=== PATIENT | female | born 1985 | race Caucasian/White ===

== ENCOUNTER 2024-01-26 06:54 | Observation (INO) | payer OTHER, SELFPAY ==
[2024-01-26] VITALS (70 sets, daily range): BP systolic 85–120; BP diastolic 50–69; PULSE 68–96; TEMP 36.2–36.9; O2SAT 84–100; BMI 38.3
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
[2024-01-26 07:26] LABS: Bilirubin Urine NEGATIVE (NEGATIVE); Blood Urine NEGATIVE (NEGATIVE); Clarity Urine CLEAR (CLEAR); Color Urine LT. YELLOW (YELLOW); Glucose Urine UA NEGATIVE (NEGATIVE); Ketones Urine NEGATIVE (NEGATIVE); Leukocyte Esterase Urine MODERATE (NEGATIVE); Nitrite Urine NEGATIVE (NEGATIVE); Protein Urine NEGATIVE (NEG/TRACE); Specific Gravity Urine 1.025 (1.005-1.025); Urobilinogen Urine 0.2 EU/dL (0.2-1.0); pH Urine 6.5 (5.0-9.0)
[2024-01-26 07:30] LABS: Urine Microscopic Indicated YES
[2024-01-26 07:37] LABS: Cast Seen? NONE SEEN #/LPF (NONE SEEN); Crystals Seen? None Seen #/HPF (None Seen); Mucus Urine MODERATE (NONE SEEN); RBC Urine 0-2 #/HPF (0-2); Squamous Epithelial Cell Urine MODERATE #/LPF (NONE/RARE)
[2024-01-26 07:38] LABS: Bacteria Urine SMALL #/HPF (NONE SEEN); Urine Culture Indicated YES
[2024-01-26] MEDS: ACETAMINOPHEN 500 MG TABLET 1000 MG PO ×3 (08:16→23:48)
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
[2024-01-26] MEDS: NALBUPHINE HCL 10 MG/ML AMPULE IM (10:32)
[2024-01-26] MEDS: ONDANSETRON 4 MG RAPDIS TABLET 8 MG SL (10:32)
--- NOTE | 2024-01-26 11:10 | US_ITS ---
[address] [address] Patient Name: VENANCIO MOON MRN: [id number] date: 1985 Sex: F Assigned Patient Location: [facility] Current Patient Location: [facility] Accession/Order Number: [id number] Exam Date: 01/26/2024 18:55 Report Date: 01/26/2024 21:35 At the request of: KATARZYNA BORREGO Procedure: US OB cervical length Limited TRANSVAGINAL PELVIC SONOGRAPHY FOR CERVICAL LENGTH, 01/26/2024 6:55 PM EST. CLINICAL HISTORY: check previa COMPARISON: None FINDINGS: Visualized head is in a cephalic presentation with longitudinal lie. Normal active movement during imaging. The cervix is closed with a length of 4 cm. There is a low lying placenta approximately 1.6 cm from the internal cervical os. US/US OB cervical length IMPRESSION: 1. Low-lying placenta 1.6 cm from the internal cervical os. 2. The cervix is closed with a length of 4 cm. 3. Live intrauterine in a cephalic presentation with longitudinal lie. Electronically authenticated by: Meng CAMPA Date: 01/26/2024 21:35
[2024-01-26] MEDS: 0.9 % SODIUM CHLORIDE 1,000 ML 75 ML IV ×2 (11:42→18:51)
--- NOTE | 2024-01-26 11:47 | ECG_ITS ---
[facility] Test Date: 2024-01-26 Pat Name: VENANCIO MOON Department: Room: [facility] Gender: Female Production Internship: : 1985 Requested By: KATARZYNA BORREGO Order Number: [id number] Reading MD: JULIOCESAR ORTIZ Measurements Intervals [place] Rate: 80 P: 67 LA: 113 QRS: 52 QRSD: 84 T: 44 QT: 414 QTc: 479 Interpretive Statements SINUS RHYTHM WITH SHORT LA INTERVAL No previous ECG available for comparison Electronically Signed On 01-26-2024 16:45:49 EST by JULIOCESAR ORTIZ
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
[2024-01-26] MEDS: LORAZEPAM 2 MG/ML VIAL 1 MG IV (12:31)
[2024-01-26] MEDS: MAGNESIUM-BOLUS FROM THE BAG- 40 GM/1,000 ML IV.SOLN IV (12:38)
[2024-01-26 12:45] LABS: Basophils Percent Auto 0.2 % (0.2-2.0); Eosinophils Percent Auto 0.4 % (0.9-7.0); Hematocrit 34.3 % (36.0-48.0); Hemoglobin 11.9 g/dL (12.0-16.0); Immature Granulocytes Abs Auto 0.02 10^3/uL (0.00-0.03); Immature Granulocytes Pct Auto 0.2 % (0.0-0.5); Lymphocytes Absolute Auto 1.6 10^3/uL (1.2-3.8); Lymphocytes Percent Auto 18.6 % (20.5-60.0); Mean Corpuscular HGB Conc 34.7 g/dL (29.9-35.2); Mean Corpuscular Hemoglobin 30.1 pg (26.7-34.0); Mean Corpuscular Volume 86.8 fL (81.0-99.0); Mean Platelet Volume 10.3 fL (9.5-13.5); Monocytes Absolute Auto 0.5 10^3/uL (0.3-0.8); Monocytes Percent Auto 6.4 % (1.7-12.0); Neutrophils Absolute Auto 6.2 10^3/uL (1.4-6.5); Neutrophils Percent Auto 74.2 % (43.0-75.0); Platelet Count 156 10^3/uL (150-450); Red Blood Count 3.95 10^6/uL (4.20-5.40); Red Cell Distribution Width 12.2 % (11.0-15.0); White Blood Count 8.3 10^3/uL (4.0-11.0)
[2024-01-26] MEDS: MAGNESIUM SULFATE IN WATER 40 GM/1,000 ML IV.SOLN IV (12:59)
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
[2024-01-26 13:03] LABS: Alanine Aminotransferase 16 U/L (14-59); Albumin Globulin Ratio 0.6; Albumin Level 2.4 g/dL (3.4-5.0); Alkaline Phosphatase 66 U/L (46-116); Anion Gap 15.9; Aspartate Amino Transferase 13 U/L (15-37); BUN Creatinine Ratio 9.5; Bilirubin Total 0.3 mg/dL (0.2-1.0); Calcium 8.3 mg/dL (8.5-10.1); Carbon Dioxide 22.8 mmol/L (21.0-32.0); Chloride 105 mmol/L (98-107); Estimated GFR (African America >60 (>=60 mL/min/1.73m^2); Estimated GFR (Non-African Ame >60 (>=60 mL/min/1.73m^2); Globulin 3.7 g/dL; Glucose 94 mg/dL (74-106); Potassium 3.7 mmol/L (3.5-5.1); Sodium 140 mmol/L (136-145); Total Protein 6.1 g/dL (6.4-8.2)
[2024-01-26] MEDS: ONDANSETRON PF 4 MG/2 ML VIAL IV (14:00)
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
[2024-01-26 15:39] LABS: Amphetamine Screen Urine NEGATIVE (NEGATIVE); Barbiturates Screen Urine NEGATIVE (NEGATIVE); Benzodiazepines Screen Urine NEGATIVE (NEGATIVE); Buprenorphine Screen Urine NEGATIVE (NEGATIVE); Cannabinoid Screen Urine NEGATIVE (NEGATIVE); Cocaine Screen Urine NEGATIVE (NEGATIVE); Methadone Screen Urine NEGATIVE (NEGATIVE); Methamphetamines Screen Urine NEGATIVE (NEGATIVE); Opiate Screen Urine NEGATIVE (NEGATIVE); Oxycodone Screen Urine NEGATIVE (NEGATIVE); Phencyclidine Screen Urine NEGATIVE (NEGATIVE); Tricyclic Antidepressant Urine NEGATIVE (NEGATIVE)
--- NOTE | 2024-01-26 15:41 | PC.NURSE ---
1121- RN at bedside and adjusts US transducer. Patient continues to c/o headache, nausea, and dizziness. Patient pale and diaphoretic. Cool wash rag provided, RN providing reassurance, and emesis bag provided. 1127- Dr. Vazquez called and notified of persistent headache, nausea and dizziness. Orders received to obtain IV access, start NS 0.9% bolus, and if patient willing Phenergan 12.5mg IV x1 dose. Dr. Vazquez arrives to unit from surgery. 1130- RN to bedside. Upon entering room patient actively convulsing and unresponsive. Assistance requested. Dr. Vazquez and RN x3 to bedside. Patient already on right side, RN supporting patient airway and protecting patient from injury. 1131-Dr. Vazquez orders to administer Ativan 1mg IV now, obtain 12 lead EKG, continuous vital signs with [place] and ECHO. Order read back and verified. 1132- 20g IV RAC access obtained and NS 0.9% initiated at 999mL/hr. 1133- Seizure activity resolved at this time. Oriented x3 but drowsy. Dr. Vazquez and RN x3 remain at bedside. Orders given to hold Ativan administration. Order read back and verified. 1145- EKG patches, BP cuff, and continuous SpO2 applied to monitor patient vital signs continuously per physician order. Seizure pads applied to bed and lights dimmed. 1150- Cardiopulmonary services at bedside to obtain 12 lead EKG. RN remains at bedside. 1203- 2L O2 initiated via non-rebreather mask for Spo2 of 92% on RA. 1230- Seizure activity noted. RN at bedside and assistance requested. RN x3 arrive to bedside. RN supporting airway and protecting patient from injury. 1231- Dr. Vazquez in surgery and called back over to bedside. Ativan 1mg administered per Dr. Vazquez?s orders. Dr. Vazquez orders to initiate Mag sulfate 2gm bolus followed by 2gm/hr dose via IV, place champagne catheter, Valium 5mg IV prn, and CT scan of head/brain. 1233- Seizure activity resolved at this time. Patient slow to respond. Oriented x3 but drowsy. 1238- Magnesium Sulfate 2gm bolus initiated per MAY. 1239- 20g IV L hand initiated. Labs drawn with IV start. 1300- Family of patient updated with patient consent. 1328- Patient downstairs for CT scan. 1345- Patient back to room from CT scan. [id number]: This RN remains at bedside throughout this time. Continuous monitoring continued.
[2024-01-26] MEDS: PROMETHAZINE HCL 12.5 MG in 0.9 % SODIUM CHLORIDE 50 ML 202 MG IV (17:13)
[2024-01-26] MEDS: CYCLOBENZAPRINE HCL 10 MG TABLET 5 MG PO (23:49)
[2024-01-27 05:12] VITALS: BP 70/47
[2024-01-27 05:14] VITALS: BP 75/37
--- NOTE | 2024-01-27 05:23 | PC.NURSE ---
Pt denies need for pain medication at this time.
--- NOTE | 2024-01-27 07:10 | W.PC.ACHO ---
Registration Status: ADM MALICK Primary Language: Preferred Language: Report given to Mónica MERCADO at 1907. Active Medications Generic Name Dose Route Start Last Admin Trade Name Freq PRN Reason Stop Dose Admin Acetaminophen 1,000 mg 01/26/24 08:01 01/26/24 23:48 Acetaminophen 500 Mg Tablet PO 1,000 mg Q6H PRN Administration Pain Calcium Gluconate 1,000 mg 01/26/24 12:41 Calcium Gluconate 1,000 Mg/10 Ml Vial IVP ONCE PRN MAGNESIUM TOXICITY Cyclobenzaprine HCl 5 mg 01/26/24 20:44 01/26/24 23:49 Cyclobenzaprine Hcl 10 Mg Tablet PO 5 mg TID PRN Administration Pain Diazepam 5 mg 01/26/24 12:20 Diazepam 10 Mg/2 Ml Syringe IV Q4H PRN Seizure Activity Sodium Chloride 1,000 mls @ 75 mls/hr 01/26/24 13:00 01/26/24 19:45 Sodium Chloride 0.9% 1,000 Ml IV 0 mls/hr .[id number] [facility] Infusion Magnesium Sulfate 40 gm in 1,000 mls @ 50 mls/hr 01/26/24 13:00 01/26/24 19:00 Magnesium Sulf 40 G/1,000 Ml IV 0 mls/hr Q20H [facility] Infusion Lorazepam 1 mg 01/26/24 12:09 01/26/24 12:31 Lorazepam 2 Mg/Ml Vial IV 1 mg Q10M PRN Administration Anxiety Ondansetron HCl 4 mg 01/26/24 12:20 01/26/24 14:00 Ondansetron Pf 4 Mg/2 Ml Vial IV 4 mg Q4H PRN Administration Nausea IV Insertion/Site Date of IV Line Insertion [ 01/26/24 Short PIV (<1.75 in) 20g left Hand] Date of IV Line Insertion [ 01/26/24 Short PIV (<1.75 in) 20g right Antecubital] IV Insertion Time [Short PIV ( 12:39 <1.75 in) 20g left Hand] IV Insertion Time [Short PIV ( 11:32 <1.75 in) 20g right Antecubital] Neurology Madi coma scale total score 15 Respiratory Pulse Oximetry 96 Pulse Oximetry 96 Pulse Oximetry 96 Pulse Oximetry 100 Pulse Oximetry 100 Pulse Oximetry 100 Pulse Oximetry 100 Pulse Oximetry 100 Pulse Oximetry 99 Pulse Oximetry 100 Pulse Oximetry 94 Pulse Oximetry 92 Pulse Oximetry 84 Pulse Oximetry 99 Pulse Oximetry 99 Pulse Oximetry 100 Pulse Oximetry 99 Pulse Oximetry 99 Pulse Oximetry 98 Pulse Oximetry 100 Pulse Oximetry 100 Pulse Oximetry 100 Pulse Oximetry 99 Pulse Oximetry 100 Pulse Oximetry 99 Pulse Oximetry 99 Pulse Oximetry 97 Pulse Oximetry 100 Pulse Oximetry 100 Pulse Oximetry 100 Pulse Oximetry 100 Pulse Oximetry 100 Pulse Oximetry 99 Pulse Oximetry 100 Pulse Oximetry 99 Pulse Oximetry 100 Pulse Oximetry 99 Pulse Oximetry 99 Pulse Oximetry 97 Pulse Oximetry 98 Pulse Oximetry 99 Pulse Oximetry 97 Pulse Oximetry 93 Pulse Oximetry 97 Pulse Oximetry 97 Pulse Oximetry 98 Pulse Oximetry 97 Pulse Oximetry 96 Pulse Oximetry 97 Pulse Oximetry 99 Pulse Oximetry 98 Pulse Oximetry 97 Pulse Oximetry 98 Pulse Oximetry 98 Pulse Oximetry 96 Pulse Oximetry 97 Pulse Oximetry 96 Pulse Oximetry 97 Pulse Oximetry 97 Pulse Oximetry 98 Pulse Oximetry 98 Pulse Oximetry 95 Pulse Oximetry 96 Pulse Oximetry 96 Oxygen Delivery Method Room Air Oxygen Delivery Method Room Air Oxygen Delivery Method Room Air Oxygen Delivery Method Room Air Cardiology Heart Sounds Strong,Regular Heart Sounds Strong,Regular Heart Sounds Strong,Regular Bowels Bowel Pattern No Bowel Movement
--- NOTE | 2024-01-27 08:13 | PM.OBPN ---
OB - PN: Subj Subjective Patient comments: no complaints and pain well controlled [place] status: doing well Exam Constitutional Vital Signs, click to edit/add: Last Vital Signs Temp 97.1 F L 01/26/24 23:45 Pulse 75 01/26/24 23:47 Resp 14 01/27/24 05:00 BP 75/37 L 01/27/24 05:14 Pulse Ox 96 01/26/24 23:47 O2 Del Method Room Air 01/27/24 05:00 Documenting provider has reviewed patient's vital signs: yes Respiratory Common normals: normal respiratory effort and clear to auscultation bilaterally Cardio Common normals: regular rate and regular rhythm GI Common normals: Normal to inspection, nondistended, normoactive bowel sounds present Extremity Common normals: no clubbing, cyanosis or edema Results Labs Labs: Short CBC 01/26/24 Range/Units 12:40 WBC 8.3 (4.0-11.0) 10^3/uL Hgb 11.9 L (12.0-16.0) g/dL Hct 34.3 L (36.0-48.0) % Plt Count 156 (150-450) 10^3/uL BMP 01/26/24 12:40 Sodium 140 Potassium 3.7 Chloride 105 Carbon Dioxide 22.8 BUN 8.0 Creatinine 0.84 Glucose 94 Calcium 8.3 L Liver Function 01/26/24 Range/Units 12:40 Total Bilirubin 0.3 (0.2-1.0) mg/dL AST 13 L (15-37) U/L ALT 16 (14-59) U/L Alkaline Phosphatase 66 (46-116) U/L Albumin 2.4 L (3.4-5.0) g/dL OB - PN: A/P Assessment and Plan (1) New onset seizure without head trauma: Assessment and Plan: pt doing well, will dc home, pt will follow up with primary ob, will obtain neurology referral, labs and ultrasound and ct scan reviewed (2) POTS (postural orthostatic tachycardia syndrome): (3) Vasovagal syncope: (4) Intrauterine : Time Spent with Patient Time: Total time spent is greater than 50% in coordination of care (as documented) at patient's floor/unit and/or counseling patient: Total time spent with greater than 50% in coordination of care (as documented) at patient's floor/unit and/or counseling patient: less than 15 minutes
[2024-01-27 08:25] VITALS: BP 104/58; PULSE 71; TEMP 36.4; O2SAT 97
[2024-01-27] MEDS: ACETAMINOPHEN 500 MG TABLET 1000 MG PO (08:29)
== END 2024-01-27 10:45 | disposition home or self-care (01) ==
LOC: ER 07:30 → FBC 07:32
PROVIDERS: Family Medicine; Midwife; Admitting Provider Obstetrics & Gynecology; Emergency Provider Emergency Medicine; Visit Provider Obstetrics & Gynecology
DX: O26.892 Other specified pregnancy related conditions, second trimester (principal); R55 Syncope and collapse; O99.352 Diseases of the nervous system complicating pregnancy, second trimester; G90.A Postural orthostatic tachycardia syndrome [POTS]; Z3A.26 26 weeks gestation of pregnancy
CPT/HCPCS: 36415; 51702; 59025; 70450; 76815; 76817; 76818; 80053; 80307; 81001; 85025; 85460; 87086; 93005; 93308; 96365; 96366; 96368; 96372; 96375; 96376; 99283; G0378; J2060; J2250; J2300; J2405; J3475; Q0162

== ENCOUNTER 2024-03-28 20:36 | Inpatient (IN) | payer OTHER, SELFPAY ==
--- OUTSIDE RECORDS SUMMARY | 2024-03-28 20:42 | XMS_ITS | CCD ---
Author Organization [facility] Inform ion Partnership [facility] Care Team Providers Care Patient Scheduler Name Role Phone STEPHAN YORK Unavailable Unavailable STEPHAN YORK Unavailable Unavailable SAV BUCHANAN Unavailable Unavailable INDURTI, GLORIA V Admitting Unavailable KENURTI, GLORIA V Attending Unavailable ALLEN GARY Referring Unavailable SAV BUCHANAN Primary Care Unavailable Unavailable Unavailable Unavailable Sav Buchanan Primary Care Provider AUSTIN PINEDA Attending Unavailable HARDY ROLLE Admitting Unavailable SELF, REFERRED Referring Unavailable SELF, REFERRED Primary Care Unavailable Malu Gomes Primary Care Provider Pcp, No Primary Care Provider Unavailford e Sav Buchanan MD Primary Care Provider Dennis ZARCO Stephanie PUGH Primary Care Provide r MD JOSEPH RIOJAS Consulting Unav ailable JANICE MARIE Attending Unavailable SAV BUCHANAN Primary Care Unavailable SAV BUCHANAN Consulting Unavailable Unknown, Pcp Unavailable Unavailable Michael Spencer Unavailable Unavailable Sav Buchanan MD Primary Care Provider Stephanie Olguin APRN, CNP Primary Care Provide r Sav Buchanan MD Primary Care Provider [phone] LENA JO Attending Unavailable BRENDA YORK Referring Unavailable SAV BUCHANAN Primary Care Unavailable LAMONT SMITH Attending Unavailable BRENDA YORK Referring Unavailable SAV BUCHANAN Primary Care Unavailable BRENDA YORK Attending Unavailable BRENDA YORK Referring Unavailable SAV BUCHANAN Primary Care Unavailable BRENDA YORK Attending Unavailable SELF, SELF Referring Unavailable SAV BUCHANAN Primary Care Unavailable LAMONT SMITH Attending Unavailable BRENDA YORK Referring Unavailable GASE, SAV Primary Care Unavailable LAMONT SMITH Attending Unavailable BRENDA YORK Referring Unavailable SAV BUCHANAN Primary Care Unavailable MD Sav Buchanan Primary Care Provider ISABEL Tsang Emergency Provider [phone] Sav Buchanan MD Primary Care Provider Sav Buchanan MD Primary Care Provider Sav Buchanan MD Primary Care Provider MD Sav Buchanan Primary Care Provider [phone] DO Ignacio Nielsen Jr Attending Provider [phone] Jah Rene Unavailable MD Sav Buchanan Primary Care Provider DO Nader Arroyo Attending Provider Sav Buchanan Primary Care Unavailable Arie Tsang Admitting Unavailable Arie Tsang Attending Unavailable Ignacio Nielsen Jr Admitting Unavailable Ignacio Nielsen Jr Attending Unavailable Sav Buchanan Primary Care Unavailable Nader Arroyo Admitting Unavailable Nader Arroyo Attending Unavailable Sav Buchanan Primary Care Unavailable MD Sav Buchanan [facility] Grace Thornton Emergency Provider MD Sav Buchanan Primary Care Provider MD Nga Garcia Emergency Provider MD Ranulfo Ghotra Admit Provider [phone] MD Ranulfo Ghotra Attending Provider [phone] Parrish Flores MD Primary Care Provider [phone] Sav Buchanan MD Primary Care Provider Nga Garcia MD Emergency Provider Ranulfo Ghotra MD Attending Provider ZaidPsychiatric Nader KAMARA Attending Provider Unavailable Primary Care Provider UnavailSav Atkins MD Primary Care Provider Sonia Padilla APRN Attending Provider [phone] NO FAMILY, PHYSICIAN Primary Care Provider Unava ilAgatha Sol DO Attending Provider Sav Buchanan Primary Care Unavailable [facility], Nader P Attending Unavailable [facility], Nader P Admitting Unavailable Sav Buchanan Primary Care Unavailable Ranulfo Ghotra Attending Unavailable Ranulfo Ghotra Admitting Unavailable Agatha Bowling Admitting Unavailable Agatha Bowling Attending Unavailable NO FAMILY, PHYSICIAN Primary Care Unavailable Sav Buchanan Primary Care Unavailable Bullimore, Mary Grace E Attending Unavailable Bullimore, Mary Grace E Admitting Unavailable Sonia Padilla Admitting Unavailable Sonia Padilla Attending Unavailable ANTONIO GE Attending Unavailable SECOR, PARRISH W Primary Care Unavailable STEPHAN YORK Admitting Unavailabl e MP, STEPHAN MICHAEL Attending Unavailabl e SECOR, PARRISH W Primary Care Unavailable STEPHAN YORK Admitting Unavailabl STEPHAN Major Attending Unavailabl e SECOR, PARRISH W Primary Care Unavailable MENDOZA, GERARDO E Admitting Unavailable MENDOZA GERARDO E Attending Unavailable SECOR, PARRISH W Primary Care Unavailable MARIANA GARZA Referring Unavail able SECOR, PARRISH W Primary Care Unavailable FIFI, JUSTEEN Referring Unavailable SECOR, PARRISH W Primary Care Unavailable MARIANA GARZA Referring Unavail able SECOR, PARRISH W Primary Care Unavailable MARIANA GARZA Referring Unavail able SECOR, PARRISH W Primary Care Unavailable MARIANA GARZA Referring Unavail able SECOR, PARRISH W Primary Care Unavailable POOL, AGATHA E Admitting Unavailable MARIANA GARZA Attending Unavail able SECOR, PARRISH W Primary Care Unavailable FIFI, JUSTEEN Admitting Unavailable FIFI, JUSTEEN Attending Unavailable SECOR, PARRISH W Primary Care Unavailable D'ABREAU ARTEM Admitting Unavailable D'ABREAU ARTEM Attending Unavailable SECOR, PARRISH W Primary Care Unavailable POOL, AGATHA E Admitting Unavailable POOL, AGATHA E Attending Unavailable SECOR, PARRISH W Primary Care Unavailable D'ABREAU, ARTEM Admitting Unavailable D'ABREAUARTEM Attending Unavailable SECOR, PARRISH W Primary Care Unavailable ANTONIO GE Attending Unavailable PARRISH FLORES Primary Care Unavailable Allergies Allergy Classification Reported Allergen(s) Allergy Type Date of Onset Reaction(s) Facility Acetaminophen / HYDROcodone (3 sources) Acetaminophen / HYDROcodone Drug Allergy 3 Nausea And Vomiting [facility] (20 sources) Acetaminophen / HYDROcodone Drug Allergy 3 Nausea And Vomiting [facility] Work Phone: (1 source) Acetaminophen / HYDROcodone; Translations: [Vicodin] Drug Allergy [facility] [place] Repository Medications Current Medications Medication Drug Class(es) Dates Sig (Normalized) Sig (Original) albuterol sulfate HFA 108 (90 Base) MCG/ACT inhaler 6 puff (1 source) Start: 12-13-2019 albuterol sulfate HFA 108 (90 Base) MCG/ACT inhaler 6 puff ALPRAZolam 0.25 mg oral tablet (20 sources) Benzodiazepine Start: 08-05-2021 End: 02-06-2024 take 1 tablet by mouth once daily as needed for anxiety ALPRAZolam (XANAX) 0.25 MG tablet TAKE 1 TABLET BY ORAL ROUTE UP TO ONCE DAILY NEEDED FOR ACUTE ANXIETY 08/05/2021 02/06/2024 Discontinued (Stop Taking at Discharge) Start: 01-28-2021 ALPRAZolam (XA NAX) 0.25 MG tablet as needed. 0 01/28/2021 Active Start: 03-13-2019 End: 03-13-2019 ALPRAZolam (XANAX) tablet 0. 5 mg Start: 06-13-2018 ALPRAZolam (XA NAX) 0.25 MG tablet Xanax Active amoxicillin 875 mg oral tablet (1 source) Penicillin-class Antibacterial Start: 01-06-2023 take 1 tablet by mouth every twelve hours Amoxicillin 875 MG 1 tablet Orally Twice a day for 10 day(s) Jan, Active benzonatate 200 mg oral capsule (1 source) Non-narcotic Antitussive Start: 01-06-2023 take 1 capsule by mouth every eight hours Benzonatate 200 MG 1 capsule Orally Three times a day for 10 Jan, Active 12 hr buPROPion hydrochloride 150 mg extended release oral tablet (1 source) Aminoketone take 1 tablet by mouth twice daily buPROPion (WELLBUTRIN SR) 150 MG extended release tablet Take 150 mg by mouth 2 times daily 0 Active busPIRone hydrochloride 30 mg oral tablet (15 sources) Start: 09-02-2021 busPIRone (BUSPAR) 30 MG tablet Start: 09-29-2020 take 1 tablet by courtney once daily busPIRone (BUSPAR) 30 MG tablet Take 30 mg by mouth daily 0 09/29/2020 Active Start: 03-15-2019 take 3 tablets by mo [facility] twice daily busPIRone (BUSPAR) 10 MG tablet Take 3 tablets by mouth 2 times daily 60 tablet 0 03/15/2019 Active take 1 tablet by courtney twice daily busPIRone (BUSPAR) 10 MG tablet Take 10 mg by mouth 2 times daily 0 Active cefdinir 300 mg oral capsule (2 sources) Cephalosporin Antibacterial Start: 12-22-2023 End: 12-29-2023 take 1 capsule by mouth twice daily cefdinir (OMNICEF) 300 MG capsule Take 1 capsule by mouth 2 times daily for 7 days 14 capsule 12/22/2023 12/29/2023 Active Start: 12-22-2023 End: 12-22-2023 take 1 dose by mouth once 300 mg, Oral, ONCE, 1 dose, On Yana 12/22/23 at 1100, Antimicrobial Indications: Urinary Tract Infection cloNIDine hydrochloride 0.2 mg oral tablet (14 sources) Central alpha-2 Adrenergic Agonist Start: 08-04-2021 cloNIDine (CATAPRES) 0.2 MG tablet 0.2 mg as needed 0 09/02/2021 Active take 1 tablet by mouth twice greg ly cloNIDine (CATAPRES) 0.2 MG tablet Take 0.2 mg by mouth 2 times daily 0 Active codeine phosphate 2 mg/ml / guaiFENesin 20 mg/ml oral solution (1 source) Opioid Agonist Start: 12-13-2019 End: 12-16-2019 take 5 mL by mouth three times daily as needed for cough guaiFENesin-codeine (GUAIFENESIN AC) 100-10 MG/5ML liquid Indications: Acute viral bronchitis Take 5 mLs by mouth 3 times daily as needed for Cough for up to 3 days. 45 mL 0 12/13/2019 12/16/2019 Active 24 hr dilTIAZem hydrochloride 120 mg extended release oral capsule (1 source) Calcium Channel Maia Start: 09-02-2021 dilTIAZem (CARDIZEM CD) 120 MG extended release capsule doxepin hydrochloride 10 mg oral capsule (3 sources) Tricyclic Antidepressant Start: 03-15-2019 take 1 capsule by mouth once daily doxepin (SINEQUAN) 10 MG capsule Take 1 capsule by mouth nightly 30 capsule 0 03/15/2019 Active doxycycline hyclate 100 mg oral tablet (2 sources) Tetracycline-class Drug Start: 10-09-2020 End: 10-16-2020 take 1 tablet by mouth twice daily at mealtime doxycycline hyclate (VIBRA-TABS) 100 MG tablet Indications: Cellulitis of face Take 1 tablet by mouth 2 times daily for 7 days . Take with food and full glass of water. 14 tablet 0 10/09/2020 10/16/2020 Active escitalopram 20 mg oral tablet (15 sources) Serotonin Reuptake Inhibitor Start: 03-20-2022 escitalopram (LEXAPRO) 20 MG tablet Start: 03-16-2019 take 1 tablet by courtney th once daily escitalopram (LEXAPRO) 10 MG tablet Take 1 tablet by mouth daily 30 tablet 0 03/16/2019 Active Start: 02-07-2018 take 1 tablet by courtney th once daily escitalopram (LEXAPRO) 5 MG tablet 1 tabs, Oral, Daily, 0 Refill(s) 0 02/07/2018 Active 120 actuat fluticasone propionate 0.044 mg/actuat metered dose inhaler (2 sources) Corticosteroid Start: 01-19-2021 take 2 puff(s) by inhalation twice daily fluticasone (FLOVENT HFA) 44 MCG/ACT inhaler Inhale 2 puffs into the lungs 2 times daily 1 each 3 01/19/2021 Active gabapentin 300 mg oral capsule (18 sources) Anti-epileptic Agent Start: 08-04-2021 gabapentin (NEURONTIN) 300 MG capsule 300 mg 3 times daily. Pt. Takes PRN 0 09/01/2021 Active take 1 capsule by mo uth three times daily as needed gabapentin (NEURONTIN) 300 MG capsule Ta ke 300 mg by mouth 3 times daily. prn 0 Active ibuprofen 600 mg oral tablet (11 sources) Nonsteroidal Anti-inflammatory Drug Start: 02-09-2023 End: 02-06-2024 take 1 tablet by mouth three times daily as needed for pain ibuprofen (ADVIL;MOTRIN) 600 MG tablet Take 1 tablet by mouth 3 times daily as needed for Pain 30 tablet 02/09/2023 02/06/2024 Discontinued (Stop Taking at Discharge) Start: 09-30-2021 ibuprofen (ADV IL;MOTRIN) 800 MG tablet take 4 tablets by mo uth every six hours as needed for pain ibuprofen (ADVIL;MOTRIN) 200 MG tablet Take 800 mg by mouth every 6 hours as needed for Pain 0 Active metFORMIN hydrochloride 500 mg oral tablet (6 sources) Biguanide Start: 03-03-2023 take 1 tablet by mouth twice daily at mealtime metFORMIN (GLUCOPHAGE) 500 MG tablet Indications: PCOS (polycystic ovarian syndrome) Take 1 tablet by mouth 2 times daily (with meals) 60 tablet 12 03/03/2023 Active Start: 07-01-2022 take 1 tablet by courtney th twice daily at mealtime metFORMIN (GLUCOPHAGE) 500 MG tablet Indications: PCOS (polycystic ovarian syndrome) Take 1 tablet by mouth 2 times daily (with meals) 60 tablet 12 07/01/2022 Active midodrine hydrochloride 10 mg oral tablet (2 sources) alpha-Adrenergic Agonist Start: 02-12-2021 take 1 tablet by mouth twice daily midodrine (PROAMATINE) 10 MG tablet Indications: Syncope and collapse , POTS (postural orthostatic tachycardia syndrome) , Abnormal tilt table test , Neurocardiogenic syncope Take 1 tablet by mouth 2 times daily 180 tablet 3 02/12/2021 Active mupirocin 0.02 mg/mg topical ointment (2 sources) RNA Synthetase Inhibitor Antibacterial Start: 10-09-2020 End: 10-16-2020 mupirocin (BACTROBAN) 2 % ointment Apply topically 3 times daily. 1 Tube 1 10/09/2020 10/16/2020 Active nitrofurantoin, macrocrystals 25 mg / nitrofurantoin, monohydrate 75 mg oral capsule (5 sources) Nitrofuran Antibacterial Start: 02-06-2024 End: 02-11-2024 take 1 capsule by mouth twice daily nitrofurantoin, macrocrystal-monohyd rate, (MACROBID) 100 MG capsule Take 1 capsule by mouth 2 times daily for 5 days 10 capsule 02/06/2024 02/11/2024 Active Start: 02-06-2024 End: 02-06-2024 100 mg, Oral, ONCE, 1 dose, On 02/06/24 at 0845, Antimicrobial Indications: Urinary Tract Infection, UTI duration of therapy: 7 days Start: 01-17-2024 End: 01-22-2024 take 1 capsule by mouth twice daily nitrofurantoin, macrocrystal-monohydrate, (MACROBID) 100 MG capsule Take 1 capsule by mouth 2 times daily for 5 days 10 capsule 01/17/2024 01/22/2024 Active Start: 12-29-2023 End: 01-05-2024 take 1 capsule by mouth twice daily nitrofurantoin, macrocrystal-monohydrate, (MACROBID) 100 MG capsule Indications: Cloudy urine Take 1 capsule by mouth 2 times daily for 7 days 14 capsule 12/29/2023 01/05/2024 Active nitroglycerin 0.3 mg sublingual tablet (1 source) Nitrate Vasodilator Start: 01-08-2021 nitroGLYCE RIN (NITROSTAT) SL tablet 0.3 mg nystatin 100 unt/mg topical ointment (8 sources) Polyene Antifungal Start: 02-19-2024 KLAYESTA 10 0000 UNIT/GM powder 02/19/2024 Active Start: 02-19-2024 nystatin (MYCO STATIN) [id number] UNIT/GM ointment 02/19/2024 Active Start: 02-19-2024 Nystatin 100,0 00 unit/gram powder Active 1 APPLIC TOPICAL Twice daily as needed for rash February 19, 2024 9:12am Start: 02-19-2024 Nystatin 100,0 00 unit/gram ointment Active 1 APPLIC TOPICAL Twice daily as needed for rash February 19, 2024 9:12am omeprazole 20 mg delayed release oral capsule (3 sources) Proton Pump Inhibitor Start: 10-19-2021 take 1 capsule by mouth once daily omeprazole [address] capsule Take 1 capsule by mouth daily. 30 capsule 2 10/19/2021 Active 24 hr oxybutynin chloride 10 mg extended release oral tablet (2 sources) Cholinergic Muscarinic Antagonist Start: 08-26-2021 take 1 tablet by mouth once daily oxybutynin (DITROPAN-XL) 10 MG extended release tablet Indications: Urinary frequency TAKE 1 TABLET BY MOUTH EVERY DAY 30 tablet 5 08/26/2021 Active Start: 08-04-2021 take 1 tablet by courtney th once daily oxybutynin (DITROPAN XL) 10 mg extended release tablet Indications: Urinary frequency Take 1 tablet by mouth daily 30 tablet 5 08/04/2021 Active phentermine hydrochloride 37.5 mg oral tablet (3 sources) Sympathomimetic Amine Anorectic Start: 07-01-2022 End: 08-21-2022 take 1 tablet by mouth once daily before breakfast phentermine (ADIPEX-P) 37.5 MG tablet Indications: Obesity (BMI 35.0-39.9 without comorbidity) Take 1 tablet by mouth every morning (before breakfast) for 30 days. Max Daily Amount: 37.5 mg 30 tablet 0 07/22/2022 08/21/2022 Active Start: 08-04-2021 End: 09-03-2021 take 1 tablet by mouth once daily before breakfast phentermine (ADIPEX-P) 37.5 MG tablet Indications: Obesity, Class III, BMI 40-49.9 (morbid obesity) ([facility]) Take 1 tablet by mouth every morning (before breakfast) for 30 days. 30 tablet 0 08/04/2021 09/03/2021 Active Pnv No.[id number] sh ( Gummies) 400 mcg-35 mg- 25 mg-5 mg tablet,chewable (7 sources) Start: 11-05-2023 take 1 tablet by mouth once daily Pnv No.[id number]-Mca-Tcix ( Gummies) 400 mcg-35 mg- 25 mg-5 mg tablet,chewable Active 1 TAB PO Daily November 04, 2023 11:00pm Start: 11-05-2023 take 1 tablet by courtney th once daily Pnv No.[id number]-Ccok ( Gummies) 400 mcg-35 mg- 25 mg-5 mg tablet,chewable Active 1 TAB PO Daily November 05, 2023 12:00am prazosin 1 mg oral capsule (1 source) alpha-Adrenergic Maia Start: 02-07-2018 take 1 capsule by mouth at bedtime prazosin (MINIPRESS) 1 MG capsule 1 caps, Oral, HS (at bedtime), 0 Refill(s) 0 02/07/2018 Active Vit-Fe Fumarate-FA ( 19 PO) (10 sources) Vit-Fe Fumarate-FA ( 19 PO) Take by mouth Active propranolol hydrochloride 20 mg oral tablet (2 sources) beta-Adrenergic Maia Start: 02-09-2021 take 1 tablet by mouth once daily propranolol (INDERAL) 20 MG tablet TAKE 1 TABLET BY MOUTH EVERY DAY 30 tablet 3 02/09/2021 Active sertraline 50 mg oral tablet (4 sources) Serotonin Reuptake Inhibitor Start: 03-06-2024 take 1 tablet by mouth once daily sertraline (ZOLOFT) 50 MG tablet Take 1 tablet by mouth daily 90 tablet 1 03/06/2024 Active Start: 02-09-2024 take 1 tablet by courtney th once daily sertraline (ZOLOFT) 25 MG tablet Take 1 tablet by mouth daily 30 tablet 02/09/2024 Active 1000 ml sodium chloride 9 mg/ml injection (6 sources) Start: 01-21-2024 IntraVENous, a t 150 mL/hr, CONTINUOUS, Starting on 01/21/24 at 2215, After completion of bolus Start: 04-23-2022 End: 04-23-2022 0.9 % sodium chloride bolus Start: 12-21-2020 End: 12-21-2020 0.9 % sodium chloride bolus Start: 10-26-2020 0.9 % sodium c hloride infusion Start: 06-24-2020 End: 06-24-2020 0.9 % NaCl bolus terconazole 8 mg/ml vaginal cream (1 source) Azole Antifungal Start: 08-04-2021 End: 08-11-2021 terconazole (TERAZOL 3) 0.8 % vaginal cream Indications: Vaginal yeast infection Place vaginally nightly for 3 nights. Refill as needed for recurrent infection 1 each 3 08/04/2021 08/11/2021 Active traZODone hydrochloride 50 mg oral tablet (17 sources) Serotonin Reuptake Inhibitor Start: 08-04-2021 traZODone (DESYREL) 50 MG tablet Start: 03-15-2019 take 1 tablet by courtney th once daily as needed for sleep traZODone (DESYREL) 50 MG tablet Take 1 tablet by mouth nightly as needed for Sleep 30 tablet 0 03/15/2019 Active Completed/Discontinued Medications Medication Drug Class(es) Dates Sig (Normalized) Sig (Original) acetaminophen 500 mg oral tablet (20 sources) Start: 03-08-2024 End: 03-08-2024 take 4000 mg by mouth every twenty-four hours 1,000 mg, Oral, ONCE, 1 dose, On Yana 03/08/24 at 1315, Maximum dose of acetaminophen is 4000 mg from all sources in 24 hours. Start: 02-10-2024 1,000 mg, Oral , EVERY 8 HOURS PRN, Starting on 02/10/24 at 0918, Until Discontinued, Pain Mild (1-3), Maximum dose of acetaminophen is 4000 mg from all sources in 24 hours. Start: 02-05-2024 650 mg, Oral, EVERY 4 HOURS PRN, Starting on 02/05/24 at 2130, Until Discontinued, headache, Maximum dose of acetaminophen is 4000 mg from all sources in 24 hours. Start: 02-05-2024 End: 02-05-2024 take 4000 mg by mouth every twenty-four hours 650 mg, Oral, ONCE, 1 dose, On 02/05/24 at 1645, Maximum dose of acetaminophen is 4000 mg from all sources in 24 hours. Start: 01-14-2024 End: 01-14-2024 take 4000 mg by mouth every twenty-four hours 1,000 mg, Oral, ONCE, 1 dose, On 01/14/24 at 1745, Maximum dose of acetaminophen is 4000 mg from all sources in 24 hours. Start: 12-22-2023 End: 12-22-2023 take 4000 mg by mouth every twenty-four hours 650 mg, Oral, ONCE, 1 dose, On Yana 12/22/23 at 1000, Maximum dose of acetaminophen is 4000 mg from all sources in 24 hours. Start: 12-13-2019 End: 12-13-2019 acetaminophen (TYLENOL) tabl et 650 mg Start: 12-13-2019 End: 12-13-2019 acetaminophen (TYLENOL) tabl et 650 mg Start: 03-13-2019 End: 03-13-2019 acetaminophen (TYLENOL) tabl et 650 mg take 1 tablet by courtney every six hours as needed for pain acetaminophen (TYLENOL) 500 MG tablet Take 1 tablet by mouth every 6 hours as needed for Pain Active End: 02-10-2024 take 2 tablets by mouth every six hours as needed for pain acetaminophen (TYLENOL) 325 MG tablet Take 2 tablets by mouth every 6 hours as needed for Pain 02/10/2024 Discontinued (Stop Taking at Discharge) acetaminophen 325 mg / butalbital 50 mg / caffeine 40 mg oral tablet (1 source) Barbiturate, Central Nervous System Stimulant, Methylxanthine Start: 12-21-2020 End: 12-21-2020 fjyqtghvsf-qopgkyscvbqtx-nec feine (FIORICET, ESGIC) per tablet 1 tablet 200 actuat albuterol 0.09 mg/actuat dry powder inhaler (20 sources) beta2-Adrenergic Agonist Start: 05-09-2023 End: 11-05-2023 Albuterol Sulfate 90 mcg/act uation aerosol powdr breath activated Discontinued 2 INH INHALATION EVERY 4-6 HOURS as needed for shortness of breath or wheezing May 09, 2023 12:00am November 05, 2023 5:52pm Start: 01-06-2023 take 2 puff(s) by in halation every four hours as needed Albuterol Sulfate HFA 108 (90 Base) MCG/ACT 2 puffs as needed Inhalation every 4 hrs Jan, Active Start: 03-21-2022 End: 02-06-2024 albuterol sulfate HFA (PROVENTIL;VENTOLIN;PROAIR) 108 (90 Base) MCG/ACT inhaler 03/21/2022 02/06/2024 Discontinued (Stop Taking at Discharge) Start: 01-16-2021 take 2 puff(s) by in halation every six hours as needed for wheezing albuterol sulfate HFA (VENTOLIN HFA) 108 (90 Base) MCG/ACT inhaler Inhale 2 puffs into the lungs every 6 hours as needed for Wheezing or Shortness of Breath 1 each 3 01/16/2021 Active Start: 12-09-2020 take 2 puff(s) by in halation every six hours as needed for wheezing albuterol sulfate HFA (VENTOLIN HFA) 108 (90 Base) MCG/ACT inhaler Inhale 2 puffs into the lungs every 6 hours as needed for Wheezing or Shortness of Breath 1 each 1 12/09/2020 Active Start: 12-13-2019 take 2 puff(s) by in halation four times daily as needed for wheezing albuterol sulfate HFA (VENTOLIN HFA) 108 (90 Base) MCG/ACT inhaler Inhale 2 puffs into the lungs 4 times daily as needed for Wheezing 1 Inhaler 0 12/13/2019 Active Start: 12-13-2019 take 2 puff(s) by in halation four times daily as needed for wheezing albuterol sulfate HFA (VENTOLIN HFA) 108 (90 Base) MCG/ACT inhaler Inhale 2 puffs into the lungs 4 times daily as needed for Wheezing 1 Inhaler 0 12/13/2019 Active Albuterol Sulfat e HFA 108 (90 Base) MCG/ACT 2 puffs as needed Inhalation every 4 -6 hrs prn chest tightness for 10 days Not-Taking butenafine hydrochloride 10 mg/ml topical cream (10 sources) Benzylamine Antifungal Start: 02-01-2022 End: 11-05-2023 Butenafine (Lotrimin Ultra) 1 % cream Discontinued 1 APPLIC TOPICAL Twice daily February 01, 2022 12:00am November 05, 2023 5:52pm calcium chloride 0.0014 meq/ml / potassium chloride 0.004 meq/ml / sodium chloride 0.103 meq/ml / sodium lactate 0.028 meq/ml injectable solution (6 sources) Start: 03-26-2024 End: 03-27-2024 1,000 mL, IntraVENous, at 495.9 mL/hr, Administer over 121 Minutes, ONCE, On Tue03/27/24 at 0015, For 1 dose Start: 03-08-2024 End: 03-08-2024 1,000 mL, IntraVENous, at 98 3.6 mL/hr, Administer over 61 Minutes, ONCE, On Tue03/08/24 at 1315, For 1 dose Start: 02-09-2024 End: 02-10-2024 500 mL, IntraVENous, at 247. 9 mL/hr, Administer over 121 Minutes, ONCE, On Tue02/09/24 at 2330, For 1 dose Start: 02-09-2024 IntraVENous, a t 20 mL/hr, CONTINUOUS, Starting on Tue02/09/24 at 2330 Start: 02-05-2024 IntraVENous, a t 125 mL/hr, CONTINUOUS, Starting on 12/1/24 at 1530 cefTRIAXone (ROCEPHIN) 2,000 mg in sterile water 20 mL IV syringe (1 source) Start: 02-05-2024 End: 02-05-2024 take 100 mg intravenously once 2,000 mg, IntraVENous, ONCE, On 02/05/24 at 1730, For 1 dose, Administer as slow IV Push over 5 mins Reconstitute 2 g vials with 19.2 mL of designated diluent to produce a 100mg/mL solution codeine phosphate 2 mg/ml / promethazine hydrochloride 1.25 mg/ml oral solution (7 sources) Opioid Agonist, Phenothiazine Start: 05-09-2023 End: 11-05-2023 take 1 mL by mouth every four to six hours as needed for cough Promethazine-Cod eine 6.25-10 mg/5 mL syrup Discontinued 5 ML PO EVERY 4-6 HOURS as needed for cough 118 May 09, 2023 12:00am November 05, 2023 5:52pm cyclobenzaprine hydrochloride 10 mg oral tablet (15 sources) Muscle Relaxant Start: 02-05-2024 take 10 mg by mouth three times daily as needed 10 mg, Oral, 3 TIMES DAILY PRN, Starting on 02/05/24 at 1925, Until Discontinued, Muscle spasms Start: 11-06-2023 take 1 tablet by courtney th every eight hours as needed for muscle spasms Cyclobenzaprine 10 mg tablet Active 10 MG PO Q8H as needed for muscle spasm 15 November 05, 2023 11:00pm Start: 02-15-2023 End: 11-05-2023 take 1 tablet by mouth three times daily as needed for muscle spasms Cyclobenzaprine 10 mg tablet Discontinued 10 MG PO Three times daily as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 [facility] Comment on above: Order Comment: Name Collection Type:: Clean-Voided Midstream Performed By: #### U A #### [place] [id number] [place] Occult Blood,Urine Negative Normal Negative [facility] Comment on above: Order Comment: Name Collection Type:: Clean-Voided Midstream Result Comment: PERF ORMED BY: [place] [address] PATHOLOGIST [employer] ELIDA BANDA M.D. Performed By: #### U A #### [place] [address] [place] Othe Crystals,Urine Rare Normal [facility] Comment on above: Order Comment: Name Collection Type:: Clean-Voided Midstream Performed By: #### U A #### [address] pH (U) 6.0 [pH] Normal 5.0-9.0 [facility] Comment on above: Order Comment: Name Collection Type:: Clean-Voided Midstream Performed By: #### U A #### [address] Protein (U) [Mass/Vol] 30 mg/dL High Negative Th e [facility] Comment on above: Order Comment: Name Collection Type:: Clean-Voided Midstream Performed By: #### U A #### [address] RBC,Urine 5 [HPF] High 0-4 [facility] Comment on above: Order Comment: Name Collection Type:: Clean-Voided Midstream Performed By: #### U A #### [address] Specificy [place],Urine 1.034 High 1.001-1.030 [facility] Comment on above: Order Comment: Name Collection Type:: Clean-Voided Midstream Performed By: #### U A #### [address] Squamous Epithelial Cell,Urine 3 [HPF] High 0-2 [facility] Comment on above: Order Comment: Name Collection Type:: Clean-Voided Midstream Performed By: #### U A #### [address] Urobilinogen,Urine Normal Normal Normal [facility] Comment on above: Order Comment: Name Collection Type:: Clean-Voided Midstream Performed By: #### U A #### [address] WBC,Urine 3 [HPF] Normal 0-4 [facility] Comment on above: Order Comment: Name Collection Type:: Clean-Voided Midstream Performed By: #### U A #### [facility] [address] Epithelial cells.squamous [# /area] in Urine sediment by Automated countOrdered By: Agatha Bowling on 03-12-2024 Epithelial cells.squamous Auto (Urine sed) [#/Area] Epithelial cells.squamous [#/area] in Urine sediment by Automated count High 0-2 [facility] Erythrocytes [#/area] in Uri ne sediment by Automated countOrdered By: Agatha Bowling on 03-12-2024 RBC Auto (Urine sed) [#/Area] Erythrocytes [#/area] in Urine sediment by Automated count High 0-4 [facility] Glucose [Mass/volume] in Uri ne by Test stripOrdered By: Agtaha Bowling on 03-12-2024 Glucose Test strip (U) [Mass/Vol] Glucose [Mass/volume] in Urine by Test strip Normal [facility] Hemoglobin Test strip Ql (U) Ordered By: Agatha Bowling on 03-12-2024 Hemoglobin Ql (U) Hemoglobin [Presence] in Urine by Test strip Negative [facility] Hyaline casts [#/area] in Ur ine sediment by Automated countOrdered By: Agatha Bowling on 03-12-2024 Hyaline casts Auto (Urine sed) [#/Area] Hyaline casts [#/area] in Urine sediment by Automated count 0-8 [facility] Ketones Test strip Ql (U)Ord ered By: Agatha Bowling on 03-12-2024 Ketones Ql (U) Ketones [Presence] in Urine by Test strip Negative [facility] Leukocyte esterase [Presence ] in Urine by Test stripOrdered By: Agatha Bowling on 03-12-2024 Leukocyte esterase Test strip Ql (U) Leukocyte esterase [Presence] in Urine by Test strip High Negative [facility] Leukocytes [#/area] in Urine sediment by Automated countOrdered By: Agatha Bowling on 03-12-2024 WBC Auto (Urine sed) [#/Area] Leukocytes [#/area] in Urine sediment by Automated count 0-4 [facility] Mucus [Presence] in Urine by AutomatedOrdered By: Agatha Bowling on 03-12-2024 Mucus Auto Ql (U) Mucus [Presence] in Urine by Automated Abnormal [facility] Nitrite Test strip Ql (U)Ord ered By: Agatha Bowling on 03-12-2024 Nitrite Ql (U) Nitrite [Presence] in Urine by Test strip Negative [facility] Protein Test strip (U) [Mass /Vol]Ordered By: Agatha Bowling on 03-12-2024 Protein (U) [Mass/Vol] Protein [Mass/volume] in Urine by Test strip High Negative [facility] Specific gravity Test strip (U) [Rel density]Ordered By: Agatha Bowling on 03-12-2024 Specific gravity (U) [Rel density] Specific gravity of Urine by Test strip High 1.001-1.030 [facility] Urinalysis complete panel (U )on 03-12-2024 Appearance (U) Clear Clear [facility] BILIRUBIN,URINE Negative Negative [facility] Color (U) Yellow Yellow [facility] Glucose Ql (U) Normal Normal [facility] Interpretation and review of laboratory results Abnormal [facility] Ketones Ql (U) Negative Negative [facility] Leukocyte esterase Test strip Ql (U) 4+ High Negative [facility] NITRITE,URINE Negative Negative [facility] OCCULT BLOOD,URINE Negative Negative [facility] pH (U) 6 [pH] 5.0 - 9.0 [facility] Protein (U) [Mass/Vol] 30 mg/dL High Negative [facility] SPECIFICY GRAVITY,URINE 1.034 High 1.00 1 - 1.030 [facility] UROBILINOGEN,URINE Normal Normal [facility] Comment c/o urinary symptoms or increased blood pressure Name Collection Type:: Clean-Voided Midstream [facility] Urobilinogen Test strip (U) [Mass/Vol]Ordered By: Agatha Bowling on 03-12-2024 Urobilinogen (U) [Mass/Vol] Urobilinogen [Mass/volume] in Urine by Test strip Normal [facility] pH Test strip (U)Ordered By: Agatha Bowling on 03-12-2024 pH (U) pH of Urine by Test strip 5.0-9.0 [facility] Cult,Urineon 03-10-2024 Cult,Urine Specimen Description .CLEAN CATCH URINE Special Requests Site: Urine Culture NO SIGNIFICANT GROWTH Report Status FINAL 03/10/2024 Normal [facility] Comment on above: Performed By: #### U PRAKASH ELISE #### [facility] [address] [place] [address] Spice Blender: Ivan Lindquist MD CBC with Auto Differentialon 03-08-2024 Basophils (Bld) [#/Vol] B on [facility] Basophils/100 WBC (Bld) 0 % 0 - 2 % B on [facility] Eosinophils (Bld) [#/Vol] Bon [facility] Eosinophils/100 WBC (Bld) 0 % Low 1 - 4 % [facility] Erythrocyte distribution width (RBC) [Ratio] 12.1 % 11.8 - 14.4 % [facility] Hematocrit (Bld) [Volume fraction] 35.1 % Low 36.3 - 47.1 % [facility] Hemoglobin (Bld) [Mass/Vol] 12.2 g/dL 11.9 - 15.1 g/dL [facility] Immature granulocytes (Bld) [#/Vol] [facility] Immature granulocytes/100 WBC (Bld) 0 % 0 [facility] Interpretation and review of laboratory results Abnormal Bon [facility] Lymphocytes/100 WBC (Bld) 17 % Low 24 - 43 % [facility] Lymphocytes/100 WBC (Bld) 1.25 % [facility] MCH (RBC) [Entitic mass] 30.2 pg 25. 2 - 33.5 pg [facility] MCHC (RBC) [Mass/Vol] 34.8 g/dL 28.4 - 34.8 g/dL [facility] MCV (RBC) [Entitic vol] 86.9 fL 82.6 - 102.9 fL [facility] Monocytes/100 WBC (Bld) 5 % 3 - 12 % [facility] Mon[facility]/100 WBC (Bld) 0.39 % B on [facility] Neutrophils/100 WBC (Bld) 78 % High 36 - 65 % [facility] Nucleated RBC/100 WBC (Bld) [Ratio] 0.0 % 0.0 per 100 WBC [facility] Platelet mean volume (Bld) [Entitic vol] 11.1 fL 8.1 - 13.5 fL [facility] Platelets (Bld) [#/Vol] 185 10*3/uL [facility] RBC (Bld) [#/Vol] 4.04 10*6/uL 3.95 - 5.1 1 m/uL [facility] Segmented neutrophils/100 WBC (Bld) 5.48 % [facility] WBC other (Bld) [#/Vol] 7.2 B on [facility] CBC with Diffon 03-08-2024 Abs. Basophil <0.03 Normal 0.00-0.20 [facility] Comment on above: Performed By: #### B HCG #### [facility] [address] [place] [address] [place] [address] Spice Blender: Ivan Lindquist MD Abs. Eosinophil <0.03 Normal 0.00-0.44 [facility] Comment on above: Performed By: #### B HCG #### [address] [place] [address] Spice Blender: Ivan Lindquist MD Abs.Imm.Granulocyte <0.03 Normal 0.00-0.30 [facility] Comment on above: Performed By: #### B HCG #### [facility] [address] [place] [address] [place] [address] Spice Blender: Ivan Lindquist MD Abs.Neutrophil (Seg) 5.48 k/uL Normal 1.50-8.10 [facility] Comment on above: Performed By: #### B HCG #### [facility] [address] [place] [address] [place] [address] Spice Blender: Ivan Lindquist MD Basophils/100 WBC (Bld) 0 % Normal 0-2 [facility] Comment on above: Performed By: #### B HCG #### [facility] [address] [place] [address] [place], [place] [id number] Spice Blender: Ivan Lindquist MD Eosinophils/100 WBC (Bld) 0 % Low 1-4 [facility] Comment on above: Performed By: #### B HCG #### [facility] [address] [place], [place] [id number] Spice Blender: Ivan Lindquist MD Erythrocyte distribution width (RBC) [Ratio] 12.1 % Normal 11.8-14.4 [facility] Comment on above: Performed By: #### B HCG #### [facility] [address] [place], [place] [id number] Spice Blender: Ivan Lindquist MD Hematocrit (Bld) [Volume fraction] 35.1 % Low 36.3-47.1 [facility] Comment on above: Performed By: #### B HCG #### [facility] [address] [place], [place] [id number] Spice Blender: Ivan Lindquist MD Hemoglobin (Bld) [Mass/Vol] 12.2 g/dL Normal 11.9-15.1 [facility] Comment on above: Performed By: #### B HCG #### [address] [place], [place] [id number] Spice Blender: Ivan Lindquist MD Immature granulocytes/100 WBC (Bld) 0 % Normal 0 [facility] Comment on above: Performed By: #### B HCG #### [facility] [address] [place], [place] [id number] Spice Blender: Ivan Lindquist MD Lymphocytes (Bld) [#/Vol] 1.25 10*3/uL Normal 1.10-3.70 [facility] Comment on above: Performed By: #### B HCG #### [facility] [address] [place], [place] [id number] Spice Blender: Ivan Lindquist MD Lymphocytes/100 WBC (Bld) 17 % Low 24-43 [facility] Comment on above: Performed By: #### B HCG #### [facility] [address] [place], [place] [id number] Spice Blender: Ivan Lindquist MD MCH (RBC) [Entitic mass] 30.2 pg Normal 25.2-33.5 [facility] Comment on above: Performed By: #### B HCG #### [facility] [address] [place], [place] [id number] Spice Blender: Ivan Lindquist MD MCHC (RBC) [Mass/Vol] 34.8 g/dL Normal 28.4-34.8 [facility] Comment on above: Performed By: #### B HCG #### [facility] [address] [place], [place] [id number] Spice Blender: Ivan Lindquist MD MCV (RBC) [Entitic vol] 86.9 fL Normal 82.6-102.9 [facility] Comment on above: Performed By: #### B HCG #### [facility] [address] [place], [place] [id number] Spice Blender: Ivan Lindquist MD Monocytes (Bld) [#/Vol] 0.39 10*3/uL Normal 0.10-1.20 [facility] Comment on above: Performed By: #### B HCG #### [facility] [address] [place], [place] [phone] Spice Blender: Ivan Lindquist MD Monocytes/100 WBC (Bld) 5 % Normal 3-12 [facility] Comment on above: Performed By: #### B HCG #### [facility] [address] [place], [place] [id number] Spice Blender: Ivan Lindquist MD Neutrophil (Seg) 78 % High 36-65 [facility] Comment on above: Performed By: #### B HCG #### [facility] [address] [place] [address] Spice Blender: Ivan Lindquist MD NRBC Automated 0.0 per 100 WBC Normal 0.0 [facility] Comment on above: Performed By: #### B HCG #### [facility] [address] [place] [address] Spice Blender: Ivan Lindquist MD Platelet mean volume (Bld) [Entitic vol] 11.1 fL Normal 8.1-13.5 [facility] Comment on above: Performed By: #### B HCG #### [facility] [address] [place] [address] Spice Blender: Ivan Lindquist MD Platelets (Bld) [#/Vol] 185 10*3/uL Normal 138-453 [facility] Comment on above: Performed By: #### B HCG #### [facility] [address] [place] [address] [place] [address] Spice Blender: Ivan Lindquist MD RBC (Bld) [#/Vol] 4.04 10*6/uL Normal 3.95-5.11 [facility] Comment on above: Performed By: #### B HCG #### [address] [place] [address] Spice Blender: Ivan Lindquist MD WBC (Bld) [#/Vol] 7.2 10*3/uL Normal 3.5-11.3 [facility] Comment on above: Performed By: #### B HCG #### [facility] [address] [place] [address] [place] [address] Spice Blender: Ivan Lindquist MD COVID-19, Rapidon 03-08-2024 SARS-CoV-2 (COVID-19) RdRp gene JUAN JOSE+probe Ql (Resp) Not detected Not Detected [facility] Comment on above: Rapid NAAT: The specimen is NEGATIVE for SARS-CoV-2, the novel coronavirus associated with COVID-19. The ID NOW COVID-19 assay is designed to detect the virus that causes COVID-19 in patients with signs and symptoms of infection who are suspected of COVID-19. An individual without symptoms of COVID-19 and who is not shedding SARS-CoV-2 virus would expect to have a negative (not detected) result in this assay. Negative results should be treated as presumptive and, if inconsistent with clinical signs and symptoms or necessary for patient management, should be tested with an alternative molecular assay. Negative results do not preclude SARS-CoV-2 infection and should not be used as the sole basis for patient management decisions. Methodology: Isothermal Nucleic Acid Amplification Specimen Description .NASOPHARYNGEAL SWAB [facility] Comp Metabolic Profon 2024 Albumin [Mass/Vol] 3.3 g/dL Low 3.5-5.2 [facility] Comment on above: Performed By: #### B HCG #### [facility] [address] [place], [place] [id number] Spice Blender: Ivan Lindquist MD Albumin/Glob Ratio 1.2 Normal 1.0-2.5 [facility] Comment on above: Performed By: #### B HCG #### [facility] [address] [place] [address] Spice Blender: Ivan Lindquist MD Alkaline Phos 95 U/L Normal 35-104 [facility] Comment on above: Performed By: #### B HCG #### [facility] [address] [place] [address] Spice Blender: Ivan Lindquist MD ALT [Catalytic activity/Vol] 11 U/L Normal 10-35 [facility] Comment on above: Performed By: #### B HCG #### [facility] [address] [place] [address] Spice Blender: Ivan Lindquist MD Anion gap [Moles/Vol] 11 mmol/L Normal 9-16 [facility] Comment on above: Performed By: #### B HCG #### [facility] [address] [place] [address] Spice Blender: Ivan Lindquist MD AST [Catalytic activity/Vol] 15 U/L Normal 10-35 [facility] Comment on above: Performed By: #### B HCG #### [facility] [address] [place], [place] [id number] Spice Blender: Ivan Lindquist MD Bilirubin [Mass/Vol] mg/dL Normal 0.00-1.20 [facility] Comment on above: Performed By: #### B HCG #### [facility] [address] [place], [place] [id number] Spice Blender: Ivan Lindquist MD BUN/CRE Ratio 15 Normal 9-20 [facility] Comment on above: Performed By: #### B HCG #### [facility] [address] [place], [place] [phone] Spice Blender: Ivan Lindquist MD Calcium [Mass/Vol] 8.4 mg/dL Low 8.6-10.4 [facility] Comment on above: Performed By: #### B HCG #### [facility] [address] [place], [place] [phone] Spice Blender: Ivan Lindquist MD Chloride [Moles/Vol] 102 mmol/L Normal 98-107 [facility] Comment on above: Performed By: #### B HCG #### [facility] [address] [place] [address] Spice Blender: Ivan Lindquist MD CO2 [Moles/Vol] 22 mmol/L Normal 20-31 [facility] Comment on above: Performed By: #### B HCG #### [facility] [address] [place], [place] [phone] Spice Blender: Ivan Lindquist MD Creatinine [Mass/Vol] 0.6 mg/dL Normal 0.50-0.90 [facility] Comment on above: Performed By: #### B HCG #### [facility] [address] [place] [address] Spice Blender: Ivan Lindquist MD GFR/1.73 sq M.predicted among non-blacks MDRD (S/P/Bld) [Vol rate/Area] mL/min/{1.73_m2} Normal >60 [facility] Comment on above: Result Comment: These results are not intended for use in patients <18 years of age. eGFR results are calculated without a race factor using the 2020 CKD-EPI equation. Careful clinical correlation is recommended, particularly when comparing to results calculated using previous equations. The CKD-EPI equation is less accurate in patients with extremes of muscle mass, extra-renal metabolism of creatine, excessive creatine ingestion, or following therapy that affects renal tubular secretion. Performed By: #### B HCG #### [facility] [address] [place] [address] [place] [address] Spice Blender: Ivan Lindquist MD Glucose [Mass/Vol] 84 mg/dL Normal 74-99 [facility] Comment on above: Performed By: #### B HCG #### [address] [place] [address] Spice Blender: Ivan Lindquist MD Potassium [Moles/Vol] 3.9 mmol/L Normal 3.7-5.3 [facility] Comment on above: Performed By: #### B HCG #### [address] [place] [address] Spice Blender: Ivan Lindquist MD Protein [Mass/Vol] 6.1 g/dL Low 6.6-8.7 [facility] Comment on above: Performed By: #### B HCG #### [facility] [address] [place] [address] [place] [address] Spice Blender: Ivan Lindquist MD Sodium [Moles/Vol] 135 mmol/L Low 136-145 [facility] Comment on above: Performed By: #### B HCG #### [facility] [address] [place] [address] [place] [address] Spice Blender: Ivan Lindquist MD Urea nitrogen [Mass/Vol] 9 mg/dL Normal 6-20 [facility] Comment on above: Performed By: #### B HCG #### [facility] [address] [place] [address] Spice Blender: Ivan Lindquist MD Comprehensive Metabolic Pane henrik 03-08-2024 Albumin [Mass/Vol] 3.3 g/dL Low 3.5 - 5.2 g/dL [facility] Albumin/Globulin [Mass ratio] 1.2 {ratio} 1.0 - 2.5 [facility] ALP [Catalytic activity/Vol] 95 U/L 35 - 104 U/L [facility] ALT [Catalytic activity/Vol] 11 U/L 10 - 35 U/L [facility] Anion gap [Moles/Vol] 11 mmol/L 9 - 16 mmol/L [facility] AST [Catalytic activity/Vol] 15 U/L 10 - 35 U/L [facility] Bilirubin [Mass/Vol] mg/dL 0.00 - 1.20 mg/dL [facility] Calcium [Mass/Vol] 8.4 mg/dL Low 8.6 - 10. 4 mg/dL [facility] Chloride [Moles/Vol] 102 mmol/L 98 - 10 7 mmol/L [facility] CO2 [Moles/Vol] 22 mmol/L 20 - 31 mmol/L [facility] Creatinine [Mass/Vol] 0.6 mg/dL 0.50 - 0.90 mg/dL [facility] Est, Glom Filt Rate - PINF [facility] Comment on above: These results are not intended for use in patients <18 years of age. eGFR results are calculated without a race factor using the 2020 CKD-EPI equation. Careful clinical correlation is recommended, particularly when comparing to results calculated using previous equations. The CKD-EPI equation is less accurate in patients with extremes of muscle mass, extra-renal metabolism of creatine, excessive creatine ingestion, or following therapy that affects renal tubular secretion. Glucose [Mass/Vol] 84 mg/dL 74 - 99 mg/dL [facility] Interpretation and review of laboratory results Abnormal [facility] Potassium [Moles/Vol] 3.9 mmol/L 3.7 - 5.3 mmol/L [facility] Protein [Mass/Vol] 6.1 g/dL Low 6.6 - 8.7 g/dL [facility] Sodium [Moles/Vol] 135 mmol/L Low 136 - 145 mmol/L [facility] Urea nitrogen [Mass/Vol] 9 mg/dL 6 - 20 mg/dL [facility] Urea nitrogen/Creatinine [Mass ratio] 15 mg/mg 9 - 20 [facility] Flu A/B Ag Detectionon 03-08 Flu A Ag Detection Negative Normal NEG [facility] Comment on above: Result Comment: for Influenza A Antigen Performed By: #### F SANTO #### [facility] [address] [place] [address] [place] [address] Spice Blender: Ivan Lindquist MD Flu B Ag Detection Negative Normal NEG [facility] Comment on above: Result Comment: for Influenza B Antigen. Performed By: #### F BRYABA #### [facility] [address] [place] [address] Spice Blender: Ivan Lindquist MD Microscopic Urinalysison Bacteria LM Ql (Urine sed) 3+ Abnormal None [facility] Character (U) Few epithelials coated with bacteria resembling clue cells. Abnormal NOT REQ. [facility] Epithelial cells LM.HPF (Urine sed) [#/Area] 50 TO 100 [facility] Interpretation and review of laboratory results Abnormal [facility] Mucus Ql (Urine sed) 2+ Abnormal None [facility] RBC LM.HPF (Urine sed) [#/Area] 0 TO 2 [facility] WBC LM.HPF (Urine sed) [#/Area] 50 TO 100 [facility] No Panel Informationon 03-08 [facility] Protein / Creatinine Ratio, Urineon 03-08-2024 Creatinine (U) [Mass/Vol] 150.0 mg/dL 28.0 - 217.0 mg/dL [facility] Protein (U) [Mass/Vol] 21 mg/dL [facility] Comment on above: No normal range esta blished. Urine Total Protein Creatinine Ratio 0.14 0.00 - 0.20 [facility] Protein,Tot,Avery Uron 2024 Creatinine [Mass/Vol] 150.0 mg/dL Normal 28.0-217.0 [facility] Comment on above: Performed By: #### U MICAO, UAX #### [facility] [address] [place] [address] Spice Blender: Ivan Lindquist MD Tot Prot. Conc. 21 mg/dL Normal [facility] Comment on above: Result Comment: No n ormal range established. Performed By: #### U MICAO, UAX #### [facility] [address] [place] [address] Spice Blender: Ivan Lindquist MD TP/Cre Ratio 0.14 Normal 0.00-0.20 [facility] Comment on above: Performed By: #### U MICAO, UAX #### [facility] [address] [place] [address] Spice Blender: Ivan Lindquist MD Rapid influenza A/B antigens on 03-08-2024 FLUAV Ag Ql (Unsp spec) Negative NEGATIVE B on [facility] Comment on above: for Influenza A Anti gen FLUBV Ag Ql (Unsp spec) Negative NEGATIVE B on [facility] Comment on above: for Influenza B Anti gen. [facility] [id number] 03-08-2024 SARS-CoV-2 (COVID-19) RNA JUAN JOSE+probe Ql (Unsp spec) Not detected Normal [facility] Comment on above: Result Comment: Rapid NAAT: The specimen is NEGATIVE for SARS-CoV-2, the novel coronavirus associated with COVID-19. The ID NOW COVID-19 assay is designed to detect the virus that causes COVID-19 in patients with signs and symptoms of infection who are suspected of COVID-19. An individual without symptoms of COVID-19 and who is not shedding SARS-CoV-2 virus would expect to have a negative (not detected) result in this assay. Negative results should be treated as presumptive and, if inconsistent with clinical signs and symptoms or necessary for patient management, should be tested with an alternative molecular assay. Negative results do not preclude SARS-CoV-2 infection and should not be used as the sole basis for patient management decisions. Methodology: Isothermal Nucleic Acid Amplification Performed By: #### U RTPRT #### [facility] [address] [place] [address] Spice Blender: Ivan Lindquist MD Uric Acidon 03-08-2024 Urate [Mass/Vol] 4.1 mg/dL 2.4 - 5.7 mg/dL [facility] Urate [Mass/Vol] 4.1 mg/dL Normal 2.4-5.7 [facility] Comment on above: Performed By: #### B HCG #### [facility] [address] [place] [address] Spice Blender: Ivan Lindquist MD Urinalysison 03-08-2024 Bilirubin Ql (U) Negative NEGATIVE [facility] Clarity (U) Clear Clear [facility] Color (U) Yellow Yellow [facility] Glucose Test strip (U) [Mass/Vol] Negative NEGATIVE mg/dL [facility] Hemoglobin Auto test strip Ql (U) Negative NEGATIVE [facility] Interpretation and review of laboratory results Abnormal [facility] Ketones (U) [Mass/Vol] 1+ Abnormal NEGAT CHAD mg/dL [facility] Leukocyte esterase Test strip Ql (U) LARGE Abnormal NEGATIVE [facility] Nitrite Ql (U) Negative NEGATIVE [facility] pH (U) 6.5 [pH] 5.0 - 9.0 [facility] Protein (U) [Mass/Vol] TRACE Abnormal NEGAT CHAD mg/dL [facility] Specific gravity (U) [Rel density] 1.020 1.010 - 1.020 [facility] Urobilinogen Qn (U) Normal 0.0 - 1. 0 EU/dL [facility] Bon [facility] Urinalysis, Routineon 2024 Bilirubin, SemiQt,Ur Negative Normal NEG [facility] Comment on above: Performed By: #### U MICAO, UAX #### [facility] [address] [place] [address] Spice Blender: Ivan Lindquist MD Blood, Urine Negative Normal NEG [facility] Comment on above: Performed By: #### U MICAO, UAX #### [facility] [address] [place] [address] Spice Blender: Ivan Lindquist MD Clarity (U) Clear Normal CLEAR [facility] Comment on above: Performed By: #### U MICAO, UAX #### [facility] [address] [place] [address] Dr. [place], [facility] Spice Blender: Ivan Lindquist MD Color (U) Yellow Normal YEL [facility] Comment on above: Performed By: #### U MICAO, UAX #### [facility] [address] [place] [address] [place] [address] Spice Blender: Ivan Lindquist MD Glucose Ql (U) Negative Normal NEG [facility] in [facility] Comment on above: Performed By: #### U MICAO, UAX #### [facility] [address] [place] [address] [place] [address] Spice Blender: Ivan Lindquist MD Ketones Ql (U) 1+ mg/dL Abnormal NEG [facility] Comment on above: Performed By: #### U MICAO, UAX #### [facility] [address] [place] [address] Spice Blender: Ivan Lindquist MD Leukocyte esterase Test strip Ql (U) LARGE Abnormal NEG [facility] Comment on above: Performed By: #### U MICAO, UAX #### [facility] [address] [place], [place] [id number] Spice Blender: Ivan Lindquist MD Nitrite,Ur Negative Normal NEG [facility] Comment on above: Performed By: #### U MICAO, UAX #### [facility] [address] [place], [place] [id number] Spice Blender: Ivan Lindquist MD PH,Ur 6.5 Normal 5.0-9.0 [facility] Comment on above: Performed By: #### U MICAO, UAX #### [facility] [address] [place], [place] [id number] Spice Blender: Ivan Lindquist MD Protein Ql (U) TRACE Abnormal NEG [facility] Comment on above: Performed By: #### U MICAO, UAX #### [facility] [address] [place] [address] Dr. [place], [facility] Spice Blender: Ivan Lindquist MD Spec. [place],Ur 1.020 Normal 1.010-1.020 [facility] Comment on above: Performed By: #### U MICAO, UAX #### [facility] [address] [place] [address] Dr. [place], [place] [id number] Spice Blender: Ivan Lindquist MD Urobilinogen,Ur Normal Normal 0.0-1.0 [facility] Comment on above: Performed By: #### U MICAO, UAX #### [facility] [address] [place], [facility] Spice Blender: Ivan Lindquist MD Urinalysis,Microon 5 Bacteria 3+ Abnormal NONE [facility] Comment on above: Performed By: #### U MICAO, UAX #### [facility] [address] [place] [address] Spice Blender: Ivan Lindquist MD Epithelial cells LM Ql (Urine sed) 50 TO 100 Normal 0-25 [facility] Comment on above: Performed By: #### U MICAO, UAX #### [facility] [address] [place], [place] [id number] Spice Blender: Ivan Lindquist MD Mucus Strands 2+ Abnormal NONE [facility] Comment on above: Performed By: #### U MICAO, UAX #### [facility] [address] [place], [place] [id number] Spice Blender: Ivan Lindquist MD Other Observations Few epithelials coated with bacteria resembling clue cells. Abnormal NREQ [facility] Comment on above: Performed By: #### U MICAO, UAX #### [facility] [address] [place], [place] [id number] Spice Blender: Ivan Lindquist MD Urine RBC's 0 TO 2 Normal 0-2 [facility] Comment on above: Performed By: #### U MICAO, UAX #### [facility] [address] [place], [place] [id number] Spice Blender: Ivan Lindquist MD Urine WBC's 50 TO 100 Normal 0-5 [facility] Comment on above: Performed By: #### U MICAO, UAX #### [facility] [address] [place], [place] [id number] Spice Blender: Ivan Lindquist MD Comp Metabolic Profon 2023 Albumin [Mass/Vol] 3.3 g/dL Low 3.5-5.2 [facility] Comment on above: Performed By: #### B HCG #### [facility] [address] [place], [place] [id number] Spice Blender: Ivan Lindquist MD Albumin/Glob Ratio 1.3 Normal 1.0-2.5 [facility] Comment on above: Performed By: #### B HCG #### [facility] [address] [place], [place] [id number] Spice Blender: Ivan Lindquist MD Alkaline Phos 70 U/L Normal 35-104 [facility] Comment on above: Performed By: #### B HCG #### [facility] [address] [place], [place] 3089583 Spice Blender: Ivan Lindquist MD ALT [Catalytic activity/Vol] 12 U/L Normal 10-35 [facility] Comment on above: Performed By: #### B HCG #### [facility] [address] [place], [place] [address]57[address]83 Spice Blender: Ivan Lindquist MD Anion gap [Moles/Vol] 10 mmol/L Normal 9-16 [facility] Comment on above: Performed By: #### B HCG #### [facility] [address] [place], [place] [address]64[address]83 Spice Blender: Ivan Lindquist MD AST [Catalytic activity/Vol] 17 U/L Normal 10-35 [facility] Comment on above: Performed By: #### B HCG #### [facility] [address] [place], [place] [address]83 Spice Blender: Ivan Lindquist MD Bilirubin [Mass/Vol] 0.3 mg/dL Normal 0.00-1.20 [facility] Comment on above: Performed By: #### B HCG #### [facility] [address] [place], [place] 2467183 Spice Blender: Ivan Lindquist MD BUN/CRE Ratio 13 Normal 9-20 [facility] Comment on above: Performed By: #### B HCG #### [facility] [address] [place], [place] [id number] Spice Blender: Ivan Lindquist MD Calcium [Mass/Vol] 8.5 mg/dL Low 8.6-10.4 [facility] Comment on above: Performed By: #### B HCG #### [facility] [address] [place], [place] [id number] Spice Blender: Ivan Lindquist MD Chloride [Moles/Vol] 104 mmol/L Normal 98-107 [facility] Comment on above: Performed By: #### B HCG #### [facility] [address] [place] [address] Spice Blender: Ivan Lindquist MD CO2 [Moles/Vol] 23 mmol/L Normal 20-31 [facility] Comment on above: Performed By: #### B HCG #### [facility] [address] [place] [address] Spice Blender: Ivan Lindquist MD Creatinine [Mass/Vol] 0.6 mg/dL Normal 0.50-0.90 [facility] Comment on above: Performed By: #### B HCG #### [facility] [address] [place] [address] Spice Blender: Ivan Lindquist MD GFR/1.73 sq M.predicted among non-blacks MDRD (S/P/Bld) [Vol rate/Area] mL/min/{1.73_m2} Normal >60 [facility] Comment on above: Result Comment: These results are not intended for use in patients <18 years of age. eGFR results are calculated without a race factor using the 2020 CKD-EPI equation. Careful clinical correlation is recommended, particularly when comparing to results calculated using previous equations. The CKD-EPI equation is less accurate in patients with extremes of muscle mass, extra-renal metabolism of creatine, excessive creatine ingestion, or following therapy that affects renal tubular secretion. Performed By: #### B HCG #### [facility] [address] [place] [address] Spice Blender: Ivan Lindquist MD Glucose [Mass/Vol] 82 mg/dL Normal 74-99 [facility] Comment on above: Performed By: #### B HCG #### [facility] [address] [place] [address] Spice Blender: Ivan Lindquist MD Potassium [Moles/Vol] 3.6 mmol/L Low 3.7-5.3 [facility] Comment on above: Performed By: #### B HCG #### [facility] [address] [place] [address] Spice Blender: Ivan Lindquist MD Protein [Mass/Vol] 5.8 g/dL Low 6.6-8.7 [facility] Comment on above: Performed By: #### B HCG #### [facility] [address] [place], [place] [id number] Spice Blender: Ivan Lindquist MD Sodium [Moles/Vol] 137 mmol/L Normal 136-145 [facility] Comment on above: Performed By: #### B HCG #### [facility] [address] [place] [address] Spice Blender: Ivan Lindquist MD Urea nitrogen [Mass/Vol] 8 mg/dL Normal 6-20 [facility] Comment on above: Performed By: #### B HCG #### [facility] [address] [place] [address] Spice Blender: Ivan Lindquist MD Comprehensive metabolic pane [facility] 02-10-2024 Albumin [Mass/Vol] 3.3 g/dL Low 3.5 - 5.2 g/dL [facility] Albumin/Globulin [Mass ratio] 1.3 {ratio} 1.0 - 2.5 [facility] ALP [Catalytic activity/Vol] 70 U/L 35 - 104 U/L [facility] ALT [Catalytic activity/Vol] 12 U/L 10 - 35 U/L [facility] Anion gap [Moles/Vol] 10 mmol/L 9 - 16 mmol/L [facility] AST [Catalytic activity/Vol] 17 U/L 10 - 35 U/L [facility] Bilirubin [Mass/Vol] 0.3 mg/dL 0.00 - 1.20 mg/dL [facility] Calcium [Mass/Vol] 8.5 mg/dL Low 8.6 - 10. 4 mg/dL [facility] Chloride [Moles/Vol] 104 mmol/L 98 - 10 7 mmol/L [facility] CO2 [Moles/Vol] 23 mmol/L 20 - 31 mmol/L [facility] Creatinine [Mass/Vol] 0.6 mg/dL 0.50 - 0.90 mg/dL [facility] Bhakti Arrieta Rate - PINF [facility] Comment on above: These results are not intended for use in patients <18 years of age. eGFR results are calculated without a race factor using the 2020 CKD-EPI equation. Careful clinical correlation is recommended, particularly when comparing to results calculated using previous equations. The CKD-EPI equation is less accurate in patients with extremes of muscle mass, extra-renal metabolism of creatine, excessive creatine ingestion, or following therapy that affects renal tubular secretion. Glucose [Mass/Vol] 82 mg/dL 74 - 99 mg/dL [facility] Interpretation and review of laboratory results Abnormal [facility] Potassium [Moles/Vol] 3.6 mmol/L Low 3.7 - 5.3 mmol/L [facility] Protein [Mass/Vol] 5.8 g/dL Low 6.6 - 8.7 g/dL [facility] Sodium [Moles/Vol] 137 mmol/L 136 - 145 mmol/L [facility] Urea nitrogen [Mass/Vol] 8 mg/dL 6 - 20 mg/dL [facility] Urea nitrogen/Creatinine [Mass ratio] 13 mg/mg 9 - 20 [facility] Microscopic Urinalysison Bacteria LM Ql (Urine sed) 3+ Abnormal None [facility] Epithelial cells LM.HPF (Urine sed) [#/Area] 10 TO 20 [facility] Interpretation and review of laboratory results Abnormal [facility] Mucus Ql (Urine sed) 3+ Abnormal None [facility] RBC LM.HPF (Urine sed) [#/Area] 0 TO 2 [facility] WBC LM.HPF (Urine sed) [#/Area] 20 TO 50 [facility] Urinalysison 02-10-2024 Bilirubin Ql (U) Negative NEGATIVE [facility] Glucose Test strip (U) [Mass/Vol] Negative NEGATIVE mg/dL [facility] Hemoglobin Auto test strip Ql (U) Negative NEGATIVE [facility] Interpretation and review of laboratory results Abnormal [facility] Ketones (U) [Mass/Vol] TRACE Abnormal NEGAT CHAD mg/dL [facility] Nitrite Ql (U) Negative NEGATIVE [facility] pH (U) 6.0 [pH] 5.0 - 9.0 [facility] Protein (U) [Mass/Vol] Negative NEGAT CHAD mg/dL [facility] Specific gravity (U) [Rel density] High 1.010 - 1.020 [facility] Urobilinogen Qn (U) Normal 0.0 - 1. 0 EU/dL [facility] Urinalysis, Routineon 2023 Bilirubin, SemiQt,Ur Negative Normal [facility] Comment on above: Performed By: #### U MICAO, UAX #### [facility] [address] [place] [address] Spice Blender: Ivan Lindquist MD Blood, Urine Negative Normal [facility] Comment on above: Performed By: #### U MICAO, UAX #### [facility] [address] [place], [facility] Spice Blender: Ivan Lindquist MD Glucose Ql (U) Negative Normal NEG [facility] Comment on above: Performed By: #### U MICAO, UAX #### [facility] [address] [place] [address] Spice Blender: Ivan Lindquist MD Ketones Ql (U) TRACE Abnormal NEG [facility] Comment on above: Performed By: #### U MICAO, UAX #### [facility] [address] [place] [address] Spice Blender: Ivan Lindquist MD Nitrite,Ur Negative Normal [facility] Comment on above: Performed By: #### U MICAO, UAX #### [facility] [address] [place] [address] [place], [place] [id number] Spice Blender: Ivan Lindquist MD PH,Ur 6.0 Normal 5.0-9.0 [facility] Comment on above: Performed By: #### U MICAO, UAX #### [facility] [address] [place] [address] [place], [place] [id number] Spice Blender: Ivan Lindquist MD Protein Ql (U) Negative Normal NEG [facility] Comment on above: Performed By: #### U MICAO, UAX #### [address] [place] [address] Spice Blender: Ivan Lindquist MD Spec. [place],Ur >1.030 High 1.010-1.020 [facility] Comment on above: Performed By: #### U MICAO, UAX #### [facility] [address] [place] [address] [place], [place] [id number] Spice Blender: Ivan Lindquist MD Urobilinogen,Ur Normal Normal 0.0-1.0 [facility] Comment on above: Performed By: #### U MICAO, UAX #### [facility] [address] [place] [address] [place], [place] [id number] Spice Blender: Ivan Lindquist MD Clarity (U) Clear Normal CLEAR [facility]ours [facility] Comment on above: Performed By: #### U MICAO, UAX #### [facility] [address] [place] [address] [place], [place] [id number] Spice Blender: Ivan Lindquist MD Color (U) Yellow Normal YEL [facility] Comment on above: Performed By: #### U MICAO, UAX #### [facility] [address] [place] [address] [place] [address] Spice Blender: Ivan Lindquist MD Leukocyte esterase Test strip Ql (U) MODERATE Abnormal NEG [facility] Comment on above: Performed By: #### U MICAO, UAX #### [facility] [address] [place] [address] Spice Blender: Ivan Lindquist MD Urinalysis,Microon 4 Bacteria 3+ Abnormal NONE [facility] Comment on above: Performed By: #### U MICAO, UAX #### [facility] [address] [place], [facility] Spice Blender: Ivan Lindquist MD Epithelial cells LM Ql (Urine sed) 10 TO 20 Normal 0-25 [facility] Comment on above: Performed By: #### U MICAO, UAX #### [facility] [address] [place], [place] [id number] Spice Blender: Ivan Lindquist MD Mucus Strands 3+ Abnormal NONE [facility] Comment on above: Performed By: #### U MICAO, UAX #### [facility] [address] [place], [place] [address]70983 Spice Blender: Ivan Lindquist MD Urine RBC's 0 TO 2 Normal 0-2 [facility] Comment on above: Performed By: #### U MICAO, UAX #### [facility] [address] [place] [address] Spice Blender: Ivan Lindquist MD Urine WBC's 20 TO 50 Normal 0-5 [facility] Comment on above: Performed By: #### U MICAO, UAX #### [facility] [address] [place] [address] Spice Blender: Ivan Lindquist MD CBC with Auto Differentialon 02-09-2024 Basophils (Bld) [#/Vol] B on [facility] Basophils/100 WBC (Bld) 0 % 0 - 2 % B on [facility] Eosinophils (Bld) [#/Vol] 0.04 10*3/uL Bon [facility] Eosinophils/100 WBC (Bld) 1 % 1 - 4 % [facility] Erythrocyte distribution width (RBC) [Ratio] 12.4 % 11.8 - 14.4 % [facility] Hematocrit (Bld) [Volume fraction] 34.0 % Low 36.3 - 47.1 % [facility] Hemoglobin (Bld) [Mass/Vol] 11.8 g/dL Low 11.9 - 15.1 g/dL [facility] Immature granulocytes (Bld) [#/Vol] 0.03 10*3/uL [facility] Immature granulocytes/100 WBC (Bld) 0 % 0 [facility] Interpretation and review of laboratory results Abnormal [facility] Lymphocytes/100 WBC (Bld) 24 % 24 - 43 % [facility] Lymphocytes/100 WBC (Bld) 1.88 % [facility] MCH (RBC) [Entitic mass] 30.4 pg 25. 2 - 33.5 pg [facility] MCHC (RBC) [Mass/Vol] 34.7 g/dL 28.4 - 34.8 g/dL [facility] MCV (RBC) [Entitic vol] 87.6 fL 82.6 - 102.9 fL [facility] Monocytes/100 WBC (Bld) 7 % 3 - 12 % [facility] Mon[facility]/100 WBC (Bld) 0.51 % [facility] Neutrophils/100 WBC (Bld) 68 % High 36 - 65 % [facility] Nucleated RBC/100 WBC (Bld) [Ratio] 0.0 % 0.0 per 100 WBC [facility] Platelet mean volume (Bld) [Entitic vol] 10.6 fL 8.1 - 13.5 fL [facility] Platelets (Bld) [#/Vol] 165 10*3/uL [facility] RBC (Bld) [#/Vol] 3.88 10*6/uL Low 3.95 - 5.1 1 m/uL [facility] Segmented neutrophils/100 WBC (Bld) 5.26 % [facility] WBC other (Bld) [#/Vol] 7.7 B on [facility] CBC with Diffon 02-09-2024 Abs. Basophil <0.03 Normal 0.00-0.20 [facility] Comment on above: Performed By: #### B HCG #### [facility] [address] [place], [place] 1929083 Spice Blender: Ivan Lindquist MD Abs.Imm.Granulocyte 0.03 k/uL Normal 0.00-0.30 [facility] Comment on above: Performed By: #### B HCG #### [facility] [address] [place] [address] Spice Blender: Ivan Lindquist MD Abs.Neutrophil (Seg) 5.26 k/uL Normal 1.50-8.10 [facility] Comment on above: Performed By: #### B HCG #### [facility] [address] [place], [place] [id number] Spice Blender: Ivan Lindquist MD Basophils/100 WBC (Bld) 0 % Normal 0-2 [facility] Comment on above: Performed By: #### B HCG #### [facility] [address] [place] [address] Spice Blender: Ivan Lindquist MD Eosinophils (Bld) [#/Vol] 0.04 10*3/uL Normal 0.00-0.44 [facility] Comment on above: Performed By: #### B HCG #### [facility] [address] [place] [address] Spice Blender: Ivan Lindquist MD Eosinophils/100 WBC (Bld) 1 % Normal 1-4 [facility] Comment on above: Performed By: #### B HCG #### [facility] [address] [place], [place] [address]83 Spice Blender: Ivan Lindquist MD Erythrocyte distribution width (RBC) [Ratio] 12.4 % Normal 11.8-14.4 [facility] Comment on above: Performed By: #### B HCG #### [facility] [address] [place], [place] [id number] Spice Blender: Ivan Lindquist MD Hematocrit (Bld) [Volume fraction] 34.0 % Low 36.3-47.1 [facility] Comment on above: Performed By: #### B HCG #### [facility] [address] [place], [facility] Spice Blender: Ivan Lindquist MD Hemoglobin (Bld) [Mass/Vol] 11.8 g/dL Low 11.9-15.1 [facility] Comment on above: Performed By: #### B HCG #### [facility] [address] [place], [facility] Spice Blender: Ivan Lindquist MD Immature granulocytes/100 WBC (Bld) 0 % Normal 0 [facility] Comment on above: Performed By: #### B HCG #### [facility] [address] [place], [facility] Spice Blender: Ivan Lindquist MD Lymphocytes (Bld) [#/Vol] 1.88 10*3/uL Normal 1.10-3.70 [facility] Comment on above: Performed By: #### B HCG #### [facility] [address] [place], [facility] Spice Blender: Ivan Lindquist MD Lymphocytes/100 WBC (Bld) 24 % Normal 24-43 [facility] Comment on above: Performed By: #### B HCG #### [facility] [address] [place] [id number] Spice Blender: Ivan Lindquist MD MCH (RBC) [Entitic mass] 30.4 pg Normal 25.2-33.5 [facility] Comment on above: Performed By: #### B HCG #### [facility] [address] [place] [facility] Spice Blender: Ivan Lindquist MD MCHC (RBC) [Mass/Vol] 34.7 g/dL Normal 28.4-34.8 [facility] Comment on above: Performed By: #### B HCG #### [facility] [address] [place], [place] [id number] Spice Blender: Ivan Lindquist MD MCV (RBC) [Entitic vol] 87.6 fL Normal 82.6-102.9 [facility] Comment on above: Performed By: #### B HCG #### [address] [place] [id number] Spice Blender: Ivan Lindquist MD Monocytes (Bld) [#/Vol] 0.51 10*3/uL Normal 0.10-1.20 [facility] Comment on above: Performed By: #### B HCG #### [address] [place], [place] [id number] Spice Blender: Ivan Lindquist MD Monocytes/100 WBC (Bld) 7 % Normal 3-12 [facility] Comment on above: Performed By: #### B HCG #### [address] [place] [address] Spice Blender: Ivan Lindquist MD Neutrophil (Seg) 68 % High 36-65 [facility] Comment on above: Performed By: #### B HCG #### [facility] [address] [place] [address] [place] [place], [place] [id number] Spice Blender: Ivan Lindquist MD NRBC Automated 0.0 per 100 WBC Normal 0.0 [facility] Comment on above: Performed By: #### B HCG #### [address] [place], [place] [id number] Spice Blender: Ivan Lindquist MD Platelet mean volume (Bld) [Entitic vol] 10.6 fL Normal 8.1-13.5 [facility] Comment on above: Performed By: #### B HCG #### [facility] [address] [place], [place] [id number] Spice Blender: Ivan Lindquist MD Platelets (Bld) [#/Vol] 165 10*3/uL Normal 138-453 [facility] Comment on above: Performed By: #### B HCG #### [facility] [address] [place], [place] [id number] Spice Blender: Ivan Lindquist MD RBC (Bld) [#/Vol] 3.88 10*6/uL Low 3.95-5.11 [facility] Comment on above: Performed By: #### B HCG #### [facility] [address] [place], [place] [id number] Spice Blender: Ivan Lindquist MD WBC (Bld) [#/Vol] 7.7 10*3/uL Normal 3.5-11.3 [facility] Comment on above: Performed By: #### B HCG #### [facility] [address] [place], [place] [id number] Spice Blender: Ivan Lindquist MD Cult,Urineon 02-06-2024 Cult,Urine Specimen Description .CLEAN CATCH URINE Special Requests Site: Urine Culture NO SIGNIFICANT GROWTH Report Status FINAL 02/06/2024 Normal [facility] Comment on above: Performed By: #### U RTPRT #### [facility] [address] [place], [place] [id number] Spice Blender: Ivan Lindquist MD CBC with Auto Differentialon 02-05-2024 Basophils (Bld) [#/Vol] B on [facility] Basophils/100 WBC (Bld) 0 % 0 - 2 % B on [facility] Eosinophils (Bld) [#/Vol] Bon [facility] Eosinophils/100 WBC (Bld) 0 % Low 1 - 4 % Bon [facility] Erythrocyte distribution width (RBC) [Ratio] 12.4 % 11.8 - 14.4 % Bon [facility] Hematocrit (Bld) [Volume fraction] 36.3 % 36.3 - 47.1 % [facility] Hemoglobin (Bld) [Mass/Vol] 12.5 g/dL 11.9 - 15.1 g/dL [facility] Immature granulocytes (Bld) [#/Vol] 0.03 10*3/uL [facility] Immature granulocytes/100 WBC (Bld) 0 % 0 [facility] Interpretation and review of laboratory results Abnormal [facility] Lymphocytes/100 WBC (Bld) 19 % Low 24 - 43 % [facility] Lymphocytes/100 WBC (Bld) 1.56 % [facility] MCH (RBC) [Entitic mass] 29.8 pg 25. 2 - 33.5 pg [facility] MCHC (RBC) [Mass/Vol] 34.4 g/dL 28.4 - 34.8 g/dL [facility] MCV (RBC) [Entitic vol] 86.4 fL 82.6 - 102.9 fL [facility] Monocytes/100 WBC (Bld) 6 % 3 - 12 % B on [facility] Monocytes/100 WBC (Bld) 0.46 % B on [facility] Neutrophils/100 WBC (Bld) 75 % High 36 - 65 % [facility] Nucleated RBC/100 WBC (Bld) [Ratio] 0.0 % 0.0 per 100 WBC [facility] Platelet mean volume (Bld) [Entitic vol] 10.5 fL 8.1 - 13.5 fL [facility] Platelets (Bld) [#/Vol] 179 10*3/uL [facility] RBC (Bld) [#/Vol] 4.20 10*6/uL 3.95 - 5.1 1 m/uL [facility] Segmented neutrophils/100 WBC (Bld) 5.94 % [facility] WBC other (Bld) [#/Vol] 8.0 B on [facility] CBC with Diffon 02-05-2024 Abs. Basophil <0.03 Normal 0.00-0.20 [facility] Comment on above: Performed By: #### U MICAO, UAX #### [facility] [address] [place], [place] [phone] Spice Blender: Ivan Lindquist MD Abs. Eosinophil <0.03 Normal 0.00-0.44 [facility] Comment on above: Performed By: #### U MICAO, UAX #### [facility] [address] [place], [place] 2423783 Spice Blender: Ivan Lindquist MD Abs.Imm.Granulocyte 0.03 k/uL Normal 0.00-0.30 [facility] Comment on above: Performed By: #### U MICAO, UAX #### [address] [place], [place] 8208083 Spice Blender: Ivan Lindquist MD Abs.Neutrophil (Seg) 5.94 k/uL Normal 1.50-8.10 [facility] Comment on above: Performed By: #### U MICAO, UAX #### [address] [place], [place] [phone] Spice Blender: Ivan Lindquist MD Basophils/100 WBC (Bld) 0 % Normal 0-2 [facility] Comment on above: Performed By: #### U MICAO, UAX #### [address] [place] [address] Spice Blender: Ivan Lindquist MD Eosinophils/100 WBC (Bld) 0 % Low 1-4 [facility] Comment on above: Performed By: #### U MICAO, UAX #### [address] [place] [address] Spice Blender: Ivan Lindquist MD Erythrocyte distribution width (RBC) [Ratio] 12.4 % Normal 11.8-14.4 [facility] Comment on above: Performed By: #### U MICAO, UAX #### [address] [place], [facility]83 Spice Blender: Ivan Lindquist MD Hematocrit (Bld) [Volume fraction] 36.3 % Normal 36.3-47.1 [facility] Comment on above: Performed By: #### U MICAO, UAX #### [facility] [address] [place] [facility]83 Spice Blender: Ivan Lindquist MD Hemoglobin (Bld) [Mass/Vol] 12.5 g/dL Normal 11.9-15.1 [facility] Comment on above: Performed By: #### U MICAO, UAX #### [address] [place], [facility]83 Spice Blender: Ivan Lindquist MD Immature granulocytes/100 WBC (Bld) 0 % Normal 0 [facility] Comment on above: Performed By: #### U YONIO, UAX #### [address] [place], [facility]83 Spice Blender: Ivan Lindquist MD Lymphocytes (Bld) [#/Vol] 1.56 10*3/uL Normal 1.10-3.70 [facility] Comment on above: Performed By: #### U MICAO, UAX #### [address] [place], [facility]83 Spice Blender: Ivan Lindquist MD Lymphocytes/100 WBC (Bld) 19 % Low 24-43 [facility] Comment on above: Performed By: #### U MICAO, UAX #### [facility] [address] [place], [facility]83 Spice Blender: Ivan Lindquist MD MCH (RBC) [Entitic mass] 29.8 pg Normal 25.2-33.5 [facility] Comment on above: Performed By: #### U MICAO, UAX #### [facility] [address] [place] [address] [place] [facility]83 Spice Blender: Ivan Lindquist MD MCHC (RBC) [Mass/Vol] 34.4 g/dL Normal 28.4-34.8 [facility] Comment on above: Performed By: #### U ARIK, UAX #### [facility] [address] [place], [place] [phone] Spice Blender: Ivan Lindquist MD MCV (RBC) [Entitic vol] 86.4 fL Normal 82.6-102.9 [facility] Comment on above: Performed By: #### U ARIK, UAX #### [address] [place], [place] 8073983 Spice Blender: Ivan Lindquist MD Monocytes (Bld) [#/Vol] 0.46 10*3/uL Normal 0.10-1.20 [facility] Comment on above: Performed By: #### Dru ELISE UAX #### [address] [place] [address] Spice Blender: Ivan Lindquist MD Monocytes/100 WBC (Bld) 6 % Normal 3-12 [facility] Comment on above: Performed By: #### U ARIK UAX #### [address] [place], [place] 7956283 Spice Blender: Ivan Lindquist MD Neutrophil (Seg) 75 % High 36-65 [facility] Comment on above: Performed By: #### U ARIK UAX #### [facility] [address] [place], [place] 0359483 Spice Blender: Ivan Lindquist MD NRBC Automated 0.0 per 100 WBC Normal 0.0 [facility] Comment on above: Performed By: #### U ARIK, UAX #### [facility] [address] [place], [place] 0703883 Spice Blender: Iavn Lindquist MD Platelet mean volume (Bld) [Entitic vol] 10.5 fL Normal 8.1-13.5 [facility] Comment on above: Performed By: #### U MICAO, UAX #### [facility] [address] [place], [place] 7956583 Spice Blender: Ivan Lindquist MD Platelets (Bld) [#/Vol] 179 10*3/uL Normal 138-453 [facility] Comment on above: Performed By: #### U MICAO, UAX #### [facility] [address] [place], [place] [phone] Spice Blender: Ivan Lindquist MD RBC (Bld) [#/Vol] 4.20 10*6/uL Normal 3.95-5.11 [facility] Comment on above: Performed By: #### U MICAO, UAX #### [facility] [address] [place], [place] [id number] Spice Blender: Ivan Lindquist MD WBC (Bld) [#/Vol] 8.0 10*3/uL Normal 3.5-11.3 [facility] Comment on above: Performed By: #### U YONIO, UAX #### [facility] [address] [place] [address] Spice Blender: Ivan Lindquist MD Comp Metabolic Pr/rfx MGon 1 04-07-2023 Albumin [Mass/Vol] 3.3 g/dL Low 3.5-5.2 [facility] Comment on above: Performed By: #### U MICAO, UAX #### [facility] [address] [place], [place] 1230483 Spice Blender: Ivan Lindquist MD Albumin/Glob Ratio 1.3 Normal 1.0-2.5 [facility] Comment on above: Performed By: #### U MICAO, UAX #### [facility] [address] [place] [address] Spice Blender: Ivan Lindquist MD Alkaline Phos 73 U/L Normal 35-104 [facility] Comment on above: Performed By: #### U MICAO, UAX #### [facility] [address] [place] [address] Spice Blender: Ivan Lindquist MD ALT [Catalytic activity/Vol] 17 U/L Normal 10-35 [facility] Comment on above: Performed By: #### U MICAO, UAX #### [facility] [address] [place], [place] 5459083 Spice Blender: Ivan Lindquist MD Anion gap [Moles/Vol] 9 mmol/L Normal 9-16 [facility] Comment on above: Performed By: #### U MICAO, UAX #### [facility] [address] [place], [place] 4012583 Spice Blender: Ivan Lindquist MD AST [Catalytic activity/Vol] 17 U/L Normal 10-35 [facility] Comment on above: Performed By: #### U MICAO, UAX #### [address] [place] [address] Spice Blender: Ivan Lindquist MD Bilirubin [Mass/Vol] mg/dL Normal 0.00-1.20 [facility] Comment on above: Performed By: #### U MICAO, UAX #### [facility] [address] [place] [address] [place], [place] [phone] Spice Blender: Ivan Lindquist MD BUN/CRE Ratio 8 Low 9-20 [facility] Comment on above: Performed By: #### U MICAO, UAX #### [facility] [address] [place] [address] Spice Blender: Ivan Lindquist MD Calcium [Mass/Vol] 8.3 mg/dL Low 8.6-10.4 [facility] Comment on above: Performed By: #### U MICAO, UAX #### [facility] [address] [place], [place] 1969383 Spice Blender: Ivan Lindquist MD Chloride [Moles/Vol] 106 mmol/L Normal 98-107 [facility] Comment on above: Performed By: #### U MICAO, UAX #### [facility] [address] [place] 0553783 Spice Blender: Ivan Lindquist MD CO2 [Moles/Vol] 22 mmol/L Normal 20-31 [facility] Comment on above: Performed By: #### U MICAO, UAX #### [facility] [address] [place] [address] Spice Blender: Ivan Lindquist MD Creatinine [Mass/Vol] 0.5 mg/dL Normal 0.50-0.90 [facility] Comment on above: Performed By: #### U ARIK, UAX #### [facility] [address] [place], [place] 0179783 Spice Blender: Ivan Lindquist MD GFR/1.73 sq M.predicted among non-blacks MDRD (S/P/Bld) [Vol rate/Area] mL/min/{1.73_m2} Normal >60 [facility] Comment on above: Result Comment: These results are not intended for use in patients <18 years of age. eGFR results are calculated without a race factor using the 2020 CKD-EPI equation. Careful clinical correlation is recommended, particularly when comparing to results calculated using previous equations. The CKD-EPI equation is less accurate in patients with extremes of muscle mass, extra-renal metabolism of creatine, excessive creatine ingestion, or following therapy that affects renal tubular secretion. Performed By: #### U YONIO, UAX #### [facility] [address] [place] [address] Spice Blender: Ivan Lindquist MD Glucose [Mass/Vol] 74 mg/dL Normal 74-99 [facility] Comment on above: Performed By: #### U YONIO, UAX #### [facility] [address] [place] [address] Spice Blender: Ivan Lindquist MD Potassium [Moles/Vol] 3.9 mmol/L Normal 3.7-5.3 [facility] Comment on above: Performed By: #### U YONIO, UAX #### [facility] [address] [place], [place] 2888783 Spice Blender: Ivan Lindquist MD Protein [Mass/Vol] 6.0 g/dL Low 6.6-8.7 [facility] Comment on above: Performed By: #### U YONIO, UAX #### [facility] [address] [place] [address] Spice Blender: Ivan Lindquist MD Sodium [Moles/Vol] 137 mmol/L Normal 136-145 [facility] Comment on above: Performed By: #### U ARIK, UAX #### [facility] [address] [place], [place] 3050183 Spice Blender: Ivan Lindquist MD Urea nitrogen [Mass/Vol] 4 mg/dL Low 6-20 [facility] Comment on above: Performed By: #### U YONIO, UAX #### [facility] [address] [place] [address] Spice Blender: Ivan Lindquist MD Comprehensive Metabolic Pane l w/ Reflex to MGon 02-05-2024 Albumin [Mass/Vol] 3.3 g/dL Low 3.5 - 5.2 g/dL [facility] Albumin/Globulin [Mass ratio] 1.3 {ratio} 1.0 - 2.5 [facility] ALP [Catalytic activity/Vol] 73 U/L 35 - 104 U/L [facility] ALT [Catalytic activity/Vol] 17 U/L 10 - 35 U/L [facility] Anion gap [Moles/Vol] 9 mmol/L 9 - 16 mmol/L [facility] AST [Catalytic activity/Vol] 17 U/L 10 - 35 U/L [facility] Bilirubin [Mass/Vol] mg/dL 0.00 - 1.20 mg/dL [facility] Calcium [Mass/Vol] 8.3 mg/dL Low 8.6 - 10. 4 mg/dL [facility] Chloride [Moles/Vol] 106 mmol/L 98 - 10 7 mmol/L [facility] CO2 [Moles/Vol] 22 mmol/L 20 - 31 mmol/L [facility] Creatinine [Mass/Vol] 0.5 mg/dL 0.50 - 0.90 mg/dL [facility] Est, Glodinora [place] Rate - PINF [facility] Comment on above: These results are not intended for use in patients <18 years of age. eGFR results are calculated without a race factor using the 2020 CKD-EPI equation. Careful clinical correlation is recommended, particularly when comparing to results calculated using previous equations. The CKD-EPI equation is less accurate in patients with extremes of muscle mass, extra-renal metabolism of creatine, excessive creatine ingestion, or following therapy that affects renal tubular secretion. Glucose [Mass/Vol] 74 mg/dL 74 - 99 mg/dL [facility] Potassium [Moles/Vol] 3.9 mmol/L 3.7 - 5.3 mmol/L [facility] Protein [Mass/Vol] 6.0 g/dL Low 6.6 - 8.7 g/dL [facility] Sodium [Moles/Vol] 137 mmol/L 136 - 145 mmol/L [facility] Urea nitrogen [Mass/Vol] 4 mg/dL Low 6 - 20 mg/dL [facility] Urea nitrogen/Creatinine [Mass ratio] 8 mg/mg Low 9 - 20 [facility] Drug Scr, Abuse, Uron 2023 Amphetamine(s),Ur Negative Normal NEG [facility] Comment on above: Result Comment: Cuto ff: 1000 ng/mL Performed By: #### U MICAO, UAX #### [facility] [address] [place] [address] Spice Blender: Ivan Lindquist MD Barbiturate(s),Ur Negative Normal NEG [facility] Comment on above: Result Comment: Cuto ff: 200 ng/ml Performed By: #### U MICAO, UAX #### [facility] [address] [place], [place] [phone] Spice Blender: Ivan Lindquist MD Benzodiazepine(s) Negative Normal [facility] Comment on above: Result Comment: Cuto ff: 200 ng/ml Performed By: #### U MICAO, UAX #### [facility] [address] [place], [place] 0295183 Spice Blender: Ivan Lindquist MD Buprenorphrine, Ur Negative Normal NEG [facility] Comment on above: Result Comment: Cuto ff: 5 ng/ml Performed By: #### U MICAO, UAX #### [facility] [address] [place] [address] [place], [place] [id number] Spice Blender: Ivan Lindquist MD Cannabinoid(s),Ur Negative Normal [facility] Comment on above: Result Comment: Cuto ff: 50 ng/ml Performed By: #### U MICAO, UAX #### [facility] [address] [place] [address] [place], [place] 8874483 Spice Blender: Ivan Lindquist MD Cocaine Metabolite Negative [facility] Comment on above: Result Comment: Cuto ff: 300 ng/ml Performed By: #### U MICAO, UAX #### [facility] [address] [place], [place] [phone] Spice Blender: Ivan Lindquist MD Fentanyl, Urine Negative Normal [facility] Comment on above: Result Comment: Cuto ff: 5 ng/ml Performed By: #### U MICAO, UAX #### [facility] [address] [place], [place] 1337683 Spice Blender: Ivan Lindquist MD Interpretive Info This method is a screening test to detect only these drug classes as part of a Normal [facility] Comment on above: Result Comment: medi edgar workup. Confirmatory testing by another method should be ordered if clinically indicated. Performed By: #### U YONIO, UAX #### [facility] [address] [place] [address] [place], [place] 1133683 Spice Blender: Ivan Lindquist MD Methadone Ql (U) Negative Normal NEG [facility] Comment on above: Result Comment: Cuto ff: 300 ng/ml Performed By: #### U YONIO, UAX #### [facility] [address] [place] [address] [place] [address] Spice Blender: Ivan Lindquist MD Opiate(s), Ur Negative Normal NEG [facility] Comment on above: Result Comment: Cuto ff: 300 ng/ml Note: The Opiate screen is not intended to detect Oxycodone. Performed By: #### U YONIO, UAX #### [address] [place], [place] 5778583 Spice Blender: Ivan Lindquist MD Oxycodone, Urine Negative Normal NEG [facility] Comment on above: Result Comment: Cuto ff: 100 ng/ml Performed By: #### U YONIO, UAX #### [address] [place], [place] 2612083 Spice Blender: Ivan Lindquist MD Phencyclidine, Ur Negative Normal NEG [facility] Comment on above: Result Comment: Cuto ff: 25 ng/ml Performed By: #### U MICAO, UAX #### [address] [place], [place] [id number] Spice Blender: Ivan Lindquist MD Lactate Dehydrogenase LDH [Catalytic activity/Vol] 113 U/L Low 135 - 214 U/L [facility] L[facility] [Catalytic activity/Vol] 113 U/L Low 135-214 [facility] Comment on above: Performed By: #### U YONIO, UAX #### [address] [place] [address] Spice Blender: Ivan Lindquist MD Lactic Acidon 02-05-2024 Lactate (BldV) [Moles/Vol] 0.9 mmol/L 0.5 - 2.2 mmol/L [facility] Lactate [Moles/Vol] 0.9 mmol/L Normal 0.5-2.2 [facility] Comment on above: Performed By: #### B HCG #### [facility] [address] [place] [address] Spice Blender: Ivan Lindquist MD Microscopic Urinalysison Bacteria LM Ql (Urine sed) 3+ Abnormal None [facility] Character (U) Few epithelials coated with bacteria resembling clue cells. Abnormal NOT REQ. [facility] Epithelial cells LM.HPF (Urine sed) [#/Area] 10 TO 20 [facility] Interpretation and review of laboratory results Abnormal [facility] Mucus Ql (Urine sed) 2+ Abnormal None [facility] RBC LM.HPF (Urine sed) [#/Area] 0 TO 2 [facility] WBC LM.HPF (Urine sed) [#/Area] 2 TO 5 [facility] No Panel Informationon 02-04 Interpretation and review of laboratory results Abnormal [facility] Protein / creatinine ratio, urineon 02-05-2024 Creatinine (U) [Mass/Vol] 115.0 mg/dL 28.0 - 217.0 mg/dL [facility] Protein (U) [Mass/Vol] 14 mg/dL [facility] Comment on above: No normal range esta blished. Urine Total Protein Creatinine Ratio 0.12 0.00 - 0.20 [facility] Protein,Tot,Avery Uron 2023 Creatinine [Mass/Vol] 115.0 mg/dL Normal 28.0-217.0 [facility] Comment on above: Performed By: #### U RTPRT #### [facility] [address] [place] [address] Spice Blender: Ivan Lindquist MD Tot Prot. Conc. 14 mg/dL Normal [facility] Comment on above: Result Comment: No n ormal range established. Performed By: #### U RTPRT #### [facility] [address] [place], [place] 5602083 Spice Blender: Ivan Lindquist MD TP/Cre Ratio 0.12 Normal 0.00-0.20 [facility] Comment on above: Performed By: #### U RTPRT #### [facility] [address] [place], [place] 2016183 Spice Blender: Ivan Lindquist MD Troponinon 4336 Troponin I.cardiac High sensitivity method [Mass/Vol] ng/L 0 - 14 ng/L [facility] Comment on above: High Sensitivity Tro ponin values cannot be compared with other Troponin methodologies. Troponin, High Sens <6 Normal 0-14 [facility] Comment on above: Result Comment: High Sensitivity Troponin values cannot be compared with other Troponin methodologies. Performed By: #### U MICAO, UAX #### [facility] [address] [place] [address] [place], [place] 6234083 Spice Blender: Ivan Lindquist MD UA w/Reflex Cultureon 9525 Bilirubin, SemiQt,Ur Negative Normal NEG [facility] Comment on above: Performed By: #### U MICAO, UAX #### [facility] [address] [place], [place] 9481083 Spice Blender: Ivan Lindquist MD Blood, Urine Negative Normal NEG [facility] Comment on above: Performed By: #### U MICAO, UAX #### [facility] [address] [place], [place] 0385683 Spice Blender: Ivan Lindquist MD Clarity (U) Clear Normal CLEAR [facility] Comment on above: Performed By: #### U MICAO, UAX #### [facility] [address] [place], [place] 6204383 Spice Blender: Ivan Lindquist MD Color (U) Yellow Normal YEL [facility] Comment on above: Performed By: #### U MICAO, UAX #### [facility] [address] [place], [place] 8936083 Spice Blender: Ivan Lindquist MD Glucose Ql (U) Negative Normal NEG [facility] Comment on above: Performed By: #### U MICAO, UAX #### [facility] [address] [place] [address] [place], [place] 7525583 Spice Blender: Ivan Lindquist MD Ketones Ql (U) Negative Normal NEG [facility] Comment on above: Performed By: #### U MICAO, UAX #### [facility] [address] [place] [address] [place], [place] [id number] Spice Blender: Ivan Lindquist MD Leukocyte esterase Test strip Ql (U) MODERATE Abnormal NEG [facility] Comment on above: Performed By: #### U MICAO, UAX #### [address] [place], [place] 3764483 Spice Blender: Ivan Lindquist MD Nitrite,Ur Negative Normal NEG [facility] Comment on above: Performed By: #### U MICAO, UAX #### [facility] [address] [place] [address] [place], [place] 5373683 Spice Blender: Ivan Lindquist MD PH,Ur 7.0 Normal 5.0-9.0 [facility] Comment on above: Performed By: #### U MICAO, UAX #### [address] [place], [place] 7814483 Spice Blender: Ivan Lindquist MD Protein Ql (U) Negative Normal NEG [facility] Comment on above: Performed By: #### U MICAO, UAX #### [facility] [address] [place] [address] [place] [address] Spice Blender: Ivan Lindquist MD Spec. [place],Ur 1.020 Normal 1.010-1.020 [facility] Comment on above: Performed By: #### U YONIO, UAX #### [facility] [address] [place] [address] Spice Blender: Ivan Lindquist MD Urobilinogen,Ur Normal Normal 0.0-1.0 [facility] Comment on above: Performed By: #### U MICAO, UAX #### [facility] [address] [place] [address] Spice Blender: Ivan Lindquist MD Urinalysis with Reflex to Cu ltureon 02-05-2024 Bilirubin Ql (U) Negative NEGATIVE [facility] Clarity (U) Clear Clear [facility] Color (U) Yellow Yellow [facility] Glucose Test strip (U) [Mass/Vol] Negative NEGATIVE mg/dL [facility] Hemoglobin Auto test strip Ql (U) Negative NEGATIVE [facility] Interpretation and review of laboratory results Abnormal [facility] Ketones (U) [Mass/Vol] Negative NEGAT CHAD mg/dL [facility] Leukocyte esterase Test strip Ql (U) MODERATE Abnormal NEGATIVE [facility] Nitrite Ql (U) Negative NEGATIVE [facility] pH (U) 7.0 [pH] 5.0 - 9.0 [facility] Protein (U) [Mass/Vol] Negative NEGAT CHAD mg/dL [facility] Specific gravity (U) [Rel density] 1.020 1.010 - 1.020 [facility] Urobilinogen Qn (U) Normal 0.0 - 1. 0 EU/dL [facility] Urinalysis,Microon 4 Bacteria 3+ Abnormal NONE [facility] Comment on above: Performed By: #### U YONIO, UAX #### [facility] [address] [place] [id number] Spice Blender: Ivan Lindquist MD Epithelial cells LM Ql (Urine sed) 10 TO 20 Normal 0-25 [facility] Comment on above: Performed By: #### U MICAO, UAX #### [facility] [address] [place], [place] [id number] Spice Blender: Ivan Lindquist MD Mucus Strands 2+ Abnormal NONE [facility] Comment on above: Performed By: #### U MICAO, UAX #### [facility] [address] [place], [place] [id number] Spice Blender: Ivan Lindquist MD Other Observations Few epithelials coated with bacteria resembling clue cells. Abnormal NREQ [facility] Comment on above: Performed By: #### U MICAO, UAX #### [facility] [address] [place], [place] [id number] Spice Blender: Ivan Lindquist MD Urine RBC's 0 TO 2 Normal 0-2 [facility] Comment on above: Performed By: #### U MICAO, UAX #### [facility] [address] [place] [address] Spice Blender: Ivan Lindquist MD Urine WBC's 2 TO 5 Normal 0-5 [facility] Comment on above: Performed By: #### U MICAO, UAX #### [facility] [address] [place] [address] Spice Blender: Ivan Lindquist MD Fetaldex / Kleihauer Betkeon 01-26-2024 Kleihauer Betke Ratio 0.0010 Ratio Normal T he [facility] Comment on above: Result Comment: PERF ORMED BY: [facility] [address] [place] [address] PATHOLOGIST [employer] ELIDA BANDA M.D. Cult,Urineon 01-23-2024 Cult,Urine Specimen Description .VOIDED URINE Special Requests Site: Urine Culture NO SIGNIFICANT GROWTH Report Status FINAL 01/23/2024 Normal [facility] Comment on above: Performed By: #### MICHELLE CURIELX #### [facility] [address] [place] [address] Spice Blender: Ivan Lindquist MD CBCon 01-21-2024 Erythrocyte distribution width (RBC) [Ratio] 12.3 % 11.8 - 14.4 % [facility] Hematocrit (Bld) [Volume fraction] 34.2 % Low 36.3 - 47.1 % [facility] Hemoglobin (Bld) [Mass/Vol] 12.0 g/dL 11.9 - 15.1 g/dL [facility] Interpretation and review of laboratory results Abnormal [facility] MCH (RBC) [Entitic mass] 30.6 pg 25. 2 - 33.5 pg [facility] MCHC (RBC) [Mass/Vol] 35.1 g/dL High 28.4 - 34.8 g/dL [facility] MCV (RBC) [Entitic vol] 87.2 fL 82.6 - 102.9 fL [facility] Nucleated RBC/100 WBC (Bld) [Ratio] 0.0 % 0.0 per 100 WBC [facility] Platelet mean volume (Bld) [Entitic vol] 10.8 fL 8.1 - 13.5 fL [facility] Platelets (Bld) [#/Vol] 160 10*3/uL [facility] RBC (Bld) [#/Vol] 3.92 10*6/uL Low 3.95 - 5.1 1 m/uL [facility] WBC other (Bld) [#/Vol] 8.8 B on [facility] Erythrocyte distribution width (RBC) [Ratio] 12.3 % Normal 11.8-14.4 [facility] Comment on above: Performed By: #### PRAKASH CURIEL #### [facility] [address] [place] [address] Spice Blender: Ivan Lindquist MD Hematocrit (Bld) [Volume fraction] 34.2 % Low 36.3-47.1 [facility] Comment on above: Performed By: #### U ARIK UAX #### [address] [place] [address] Spice Blender: Ivan Lindquist MD Hemoglobin (Bld) [Mass/Vol] 12.0 g/dL Normal 11.9-15.1 [facility] Comment on above: Performed By: #### U ARIK, UAX #### [address] [place], [place] [id number] Spice Blender: Ivan Lindquist MD MCH (RBC) [Entitic mass] 30.6 pg Normal 25.2-33.5 [facility] Comment on above: Performed By: #### Dru ELISE UAX #### [address] [place], [facility] Spice Blender: Ivan Lindquist MD MCHC (RBC) [Mass/Vol] 35.1 g/dL High 28.4-34.8 [facility] Comment on above: Performed By: #### Dru ELISE UAX #### [address] [place], [facility] Spice Blender: Ivan Lindquist MD MCV (RBC) [Entitic vol] 87.2 fL Normal 82.6-102.9 [facility] Comment on above: Performed By: #### U ARIK UAX #### [address] [place], [place] [id number] Spice Blender: Ivan Lindquist MD NRBC Automated 0.0 per 100 WBC Normal 0.0 [facility] Comment on above: Performed By: #### U ARIK, UAX #### [address] [place] [address] Spice Blender: Ivan Lindquist MD Platelet mean volume (Bld) [Entitic vol] 10.8 fL Normal 8.1-13.5 [facility] Comment on above: Performed By: #### U MICAO, UAX #### [facility] [address] [place], [place] [id number] Spice Blender: Ivan Lindquist MD Platelets (Bld) [#/Vol] 160 10*3/uL Normal 138-453 [facility] Comment on above: Performed By: #### U MICAO, UAX #### [facility] [address] [place], [place] [phone] Spice Blender: Ivan Lindquist MD RBC (Bld) [#/Vol] 3.92 10*6/uL Low 3.95-5.11 [facility] Comment on above: Performed By: #### U MICAO, UAX #### [facility] [address] [place], [place] [id number] Spice Blender: Ivan Lindquist MD WBC (Bld) [#/Vol] 8.8 10*3/uL Normal 3.5-11.3 [facility] Comment on above: Performed By: #### U ARIK, UAX #### [facility] [address] [place], [place] [id number] Spice Blender: Ivan Lindquist MD Comp Metabolic Profon 2023 Albumin [Mass/Vol] 3.5 g/dL Normal 3.5-5.2 [facility] Comment on above: Performed By: #### U RTPRT #### [facility] [address] [place], [place] [id number] Spice Blender: Ivan Lindquist MD Albumin/Glob Ratio 1.4 Normal 1.0-2.5 [facility] Comment on above: Performed By: #### U RTPRT #### [facility] [address] [place] [address] Spice Blender: Ivan Lindquist MD Alkaline Phos 67 U/L Normal 35-104 [facility] Comment on above: Performed By: #### U RTPRT #### [facility] [address] [place], [place] [phone] Spice Blender: Ivan Lindquist MD ALT [Catalytic activity/Vol] 11 U/L Normal 10-35 [facility] Comment on above: Performed By: #### U RTPRT #### [facility] [address] [place], [place] [address]283 Spice Blender: Ivan Lindquist MD Anion gap [Moles/Vol] 11 mmol/L Normal 9-16 [facility] Comment on above: Performed By: #### U RTPRT #### [facility] [address] [place], [place] [address]64[address]83 Spice Blender: Ivan Lindquist MD AST [Catalytic activity/Vol] 14 U/L Normal -35 [facility] Comment on above: Performed By: #### U RTPRT #### [facility] [address] [place], [place] [phone] Spice Blender: Ivan Lindquist MD Bilirubin [Mass/Vol] 0.2 mg/dL Normal 0.00-1.20 [facility] Comment on above: Performed By: #### U RTPRT #### [facility] [address] [place], [place] [phone] Spice Blender: Ivan Lindquist MD BUN/CRE Ratio 15 Normal 9-20 [facility] Comment on above: Performed By: #### U RTPRT #### [facility] [address] [place], [place] [phone] Spice Blender: Ivan Lindquist MD Calcium [Mass/Vol] 8.5 mg/dL Low 8.6-10.4 [facility] Comment on above: Performed By: #### U RTPRT #### [facility] [address] [place], [place] [address]885483 Spice Blender: Ivan Lindquist MD Chloride [Moles/Vol] 105 mmol/L Normal 98-107 [facility] Comment on above: Performed By: #### U RTPRT #### [facility] [address] [place] [address] Spice Blender: Ivan Lindquist MD CO2 [Moles/Vol] 21 mmol/L Normal 20-31 [facility] Comment on above: Performed By: #### U RTPRT #### [facility] [address] [place] [address] Spice Blender: Ivan Lindquist MD Creatinine [Mass/Vol] 0.6 mg/dL Normal 0.50-0.90 [facility] Comment on above: Performed By: #### U RTPRT #### [facility] [address] [place] [address] Spice Blender: Ivan Lindquist MD GFR/1.73 sq M.predicted among non-blacks MDRD (S/P/Bld) [Vol rate/Area] mL/min/{1.73_m2} Normal >60 [facility] Comment on above: Result Comment: These results are not intended for use in patients <18 years of age. eGFR results are calculated without a race factor using the 2020 CKD-EPI equation. Careful clinical correlation is recommended, particularly when comparing to results calculated using previous equations. The CKD-EPI equation is less accurate in patients with extremes of muscle mass, extra-renal metabolism of creatine, excessive creatine ingestion, or following therapy that affects renal tubular secretion. Performed By: #### U RTPRT #### [facility] [address] [place] [address] Spice Blender: Ivan Lindquist MD Glucose [Mass/Vol] 107 mg/dL High 74-99 [facility] Comment on above: Performed By: #### U RTPRT #### [facility] [address] [place] [address] Spice Blender: Ivan Lindquist MD Potassium [Moles/Vol] 3.6 mmol/L Low 3.7-5.3 [facility] Comment on above: Performed By: #### U RTPRT #### [facility] [address] [place] [address] Spice Blender: Ivan Lindquist MD Protein [Mass/Vol] 6.0 g/dL Low 6.6-8.7 [facility] Comment on above: Performed By: #### U RTPRT #### [facility] [address] [place] [address] Spice Blender: Ivan Lindquist MD Sodium [Moles/Vol] 137 mmol/L Normal 136-145 [facility] Comment on above: Performed By: #### U RTPRT #### [facility] [address] [place], [place] [id number] Spice Blender: Ivan Lindquist MD Urea nitrogen [Mass/Vol] 9 mg/dL Normal 6-20 [facility] Comment on above: Performed By: #### U RTPRT #### [facility] [address] [place] [address] Spice Blender: Ivan Lindquist MD [facility] metabolic formerly [facility] 01-21-2024 Albumin [Mass/Vol] 3.5 g/dL 3.5 - 5.2 g/dL [facility] Albumin/Globulin [Mass ratio] 1.4 {ratio} 1.0 - 2.5 [facility] ALP [Catalytic activity/Vol] 67 U/L 35 - 104 U/L [facility] ALT [Catalytic activity/Vol] 11 U/L 10 - 35 U/L [facility] Anion gap [Moles/Vol] 11 mmol/L 9 - 16 mmol/L [facility] AST [Catalytic activity/Vol] 14 U/L 10 - 35 U/L [facility] Bilirubin [Mass/Vol] 0.2 mg/dL 0.00 - 1.20 mg/dL [facility] Calcium [Mass/Vol] 8.5 mg/dL Low 8.6 - 10. 4 mg/dL [facility] Chloride [Moles/Vol] 105 mmol/L 98 - 10 7 mmol/L [facility] CO2 [Moles/Vol] 21 mmol/L 20 - 31 mmol/L [facility] Creatinine [Mass/Vol] 0.6 mg/dL 0.50 - 0.90 mg/dL [facility] EstBhakti Rate - PINF [facility] Comment on above: These results are not intended for use in patients <18 years of age. eGFR results are calculated without a race factor using the 2020 CKD-EPI equation. Careful clinical correlation is recommended, particularly when comparing to results calculated using previous equations. The CKD-EPI equation is less accurate in patients with extremes of muscle mass, extra-renal metabolism of creatine, excessive creatine ingestion, or following therapy that affects renal tubular secretion. Glucose [Mass/Vol] 107 mg/dL High 74 - 99 mg/dL [facility] Interpretation and review of laboratory results Abnormal [facility] Potassium [Moles/Vol] 3.6 mmol/L Low 3.7 - 5.3 mmol/L [facility] Protein [Mass/Vol] 6.0 g/dL Low 6.6 - 8.7 g/dL [facility] Sodium [Moles/Vol] 137 mmol/L 136 - 145 mmol/L [facility] Urea nitrogen [Mass/Vol] 9 mg/dL 6 - 20 mg/dL [facility] Urea nitrogen/Creatinine [Mass ratio] 15 mg/mg 9 - 20 [facility] Microscopic Urinalysison Bacteria LM Ql (Urine sed) 1+ Abnormal None [facility] Epithelial cells LM.HPF (Urine sed) [#/Area] 2 TO 5 [facility] Interpretation and review of laboratory results Abnormal [facility] Mucus Ql (Urine sed) 2+ Abnormal None [facility] RBC LM.HPF (Urine sed) [#/Area] None [facility] WBC LM.HPF (Urine sed) [#/Area] 2 TO 5 [facility] Urinalysison 01-21-2024 Bilirubin Ql (U) Negative NEGATIVE [facility] Clarity (U) Clear Clear [facility] Color (U) Yellow Yellow [facility] Glucose Test strip (U) [Mass/Vol] Negative NEGATIVE mg/dL [facility] Hemoglobin Auto test strip Ql (U) Negative NEGATIVE [facility] Interpretation and review of laboratory results Abnormal [facility] Ketones (U) [Mass/Vol] Negative NEGAT CHAD mg/dL [facility] Leukocyte esterase Test strip Ql (U) TRACE Abnormal NEGATIVE [facility] Nitrite Ql (U) Negative NEGATIVE [facility] pH (U) 6.5 [pH] 5.0 - 9.0 [facility] Protein (U) [Mass/Vol] Negative NEGAT CHAD mg/dL [facility] Specific gravity (U) [Rel density] 1.025 High 1.010 - 1.020 [facility] Urobilinogen Qn (U) Normal 0.0 - 1. 0 EU/dL [facility] Urinalysis, Routineon 2023 Bilirubin, SemiQt,Ur Negative Normal NEG [facility] Comment on above: Performed By: #### U MICHELLE ELISEX #### [facility] [address] [place] [address] Spice Blender: Ivan Lindquist MD Blood, Urine Negative Normal NEG [facility] Comment on above: Performed By: #### U ARIK UAX #### [facility] [address] [place] [address] Spice Blender: Ivan Lindquist MD Clarity (U) Clear Normal CLEAR [facility] Comment on above: Performed By: #### U ARIK UAX #### [facility] [address] [place] [address] Spice Blender: Ivan Lindquist MD Color (U) Yellow Normal YEL [facility] Comment on above: Performed By: #### U ARIK UAX #### [facility] [address] [place], [place] [address] Spice Blender: Ivan Lindquist MD Glucose Ql (U) Negative Normal NEG [facility] Comment on above: Performed By: #### U MICAO, UAX #### [facility] [address] [place], [place] [address] Spice Blender: Ivan Lindquist MD Ketones Ql (U) Negative Normal NEG [facility] Comment on above: Performed By: #### U MICAO, UAX #### [facility] [address] [place] [address] [place], [place] [phone] Spice Blender: Ivan Lindquist MD Leukocyte esterase Test strip Ql (U) TRACE Abnormal NEG [facility] Comment on above: Performed By: #### U MICAO, UAX #### [address] [place] [address] Spice Blender: Ivan Lindquist MD Nitrite,Ur Negative Normal NEG [facility] Comment on above: Performed By: #### U MICAO, UAX #### [address] [place], [place] [address]83 Spice Blender: Ivna Lindquist MD PH,Ur 6.5 Normal 5.0-9.0 [facility] Comment on above: Performed By: #### U MICAO, UAX #### [facility] [address] [place] [address] [place] [address] Spice Blender: Ivan Lindquist MD Protein Ql (U) Negative Normal NEG [facility] Comment on above: Performed By: #### U MICAO, UAX #### [facility] [address] [place] [address] Dr[place], [place] [address]83 Spice Blender: Ivan Lindquist MD Spec. [place],Ur 1.025 High 1.010-1.020 [facility] Comment on above: Performed By: #### U MICAO, UAX #### [facility] [address] [place], [place] 359[address]83 Spice Blender: Ivan Lindquist MD Urobilinogen,Ur Normal Normal 0.0-1.0 [facility] Comment on above: Performed By: #### U MICAO, UAX #### [facility] [address] [place], [place] [address]383 Spice Blender: Ivan Lindquist MD Urinalysis,Microon 4 Bacteria 1+ Abnormal NONE [facility] Comment on above: Performed By: #### U MICAO, UAX #### [facility] [address] [place], [place] 1558483 Spice Blender: Ivan Lindquist MD Epithelial cells LM Ql (Urine sed) 2 TO 5 Normal 0-25 [facility] Comment on above: Performed By: #### U MICAO, UAX #### [facility] [address] [place], [place] [phone] Spice Blender: Ivan Lindqiust MD Mucus Strands 2+ Abnormal NONE [facility] Comment on above: Performed By: #### U MICAO, UAX #### [facility] [address] [place], [place] [phone] Spice Blender: Ivan Lindquist MD Urine RBC's None Normal 0-2 [facility] Comment on above: Performed By: #### U MICAO, UAX #### [facility] [address] [place], [place] [address]83 Spice Blender: Ivan Lindquist MD Urine WBC's 2 TO 5 Normal 0-5 [facility] Comment on above: Performed By: #### U MICAO, UAX #### [facility] [address] [place], [place] [phone] Spice Blender: Ivan Lindquist MD Cult,Urineon 01-16-2024 Cult,Urine Specimen Description .CLEAN CATCH URINE Special Requests Site: Urine Culture NO SIGNIFICANT GROWTH Report Status FINAL 01/16/2024 Normal [facility] Comment on above: Performed By: #### U ARIK UAMary #### [facility] [address] [place] [address] Spice Blender: Ivan Lindquist MD Microscopic Urinalysison Bacteria LM Ql (Urine sed) 2+ Abnormal None [facility] Character (U) Quantity not sufficient. Abnormal NOT REQ. [facility] Character (U) MICROSCOPIC PERFORMED ON UNSPUN URINE Abnormal NOT REQ. [facility] Epithelial cells LM.HPF (Urine sed) [#/Area] 2 TO 5 [facility] Interpretation and review of laboratory results Abnormal [facility] Mucus Ql (Urine sed) 1+ Abnormal None [facility] RBC LM.HPF (Urine sed) [#/Area] 2 TO 5 [facility] WBC LM.HPF (Urine sed) [#/Area] 0 TO 2 [facility] US OB 14 PLUS WEEKS SINGLE O R FIRST GESTATIONon 01-14-2024 US OB 14 PLUS WEEKS SINGLE OR FIRST GESTATION EXAMINATION: TRANSABDOMINAL SECOND/THIRD TRIMESTER OBSTETRIC PELVIC ULTRASOUND WITH COLOR DOPPLER FLOW 01/14/2024 6:13 pm TECHNIQUE: TRANSABDOMINAL PELVIC ULTRASOUND WITH COLOR DOPPLER FLOW COMPARISON: 12/29/2023 HISTORY: ORDERING SYSTEM PROVIDED HISTORY: vaginal bleeding, known placenta previa TECHNOLOGIST PROVIDED HISTORY: vaginal bleeding, known placenta previa FINDINGS: GENERAL OBSERVATIONS: : Single CARDIAC ACTIVITY: Yes HEART RATE: 148 BODY AND LIMB MOVEMENTS: Yes POSITION: Cephalic PLACENTA LOCATION: Posterior, previa TAHIRA: Qualitatively normal limited anatomical imaging is unremarkable ANATOMY: Limited anatomical imaging is unremarkable. ESTIMATED AGE: BY LMP: 24 weeks 2 days CURRENT US: 24 weeks 2 days ESTIMATED WEIGHT: 680 grams MEASUREMENTS: BPD: 5.9 cm HEAD CIRCUMFERENCE: 22.9 cm ABD. CIRCUMFERENCE: 20.2 cm FEMUR LENGTH: 4.2 cm CERVICAL LENGTH: Not measured. IMPRESSION: A single live intrauterine with estimated gestational age of 24 weeks 2 days by ultrasound. The estimated weight is 680 g. Placenta previa. Interpreted by: Tang Paredes MD Signed by: Tang Paredes MD 01/14/24 Final result Normal [facility] Urinalysison 01-14-2024 Bilirubin Ql (U) Negative NEGATIVE [facility] Clarity (U) SLIGHTLY CLOUDY Abnormal Clear [facility] Color (U) Yellow Yellow [facility] Glucose Test strip (U) [Mass/Vol] Negative NEGATIVE mg/dL [facility] Hemoglobin Auto test strip Ql (U) 3+ Abnormal NEGATIVE [facility] Interpretation and review of laboratory results Abnormal [facility] Ketones (U) [Mass/Vol] Negative NEGAT CHAD mg/dL [facility] Leukocyte esterase Test strip Ql (U) MODERATE Abnormal NEGATIVE [facility] Nitrite Ql (U) Negative NEGATIVE [facility] pH (U) 6.0 [pH] 5.0 - 9.0 [facility] Protein (U) [Mass/Vol] Negative NEGAT CHAD mg/dL [facility] Specific gravity (U) [Rel density] High 1.010 - 1.020 [facility] Urobilinogen Qn (U) Normal 0.0 - 1. 0 EU/dL [facility] Urinalysis, Routineon 2023 Bilirubin, SemiQt,Ur Negative Normal NEG [facility] Comment on above: Performed By: #### U RTPRT #### [facility] [address] [place] [address] Spice Blender: Ivan Lindquist MD Blood, Urine 3+ Abnormal NEG [facility] Comment on above: Performed By: #### U RTPRT #### [facility] [address] [place] [address] Spice Blender: Ivan Lindquist MD Clarity (U) SLIGHTLY CLOUDY Abnormal CLEAR [facility] Comment on above: Performed By: #### U RTPRT #### [facility] [address] [place] [address] Spice Blender: Ivan Lindquist MD Color (U) Yellow Normal YEL [facility] Comment on above: Performed By: #### U RTPRT #### [facility] [address] [place] [address] [place], [place] [phone] Spice Blender: Ivan Lindquist MD Glucose Ql (U) Negative Normal NEG [facility] Comment on above: Performed By: #### U RTPRT #### [facility] [address] [place] [address] [place], [place] [phone] Spice Blender: Ivan Lindquist MD Ketones Ql (U) Negative Normal NEG [facility] Comment on above: Performed By: #### U RTPRT #### [facility] [address] [place] [address] [place] [address] Spice Blender: Ivan Lindquist MD Leukocyte esterase Test strip Ql (U) MODERATE Abnormal NEG [facility] Comment on above: Performed By: #### U RTPRT #### [facility] [address] [place] [address] [place] [address] Spice Blender: Ivan Lindquist MD Nitrite,Ur Negative Normal [facility] Comment on above: Performed By: #### U RTPRT #### [facility] [address] [place] [address] [place] [address] Spice Blender: Ivan Lindquist MD PH,Ur 6.0 Normal 5.0-9.0 [facility] Comment on above: Performed By: #### U RTPRT #### [facility] [address] [place] [address] [place] [address] Spice Blender: Ivan Lindquist MD Protein Ql (U) Negative Normal NEG [facility] Comment on above: Performed By: #### U RTPRT #### [facility] [address] [place] [address] [place], [place] [phone] Spice Blender: Ivan Lindquist MD Spec. [place],Ur >1.030 High 1.010-1.020 [facility] Comment on above: Performed By: #### U RTPRT #### [facility] [address] [place], [place] [id number] Spice Blender: Ivan Lindquist MD Urobilinogen,Ur Normal Normal 0.0-1.0 [facility] Comment on above: Performed By: #### U RTPRT #### [facility] [address] [place], [place] 209[address]83 Spice Blender: Ivan Lindquist MD Urinalysis,Microon 4 Bacteria 2+ Abnormal NONE [facility] [facility] Comment on above: Performed By: #### U RTPRT #### [facility] [address] [place] [address] Spice Blender: Ivan Lindquist MD Epithelial cells LM Ql (Urine sed) 2 TO 5 Normal 0-25 [facility] Comment on above: Performed By: #### U RTPRT #### [facility] [address] [place] [address] Spice Blender: Ivan Lindquist MD Mucus Strands 1+ Abnormal NONE [facility] Comment on above: Performed By: #### U RTPRT #### [facility] [address] [place], [place] [id number] Spice Blender: Ivan Lindquist MD Other Observations Quantity not sufficient. Abnormal NREQ [facility] Comment on above: Result Comment: MICR OSCOPIC PERFORMED ON UNSPUN URINE Performed By: #### U RTPRT #### [facility] [address] [place], [place] [id number] Spice Blender: Ivan Lindquist MD Urine RBC's 2 TO 5 Normal 0-2 [facility] Comment on above: Performed By: #### U RTPRT #### [facility] [address] [place], [place] [address]83 Spice Blender: Ivan Lindquist MD Urine WBC's 0 TO 2 Normal 0-5 [facility] Comment on above: Performed By: #### U RTPRT #### [facility] [address] [place] [address] Spice Blender: Ivan Lindquist MD Cult,Urineon 12-31-2023 Cult,Urine Specimen Description .CLEAN CATCH URINE Special Requests Site: Urine Culture Maddi albicans/dubliniensi s 10 to 50,000 CFU/ML Report Status FINAL 12/31/2023 Normal [facility] Comment on above: Performed By: #### U RTPRT #### [facility] [address] [place], [facility] Spice Blender: Ivan Lindquist MD APTTon 12-23-2023 aPTT Coag (Bld) [Time] 29.7 s Normal 26.8-34.8 [facility] Comment on above: Result Comment: IV Heparin Therapy Range: 62.0-94.0 Performed By: #### B HCG #### [facility] [address] [place], [facility] Spice Blender: Ivan Lindquist MD CBC with Diffon 12-23-2023 Abs. Basophil 0.03 k/uL Normal 0.00-0.20 [facility] Comment on above: Performed By: #### B HCG #### [facility] [address] [place], [place] [address] Spice Blender: Ivan Lindquist MD Abs.Imm.Granulocyte <0.03 Normal 0.00-0.30 [facility] Comment on above: Performed By: #### B HCG #### [facility] [address] [place], [place] [id number] Spice Blender: Ivan Lindquist MD Abs.Neutrophil (Seg) 4.87 k/uL Normal 1.50-8.10 [facility] Comment on above: Performed By: #### B HCG #### [facility] [address] [place], [place] [address]83 Spice Blender: Ivan Lindquist MD Basophils/100 WBC (Bld) 0 % Normal 0-2 [facility] Comment on above: Performed By: #### B HCG #### [facility] [address] [place], [place] [address]83 Spice Blender: Ivan Lindquist MD Eosinophils (Bld) [#/Vol] 0.07 10*3/uL Normal 0.00-0.44 [facility] Comment on above: Performed By: #### B HCG #### [facility] [address] [place], [place] 417[address]83 Spice Blender: Ivan Lindquist MD Eosinophils/100 WBC (Bld) 1 % Normal 1-4 [facility] Comment on above: Performed By: #### B HCG #### [address] [place], [place] [id number] Spice Blender: Ivan Lindquist MD Erythrocyte distribution width (RBC) [Ratio] 12.4 % Normal 11.8-14.4 [facility] Comment on above: Performed By: #### B HCG #### [address] [place], [place] 7433483 Spice Blender: Ivan Lindquist MD Hematocrit (Bld) [Volume fraction] 35.3 % Low 36.3-47.1 [facility] Comment on above: Performed By: #### B HCG #### [facility] [address] [place] [address] [address], [place] 3999383 Spice Blender: Ivan Lindquist MD Hemoglobin (Bld) [Mass/Vol] 12.0 g/dL Normal 11.9-15.1 [facility] Comment on above: Performed By: #### B HCG #### [address] [place], [place] 9628183 Spice Blender: Ivan Lindquist MD Immature granulocytes/100 WBC (Bld) 0 % Normal 0 [facility] Comment on above: Performed By: #### B HCG #### [facility] [address] [place], [place] 3680683 Spice Blender: Ivan Lindquist MD Lymphocytes (Bld) [#/Vol] 2.19 10*3/uL Normal 1.10-3.70 [facility] Comment on above: Performed By: #### B HCG #### [facility] [address] [place], [facility] Spice Blender: Ivan Lindquist MD Lymphocytes/100 WBC (Bld) 29 % Normal 24-43 [facility] Comment on above: Performed By: #### B HCG #### [address] [place], [facility] Spice Blender: Ivan Lindquist MD MCH (RBC) [Entitic mass] 30.2 pg Normal 25.2-33.5 [facility] Comment on above: Performed By: #### B HCG #### [address] [place], [facility] Spice Blender: Ivan Lindquist MD MCHC (RBC) [Mass/Vol] 34.0 g/dL Normal 28.4-34.8 [facility] Comment on above: Performed By: #### B HCG #### [address] [place], [facility] Spice Blender: Ivan Lindquist MD MCV (RBC) [Entitic vol] 88.9 fL Normal 82.6-102.9 M [facility] Comment on above: Performed By: #### B HCG #### [address] [place], [facility] Spice Blender: Ivan Lindquist MD Monocytes (Bld) [#/Vol] 0.40 10*3/uL Normal 0.10-1.20 [facility] Comment on above: Performed By: #### B HCG #### [facility] [address] [place] [address] [place] [place], [place] 8317983 Spice Blender: Ivan Lindquist MD Monocytes/100 WBC (Bld) 5 % Normal 3-12 M [facility] Comment on above: Performed By: #### B HCG #### [facility] [address] [place], [place] [address]83 Spice Blender: Ivan Lindquist MD Neutrophil (Seg) 65 % Normal 36-65 [facility] Comment on above: Performed By: #### B HCG #### [facility] [address] [place], [place] [address]83 Spice Blender: Ivan Lindquist MD NRBC Automated 0.0 per 100 WBC Normal 0.0 [facility] Comment on above: Performed By: #### B HCG #### [address] [place], [place] [address]83 Spice Blender: Ivan Lindquist MD Platelet mean volume (Bld) [Entitic vol] 10.8 fL Normal 8.1-13.5 [facility] Comment on above: Performed By: #### B HCG #### [address] [place], [place] 0589283 Spice Blender: Ivan Lindquist MD Platelets (Bld) [#/Vol] 147 10*3/uL Normal 138-453 [facility] Comment on above: Performed By: #### B HCG #### [facility] [address] [place] [address] [place] [place], [place] 2989683 Spice Blender: Ivan Lindquist MD RBC (Bld) [#/Vol] 3.97 10*6/uL Normal 3.95-5.11 [facility] Comment on above: Performed By: #### B HCG #### [address] [place], [place] 5330483 Spice Blender: Ivan Lindquist MD WBC (Bld) [#/Vol] 7.6 10*3/uL Normal 3.5-11.3 [facility] Comment on above: Performed By: #### B HCG #### [facility] [address] [place] [address] Spice Blender: Ivan Lindquist MD Cult,Urineon 12-23-2023 Cult,Urine Specimen Description .Random Urine Culture NO SIGNIFICANT GROWTH Report Status FINAL 12/23/2023 Normal [facility] Comment on above: Performed By: #### U MICAO, UAX #### [facility] [address] [place] [address] Spice Blender: Ivan Lindquist MD Fibrinogenon 12-23-2023 Fibrinogen 327 mg/dL Normal 179-518 [facility] Comment on above: Performed By: #### B HCG #### [facility] [address] [place], [place] [address]83 Spice Blender: Ivan Lindquist MD PTon 12-23-2023 INR Coag (PPP) [Relative time] 1.0 {INR} Normal [facility] Comment on above: Result Comment: Therapeutic Range: Moderate Anticoagulant Intensity: INR = 2.0-3.0 High Anticoagulant Intensity: INR = 2.5-3.5 Performed By: #### B HCG #### [facility] [address] [place], [place] [phone] Spice Blender: Ivan Lindquist MD PT Coag (PPP) [Time] 12.7 s Normal 11.7-14.1 [facility] Comment on above: Performed By: #### B HCG #### [facility] [address] [place] [address] Spice Blender: Ivan Lindquist MD CBC with Diffon 12-22-2023 Basophils (Bld) [#/Vol] B on [facility] Basophils/100 WBC (Bld) 0 % 0 - 2 % B on [facility] Eosinophils (Bld) [#/Vol] 0.04 10*3/uL Bon [facility] Eosinophils/100 WBC (Bld) 1 % 1 - 4 % [facility] Erythrocyte distribution width (RBC) [Ratio] 12.5 % 11.8 - 14.4 % [facility] Hematocrit (Bld) [Volume fraction] 36.3 % 36.3 - 47.1 % [facility] Hemoglobin (Bld) [Mass/Vol] 12.5 g/dL 11.9 - 15.1 g/dL [facility] Immature granulocytes (Bld) [#/Vol] 0.03 10*3/uL [facility] Immature granulocytes/100 WBC (Bld) 0 % 0 [facility] Interpretation and review of laboratory results Abnormal [facility] Lymphocytes/100 WBC (Bld) 18 % Low 24 - 43 % [facility] Lymphocytes/100 WBC (Bld) 1.49 % [facility] MCH (RBC) [Entitic mass] 30.3 pg 25. 2 - 33.5 pg [facility] MCHC (RBC) [Mass/Vol] 34.4 g/dL 28.4 - 34.8 g/dL [facility] MCV (RBC) [Entitic vol] 88.1 fL 82.6 - 102.9 fL [facility] Monocytes/100 WBC (Bld) 5 % 3 - 12 % B on [facility] Monocytes/100 WBC (Bld) 0.43 % B on [facility] Neutrophils/100 WBC (Bld) 76 % High 36 - 65 % [facility] Nucleated RBC/100 WBC (Bld) [Ratio] 0.0 % 0.0 per 100 WBC [facility] Platelet mean volume (Bld) [Entitic vol] 10.7 fL 8.1 - 13.5 fL [facility] Platelets (Bld) [#/Vol] 148 10*3/uL [facility] RBC (Bld) [#/Vol] 4.12 10*6/uL 3.95 - 5.1 1 m/uL [facility] Segmented neutrophils/100 WBC (Bld) 6.13 % [facility] WBC other (Bld) [#/Vol] 8.1 B on [facility] Abs. Basophil <0.03 Normal 0.00-0.20 [facility] Comment on above: Performed By: #### Dru ELISE UA #### [facility] [address] [place], [place] [address]12[address]83 Spice Blender: Ivan Lindquist MD Abs.Imm.Granulocyte 0.03 k/uL Normal 0.00-0.30 [facility] Comment on above: Performed By: #### Dru ELISE UA #### [facility] [address] [place], [place] [address]83 Spice Blender: Ivan Lindquist MD Abs.Neutrophil (Seg) 6.13 k/uL Normal 1.50-8.10 [facility] Comment on above: Performed By: #### Dru ELISE UA #### [address] [place], [place] [address]83 Spice Blender: Ivan Lindquist MD Basophils/100 WBC (Bld) 0 % Normal 0-2 [facility] Comment on above: Performed By: #### MICHELLE CURIEL #### [address] [place], [place] 3435783 Spice Blender: Ivan Lindquist MD Eosinophils (Bld) [#/Vol] 0.04 10*3/uL Normal 0.00-0.44 [facility] Comment on above: Performed By: #### Dru ELISE UA #### [facility] [address] [place], [place] 5338383 Spice Blender: Ivan Lindquist MD Eosinophils/100 WBC (Bld) 1 % Normal 1-4 [facility] Comment on above: Performed By: #### Dru ELSIE UA #### [facility] [address] [place], [place] 6902583 Spice Blender: Ivan Lindquist MD Erythrocyte distribution width (RBC) [Ratio] 12.5 % Normal 11.8-14.4 [facility] Comment on above: Performed By: #### U ARIK UA #### [facility] [address] [place], [facility] Spice Blender: Ivan Lindquist MD Hematocrit (Bld) [Volume fraction] 36.3 % Normal 36.3-47.1 [facility] Comment on above: Performed By: #### U ARIK UA #### [facility] [address] [place], [place] [address] Spice Blender: Ivan Lindquist MD Hemoglobin (Bld) [Mass/Vol] 12.5 g/dL Normal 11.9-15.1 [facility] Comment on above: Performed By: #### U ARIK UA #### [facility] [address] [place], [facility] Spice Blender: Ivan Lindquist MD Immature granulocytes/100 WBC (Bld) 0 % Normal 0 [facility] Comment on above: Performed By: #### U ARIK UA #### [facility] [address] [place], [facility] Spice Blender: Ivan Lindquist MD Lymphocytes (Bld) [#/Vol] 1.49 10*3/uL Normal 1.10-3.70 [facility] Comment on above: Performed By: #### Dru ELISE UA #### [facility] [address] [place], [place] [address] Spice Blender: Ivan Lindquist MD Lymphocytes/100 WBC (Bld) 18 % Low 24-43 [facility] Comment on above: Performed By: #### U ARIK UA #### [facility] [address] [place], [facility] Spice Blender: Ivan Lindquist MD MCH (RBC) [Entitic mass] 30.3 pg Normal 25.2-33.5 [facility] Comment on above: Performed By: #### U ARIK UA #### [facility] [address] [place], [place] [address]70783 Spice Blender: Ivan Lindquist MD MCHC (RBC) [Mass/Vol] 34.4 g/dL Normal 28.4-34.8 [facility] Comment on above: Performed By: #### U MICAO, UA #### [facility] [address] [place], [place] [id number] Spice Blender: Ivan Lindquist MD MCV (RBC) [Entitic vol] 88.1 fL Normal 82.6-102.9 [facility] Comment on above: Performed By: #### U YONIO, UA #### [address] [place], [place] [address]1683 Spice Blender: Ivan Lindquist MD Monocytes (Bld) [#/Vol] 0.43 10*3/uL Normal 0.10-1.20 [facility] Comment on above: Performed By: #### U MICAO, UA #### [address] [place], [place] 9354283 Spice Blender: Ivan Lindquist MD Monocytes/100 WBC (Bld) 5 % Normal 3-12 [facility] Comment on above: Performed By: #### U MICAO, UA #### [address] [place], [place] 1154683 Spice Blender: Ivan Lindquist MD Neutrophil (Seg) 76 % High 36-65 [facility] Comment on above: Performed By: #### U MICAO, UA #### [facility] [address] [place], [place] 179[address]83 Spice Blender: Ivan Lindquist MD NRBC Automated 0.0 per 100 WBC Normal 0.0 [facility] Comment on above: Performed By: #### U MICAO, UA #### [facility] [address] [place], [place] [address]46[address]83 Spice Blender: Ivan Lindquist MD Platelet mean volume (Bld) [Entitic vol] 10.7 fL Normal 8.1-13.5 [facility] Comment on above: Performed By: #### U ARIK UA #### [facility] [address] [place], [place] [address]56[address]83 Spice Blender: Ivan Lindquist MD Platelets (Bld) [#/Vol] 148 10*3/uL Normal 138-453 [facility] Comment on above: Performed By: #### U ARIK, UA #### [facility] [address] [place], [place] [address]83 Spice Blender: Ivan Lindquist MD RBC (Bld) [#/Vol] 4.12 10*6/uL Normal 3.95-5.11 [facility] Comment on above: Performed By: #### Dru ELISE UA #### [facility] [address] [place], [place] 8021183 Spice Blender: Ivan Lindquist MD WBC (Bld) [#/Vol] 8.1 10*3/uL Normal 3.5-11.3 [facility] Comment on above: Performed By: #### U ARIK, UA #### [facility] [address] [place] [address] Spice Blender: Ivan Lindquist MD [facility] 12-22-2023 Albumin [Mass/Vol] 3.1 g/dL Low 3.5 - 5.2 g/dL [facility] Albumin/Globulin [Mass ratio] 1.1 {ratio} 1.0 - 2.5 [facility] ALP [Catalytic activity/Vol] 53 U/L 35 - 104 U/L [facility] ALT [Catalytic activity/Vol] 15 U/L 10 - 35 U/L [facility] Anion gap [Moles/Vol] 7 mmol/L Low 9 - 16 mmol/L [facility] AST [Catalytic activity/Vol] 13 U/L 10 - 35 U/L [facility] Bilirubin [Mass/Vol] mg/dL 0.00 - 1.20 mg/dL [facility] Calcium [Mass/Vol] 8.7 mg/dL 8.6 - 10. 4 mg/dL [facility] Chloride [Moles/Vol] 107 mmol/L 98 - 10 7 mmol/L [facility] CO2 [Moles/Vol] 22 mmol/L 20 - 31 mmol/L [facility] Creatinine [Mass/Vol] 0.6 mg/dL 0.50 - 0.90 mg/dL [facility] Est, Bhakti Garzon Rate - PINF [facility] Comment on above: These results are not intended for use in patients <18 years of age. eGFR results are calculated without a race factor using the 2020 CKD-EPI equation. Careful clinical correlation is recommended, particularly when comparing to results calculated using previous equations. The CKD-EPI equation is less accurate in patients with extremes of muscle mass, extra-renal metabolism of creatine, excessive creatine ingestion, or following therapy that affects renal tubular secretion. Glucose [Mass/Vol] 77 mg/dL 74 - 99 mg/dL [facility] Interpretation and review of laboratory results Abnormal [facility] Potassium [Moles/Vol] 3.9 mmol/L 3.7 - 5.3 mmol/L [facility] Protein [Mass/Vol] 5.9 g/dL Low 6.6 - 8.7 g/dL [facility] Sodium [Moles/Vol] 136 mmol/L 136 - 145 mmol/L [facility] Urea nitrogen [Mass/Vol] 10 mg/dL 6 - 20 mg/dL [facility] Urea nitrogen/Creatinine [Mass ratio] 17 mg/mg 9 - 20 [facility] Comp Metabolic Profon 2023 Albumin [Mass/Vol] 3.1 g/dL Low 3.5-5.2 [facility] Comment on above: Performed By: #### U ARIK UA #### [facility] [address] [place] [address] Spice Blender: Ivan Lindquist MD Albumin/Glob Ratio 1.1 Normal 1.0-2.5 [facility] Comment on above: Performed By: #### U MICAO, UA #### [facility] [address] [place], [place] 84[address]83 Spice Blender: Ivan Lindquist MD Alkaline Phos 53 U/L Normal 35-104 [facility] Comment on above: Performed By: #### U MICAO, UA #### [facility] [address] [place], [place] [address]22[address] Spice Blender: Ivan Lindquist MD ALT [Catalytic activity/Vol] 15 U/L Normal 10-35 [facility] Comment on above: Performed By: #### U MICAO, UA #### [facility] [address] [place], [place] 280[address]83 Spice Blender: Ivan Lindquist MD Anion gap [Moles/Vol] 7 mmol/L Low 9-16 [facility] Comment on above: Performed By: #### U MICAO, UA #### [facility] [address] [place], [place] [address]12783 Spice Blender: Ivan Lindquist MD AST [Catalytic activity/Vol] 13 U/L Normal 10-35 [facility] Comment on above: Performed By: #### U MICAO, UA #### [facility] [address] [place], [place] 2392283 Spice Blender: Ivan Lindquist MD Bilirubin [Mass/Vol] mg/dL Normal 0.00-1.20 [facility] Comment on above: Performed By: #### U MICAO, UA #### [facility] [address] [place], [place] 180[address]83 Spice Blender: Ivan Lindquist MD BUN/CRE Ratio 17 Normal 9-20 [facility] Comment on above: Performed By: #### U MICAO, UA #### [facility] [address] [place], [place] [address]609783 Spice Blender: Ivan Lindquist MD Calcium [Mass/Vol] 8.7 mg/dL Normal 8.6-10.4 [facility] Comment on above: Performed By: #### U ARIK, UA #### [facility] [address] [place], [place] 430[address]83 Spice Blender: Ivan Lindquist MD Chloride [Moles/Vol] 107 mmol/L Normal 98-107 [facility] Comment on above: Performed By: #### U YONIO, UA #### [facility] [address] [place] [address] Spice Blender: Ivan Lindquist MD CO2 [Moles/Vol] 22 mmol/L Normal 20-31 [facility] Comment on above: Performed By: #### U ARIK, UA #### [facility] [address] [place], [place] [address]183183 Spice Blender: Ivan Lindquist MD Creatinine [Mass/Vol] 0.6 mg/dL Normal 0.50-0.90 [facility] Comment on above: Performed By: #### U ARIK, UA #### [facility] [address] [place] [address] Spice Blender: Ivan Lindquist MD GFR/1.73 sq M.predicted among non-blacks MDRD (S/P/Bld) [Vol rate/Area] mL/min/{1.73_m2} Normal >60 [facility] Comment on above: Result Comment: These results are not intended for use in patients <18 years of age. eGFR results are calculated without a race factor using the 2020 CKD-EPI equation. Careful clinical correlation is recommended, particularly when comparing to results calculated using previous equations. The CKD-EPI equation is less accurate in patients with extremes of muscle mass, extra-renal metabolism of creatine, excessive creatine ingestion, or following therapy that affects renal tubular secretion. Performed By: #### U YONIO, UA #### [facility] [address] [place] [address] Spice Blender: vIan Lindquist MD Glucose [Mass/Vol] 77 mg/dL Normal 74-99 [facility] Comment on above: Performed By: #### U ARIK, UA #### [facility] [address] [place] [address] Spice Blender: Ivan Lindquist MD Potassium [Moles/Vol] 3.9 mmol/L Normal 3.7-5.3 [facility] Comment on above: Performed By: #### U YONIO, UA #### [facility] [address] [place] [address] Spice Blender: Ivan Lindquist MD Protein [Mass/Vol] 5.9 g/dL Low 6.6-8.7 [facility] Comment on above: Performed By: #### U ARIK, UA #### [address] [place] [address] Spice Blender: Ivan Lindquist MD Sodium [Moles/Vol] 136 mmol/L Normal 136-145 [facility] Comment on above: Performed By: #### U ARIK, UA #### [address] [place], [place] 9964983 Spice Blender: Ivan Lindquist MD Urea nitrogen [Mass/Vol] 10 mg/dL Normal 6-20 [facility] Comment on above: Performed By: #### U YONIO, UA #### [facility] [address] [place], [place] [address]83 Spice Blender: Ivan Lindquist MD Lactic Acidon 12-22-2023 Lactate (BldV) [Moles/Vol] 0.6 mmol/L 0.5 - 2.2 mmol/L [facility] Lactate [Moles/Vol] 0.6 mmol/L Normal 0.5-2.2 [facility] Comment on above: Performed By: #### U YONIO, UA #### [facility] [address] [place] [address] Spice Blender: Ivan Lindquist MD Lipaseon 12-22-2023 Lipase [Catalytic activity/Vol] 30 U/L 13 - 60 U/L [facility] Lipase [Catalytic activity/Vol] 30 U/L Normal 13-60 [facility] Comment on above: Performed By: #### U ARIK, UA #### [facility] [address] [place] [address] Spice Blender: Ivan Lindquist MD Microscopic Urinalysison Amorphous sediment LM Ql (Urine sed) 2+ Abnormal None [facility] Bacteria LM Ql (Urine sed) 1+ Abnormal None [facility] Epithelial cells LM.HPF (Urine sed) [#/Area] 50 TO 100 [facility] Mucus Ql (Urine sed) 2+ Abnormal None [facility] RBC LM.HPF (Urine sed) [#/Area] 2 TO 5 [facility] WBC LM.HPF (Urine sed) [#/Area] 10 TO 20 [facility] Yeast LM Ql (Urine sed) PRESENCE NOTED Abnormal None [facility] No Panel Informationon 12-21 Interpretation and review of laboratory results Abnormal [facility] UA w/Reflex Cultureon 2023 Bilirubin, SemiQt,Ur Negative Normal NEG [facility] Comment on above: Performed By: #### U ARIK UAX #### [facility] [address] [place] [address] Spice Blender: Ivan Lindquist MD Blood, Urine 1+ Abnormal NEG [facility] Comment on above: Performed By: #### U ARIK UAX #### [facility] [address] [place] [address] Spice Blender: Ivan Lindquist MD Clarity (U) Cloudy Abnormal CLEAR [facility] Comment on above: Performed By: #### U ARIK UAX #### [facility] [address] [place] [address] Spice Blender: Ivan Lindquist MD Color (U) Yellow Normal YEL [facility] Comment on above: Performed By: #### U MICAO, UAX #### [facility] [address] [place] [address] Spice Blender: Ivan Lindquist MD Glucose Ql (U) Negative Normal NEG [facility] Comment on above: Performed By: #### U MICAO, UAX #### [facility] [address] [place] [address] Spice Blender: Ivan Lindquist MD Ketones Ql (U) Negative Normal NEG [facility] Comment on above: Performed By: #### U MICAO, UAX #### [facility] [address] [address] [place], [place] [id number] Spice Blender: Ivan Lindquist MD Leukocyte esterase Test strip Ql (U) MODERATE Abnormal NEG [facility] Comment on above: Performed By: #### U MICAO, UAX #### [facility] [address] [place] [address] [place] [address] Spice Blender: Ivan Lindquist MD Nitrite,Ur Negative Normal [facility] Comment on above: Performed By: #### U MICAO, UAX #### [facility] [address] [place] [address] [place] [address] Spice Blender: Ivan Lindquist MD PH,Ur 7.5 Normal 5.0-9.0 [facility] Comment on above: Performed By: #### U MICAO, UAX #### [facility] [address] [place], [place] [id number] Spice Blender: Ivan Lindquist MD Protein Ql (U) Negative Normal NEG [facility] Comment on above: Performed By: #### U MICAO, UAX #### [facility] [address] [place], [place] [id number] Spice Blender: Ivan Lindquist MD Spec. [place],Ur 1.020 Normal 1.010-1.020 [facility] Comment on above: Performed By: #### U YONIO, UAX #### [facility] [address] [place] [id number] Spice Blender: Ivan Lindquist MD Urobilinogen,Ur Normal Normal 0.0-1.0 [facility] Comment on above: Performed By: #### U MICAO, UAX #### [facility] [address] [place] [address] Spice Blender: Ivan Lindquist MD US OB 1 OR MORE FETUS LIMITE Don 12-22-2023 US OB 1 OR MORE FETUS LIMITED EXAMINATION: 2ND TRIMESTER OBSTETRIC ULTRASOUND 12/22/2023 TECHNIQUE: Transabdominal obstetric pelvic ultrasound was performed. COMPARISON: 09/06/2023 HISTORY: Evaluate growth, placenta, cervical length. FINDINGS: Intrauterine visualized with fetus in cephalic position. Heart rate is 143. Normal movement detected. The cervix is closed and measures up to 4.7 cm. The placenta is located posteriorly and the tip is 2.1 cm from the internal cervical os. Visually normal amniotic fluid. BPD = 4.7 cm (25%ile) HC = 18.5 cm (45%ile) AC = 15.1 (30%ile) FL = 3.5 cm (48%ile) Estimated weight = 363 mg (37%ile). Gestational age by current ultrasound is 20 weeks 4 days with estimated due date of 05/07/2023. IMPRESSION: 2nd trimester live intrauterine as detailed above. Interpreted by: Augustina Artis MD Signed by: Augustina Artis MD 12/22/23 Final result Normal [facility] Urinalysis with Reflex to Cu ltureon 12-22-2023 Bilirubin Ql (U) Negative NEGATIVE [facility] Clarity (U) Cloudy Abnormal Clear [employer] [facility] Color (U) Yellow Yellow [facility] [facility] Glucose Test strip (U) [Mass/Vol] Negative NEGATIVE mg/dL [facility] Hemoglobin Auto test strip Ql (U) 1+ Abnormal NEGATIVE [facility] Ketones (U) [Mass/Vol] Negative NEGAT CHAD mg/dL [facility] Leukocyte esterase Test strip Ql (U) MODERATE Abnormal NEGATIVE [facility] Nitrite Ql (U) Negative NEGATIVE [facility] pH (U) 7.5 [pH] 5.0 - 9.0 [facility] Protein (U) [Mass/Vol] Negative NEGAT CHAD mg/dL [facility] Specific gravity (U) [Rel density] 1.020 1.010 - 1.020 [facility] Urobilinogen Qn (U) Normal 0.0 - 1. 0 EU/dL [facility] Urinalysis,Microon 4 Amorphous sediment LM Ql (Urine sed) 2+ Abnormal [facility] Comment on above: Performed By: #### U YONIO, UAX #### [facility] [address] [place] [address] Spice Blender: Ivan Lindquist MD Bacteria 1+ Abnormal [facility] Comment on above: Performed By: #### U YONIO, UAX #### [facility] [address] [place] [id number] Spice Blender: Ivan Lindquist MD Epithelial cells LM Ql (Urine sed) 50 TO 100 Normal 0-25 [facility] Comment on above: Performed By: #### U MICAO, UAX #### [facility] [address] [place] [id number] Spice Blender: Ivan Lindquist MD Mucus Strands 2+ Abnormal [facility] Comment on above: Performed By: #### U MICAO, UAX #### [facility] [address] [place] [address] Spice Blender: Ivan Lindquist MD Urine RBC's 2 TO 5 Normal 0-2 [facility] Comment on above: Performed By: #### U MICAO, UAX #### [facility] [address] [place], [place] [id number] Spice Blender: Ivan Lindquist MD Urine WBC's 10 TO 20 Normal 0-5 [facility] Comment on above: Performed By: #### U MICAO, UAX #### [facility] [address] [place], [place] [phone] Spice Blender: Ivan Lindquist MD Yeast PRESENCE NOTED Abnormal NONE [facility] Comment on above: Performed By: #### U MICAO, UAX #### [facility] [address] [place] [address] Spice Blender: Ivan Lindquist MD Appearance of UrineOrdered B y: Brijesh Milton on 11-06-2023 Appearance (U) Urine appearance Clear [facility] Automated basophil %Ordered By: MARY Ghotra on 11-06-2023 Basophils/100 WBC (Bld) 0.6 % Normal . [facility] Comment on above: Performed By: #### U A #### [address] Automated basophil countOrde red By: MARY Ghotra on 11-06-2023 Basophils (Bld) [#/Vol] 0.0 10*3/uL Normal 0.0-0.2 [facility] Comment on above: Result Comment: PERF ORMED BY: [place] [address] PATHOLOGIST [employer] ANTHONY DUVAL M.D. Performed By: #### U A #### [facility] [address] Automated blood monocyte cou ntOrdered By: MARY Ghotra on 11-06-2023 Monocytes (Bld) [#/Vol] 0.4 10*3/uL Normal 0.0-0.8 [facility] Comment on above: Performed By: #### U A #### [facility] [address] Automated eosinophil %Ordere d By: MARY Ghotra on 11-06-2023 Eosinophils/100 WBC (Bld) 0.8 % Normal . [facility] Comment on above: Performed By: #### U A #### [facility] [address] [place] [address] Automated eosinophil countOr dered By: MARY Ghotra on 11-06-2023 Eosinophils (Bld) [#/Vol] 0.1 10*3/uL Normal 0.0-0.45 [facility] Comment on above: Performed By: #### U A #### [facility] [address] [place] [address] Automated monocyte %Ordered By: MARY Ghotra on 11-06-2023 Monocytes/100 WBC (Bld) 5.8 % Normal . [facility] Comment on above: Performed By: #### U A #### [facility] [address] [place] [address] Automated neutrophil %Ordere d By: MARY Ghotra on 11-06-2023 Neutrophils/100 WBC (Bld) 61.3 % Normal . [facility] Comment on above: Performed By: #### U A #### [facility] [address] [place] [address] Bacteria [Presence] in Urine by AutomatedOrdered By: MARY Ghotra on 11-06-2023 Bacteria Auto Ql (U) 1+ [HPF] High None Seen [facility] Bacteria Auto Ql (U) Bacteria [Presence] in Urine by Automated High None Seen [facility] Basophils Auto (Bld) [#/Vol] Ordered By: MARY Ghotra on 11-06-2023 Basophils (Bld) [#/Vol] Automated basoph il count 0.0-0.2 [facility] Basophils/100 WBC Auto (Bld) Ordered By: MARY Ghotra on 11-06-2023 Basophils/100 WBC (Bld) Automated basophil % . [facility] Bilirubin Test strip Ql (U)O rdered By: Brijesh Milton on 11-06-2023 Bilirubin Ql (U) Negative Negative [facility] Bilirubin Ql (U) Bilirubin.total [Presence] in Urine by Test strip Negative [facility] CBC W Auto Differential pane l (Bld)on 11-06-2023 Basophils (Bld) [#/Vol] 0.0 10*3/uL 0.0 - 0.2 10*3/uL [facility] Basophils/100 WBC Manual cnt (Syn fld) 0.6 % . [facility] Eosinophils (Bld) [#/Vol] 0.1 10*3/uL 0.0 - 0.45 10*3/uL [facility] Eosinophils/100 WBC Manual cnt (Syn fld) 0.8 % . [facility] Erythrocyte distribution width (RBC) [Ratio] 12.6 % 11.9 - 15.3 % [facility] Hematocrit (Bld) [Volume fraction] 35.4 % 34.0 - 46.4 % [facility] Hemoglobin (Bld) [Mass/Vol] 12.3 g/dL 11.8 - 15.4 g/dL [facility] Lymphocytes (Bld) [#/Vol] 2.3 10*3/uL 1.00 - 4.8 10*3/uL [facility] Lymphocytes/100 WBC Manual cnt (Syn fld) 31.5 % . [facility] MCH (RBC) [Entitic mass] 30.6 pg 24. 7 - 34.3 pg [facility] MCHC (RBC) [Mass/Vol] 34.6 g/dL 32.0 - 35.0 g/dL [facility] MCV (RBC) [Entitic vol] 88.6 fL 80 - 100 fL [facility] Monocytes (Bld) [#/Vol] 0.4 10*3/uL 0.0 - 0.8 10*3/uL [facility] Monocytes+Macrophages/10 0 WBC Manual cnt (Syn fld) 5.8 % . [facility] Neutrophils (Bld) [#/Vol] 4.4 10*3/uL 1.8 - 7.7 10*3/uL [facility] Neutrophils/100 WBC Manual cnt (Syn fld) 61.3 % . [facility] NRBC 0.1 /100{WBC} 0 - 0.5 /100{WBC} [facility] Platelet mean volume (Bld) [Entitic vol] 8.8 fL 6.3 - 10.7 fL [facility] Platelets (Bld) [#/Vol] 150 10*3/uL 150 - 450 10*3/uL [facility] RBC LM.HPF (Urine sed) [#/Area] 4.00 /[HPF] 3.60 - 5.00 [facility] WBC (Bld) [#/Vol] 7.2 10*3/uL 3.8 - 11.6 10*3/uL [facility] WBC LM.HPF (Urine sed) [#/Area] 7.2 10*3/uL 3.8 - 11.6 10*3/uL [facility] Basophils (Bld) [#/Vol] 0.1 10*3/uL 0.0 - 0.2 10*3/uL [facility] Basophils/100 WBC Manual cnt (Syn fld) 0.7 % . [facility] Eosinophils (Bld) [#/Vol] 0.1 10*3/uL 0.0 - 0.45 10*3/uL [facility] Eosinophils/100 WBC Manual cnt (Syn fld) 0.8 % . [facility] Erythrocyte distribution width (RBC) [Ratio] 12.9 % 11.9 - 15.3 % [facility] Hematocrit (Bld) [Volume fraction] 34.2 % 34.0 - 46.4 % [facility] Hemoglobin (Bld) [Mass/Vol] 11.8 g/dL 11.8 - 15.4 g/dL [facility] Interpretation and review of laboratory results Abnormal [facility] Lymphocytes (Bld) [#/Vol] 2.4 10*3/uL 1.00 - 4.8 10*3/uL [facility] Lymphocytes/100 WBC Manual cnt (Syn fld) 31.8 % . [facility] MCH (RBC) [Entitic mass] 30.5 pg 24. 7 - 34.3 pg [facility] MCHC (RBC) [Mass/Vol] 34.5 g/dL 32.0 - 35.0 g/dL [facility] MCV (RBC) [Entitic vol] 88.5 fL 80 - 100 fL [facility] Monocytes (Bld) [#/Vol] 0.4 10*3/uL 0.0 - 0.8 10*3/uL [facility] Monocytes+Macrophages/10 0 WBC Manual cnt (Syn fld) 5.9 % . [facility] Neutrophils (Bld) [#/Vol] 4.6 10*3/uL 1.8 - 7.7 10*3/uL [facility] Neutrophils/100 WBC Manual cnt (Syn fld) 60.8 % . [facility] NRBC 0.0 /100{WBC} 0 - 0.5 /100{WBC} [facility] Platelet mean volume (Bld) [Entitic vol] 8.4 fL 6.3 - 10.7 fL [facility] Platelets (Bld) [#/Vol] 140 10*3/uL Low 150 - 450 10*3/uL [facility] RBC LM.HPF (Urine sed) [#/Area] 3.86 /[HPF] 3.60 - 5.00 [facility] WBC (Bld) [#/Vol] 7.6 10*3/uL 3.8 - 11.6 10*3/uL [facility] WBC LM.HPF (Urine sed) [#/Area] 7.6 10*3/uL 3.8 - 11.6 10*3/uL [facility] Color Auto (U)Ordered By: Derek Milton on 11-06-2023 Color (U) Color of Urine by Auto Yellow [facility] Color of Urine by AutoOrdere d By: Brijesh Milton on 11-06-2023 Color (U) Light-yellow Normal [facility] Comment on above: Order Comment: Name Collection Type:: Clean-Voided Midstream Performed By: #### U A #### [address] Complete Blood Count Auto Di ffon 11-06-2023 Mean Corpuscular HGB Conc 34.6 g/dL Normal 32.0-35.0 [facility] Comment on above: Performed By: #### U A #### [facility] [address] NRBC% 0.1 /100{WBC} Normal 0-0.5 [facility] Comment on above: Performed By: #### U A #### [address] Basophils (Bld) [#/Vol] 0.1 10*3/uL Normal 0.0-0.2 [facility] Comment on above: Result Comment: PERF ORMED BY: [place] [address] PATHOLOGIST [employer] ANTHONY DUVAL M.D. Performed By: #### U A #### [address] Basophils/100 WBC (Bld) 0.7 % Normal . T [facility] Comment on above: Performed By: #### U A #### [address] Eosinophils (Bld) [#/Vol] 0.1 10*3/uL Normal 0.0-0.45 [facility] Comment on above: Performed By: #### U A #### [address] Eosinophils/100 WBC (Bld) 0.8 % Normal . [facility] Comment on above: Performed By: #### U A #### [address] Erythrocyte distribution width (RBC) [Ratio] 12.9 % Normal 11.9-15.3 [facility] Comment on above: Performed By: #### U A #### [address] Hematocrit (Bld) [Volume fraction] 34.2 % Normal 34.0-46.4 [facility] Comment on above: Performed By: #### U A #### [address] Hemoglobin (Bld) [Mass/Vol] 11.8 g/dL Normal 11.8-15.4 [facility] Comment on above: Performed By: #### U A #### [address] Lymphocytes (Bld) [#/Vol] 2.4 10*3/uL Normal 1.00-4.8 [facility] Comment on above: Performed By: #### U A #### [address] Lymphocytes/100 WBC (Bld) 31.8 % Normal . [facility] Comment on above: Performed By: #### U A #### [address] MCH (RBC) [Entitic mass] 30.5 pg Normal 24.7-34.3 [facility] Comment on above: Performed By: #### U A #### [address] MCV (RBC) [Entitic vol] 88.5 fL Normal 80-100 [facility] Comment on above: Performed By: #### U A #### [address] Mean Corpuscular HGB Conc 34.5 g/dL Normal 32.0-35.0 [facility] Comment on above: Performed By: #### U A #### [address] Monocytes (Bld) [#/Vol] 0.4 10*3/uL Normal 0.0-0.8 [facility] Comment on above: Performed By: #### U A #### [address] Monocytes/100 WBC (Bld) 5.9 % Normal . [facility] Comment on above: Performed By: #### U A #### [address] Neutrophils (Bld) [#/Vol] 4.6 10*3/uL Normal 1.8-7.7 [facility] Comment on above: Performed By: #### U A #### [address] Neutrophils/100 WBC (Bld) 60.8 % Normal . [facility] Comment on above: Performed By: #### U A #### [address] NRBC% 0.0 /100{WBC} Normal 0-0.5 [facility] Comment on above: Performed By: #### U A #### [address] Platelet mean volume (Bld) [Entitic vol] 8.4 fL Normal 6.3-10.7 [facility] Comment on above: Performed By: #### U A #### [place] [address] [place] Platelets (Bld) [#/Vol] 140 10*3/uL Low 150-450 [facility] Comment on above: Performed By: #### U A #### [address] RBC (Bld) [#/Vol] 3.86 10*6/uL Normal 3.60-5.00 [facility] Comment on above: Performed By: #### U A #### [address] WBC (Bld) [#/Vol] 7.6 10*3/uL Normal 3.8-11.6 [facility] Comment on above: Performed By: #### U A #### [address] Dipstick and Microscopicon 0 11-06-2023 Appearance (U) Cloudy Critically abnormal Clear [facility] Comment on above: Order Comment: Name Collection Type:: Clean-Voided Midstream Performed By: #### C UU, ADDONUAPLUS #### [place] [address] [place] Bacteria,Urine 1+ High None Seen The Counts include 234 beds at the [facility] Comment on above: Order Comment: Name Collection Type:: Clean-Voided Midstream Performed By: #### C UU, ADDONUAPLUS #### [address] Bilirubin,Urine Negative Normal Negative [facility] Comment on above: Order Comment: Name Collection Type:: Clean-Voided Midstream Performed By: #### C UU, ADDONUAPLUS #### [address] Color (U) Light-Yellow Normal Yellow [facility] Comment on above: Order Comment: Name Collection Type:: Clean-Voided Midstream Performed By: #### C UU, ADDONUAPLUS #### [address] Glucose Ql (U) Normal Normal Normal [facility] Comment on above: Order Comment: Name Collection Type:: Clean-Voided Midstream Performed By: #### C UU, ADDONUAPLUS #### [place] [address] [place] Hyaline Casts,Urine None Normal 0-8 [facility] Comment on above: Order Comment: Name Collection Type:: Clean-Voided Midstream Performed By: #### C UU, ADDONUAPLUS #### [address] Ketones Ql (U) Negative Normal Negative [facility] Comment on above: Order Comment: Name Collection Type:: Clean-Voided Midstream Performed By: #### C UU, ADDONUAPLUS #### [address] Leukocyte esterase Test strip Ql (U) 4+ High Negative [facility] Comment on above: Order Comment: Name Collection Type:: Clean-Voided Midstream Performed By: #### C UU, ADDONUAPLUS #### [place] [address] [place] Mucus,Urine Rare Normal [facility] Comment on above: Order Comment: Name Collection Type:: Clean-Voided Midstream Result Comment: PERF ORMED BY: [place] [address] PATHOLOGIST [employer] ANTHONY DUVAL M.D. Performed By: #### C UU, ADDONUAPLUS #### [place] [address] [place] Nitrite,Urine Negative Normal Negative [facility] Comment on above: Order Comment: Name Collection Type:: Clean-Voided Midstream Performed By: #### C UU, ADDONUAPLUS #### [address] Occult Blood,Urine Negative Normal Negative [facility] Comment on above: Order Comment: Name Collection Type:: Clean-Voided Midstream Result Comment: PERF ORMED BY: [place] [address] PATHOLOGIST [employer] ANTHONY DUVAL M.D. Performed By: #### C UU, ADDONUAPLUS #### [address] pH (U) 6.0 [pH] Normal 5.0-9.0 [facility] Comment on above: Order Comment: Name Collection Type:: Clean-Voided Midstream Performed By: #### C UU, ADDONUAPLUS #### [address] Protein,Urine Negative Normal Negative [facility] Comment on above: Order Comment: Name Collection Type:: Clean-Voided Midstream Performed By: #### C UU, ADDONUAPLUS #### [address] RBC,Urine 5-9 High 0-4 [facility] Comment on above: Order Comment: Name Collection Type:: Clean-Voided Midstream Performed By: #### C UU, ADDONUAPLUS #### [address] Specificy [place],Urine 1.015 Normal 1.001-1.030 [facility] Comment on above: Order Comment: Name Collection Type:: Clean-Voided Midstream Performed By: #### C UU, ADDONUAPLUS #### [address] Squamous Epithelial Cell,Urine 10-19 High 0-2 [facility] Comment on above: Order Comment: Name Collection Type:: Clean-Voided Midstream Performed By: #### C UU, ADDONUAPLUS #### [address] [place] [address] [place] Urobilinogen,Urine Normal Normal Normal [facility] Comment on above: Order Comment: Name Collection Type:: Clean-Voided Midstream Performed By: #### C UU, ADDONUAPLUS #### [facility] [address] WBC,Urine 5-9 High 0-4 [facility] Comment on above: Order Comment: Name Collection Type:: Clean-Voided Midstream Performed By: #### C UU, ADDONUAPLUS #### [facility] [address] Eosinophils Auto (Bld) [#/Vo l]Ordered By: MARY Ghotra on 11-06-2023 Eosinophils (Bld) [#/Vol] Automated eosinophil count 0.0-0.45 [facility] Eosinophils/100 WBC Auto (Bl d)Ordered By: MARY Ghotra on 11-06-2023 Eosinophils/100 WBC (Bld) Automated eosinophil % . [facility] Epithelial cells.squamous [# /area] in Urine sediment by Automated countOrdered By: MARY Ghotra on 11-06-2023 Epithelial cells.squamous Auto (Urine sed) [#/Area] 10-19 [HPF] High 0-2 [facility] Epithelial cells.squamous Auto (Urine sed) [#/Area] Epithelial cells.squamous [#/area] in Urine sediment by Automated count High 0-2 [facility] Erythrocyte distribution wid th Auto (RBC) [Ratio]Ordered By: MARY Ghotra on 11-06-2023 Erythrocyte distribution width (RBC) [Ratio] Erythrocyte distribution width [Ratio] by Automated count 11.9-15.3 [facility] Erythrocyte distribution wid th [Ratio] by Automated countOrdered By: MARY Ghotra on 11-06-2023 Erythrocyte distribution width (RBC) [Ratio] 12.6 % Normal 11.9-15.3 [facility] Comment on above: Performed By: #### U A #### [facility] [address] [place] [address] [place] Erythrocytes [#/area] in Uri ne sediment by Automated countOrdered By: MARY Ghotra on 11-06-2023 RBC Auto (Urine sed) [#/Area] 5-9 [HPF] High 0-4 [facility] RBC Auto (Urine sed) [#/Area] Erythrocytes [#/area] in Urine sediment by Automated count High 0-4 [facility] Erythrocytes [#/volume] in B lood by Automated countOrdered By: MARY Ghotra on 11-06-2023 RBC (Bld) [#/Vol] 4.00 10*6/uL Normal 3.60-5.00 [facility] Comment on above: Performed By: #### U A #### [facility] [address] Glucose [Mass/volume] in Uri ne by Test stripOrdered By: Brijesh Milton on 11-06-2023 Glucose Test strip (U) [Mass/Vol] Normal mg/dL Normal [facility] Glucose Test strip (U) [Mass/Vol] Glucose [Mass/volume] in Urine by Test strip Normal [facility] Hematocrit Auto (Bld) [Volum e fraction]Ordered By: MARY Ghotra on 11-06-2023 Hematocrit (Bld) [Volume fraction] Hematocrit [Volume Fraction] of Blood by Automated count 34.0-46.4 [facility] Hematocrit [Volume Fraction] of Blood by Automated countOrdered By: MARY Ghotra on 11-06-2023 Hematocrit (Bld) [Volume fraction] 35.4 % Normal 34.0-46.4 [facility] Comment on above: Performed By: #### U A #### [facility] [address] [place] [address] Hemoglobin Test strip Ql (U) Ordered By: Brijesh Milton on 11-06-2023 Hemoglobin Ql (U) Negative Negative [facility] Hemoglobin Ql (U) Hemoglobin [Presence] in Urine by Test strip Negative [facility] Hemoglobin [Mass/volume] in BloodOrdered By: MARY Ghotra on 11-06-2023 Hemoglobin (Bld) [Mass/Vol] 12.3 g/dL Normal 11.8-15.4 [facility] Comment on above: Performed By: #### U A #### [facility] [address] [place] [address] Hemoglobin (Bld) [Mass/Vol] Hemoglobin [Mass/volume] in Blood 11.8-15.4 [facility] Hyaline casts [#/area] in Ur ine sediment by Automated countOrdered By: MARY Ghotra on 11-06-2023 Hyaline casts Auto (Urine sed) [#/Area] None [LPF] 0-8 [facility] Hyaline casts Auto (Urine sed) [#/Area] Hyaline casts [#/area] in Urine sediment by Automated count 0-8 [facility] [facility] Test strip Ql (U)Ord ered By: Brijesh Milton on 11-06-2023 Ketones Ql (U) Ketones [Presence] in Urine by Test strip Negative [facility] Ketones [Presence] in Urine by Test stripOrdered By: Brijesh Milton on 11-06-2023 Ketones Ql (U) Negative Normal Negative [facility] Comment on above: Order Comment: Name Collection Type:: Clean-Voided Midstream Performed By: #### U A #### [facility] [address] [place] [address] Leukocyte esterase [Presence ] in Urine by Test stripOrdered By: Brijesh Milton on 11-06-2023 Leukocyte esterase Test strip Ql (U) Negative Normal Negative [facility] Comment on above: Order Comment: Name Collection Type:: Clean-Voided Midstream Performed By: #### U A #### [facility] [address] [place] [address] Leukocyte esterase Test strip Ql (U) Leukocyte esterase [Presence] in Urine by Test strip Negative [facility] Leukocytes [#/area] in Urine sediment by Automated countOrdered By: MARY Ghotra on 11-06-2023 WBC Auto (Urine sed) [#/Area] 5-9 [HPF] High 0-4 [facility] WBC Auto (Urine sed) [#/Area] Leukocytes [#/area] in Urine sediment by Automated count High 0-4 [facility] Leukocytes [#/volume] correc divine for nucleated erythrocytes in Blood by Automated counOrdered By: MARY Ghotra on 11-06-2023 WBC corrected for nucl RBC Auto (Bld) [#/Vol] 7.2 10*3/uL 3.8-11.6 [facility] WBC corrected for nucl RBC Auto (Bld) [#/Vol] Leukocytes [#/volume] corrected for nucleated erythrocytes in Blood by Automated coun 3.8-11.6 [facility] Leukocytes [#/volume] in Blo od by Automated countOrdered By: MARY Ghotra on 11-06-2023 WBC (Bld) [#/Vol] 7.2 10*3/uL Normal 3.8-11.6 [facility] Comment on above: Performed By: #### U A #### [facility] [address] [place] [address] Lymphocytes Auto (Bld) [#/Vo l]Ordered By: MARY Ghotra on 11-06-2023 Lymphocytes (Bld) [#/Vol] Lymphocytes [#/volume] in Blood by Automated count 1.00-4.8 [facility] Lymphocytes [#/volume] in Bl ood by Automated countOrdered By: MARY Ghotra on 11-06-2023 Lymphocytes (Bld) [#/Vol] 2.3 10*3/uL Normal 1.00-4.8 [facility] Comment on above: Performed By: #### U A #### [address] Lymphocytes/100 WBC Auto (Bl d)Ordered By: MARY Ghotra on 11-06-2023 Lymphocytes/100 WBC (Bld) Lymphocytes/100 leukocytes in Blood by Automated count . [facility] Lymphocytes/100 leukocytes i n Blood by Automated countOrdered By: AMRY Ghotra on 11-06-2023 Lymphocytes/100 WBC (Bld) 31.5 % Normal . [facility] Comment on above: Performed By: #### U A #### [facility] [address] [place] [address] MCH Auto (RBC) [Entitic mass ]Ordered By: MARY Ghotra on 11-06-2023 MCH (RBC) [Entitic mass] MCH [Entitic ma ss] by Automated count 24.7-34.3 [facility] MCH [Entitic mass] by Automa divine countOrdered By: MARY Ghotra on 11-06-2023 MCH (RBC) [Entitic mass] 30.6 pg Normal 24.7-34.3 [facility] Comment on above: Performed By: #### U A #### [facility] [address] [place] [address] MCHC Auto (RBC) [Mass/Vol]Or dered By: MARY Ghotra on 11-06-2023 MCHC (RBC) [Mass/Vol] 34.6 g/dL 32.0-35.0 [facility] MCHC (RBC) [Mass/Vol] MCHC [Mass/volume] by Automated count 32.0-35.0 [facility] MCV Auto (RBC) [Entitic vol] Ordered By: MARY Ghotra on 11-06-2023 MCV (RBC) [Entitic vol] MCV [Entitic vol ume] by Automated count 80-100 [facility] MCV [Entitic volume] by Auto mated countOrdered By: MARY Ghotra on 11-06-2023 MCV (RBC) [Entitic vol] 88.6 fL Normal 80-100 [facility] Comment on above: Performed By: #### U A #### [facility] [address] [place] [address] Monocytes Auto (Bld) [#/Vol] Ordered By: MARY Ghotra on 11-06-2023 Monocytes (Bld) [#/Vol] Automated blood monocyte count 0.0-0.8 [facility] Monocytes/100 WBC Auto (Bld) Ordered By: MARY Ghotra on 11-06-2023 Monocytes/100 WBC (Bld) Automated monocyte % . [facility] Mucus [Presence] in Urine by AutomatedOrdered By: MARY Ghotra on 11-06-2023 Mucus Auto Ql (U) Rare [LPF] [facility] Mucus Auto Ql (U) Mucus [Presence] in Urine by Automated [facility] Neutrophils Auto (Bld) [#/Vo l]Ordered By: MARY Ghotra on 11-06-2023 Neutrophils (Bld) [#/Vol] Neutrophils [#/volume] in Blood by Automated count 1.8-7.7 [facility] Neutrophils [#/volume] in Bl ood by Automated countOrdered By: MARY Ghotra on 11-06-2023 Neutrophils (Bld) [#/Vol] 4.4 10*3/uL Normal 1.8-7.7 [facility] Comment on above: Performed By: #### U A #### [address] Neutrophils/100 WBC Auto (Bl d)Ordered By: MARY Ghotra on 11-06-2023 Neutrophils/100 WBC (Bld) Automated neutrophil % . [facility] Nitrite Test strip Ql (U)Ord ered By: Brijesh Milton on 11-06-2023 Nitrite Ql (U) Negative Negative [facility] Nitrite Ql (U) Nitrite [Presence] in Urine by Test strip Negative [facility] Nucleated erythrocytes [Pres ence] in Blood by Automated countOrdered By: MARY Ghotra on 11-06-2023 Nucleated RBC Auto Ql (Bld) 0.1 /100{WBC} 0-0.5 [facility] Nucleated RBC Auto Ql (Bld) Nucleated erythrocytes [Presence] in Blood by Automated count 0-0.5 [facility] Platelet mean volume Auto (B ld) [Entitic vol]Ordered By: MARY Ghotra on 11-06-2023 Platelet mean volume (Bld) [Entitic vol] Platelet mean volume [Entitic volume] in Blood by Automated count 6.3-10.7 [facility] Platelet mean volume [Entiti c volume] in Blood by Automated countOrdered By: TRINIDAD Ghotra on 11-06-2023 Platelet mean volume (Bld) [Entitic vol] 8.8 fL Normal 6.3-10.7 [facility] Comment on above: Performed By: #### U A #### [facility] [address] [place] [address] Platelets Auto (Bld) [#/Vol] Ordered By: MARY Ghotra on 11-06-2023 Platelets (Bld) [#/Vol] Platelets [#/vol ume] in Blood by Automated count 150-450 [facility] Platelets [#/volume] in Bloo d by Automated countOrdered By: MARY Ghotra on 11-06-2023 Platelets (Bld) [#/Vol] 150 10*3/uL Normal 150-450 [facility] Comment on above: Performed By: #### U A #### [facility] [address] [place] [address] Protein Test strip (U) [Mass /Vol]Ordered By: Brijesh Milton on 11-06-2023 Protein (U) [Mass/Vol] Negative Negative [facility] Protein (U) [Mass/Vol] Protein [Mass/volume] in Urine by Test strip Negative [facility] RBC Auto (Bld) [#/Vol]Ordere d By: MARY Ghotra on 11-06-2023 RBC (Bld) [#/Vol] Erythrocytes [#/volume] in Blood by Automated count 3.60-5.00 [facility] Specific gravity Test strip (U) [Rel density]Ordered By: Brijesh Milton on 11-06-2023 Specific gravity (U) [Rel density] 1.009 1.001-1.030 [facility] Specific gravity (U) [Rel density] Specific gravity of Urine by Test strip 1.001-1.030 [facility] US OB transvaginalon 024 US OB transvaginal [facility] [place] [address] [place] [address] Ultrasound Report Signed Patient: Venancio Moon MR#: [id number] : 1985 Acct:[id number] Age/Sex: 38 / F ADM Date: 11/05/23 Loc: Room: 9Y1086-0 Type: ADM IN Attending Dr: Ranulfo Ghotra MD Ordering Provider: Nga Garcia MD Date of Service: 11/05/23 US/US OB >= 14 weeks Fetus: abd cramping ([id number]) US/US OB transvaginal: LLQ tenderness, evaluate for ovarian torsion Copies to: MD Ranulfo Hurtado MD-[facility] ultrasound. Reason for exam:14 weeks with cramping nausea left lower quadrant tenderness. Comparison:None Technique: Transabdominal and transvaginal imaging of the gravid uterus was obtained. Findings: Single live intrauterine 14 weeks 3 days by anatomic measurements with a heart rate of 136 bpm. Placenta is posterior in location without focal abnormality. No free fluid is seen. Both ovaries are identified and appear unremarkable. Normal arterial and venous Doppler waveforms. The following measurements were obtained: BPD 2.63 cm gestation: 14w5d weeks/days head circumference 10.18 cm gestation: 14w6d weeks/days abd. circumference 7.67 cm gestation: 14w1d weeks/days femur length 1.31 cm gestation: 14w0d weeks/days US/US OB >= 14 weeks Fetus Impression: Single live intrauterine 14 weeks 3 days by anatomic measurements. No ultrasound evidence of ovarian torsion. Impression dictated by: Elias Liriano Jr., Madelin11/06/2023 8:45 AM Dictation Location: [place] [address] Tech: Nga Garcia Transcribed By: [facility] 11/06/23 0845 Dictated By: Elias Liriano Jr, DO 11/06/2342 Signed By: 11/06/23 0845 Normal [facility] US gall bladderon 11-06-2023 US gall bladder [facility] [place] [address] Ultrasound Report Signed Patient: Venancio Moon MR#: [id number] : 1985 Acct:[id number] Age/Sex: 38 / F ADM Date: 11/05/23 Loc: Room: [address] [place] [address] Type: ADM IN Attending Dr: Ranulfo Ghotra MD Ordering Provider: Ranulfo Ghotra MD-[facility] Date of Service: 11/05/23 US/US gall bladder: abdominal pain 14 weeks Copies to: MARY Dow LIMITED ABDOMINAL ULTRASOUND: CLINICAL HISTORY: Abdominal pain 14 weeks . COMPARISON: None TECHNIQUE: Grayscale and color Doppler images of the right upper quadrant organs were obtained. FINDINGS: Pancreas: Unremarkable Liver: Unremarkable Gallbladder: Unremarkable CBD: 3.3 mm US/US gall bladder IMPRESSION: NO ACUTE PROCESS. . Impression dictated by: Elias Liriano Jr., D.O.11/06/2023 8:46 AM Dictation Location: [place] Tech: Nga Garcia Transcribed By: AMADEO 11/06/23845 Dictated By: Elias Liriano Jr, DO 11/06/2345 Signed By: 11/06/23 08 Normal [facility] US renal BIon 11-06-2023 US renal BI [facility] [place] [address] Ultrasound Report Signed Patient: Venanico Moon MR#: [id number] : 1985 Acct:[id number] Age/Sex: 38 / F ADM Date: 11/05/23 Loc: Room: [address] [place] [address] Type: ADM IN Attending Dr: Ranulfo Ghotra MD Ordering Provider: MARY Dow Date of Service: 11/05/23 US/US renal BI: abdominal pain 14 weeks Copies to: MARY Dow BILATERAL RENAL AND BLADDER ULTRASOUND CLINICAL HISTORY: Abdominal pain 14 weeks . COMPARISON: None FINDINGS: Estimation of renal size is approximately 11.2 cm on the right and 11.5 cm on the left. No contour deforming mass, shadowing stone or hydronephrosis. Incidental note is made of a cyst involving the spleen measuring 1.3 cm The urinary bladder is partially distended with a volume of 54.19 ml. No shadowing stone or focal lesion. Bilateral ureteral jets were noted. US/US renal BI IMPRESSION: No acute findings. Impression dictated by: Elias Liriano Jr., D.O.11/06/2023 8:47 AM Dictation Location: [place] Tech: [employer] Garcia Transcribed By: AMADEO 11/06/23 0847 Dictated By: Elias Liriano Jr, DO 11/06/23 0846 Signed By: 11/06/23 0847 Normal [facility] Urinalysison 11-06-2023 Bilirubin,Urine Negative Normal Negative [facility] Comment on above: Order Comment: Name Collection Type:: Clean-Voided Midstream Performed By: #### U A #### [address] Glucose Ql (U) Normal Normal Normal [facility] Comment on above: Order Comment: Name Collection Type:: Clean-Voided Midstream Performed By: #### U A #### [place] [address] [place] Nitrite,Urine Negative Normal Negative [facility] Comment on above: Order Comment: Name Collection Type:: Clean-Voided Midstream Performed By: #### U A #### [address] Occult Blood,Urine Negative Normal Negative [facility] Comment on above: Order Comment: Name Collection Type:: Clean-Voided Midstream Result Comment: PERF ORMED BY: [place] [address] PATHOLOGIST [employer] ANTHONY DUVAL M.D. Performed By: #### U A #### [place] [address] [place] Protein,Urine Negative Normal Negative [facility] Comment on above: Order Comment: Name Collection Type:: Clean-Voided Midstream Performed By: #### U A #### [place] [address] [place] Specificy [place],Urine 1.009 Normal 1.001-1.030 [facility] Comment on above: Order Comment: Name Collection Type:: Clean-Voided Midstream Performed By: #### U A #### [place] [address] [place] Urobilinogen,Urine Normal Normal Normal [facility] Comment on above: Order Comment: Name Collection Type:: Clean-Voided Midstream Performed By: #### U A #### [facility] [address] [place] [address] Urinalysis complete panel (U )on 11-06-2023 Appearance (U) Cloudy Critically abnormal Clear [facility] BILIRUBIN,URINE Negative Negative [facility] Color (U) Light-Yellow Yellow [facility] Glucose Ql (U) Normal Normal [facility] Interpretation and review of laboratory results Abnormal [facility] Ketones Ql (U) Negative Negative [facility] Leukocyte esterase Test strip Ql (U) 4+ High Negative [facility] NITRITE,URINE Negative Negative [facility] OCCULT BLOOD,URINE Negative Negative [facility] pH (U) 6.0 [pH] 5.0 - 9.0 [facility] PROTEIN,URINE Negative Negative [facility] SPECIFICY GRAVITY,URINE 1.015 1.00 1 - 1.030 [facility] UROBILINOGEN,URINE Normal Normal [facility] Name Collection Type:: Clean-Voided Midstream [facility] Urinalysis, manual onlyon Appearance (U) Clear Clear [facility] BILIRUBIN,URINE Negative Negative [facility] Color (U) Light-Yellow Yellow [facility] Glucose Ql (U) Normal Normal [facility] Ketones Ql (U) Negative Negative [facility] Leukocyte esterase Test strip Ql (U) Negative Negative [facility] NITRITE,URINE Negative Negative [facility] OCCULT BLOOD,URINE Negative Negative [facility] pH (U) 6.0 [pH] 5.0 - 9.0 [facility] PROTEIN,URINE Negative Negative [facility] SPECIFICY GRAVITY,URINE 1.009 1.00 1 - 1.030 [facility] UROBILINOGEN,URINE Normal Normal [facility] Name Collection Type:: Clean-Voided Midstream [facility] Urine Cultureon 11-06-2023 Bacteria identified Cx Nom (U) Urine Culture Results 75,000 colonies/ml Mixed Bacterial Skin Contaminants 2 Days PERFORMED BY: [place] [address] PATHOLOGIST [employer] ANTHONY DUVAL M.D. Normal [facility] Comment on above: Performed By: #### C UU, ADDONUAPLUS #### [facility] [address] Urine appearanceOrdered By: Brijesh Milton on 11-06-2023 Appearance (U) Clear Normal Clear [facility] Comment on above: Order Comment: Name Collection Type:: Clean-Voided Midstream Performed By: #### U A #### [facility] [address] Urine cultureOrdered By: TRINIDAD Ghotra on 11-06-2023 Bacteria identified Cx Nom (U) Urine culture [facility] Urine culture routineOrdered By: MARY Ghotra on 11-06-2023 Bacteria identified Cx Nom (U) [facility] Urobilinogen Test strip (U) [Mass/Vol]Ordered By: Brijesh Milton on 11-06-2023 Urobilinogen (U) [Mass/Vol] Normal mg/dL Normal [facility] Urobilinogen (U) [Mass/Vol] Urobilinogen [Mass/volume] in Urine by Test strip Normal [facility] WBC Auto (Bld) [#/Vol]Ordere d By: MARY Ghotra on 11-06-2023 WBC (Bld) [#/Vol] Leukocytes [#/volume] in Blood by Automated count 3.8-11.6 [facility] pH Test strip (U)Ordered By: Brijesh Milton on 11-06-2023 pH (U) pH of Urine by Test strip 5.0-9.0 [facility] pH of Urine by Test stripOrd ered By: Brijesh Milton on 11-06-2023 pH (U) 6.0 [pH] Normal 5.0-9.0 [facility] Comment on above: Order Comment: Name Collection Type:: Clean-Voided Midstream Performed By: #### U A #### [facility] [address] Alanine aminotransferase [En zymatic activity/volume] in Serum or PlasmaOrdered By: Nga Garcia on 11-05-2023 ALT [Catalytic activity/Vol] 19 U/L Normal 7-52 [facility] Comment on above: Performed By: #### C MP, CBC, LIPASE #### [address] ALT [Catalytic activity/Vol] Alanine aminotransferase [Enzymatic activity/volume] in Serum or Plasma [facility] Albumin [Mass/volume] in Ser um or Plasma by Bromocresol green (BCG) dye binding methoOrdered By: Nga Garcia on 11-05-2023 Albumin BCG dye [Mass/Vol] 3.5 g/dL 3.5-5.7 [facility] Albumin BCG dye [Mass/Vol] Albumin [Mass/volume] in Serum or Plasma by Bromocresol green (BCG) dye binding metho 3.5-5.7 [facility] Alkaline phosphatase [Enzyma tic activity/volume] in Serum or PlasmaOrdered By: Nga Garcia on 11-05-2023 ALP [Catalytic activity/Vol] 51 U/L Normal [facility] Comment on above: Performed By: #### C MP, CBC, LIPASE #### [address] ALP [Catalytic activity/Vol] Alkaline phosphatase [Enzymatic activity/volume] in Serum or Plasma [facility] Aspartate aminotransferase [ Enzymatic activity/volume] in Serum or PlasmaOrdered By: Nga Garcia on 11-05-2023 AST [Catalytic activity/Vol] 17 U/L Normal [facility] Comment on above: Performed By: #### C MP, CBC, LIPASE #### [address] AST [Catalytic activity/Vol] Aspartate aminotransferase [Enzymatic activity/volume] in Serum or Plasma [facility] Automated basophil %Ordered By: Nga Garcia on 11-05-2023 Basophils/100 WBC (Bld) 1.1 % Normal . [facility] Comment on above: Performed By: #### C MP, CBC, LIPASE #### [address] Automated basophil countOrde red By: Nga Garcia on 11-05-2023 Basophils (Bld) [#/Vol] 0.1 10*3/uL Normal 0.0-0.2 [facility] Comment on above: Result Comment: PERF ORMED BY: [place] [address] PATHOLOGIST [employer] NATHONY DUVAL M.D. Performed By: #### C MP, CBC, LIPASE #### [address] Automated blood monocyte cou ntOrdered By: Nga Garcia on 11-05-2023 Monocytes (Bld) [#/Vol] 0.5 10*3/uL Normal 0.0-0.8 [facility] Comment on above: Performed By: #### C MP, CBC, LIPASE #### [address] Automated eosinophil %Ordere d By: Nga Garcia on 11-05-2023 Eosinophils/100 WBC (Bld) 0.4 % Normal . [facility] Comment on above: Performed By: #### C MP, CBC, LIPASE #### [address] Automated eosinophil countOr dered By: Nga Garcia on 11-05-2023 Eosinophils (Bld) [#/Vol] 0.0 10*3/uL Normal 0.0-0.45 [facility] Comment on above: Performed By: #### C MP, CBC, LIPASE #### [address] Automated monocyte %Ordered By: Nga Garcia on 11-05-2023 Monocytes/100 WBC (Bld) 5.2 % Normal . [facility] Comment on above: Performed By: #### C MP, CBC, LIPASE #### [address] Automated neutrophil %Ordere d By: Nga Garcia on 11-05-2023 Neutrophils/100 WBC (Bld) 74.8 % Normal . [facility] Comment on above: Performed By: #### C MP, CBC, LIPASE #### [address] Bacteria identified Aer cx N om (Genital specimen)Ordered By: Nga Garcia on 11-05-2023 Genital Culture Abnormal [facility] Genital Culture Maddi albicans Abnormal [facility] Bilirubin Test strip Ql (U)O rdered By: Nga Garcia on 11-05-2023 Bilirubin Ql (U) Negative Negative [facility] Bilirubin.total [Mass/volume ] in Serum or PlasmaOrdered By: Nga Garcia on 11-05-2023 Bilirubin [Mass/Vol] 0.2 mg/dL Low 0.3-1.0 [facility] Comment on above: Performed By: #### C MP, CBC, LIPASE #### [facility] [address] Bilirubin [Mass/Vol] Bilirubin.total [Mass/volume] in Serum or Plasma Low 0.3-1.0 [facility] Calcium [Mass/volume] in Ser um or PlasmaOrdered By: Nga Garcia on 11-05-2023 Calcium [Mass/Vol] 8.8 mg/dL Normal 8.6-10.3 [facility] Comment on above: Performed By: #### C MP, CBC, LIPASE #### [facility] [address] Calcium [Mass/Vol] Calcium [Mass/volume] in Serum or Plasma 8.6-10.3 [facility] Carbon dioxide, total [Moles /volume] in Serum or PlasmaOrdered By: Nga Garcia on 11-05-2023 CO2 [Moles/Vol] 25.9 mmol/L Normal 21.0-31.0 [facility] Comment on above: Performed By: #### C MP, CBC, LIPASE #### [facility] [address] [place] [id number] [place] CO2 [Moles/Vol] Carbon dioxide, total [Moles/volume] in Serum or Plasma 21.0-31.0 [facility] Chlamydia/GC Amplificationon 11-05-2023 Chlamydia Trachomotis, JUAN JOSE Negative Normal Negative [facility] Comment on above: Order Comment: Name Collection Type:: Clean-Voided Midstream Performed By: #### U A #### [facility] [address] [place] [address] [place] Neisseria Gonorrhoeae, JUAN JOSE Negative Normal Negative [facility] Comment on above: Order Comment: Name Collection Type:: Clean-Voided Midstream Result Comment: Perf ormed at: =G - [facility] [address] [id number] Spice Blender: Shanita Syed MD, Phone: [phone] PERFORMED BY: [place] [address] PATHOLOGIST [employer] ANTHONY DUVAL M.D. Performed By: #### U A #### [place] [address] [place] Chloride [Moles/volume] in S maritza or PlasmaOrdered By: Nga Garcia on 11-05-2023 Chloride [Moles/Vol] 105 mmol/L Normal [address] [place] [address] Comment on above: Performed By: #### C MP, CBC, LIPASE #### [place] [address] [place] Chloride [Moles/Vol] Chloride [Moles/volume] in Serum or Plasma [facility] Color of Urine by AutoOrdere d By: Nga Garcia on 11-05-2023 Color (U) Light-yellow Normal Yellow [facility] Comment on above: Order Comment: Name Collection Type:: Clean-Voided Midstream Performed By: #### U A #### [address] Complete Blood Count Auto Di ffon 11-05-2023 Mean Corpuscular HGB Conc 34.8 g/dL Normal 32.0-35.0 [facility] Comment on above: Performed By: #### C MP, CBC, LIPASE #### [place] [address] [place] Monocytes/100 WBC (Bld) 20.59 % High 0.00-20.00 [facility] Comment on above: Result Comment: For adults in ED, MDW > 20.0 may be associated with a higher risk of sepsis during the first 12 hrs of hospital admission Performed By: #### C MP, CBC, LIPASE #### [place] [address] [place] NRBC% 0.1 /100{WBC} Normal 0-0.5 [facility] Comment on above: Performed By: #### C MP, CBC, LIPASE #### [address] Comprehensive Metabolic Pane henrik 11-05-2023 Albumin [Mass/Vol] 3.5 g/dL Normal 3.5-5.7 [facility] Comment on above: Performed By: #### C MP, CBC, LIPASE #### [address] Creatinine Clr Calc Pharmacy 99.96 Normal [facility] Comment on above: Performed By: #### C MP, CBC, LIPASE #### [address] GFR/1.73 sq M.predicted MDRD (S/P/Bld) [Vol rate/Area] mL/min/{1.73_m2} Normal [facility] Comment on above: Performed By: #### C MP, CBC, LIPASE #### [address] Creatinine [Mass/volume] in Serum or PlasmaOrdered By: Nga Garcia on 11-05-2023 Creatinine [Mass/Vol] 0.84 mg/dL Normal 0.60-1.20 [facility] Comment on above: Performed By: #### C MP, CBC, LIPASE #### [address] Creatinine [Mass/Vol] Creatinine [Mass/volume] in Serum or Plasma 0.60-1.20 [facility] Erythrocyte distribution wid th [Ratio] by Automated countOrdered By: Nga Garcia on 11-05-2023 Erythrocyte distribution width (RBC) [Ratio] 13.0 % Normal 11.9-15.3 [facility] Comment on above: Performed By: #### C MP, CBC, LIPASE #### [address] Erythrocytes [#/volume] in B lood by Automated countOrdered By: Nga Garcia on 11-05-2023 RBC (Bld) [#/Vol] 4.29 10*6/uL Normal 3.60-5.00 [facility] Comment on above: Performed By: #### C MP, CBC, LIPASE #### [address] Fungal Smearon 11-05-2023 Fungal Smear Fungus Smear Results No Yeast Like Elements Seen No Fungal Like Elements Seen Trichomonas Screen No Trichomonas Seen Trich Reference Reference range = None Seen PERFORMED BY: [place] [address] PATHOLOGIST [employer] ANTHONY DUVAL M.D. Normal [facility] Comment on above: Performed By: #### C UGEN, FS #### [address] #### GCCHLAMAMP #### [facility] , Fungal smearOrdered By: Luis Garcia on 11-05-2023 Fungus identified Fungus stain Nom (Unsp spec) Fungal smear [facility] Genital Cultureon 11-05-2023 Genital Culture No More GC Specimen not tested for Neisseria gonorrheae ORGANISM: Maddi albicans (O:CANALB) Quantity of Growth Light Growth PERFORMED BY: [place] [address] PATHOLOGIST [employer] ANTHONY DUVAL M.D. Normal [facility] Comment on above: Performed By: #### U A #### [address] Globulin Calc (S) [Mass/Vol] Ordered By: Nga Garcia on 11-05-2023 Globulin (S) [Mass/Vol] Serum globulin measurement by calculation (mass/volume) [facility] Glucose [Mass/volume] in Ser um or PlasmaOrdered By: Nga Garcia on 11-05-2023 Glucose [Mass/Vol] 97 mg/dL Normal 70-100 [facility] Comment on above: ADA recommended refe rence rangeRandom Glucose Reference Range is dependent on time and content of last meal. Glucose of more than 200 mg/dL in a nonstressed, ambulatory subject supports the diagnosis of Diabetes Mellitus. Result Comment: Avery Glucose Reference Range is dependent on time and content of last meal. Glucose of more than 200 mg/dL in a nonstressed, ambulatory subject supports the diagnosis of Diabetes Mellitus. ADA recommended reference range Performed By: #### C MP, CBC, LIPASE #### [facility] [address] Glucose [Mass/Vol] Glucose [Mass/volume] in Serum or Plasma 70-100 [facility] Comment on above: ADA recommended refe rence rangeRandom Glucose Reference Range is dependent on time and content of last meal. Glucose of more than 200 mg/dL in a nonstressed, ambulatory subject supports the diagnosis of Diabetes Mellitus. Glucose [Mass/volume] in Uri ne by Test stripOrdered By: Nga Garcia on 11-05-2023 Glucose Test strip (U) [Mass/Vol] Normal mg/dL Normal [facility] Hematocrit [Volume Fraction] of Blood by Automated countOrdered By: Nga Garcia on 11-05-2023 Hematocrit (Bld) [Volume fraction] 37.6 % Normal 34.0-46.4 [facility] Comment on above: Performed By: #### C MP, CBC, LIPASE #### [facility] [address] Hemoglobin Test strip Ql (U) Ordered By: Nga Garcia on 11-05-2023 Hemoglobin Ql (U) Negative Negative [facility] Hemoglobin [Mass/volume] in BloodOrdered By: Nga Garcia on 11-05-2023 Hemoglobin (Bld) [Mass/Vol] 13.1 g/dL Normal 11.8-15.4 [facility] Comment on above: Performed By: #### C MP, CBC, LIPASE #### [facility] [address] Ketones [Presence] in Urine by Test stripOrdered By: Nga Garcia on 11-05-2023 Ketones Ql (U) Negative Normal Negative [facility] Comment on above: Order Comment: Name Collection Type:: Clean-Voided Midstream Performed By: #### U A #### [facility] [address] [place] [address] Laboratory - Microbiology an d Antimicrobial susceptibilityOrdered By: Nga Garcia on 11-05-2023 C. trachomatis DNA JUAN JOSE+probe Ql (Unsp spec) Negative Negative [facility] N. gonorrhoeae DNA JUAN JOSE+probe Ql (Unsp spec) Negative Negative [facility] Comment on above: Performed at: =[address] [id number] Director: Shanita Syed MD, Phone: [phone] Lactate [Moles/volume] in Se rum or PlasmaOrdered By: Nga Garcia on 11-05-2023 Lactate [Moles/Vol] 0.5 mmol/L Normal 0.5-2.2 [facility] Comment on above: Result Comment: PERF ORMED BY: [place] [address] PATHOLOGIST [employer] ANTHONY DUVAL M.D. Performed By: #### L ACTIC #### [facility] [address] [place] [address] Lactate [Moles/Vol] Lactate [Moles/volume] in Serum or Plasma 0.5-2.2 [facility] Leukocyte esterase [Presence ] in Urine by Test stripOrdered By: Nga Garcia on 11-05-2023 Leukocyte esterase Test strip Ql (U) Negative Normal Negative [facility] Comment on above: Order Comment: Name Collection Type:: Clean-Voided Midstream Performed By: #### U A #### [facility] [address] [place] [address] Leukocytes [#/volume] correc divine for nucleated erythrocytes in Blood by Automated counOrdered By: Nga Garcia on 11-05-2023 WBC corrected for nucl RBC Auto (Bld) [#/Vol] 10.5 10*3/uL 3.8-11.6 [facility] Leukocytes [#/volume] in Blo od by Automated countOrdered By: Nga Garcia on 11-05-2023 WBC (Bld) [#/Vol] 10.5 10*3/uL Normal 3.8-11.6 [facility] Comment on above: Performed By: #### C MP, CBC, LIPASE #### [address] Lipase [Enzymatic activity/v olume] in Serum or PlasmaOrdered By: Nga Garcia on 11-05-2023 Lipase [Catalytic activity/Vol] 24.0 U/L Normal 11.0-82.0 [facility] Comment on above: Result Comment: PERF ORMED BY: [place] [address] PATHOLOGIST [employer] ANTHONY DUVAL M.D. Performed By: #### C MP, CBC, LIPASE #### [address] Lipase [Catalytic activity/Vol] Lipase [Enzymatic activity/volume] in Serum or Plasma 11.0-82.0 [facility] Lymphocytes [#/volume] in Bl ood by Automated countOrdered By: Nga Garcia on 11-05-2023 Lymphocytes (Bld) [#/Vol] 1.9 10*3/uL Normal 1.00-4.8 [facility] Comment on above: Performed By: #### C MP, CBC, LIPASE #### [place] [address] [place] Lymphocytes/100 leukocytes i n Blood by Automated countOrdered By: Nga Garcia on 11-05-2023 Lymphocytes/100 WBC (Bld) 18.5 % Normal . [facility] Comment on above: Performed By: #### C MP, CBC, LIPASE #### [place] [address] [place] MCH [Entitic mass] by Automa divine countOrdered By: Nga Garcia on 11-05-2023 MCH (RBC) [Entitic mass] 30.5 pg Normal 24.7-34.3 [facility] Comment on above: Performed By: #### C MP, CBC, LIPASE #### [facility] [address] MCHC Auto (RBC) [Mass/Vol]Or dered By: Nga Garcia on 11-05-2023 MCHC (RBC) [Mass/Vol] 34.8 g/dL 32.0-35.0 [facility] MCV [Entitic volume] by Auto mated countOrdered By: Nga Garcia on 11-05-2023 MCV (RBC) [Entitic vol] 87.6 fL Normal 80-100 [facility] Comment on above: Performed By: #### C MP, CBC, LIPASE #### [facility] [address] Monocyte distribution width [Entitic volume] in Blood by AutomatedOrdered By: Nga Garcia on 11-05-2023 Monocyte distribution width Auto (Bld) [Entitic vol] 20.59 % High 0.00-20.00 [facility] Comment on above: For adults in ED, MD W > 20.0 may be associated with a higher risk of sepsis during the first 12 hrs of hospital admission Monocyte distribution width Auto (Bld) [Entitic vol] Monocyte distribution width [Entitic volume] in Blood by Automated High 0.00-20.00 [facility] Comment on above: For adults in ED, MD W > 20.0 may be associated with a higher risk of sepsis during the first 12 hrs of hospital admission Neutrophils [#/volume] in Bl ood by Automated countOrdered By: Nga Garcia on 11-05-2023 Neutrophils (Bld) [#/Vol] 7.8 10*3/uL High 1.8-7.7 [facility] Comment on above: Performed By: #### C MP, CBC, LIPASE #### [facility] [address] Nitrite Test strip Ql (U)Ord ered By: Nga Garcia on 11-05-2023 Nitrite Ql (U) Negative Negative [facility] No Panel InformationOrdered By: Nga Garcia on 11-05-2023 Estimated GFR (CKD-EPI) > 60.0 mL/Min [facility] Creatinine Clearance (Chem 99.96 [facility] Nucleated erythrocytes [Pres ence] in Blood by Automated countOrdered By: Nga Garcia on 11-05-2023 Nucleated RBC Auto Ql (Bld) 0.1 /100{WBC} 0-0.5 [facility] Platelet mean volume [Entiti c volume] in Blood by Automated countOrdered By: Nga Garcia on 11-05-2023 Platelet mean volume (Bld) [Entitic vol] 8.8 fL Normal 6.3-10.7 [facility] Comment on above: Performed By: #### C MP, CBC, LIPASE #### [facility] [address] [place] [address] [place] Platelets [#/volume] in Bloo d by Automated countOrdered By: Nga Garcia on 11-05-2023 Platelets (Bld) [#/Vol] 163 10*3/uL Normal 150-450 [facility] Comment on above: Performed By: #### C MP, CBC, LIPASE #### [facility] [address] [place] [address] [place] Potassium [Moles/volume] in Serum or PlasmaOrdered By: Nga Garcia on 11-05-2023 Potassium [Moles/Vol] 3.6 mmol/L Normal 3.5-5.1 [facility] Comment on above: Performed By: #### C MP, CBC, LIPASE #### [facility] [address] [place] [address] [place] Potassium [Moles/Vol] Potassium [Moles/volume] in Serum or Plasma 3.5-5.1 [facility] Protein Test strip (U) [Mass /Vol]Ordered By: Nga Garcia on 11-05-2023 Protein (U) [Mass/Vol] Negative Negative [facility] Protein [Mass/volume] in Ser um or PlasmaOrdered By: Nga Garcia on 11-05-2023 Protein [Mass/Vol] 6.4 g/dL Normal 6.4-8.9 [facility] Comment on above: Performed By: #### C MP, CBC, LIPASE #### [facility] [address] [place] [address] [place] Protein [Mass/Vol] Protein [Mass/volume] in Serum or Plasma 6.4-8.9 [facility] Serum globulin measurement b y calculation (mass/volume)Ordered By: Nga Garcia on 11-05-2023 Globulin (S) [Mass/Vol] 2.9 g/dL Normal [facility] Comment on above: Performed By: #### C MP, CBC, LIPASE #### [facility] [address] Serum or plasma albumin/glob ulin mass ratioOrdered By: Nga Garcia on 11-05-2023 Albumin/Globulin [Mass ratio] 1.2 {ratio} Normal [facility] Comment on above: Performed By: #### C MP, CBC, LIPASE #### [facility] [address] [place] [address] Albumin/Globulin [Mass ratio] Serum or plasma albumin/globulin mass ratio [facility] Serum or plasma anion gap de terminationOrdered By: Nga Garcia on 11-05-2023 Anion gap [Moles/Vol] 8.7 mmol/L Normal 6.0-15.0 [facility] Comment on above: Performed By: #### C MP, CBC, LIPASE #### [address] Anion gap [Moles/Vol] Serum or plasma anion gap determination 6.0-15.0 [facility] Sodium [Moles/volume] in Ser um or PlasmaOrdered By: Nga Garcia on 11-05-2023 Sodium [Moles/Vol] 136 mmol/L Normal 136-145 [facility] Comment on above: Performed By: #### C MP, CBC, LIPASE #### [facility] [address] [place] [address] Sodium [Moles/Vol] Sodium [Moles/volume] in Serum or Plasma 136-145 [facility] Specific gravity Test strip (U) [Rel density]Ordered By: Nga Garcia on 11-05-2023 Specific gravity (U) [Rel density] 1.021 1.001-1.030 [facility] Trichomonas vaginalis detect ion by wet preparationOrdered By: Nga Garcia on 11-05-2023 T. vaginalis Wet prep Ql (Unsp spec) Trichomonas vaginalis detection by wet preparation [facility] T. vaginalis Wet prep Ql (Unsp spec) [facility] Urea nitrogen [Mass/volume] in Serum or PlasmaOrdered By: Nga Garcia on 11-05-2023 Urea nitrogen [Mass/Vol] 12 mg/dL Normal 09-28 [facility] Comment on above: Performed By: #### C MP, CBC, LIPASE #### [facility] [address] Urea nitrogen [Mass/Vol] Urea nitrogen [Mass/volume] in Serum or Plasma 09-28 [facility] Urinalysison 11-05-2023 Bilirubin,Urine Negative Normal Negative [facility] Comment on above: Order Comment: Name Collection Type:: Clean-Voided Midstream Performed By: #### U A #### [address] Glucose Ql (U) Normal Normal Normal [facility] Comment on above: Order Comment: Name Collection Type:: Clean-Voided Midstream Performed By: #### U A #### [place] [address] [place] Nitrite,Urine Negative Normal Negative [facility] Comment on above: Order Comment: Name Collection Type:: Clean-Voided Midstream Performed By: #### U A #### [place] [address] [place] Occult Blood,Urine Negative Normal Negative [facility] Comment on above: Order Comment: Name Collection Type:: Clean-Voided Midstream Result Comment: PERF ORMED BY: [place] [address] PATHOLOGIST [employer] ANTHONY DUVAL M.D. Performed By: #### U A #### [place] [address] [place] Protein,Urine Negative Normal Negative [facility] Comment on above: Order Comment: Name Collection Type:: Clean-Voided Midstream Performed By: #### U A #### [place] [address] [place] Specificy [place],Urine 1.021 Normal 1.001-1.030 [facility] Comment on above: Order Comment: Name Collection Type:: Clean-Voided Midstream Performed By: #### U A #### [address] Urobilinogen,Urine Normal Normal Normal [facility] Comment on above: Order Comment: Name Collection Type:: Clean-Voided Midstream Performed By: #### U A #### [address] Urine appearanceOrdered By: Nga Garcia on 11-05-2023 Appearance (U) Clear Normal Clear [facility] Comment on above: Order Comment: Name Collection Type:: Clean-Voided Midstream Performed By: #### U A #### [address] Urobilinogen Test strip (U) [Mass/Vol]Ordered By: Nga Garcia on 11-05-2023 Urobilinogen (U) [Mass/Vol] Normal mg/dL Normal [facility] pH of Urine by Test stripOrd ered By: Nga Garcia on 11-05-2023 pH (U) 6.0 [pH] Normal 5.0-9.0 [facility] Comment on above: Order Comment: Name Collection Type:: Clean-Voided Midstream Performed By: #### U A #### [address] HPV DNA High Riskon 10-20-19 24 HPV Interp Normal [facility] Comment on above: Result Comment: This test amplifies and detects DNA of 14 high-risk HPV types associated with cervical cancer and its precursor lesions (HPV types 16,18, 31, 33, 35, 39, 45, 51, 52, 56, 58, 59, 66, and 68). Sensitivity may be affected by specimen collection methods, stage of infection, and the presence of interfering substances. Results should be interpreted in conjunction with other available laboratory and clinical data. A negative high-risk HPV result does not exclude the possibility of future cytologic HSIL or underlying CIN2-3 or cancer. This test is intended for medical purposes only and is not valid for the evaluation of suspected sexual abuse or for other forensic purposes. Performed By: #### U YONIO, UA #### [facility] [address] [place] [address] [place] [place], [place] [id number] Spice Blender: Ivan Lindquist MD HPV Type 16 Not detected [facility] Comment on above: Performed By: #### U MICAO, UA #### [facility] [address] [place] [address] [place] [address] Spice Blender: Ivan Lindquist MD HPV Type 18 Not detected [facility] Comment on above: Performed By: #### U MICAO, UA #### [facility] [address] [place] [address] [place] [address] Spice Blender: Ivan Lindquist MD Other High Risk HPV Not detected [facility] Comment on above: Performed By: #### U YONIO, UA #### [facility] [address] [place] [address] [place] [address] Spice Blender: Ivan Lindquist MD HPV DNA High Riskon 10-19-19 24 HPV Sample .THIN PREP [facility] Comment on above: Performed By: #### U YONIO, UA #### [facility] [address] [place] [address] [place] [place], [place] [id number] Spice Blender: Ivan Lindquist MD Source CERVICAL MATERIAL [facility] Comment on above: Performed By: #### U YONIO, UA #### [facility] [address] [place] [address] [place] [place], [place] [id number] Spice Blender: Ivan Lindquist MD Chlamydia/GC DNA, Uron 10-17 Chlamydia Probe, Ur Negative Normal NEG [facility] Comment on above: Result Comment: CHLA MYDIA TRACHOMATIS DNA not detected by nucleic acid amplification. This test is intended for medical purposes only and is not valid for the evaluation of suspected sexual abuse or for other forensic purposes. In certain contexts, culture may be required to meet applicable laws and regulations for diagnosis of C. trachomatis and N. gonorrhoeae infections. Per 2014 CDC recommendations, this test does not include confirmation of positive results by an alternative nucleic acid target. Performed By: #### U ARIK, UA #### [facility] [address] [place], [place] [id number] Spice Blender: Ivan Lindquist MD Gonorrhea Probe, Ur Negative Normal NEG [facility] Comment on above: Result Comment: NEIS SERIA GONORRHOEAE DNA not detected by nucleic acid amplification. This test is intended for medical purposes only and is not valid for the evaluation of suspected sexual abuse or for other forensic purposes. In certain contexts, culture may be required to meet applicable laws and regulations for diagnosis of C. trachomatis and N. gonorrhoeae infections. Per 2014 CDC recommendations, this test does not include confirmation of positive results by an alternative nucleic acid target. Performed By: #### U ARIK, UA #### [facility] [address] [place] [address] [place] [address] Spice Blender: Ivan Lindquist MD Cult,Urineon 10-18-2023 Cult,Urine Specimen Description .CLEAN CATCH URINE Special Requests Site: Urine Culture NO SIGNIFICANT GROWTH Report Status FINAL 10/18/2023 Normal [facility] Comment on above: Performed By: #### U ARIK, UAX #### [facility] [address] [place] [address] [place] [address] Spice Blender: Ivan Lindquist MD Cytology Reporton 10-18-2023 Cytology report Cyto stain.thin prep Doc (Cvx/Vag) (NOTE) Path Number: [id number] DIAGNOSIS Imaged ThinPrep Pap - Cervical (1 monolayer slide): Specimen Adequacy: Satisfactory for evaluation. -Endocervical/transf ormation zone component is absent. Descriptive Diagnosis: Negative for intraepithelial lesion or malignancy. Cytotech Screener: EY Electronically Signed Out Artem Hernandez M.D. [facility]/10/26/2023 Procedure/Addendum HPV Procedure Report Date Ordered: 10/19/2023 Status: Signed Out Date Complete: 10/20/2023 By: System Interface Date Reported: 10/20/2023 Sample: HPV Type 16 Result: Not Detected Ref Range: (Not Detected) Sample: HPV Type 18 Result: Not Detected Ref Range: (Not Detected) Sample: Other High Risk HPV Result: Not Detected Ref Range: (Not Detected) Sample: HPV Interp Result: Ref Range: (Not Detected) This test amplifies and detects DNA of 14 high-risk HPV types associated with cervical cancer and its precursor lesions (HPV types 16,18, 31, 33, 35, 39, 45, 51, 52, 56, 58, 59, 66, and 68). Sensitivity may be affected by specimen collection methods, stage of infection, and the presence of interfering substances. Results should be interpreted in conjunction with other available laboratory and clinical data. A negative high-risk HPV result does not exclude the possibility of future cytologic HSIL or underlying CIN2-3 or cancer. This test is intended for medical purposes only and is not valid for the evaluation of suspected sexual abuse or for other forensic purposes. Performed at [address] [address] ([phone] Source of Specimen: A: Imaged ThinPrep Pap - Cervical (1 monolayer slide) HPV Reflex?............. .........HPV Regardless Clinical History : 11 weeks LMP: 07/30/2023 Processing Lab: [address] [id number] Interpretation performed at [address] [id number] This Pap Test has been evaluated with the assistance of the ThinPrep Pap Test Imaging System. The Pap smear is a screening test primarily for squamous epithelial lesions, which is subject to both false negative and false positive results. Your patient should be reminded to consult you immediately if she experiences any suspicious signs or symptoms, regardless of her Pap smear result. GYNECOLOGIC CYTOLOGY REPORT Patient Name: VENANCIO MOON [facility] Rec: [id number] [facility] [employer] [facility] ANATOMIC PATHOLOGY [address] [place] [phone] [facility] HIV Ag/Abon 10-17-2023 HIV Ag/Ab Non-Reactive Normal [facility] Comment on above: Result Comment: No l aboratory evidence of HIV infection. If acute HIV infection is suspected, consider testing for HIV-1 RNA. Performed By: #### A HCV, HIVCMB #### [facility] [address] [place], [place] [id number] Spice Blender: Clemente Vega MD Hep C Abon 10-17-2023 Hep C Ab Non-Reactive Normal [facility] Comment on above: Result Comment: The hepatitis C procedure used in our laboratory is a Chemiluminescent test specific for three recombinant HCV antigens. A negative anti-HCV result indicates that the antibodies to hepatitis C virus are not present at this time. Individuals with reactive anti-HCV should be considered infected and infectious until proven otherwise. Confirmation of all equivocal or reactive results is recommended by ordering HCV RNA by PCR. Performed By: #### A HCV, HIVCMB #### [place] [place], [place] [id number] Spice Blender: Clemente Vega MD Profileon T.pallidum Ab Screen Non-Reactive Normal [facility] Comment on above: Result Comment: T. pallidum antibodies are not detected. There is no serological evidence of infection with T. pallidum (early primary syphilis cannot be excluded). Retest in 2-4 weeks if syphilis is clinically suspect. Performed By: #### Dru ELISE UA #### [facility] [address] [place] [address] Spice Blender: Ivan Lindquist MD Hep B Surf Ag Non-Reactive Normal [facility] Comment on above: Performed By: #### Dru ELISE UA #### [facility] [address] [place] [address] Spice Blender: Ivan Lindquist MD Rubella Ab, IgG 243.0 IU/mL [facility] Comment on above: Result Comment: <10 NON REACTIVE Negative for Anti-Rubella IgG >=10 REACTIVE Positive for Anti Rubella IgG The presence of IgG antibody to Rubella virus is an indication of previous exposure either by prior infection or vaccination. Performed By: #### Dru ELISE UA #### [address] [place] [address] Spice Blender: Ivan Lindquist MD Abs. Basophil 0.03 k/uL Normal 0.00-0.20 [facility] Comment on above: Performed By: #### Dru ELISE UA #### [address] [place] [address] Spice Blender: Ivan Lindquist MD Abs.Imm.Granulocyte <0.03 Normal 0.00-0.30 [facility] Comment on above: Performed By: #### Dru ELISE UA #### [address] [place] [address] Spice Blender: Ivan Lindquist MD Abs.Neutrophil (Seg) 5.25 k/uL Normal 1.50-8.10 [facility] Comment on above: Performed By: #### Dru ELISE UA #### [address] [place] [address] Spice Blender: Ivan Lindquist MD Basophils/100 WBC (Bld) 0 % Normal 0-2 [facility] Comment on above: Performed By: #### Dru ELISE UA #### [address] [place] [address] Spice Blender: Ivan Lindquist MD Eosinophils (Bld) [#/Vol] 0.04 10*3/uL Normal 0.00-0.44 [facility] Comment on above: Performed By: #### U ARIK UA #### [address] [place] [address] Spice Blender: Ivan Lindquist MD Eosinophils/100 WBC (Bld) 1 % Normal 1-4 [facility] Comment on above: Performed By: #### U MICAO, UA #### [facility] [address] [place], [place] [id number] Spice Blender: Ivan Lindquist MD Erythrocyte distribution width (RBC) [Ratio] 12.4 % Normal 11.8-14.4 [facility] Comment on above: Performed By: #### U MICAO, UA #### [facility] [address] [place], [facility] Spice Blender: Ivan Lindquist MD Hematocrit (Bld) [Volume fraction] 39.4 % Normal 36.3-47.1 [facility] Comment on above: Performed By: #### U YONIO, UA #### [address] [place], [facility] Spice Blender: Ivan Lindquist MD Hemoglobin (Bld) [Mass/Vol] 13.5 g/dL Normal 11.9-15.1 [facility] Comment on above: Performed By: #### U MICAO, UA #### [address] [place], [facility] Spice Blender: Ivan Lindquist MD Immature granulocytes/100 WBC (Bld) 0 % Normal 0 [facility] Comment on above: Performed By: #### U MICAO, UA #### [address] [place], [facility] Spice Blender: Ivan Lindquist MD Lymphocytes (Bld) [#/Vol] 1.12 10*3/uL Normal 1.10-3.70 [facility] Comment on above: Performed By: #### U MICAO, UA #### [address] [place], [facility] Spice Blender: Ivan Lindquist MD Lymphocytes/100 WBC (Bld) 17 % Low 24-43 [facility] Comment on above: Performed By: #### U MICAO, UA #### [address] [place], [facility] Spice Blender: Ivan Lindquist MD MCH (RBC) [Entitic mass] 30.5 pg Normal 25.2-33.5 [facility] Comment on above: Performed By: #### U ARIK, UA #### [address] [place], [place] [id number] Spice Blender: Ivan Lindquist MD MCHC (RBC) [Mass/Vol] 34.3 g/dL Normal 28.4-34.8 [facility] Comment on above: Performed By: #### U ARIK, UA #### [address] [place], [facility] Spice Blender: Ivan Lindquist MD MCV (RBC) [Entitic vol] 88.9 fL Normal 82.6-102.9 [facility] Comment on above: Performed By: #### Dru ELISE, UA #### [address] [place], [facility] Spice Blender: Ivan Lindquist MD Monocytes (Bld) [#/Vol] 0.27 10*3/uL Normal 0.10-1.20 [facility] Comment on above: Performed By: #### U ARIK, UA #### [address] [place], [facility] Spice Blender: Ivan Lindquist MD Monocytes/100 WBC (Bld) 4 % Normal 3-12 [facility] Comment on above: Performed By: #### U YONIO, UA #### [facility] [address] [place] [address] [place] [address] Spice Blender: Ivan Lindquist MD Neutrophil (Seg) 78 % High 36-65 [facility] Comment on above: Performed By: #### U YNOIO, UA #### [facility] [address] [place] [address] Dr. [place], [place] [phone] Spice Blender: Ivan Lindquist MD NRBC Automated 0.0 per 100 WBC Normal 0.0 [facility] Comment on above: Performed By: #### U ARIK, UA #### [facility] [address] [place], [place] [id number] Spice Blender: Ivan Lindquist MD Platelet mean volume (Bld) [Entitic vol] 11.4 fL Normal 8.1-13.5 [facility] Comment on above: Performed By: #### U ARIK, UA #### [facility] [address] [place], [place] [id number] Spice Blender: Ivan Lindquist MD Platelets (Bld) [#/Vol] 162 10*3/uL Normal 138-453 [facility] Comment on above: Performed By: #### U RAIK, UA #### [facility] [address] [place], [place] [id number] Spice Blender: Ivan Lindquist MD RBC (Bld) [#/Vol] 4.43 10*6/uL Normal 3.95-5.11 [facility] Comment on above: Performed By: #### U ARIK UA #### [facility] [address] [place], [place] [address] Spice Blender: Ivan Lindquist MD WBC (Bld) [#/Vol] 6.7 10*3/uL Normal 3.5-11.3 [facility] Comment on above: Performed By: #### U ARIK, UA #### [facility] [address] [place], [place] [id number] Spice Blender: Ivan Lindquist MD Type + Scrnon 10-16 Type + Scrn Negative Normal [facility] Comment on above: Performed By: #### P RTYS #### [facility] [address] [place] [address] Spice Blender: Ivan Lindquist MD HCG, Quanton 09-06-2023 HCG, Quant 6688.0 mIU/mL High <5 [facility] Comment on above: Result Comment: Non-preg premeno <=5 Postmeno <=8 Male <=3 If HCG results do not concur with clinical observations, additional testing to confirm results is recommended. Performed By: #### B HCG #### [facility] [address] [place] [address] Spice Blender: Ivan Lindquist MD COVID-19 / Flu A/B / RSV PCR on 05-09-2023 SARS-CoV-2 (COVID-19) RNA JUAN JOSE+probe Ql (Unsp spec) to @[id number] COVID-19 Cepheid Result Negative for SARS-CoV-2 RNA by RT-PCR Flu A Cepheid Result Negative for Flu A RNA by RT-PCR Flu B Cepheid Result Negative for Flu B RNA by RT-PCR RSV Cepheid Result Negative for RSV RNA by RT-PCR COVID19 Blank Space Reference: Negative COVID19 Blank Space Cepheid Disclaimer The Cepheid Xpert Xpress CoV-2/Flu/RSV Plus has Cepheid Disclaimer not been FDA cleared or approved; this test has Cepheid Disclaimer been authorized by FDA under an EUA for use by Cepheid Disclaimer authorized laboratories; this test has been Cepheid Disclaimer authorized only for the simultaneous qualitative Cepheid Disclaimer detection and differentiation of nucleic acids from Cepheid Disclaimer SARS-CoV-2, influenza A, influenza B, and Cepheid Disclaimer respiratory syncytial virus (RSV), and not for any Cepheid Disclaimer other viruses or pathogens; and this test is only Cepheid Disclaimer authorized for the duration of the declaration that Cepheid Disclaimer circumstances exist justifying the authorization of Cepheid Disclaimer emergency use of in vitro diagnostic tests for Cepheid Disclaimer detection and/or diagnosis of COVID-19 under Cepheid Disclaimer Section 564(b)(1) of the Act, 21 U.S.C. 360bbb- Cepheid Disclaimer 3(b)(1), unless the authorization is terminated or Cepheid Disclaimer revoked sooner. PERFORMED BY: [place] [address] PATHOLOGIST [employer] ANTHONY DUVAL M.D. Normal [facility] Comment on above: Performed By: #### C SAMUEL ADDONUAPLUS #### [facility] [address] [place] [address] Cepheid COVID PCR Negativeon 05-09-2023 SARS-CoV-2 (COVID-19) RNA JUAN JOSE+probe Ql (Unsp spec) Negative Normal Negative [facility] Comment on above: Result Comment: This is a duplicate Cepheid Xpert Xpress CoV-2/Flu/RSV Plus RNA by RT-PCR result to be used for statistical tracking purpose only. PERFORMED BY: [place] [address] PATHOLOGIST [employer] ANTHONY DUVAL M.D. Performed By: #### C SHANIKA BAKERONUAPLUS #### [place] [id number] [facility] Quick Strepon 05-09-2023 Quick Strep Streptococcus pyogenes Ag [Presence] in Throat by Rapid immunoassay Negative for Group A Strep Antigen Note 1 NOTE 2 Results are those of a screening test. NOTE 3 If clinically indicated please order a culture. NOTE 4 NOTE 5 Reference range = Negative PERFORMED BY: [place] [id number] PATHOLOGIST [employer] ANTHONY DUVAL M.D. Normal [facility] Comment on above: Performed By: #### U A #### [facility] [address] XR chest 2V*on 05-09-2023 XR chest 2V* [facility] [place] [address] [place] [id number] XRay Report Signed Patient: Venancio Moon MR#: [id number] : 1985 Acct:[id number] Age/Sex: 37 / F ADM Date: 05/09/23 Loc: ER Room: Type: [facility] ER Attending Dr: Copies to: DOMINIQUE Putnam Ordering Provider: DOMINIQUE Putnam Date of Service: 05/09/23 XR/XR chest 2V*: Upper Respiratory Infection Chest 2 views CLINICAL HISTORY: Shortness of breath, chest tightness for 2 days. COMPARISON: None FINDINGS: Heart normal in size. Lungs are clear. No free air. XR/XR chest 2V* IMPRESSION: NO ACUTE CARDIOPULMONARY ABNORMALITY. Impression dictated by: Elias Liriano Jr., D.OAldair05/09/2023 12:15 PM Dictation Location: [place] [address] Transcribed By: [facility] 05/09/23 1215 Dictated By: Elias Liriano Jr, DO 05/09/23 1214 Signed By: 05/09/23 1215 Normal [facility] COVID Quick Testingon 2022 Result Negative [employer] Other Quick Strepon 01-06-2023 S. pyogenes Org specific cx Ql (Throat) Positive [employer] Other Quick Strep [employer] Other Alanine aminotransferase [En zymatic activity/volume] in Serum or PlasmaOrdered By: Ignacio Nielsen on 09-23-2022 ALT [Catalytic activity/Vol] 16 U/L [facility] Albumin [Mass/volume] in Ser um or Plasma by Bromocresol green (BCG) dye binding methoOrdered By: Ignacio Nielsen on 09-23-2022 Albumin BCG dye [Mass/Vol] 4.0 g/dL 3.5-5.7 [facility] Alkaline phosphatase [Enzyma tic activity/volume] in Serum or PlasmaOrdered By: Ignacio Nielsen on 09-23-2022 ALP [Catalytic activity/Vol] 66 U/L 34-104 [facility] Aspartate aminotransferase [ Enzymatic activity/volume] in Serum or PlasmaOrdered By: Ignacio Nielsen on 09-23-2022 AST [Catalytic activity/Vol] 16 U/L 13-39 [facility] Bilirubin.total [Mass/volume ] in Serum or PlasmaOrdered By: Ignacio Nielsen on 09-23-2022 Bilirubin [Mass/Vol] 0.6 mg/dL 0.3-1.0 [facility] CMP with reflex to A1Con Albumin [Mass/Vol] 4.0 g/dL Normal 3.5-5.7 [facility] Comment on above: Performed By: #### C MP wRFX A1C, EBS LIPID #### [facility] [address] [place] [address] [place] #### NICOTINE QUAL #### [facility] , Albumin/Globulin [Mass ratio] 1.5 {ratio} Normal [facility] Comment on above: Performed By: #### C MP wRFX A1C, EBS LIPID #### [facility] [address] [place] [address] [place] #### NICOTINE QUAL #### [facility] , ALP [Catalytic activity/Vol] 66 U/L Normal 34-104 [facility] Comment on above: Performed By: #### C MP wRFX A1C, EBS LIPID #### [facility] [address] [place] [address] [place] #### NICOTINE QUAL #### [facility] , ALT [Catalytic activity/Vol] 16 U/L Normal 7-52 [facility] Comment on above: Performed By: #### C MP wRFX A1C, EBS LIPID #### [facility] [address] [place] [address] [place] #### NICOTINE QUAL #### [facility] , Anion gap [Moles/Vol] 10.6 mmol/L Normal 6.0-15.0 [facility] Comment on above: Performed By: #### C MP wRFX A1C, EBS LIPID #### [facility] [address] [place] [address] #### NICOTINE QUAL #### [facility] , AST [Catalytic activity/Vol] 16 U/L Normal 13-39 [facility] Comment on above: Performed By: #### C MP wRFX A1C, EBS LIPID #### [facility] [address] [place] [address] #### NICOTINE QUAL #### [facility] , Bilirubin [Mass/Vol] 0.6 mg/dL Normal 0.3-1.0 [facility] Comment on above: Performed By: #### C MP wRFX A1C, EBS LIPID #### [facility] [address] [place] [address] #### NICOTINE QUAL #### [facility] , Calcium [Mass/Vol] 9.0 mg/dL Normal 8.6-10.3 [facility] Comment on above: Performed By: #### C MP wRFX A1C, EBS LIPID #### [facility] [address] [place] [address] #### NICOTINE QUAL #### [facility] , Chloride [Moles/Vol] 105 mmol/L Normal 98-107 [facility] Comment on above: Performed By: #### C MP wRFX A1C, EBS LIPID #### [facility] [address] [place] [address] [place] #### NICOTINE QUAL #### [facility] , CO2 [Moles/Vol] 27.3 mmol/L Normal 21.0-31.0 [facility] Comment on above: Performed By: #### C MP wRFX A1C, EBS LIPID #### [facility] [address] [place] [address] [place] #### NICOTINE QUAL #### [facility] , Creatinine [Mass/Vol] 0.88 mg/dL Normal 0.60-1.20 [facility] Comment on above: Performed By: #### C MP wRFX A1C, EBS LIPID #### [facility] [address] [place] [address] [place] #### NICOTINE QUAL #### [facility] , GFR/1.73 sq M.predicted MDRD (S/P/Bld) [Vol rate/Area] mL/min/{1.73_m2} Normal [facility] Comment on above: Performed By: #### C MP wRFX A1C, EBS LIPID #### [facility] [address] [place] [address] #### NICOTINE QUAL #### [facility] , Globulin (S) [Mass/Vol] 2.7 g/dL Normal [facility] Comment on above: Performed By: #### C MP wRFX A1C, EBS LIPID #### [facility] [address] [place] [address] [place] #### NICOTINE QUAL #### [facility] , Glucose [Mass/Vol] 84 mg/dL Normal 70-100 [facility] Comment on above: Performed By: #### C MP wRFX A1C, EBS LIPID #### [facility] [address] [place] [address] [place] #### NICOTINE QUAL #### [facility] , Potassium [Moles/Vol] 3.9 mmol/L Normal 3.5-5.1 [facility] Comment on above: Performed By: #### C MP wRFX A1C, EBS LIPID #### [facility] [address] [place] [address] [place] #### NICOTINE QUAL #### [facility] , Protein [Mass/Vol] 6.7 g/dL Normal 6.4-8.9 [facility] Comment on above: Performed By: #### C MP wRFX A1C, EBS LIPID #### [facility] [address] [place] [address] [place] #### NICOTINE QUAL #### [facility] , Sodium [Moles/Vol] 139 mmol/L Normal 136-145 [facility] Comment on above: Performed By: #### C MP wRFX A1C, EBS LIPID #### [facility] [address] [place] [address] [place] #### NICOTINE QUAL #### [facility] , Urea nitrogen [Mass/Vol] 12 mg/dL Normal 7-25 [facility] Comment on above: Performed By: #### C MP wRFX A1C, EBS LIPID #### [facility] [address] [place] [address] [place] #### NICOTINE QUAL #### [facility] , Calcium [Mass/volume] in Ser um or PlasmaOrdered By: Ignacio Nielsen on 09-23-2022 Calcium [Mass/Vol] 9.0 mg/dL 8.6-10.3 [facility] Carbon dioxide, total [Moles /volume] in Serum or PlasmaOrdered By: Ignacio Nielsen on 09-23-2022 CO2 [Moles/Vol] 27.3 mmol/L 21.0-31.0 [facility] Chloride [Moles/volume] in S maritza or PlasmaOrdered By: Ignacio Nielsen on 09-23-2022 Chloride [Moles/Vol] 105 mmol/L 98-107 [facility] Cholesterol [Mass/volume] in Serum or PlasmaOrdered By: Ignacio Nielsen on 09-23-2022 Cholesterol [Mass/Vol] 202 mg/dL 140-200 [facility] Comment on above: Chol less than 200 m g/dl low riskChol 201-239 mg/dl borderline riskChol 240 mg/dl and greater high risk Cholesterol in LDL Calc [Mas s/Vol]Ordered By: Ignacio Nielsen on 09-23-2022 Cholesterol in LDL [Mass/Vol] 117 mg/dL 0-100 [facility] Comment on above: LDL ATP III CLASSIFI CATIONLDL less than 100 mg/dL OptimalLDL 100-129 mg/dL Near or above optimalLDL 130-159 mg/dL Borderline highLDL 160-189 mg/dL HighLDL greater than 189 mg/dL Very high Cholesterol in VLDL Calc [Ma ss/Vol]Ordered By: Ignacio Nielsen on 09-23-2022 Cholesterol in VLDL [Mass/Vol] 16 mg/dL [facility] Creatinine [Mass/volume] in Serum or PlasmaOrdered By: Ignacio Nielsen on 09-23-2022 Creatinine [Mass/Vol] 0.88 mg/dL 0.60-1.20 [facility] Globulin Calc (S) [Mass/Vol] Ordered By: Ignacio Nielsen on 09-23-2022 Globulin (S) [Mass/Vol] 2.7 g/dL [facility] Glucose [Mass/volume] in Ser um or PlasmaOrdered By: Ignacio Nielsen on 09-23-2022 Glucose [Mass/Vol] 84 mg/dL 70-100 [facility] Lipid Profileon 09-23-2022 Cholesterol [Mass/Vol] 202 mg/dL High 140-200 [facility] Comment on above: Result Comment: Chol less than 200 mg/dl low risk Chol 201-239 mg/dl borderline risk Chol 240 mg/dl and greater high risk Performed By: #### C MP wRFX A1C, EBS LIPID #### [facility] [address] [place] [address] [place] #### NICOTINE QUAL #### [facility] , Cholesterol in HDL [Mass/Vol] 68 mg/dL Normal 23-92 [facility] Comment on above: Result Comment: HDL CHOL ATP-III CLASSIFICATION Cardiovascular Risk HDL > or equal to 60 mg/dL LOW HDL < 40 mg/dL HIGH Performed By: #### C MP wRFX A1C, EBS LIPID #### [facility] [address] [place] [address] [place] #### NICOTINE QUAL #### [facility] , Cholesterol.total/Choles terol in HDL [Mass ratio] 3.0 {ratio} Normal <5.0 [facility] Comment on above: Result Comment: PERF ORMED BY: [place] [address] PATHOLOGIST [employer] ANTHONY DUVAL M.D. Performed By: #### C MP wRFX A1C, EBS LIPID #### [facility] [address] [place] [address] [place] #### NICOTINE QUAL #### [facility] , LDL Cholesterol,Calculated 117 mg/dL High 0-100 [facility] Comment on above: Result Comment: LDL ATP III CLASSIFICATION LDL less than 100 mg/dL Optimal LDL 100-129 mg/dL Near or above optimal LDL 130-159 mg/dL Borderline high LDL 160-189 mg/dL High LDL greater than 189 mg/dL Very high Performed By: #### C MP wRFX A1C, EBS LIPID #### [facility] [address] [place] [address] #### NICOTINE QUAL #### [facility] , Triglyceride w/Reflex 84 mg/dL Normal 0-149 [facility] Comment on above: Result Comment: TRIG ATP III CLASSIFICATION TRIG less than 150 mg/dL Normal TRIG 150-199 mg/dL Borderline high TRIG 200-500 mg/dL High TRIG greater than 500 mg/dL Very high Standard traceable to the Center for Disease Conrtrol and Prevention (CDC) test method. Performed By: #### C MP wRFX A1C, EBS LIPID #### [facility] [address] [place] [address] [place] #### NICOTINE QUAL #### [facility] , VLDL CHOLESTEROL 16 mg/dL Normal [facility] Comment on above: Performed By: #### C MP wRFX A1C, EBS LIPID #### [facility] [address] [place] [address] [place] #### NICOTINE QUAL #### [facility] , Nicotine Metabolite, Qualon 09-23-2022 Nicotine Metabolite Negative Normal Cutoff=25 [facility] Comment on above: Result Comment: Perf ormed at: - [facility] [address] [id number] Spice Blender: Esau Mcgee MD, Phone: [phone] PERFORMED BY: [place] [address] PATHOLOGIST [employer] ANTHONY DUVAL M.D. Performed By: #### C MP wRFX A1C, EBS LIPID #### [facility] [address] [place] [address] [place] #### NICOTINE QUAL #### [facility] , No Panel InformationOrdered By: Ignacio Nielsen on 09-23-2022 Estimated GFR (CKD-EPI) > 60.0 mL/Min [facility] Creatinine Clearance (Chem N/A [facility] Potassium [Moles/volume] in Serum or PlasmaOrdered By: Ignacio Nielsen on 09-23-2022 Potassium [Moles/Vol] 3.9 mmol/L 3.5-5.1 [facility] Protein [Mass/volume] in Ser um or PlasmaOrdered By: Ignacio Nielsen on 09-23-2022 Protein [Mass/Vol] 6.7 g/dL 6.4-8.9 [facility] Serum or plasma albumin/glob ulin mass ratioOrdered By: Ignacio Nielsen on 09-23-2022 Albumin/Globulin [Mass ratio] 1.5 {ratio} [facility] Serum or plasma anion gap de terminationOrdered By: Ignacio Nielsen on 09-23-2022 Anion gap [Moles/Vol] 10.6 mmol/L 6.0-15.0 [facility] Serum or plasma high density lipoprotein (HDL) cholesterol measurementOrdered By: Ignacio Nielsen on 09-23-2022 Cholesterol in HDL [Mass/Vol] 68 mg/dL 23-92 [facility] Comment on above: HDL CHOL ATP-III CLA SSIFICATION Cardiovascular RiskHDL > or equal to 60 mg/dL LOWHDL < 40 mg/dL HIGH Serum or plasma total choles terol/high density lipoprotein (HDL) cholesterol mass ratOrdered By: Ignacio Nielsen on 09-23-2022 Cholesterol.total/Choles terol in HDL [Mass ratio] 3.0 {ratio} <5.0 [facility] Sodium [Moles/volume] in Ser um or PlasmaOrdered By: Ignacio Nielsen on 09-23-2022 Sodium [Moles/Vol] 139 mmol/L 136-145 [facility] Triglyceride [Mass/volume] i n Serum or PlasmaOrdered By: Ignacio Nielsen on 09-23-2022 Triglyceride [Mass/Vol] 84 mg/dL 0-149 [facility] Comment on above: TRIG ATP III CLASSIF ICATIONTRIG less than 150 mg/dL NormalTRIG 150-199 mg/dL Borderline highTRIG 200-500 mg/dL High TRIG greater than 500 mg/dL Very highStandard traceable to the Center for Disease Conrtrol and Prevention (CDC) test method. Urea nitrogen [Mass/volume] in Serum or PlasmaOrdered By: Ignacio Nielsen on 09-23-2022 Urea nitrogen [Mass/Vol] 12 mg/dL 7-25 [facility] CBC with Auto Differentialon 04-23-2022 Absolute Eos # [facility] Absolute Immature Granulocyte [facility] Absolute Lymph # 1.82 [facility] Absolute Dauphin # 0.44 [facility] Basophils (Bld) [#/Vol] 0.03 10*3/uL [facility] Basophils/100 WBC (Bld) 0 % 0 - 2 % B ON [facility] Eosinophils/100 WBC (Bld) 0 % Low 1 - 4 % [facility] Hematocrit (Bld) [Volume fraction] 42.4 % 36.3 - 47.1 % [facility] Hemoglobin (Bld) [Mass/Vol] 15.0 g/dL 11.9 - 15.1 g/dL [facility] Immature granulocytes/100 WBC (Bld) 0 % 0 [facility] Interpretation and review of laboratory results Abnormal [facility] Lymphocytes/100 WBC (Bld) 23 % Low 24 - 43 % [facility] MCH (RBC) [Entitic mass] 31.2 pg 25. 2 - 33.5 pg [facility] MCHC (RBC) [Mass/Vol] 35.4 g/dL High 28.4 - 34.8 g/dL [facility] MCV (RBC) [Entitic vol] 88.1 fL 82.6 - 102.9 fL [facility] Monocytes/100 WBC (Bld) 6 % 3 - 12 % B ON [facility] NRBC Automated 0.0 0.0 per 100 WBC [facility] Platelet distribution width (Bld) [Ratio] 11.5 % Low 11.8 - 14.4 % [facility] Platelet mean volume (Bld) [Entitic vol] 10.8 fL 8.1 - 13.5 fL [facility] Platelets (Bld) [#/Vol] 188 10*3/uL [facility] RBC (Bld) [#/Vol] 4.81 10*6/uL 3.95 - 5.1 1 m/uL [facility] Segmented neutrophils/100 WBC (Bld) 71 % High 36 - 65 % [facility] Segs Absolute 5.59 [facility] WBC (Bld) [#/Vol] 7.9 10*3/uL [facility] CMPon 04-23-2022 Albumin [Mass/Vol] 3.7 g/dL 3.5 - 5.2 g/dL [facility] Albumin/Globulin [Mass ratio] 1.2 {ratio} 1.0 - 2.5 [facility] ALP [Catalytic activity/Vol] 75 U/L 35 - 104 U/L [facility] ALT [Catalytic activity/Vol] 20 U/L 5 - 33 U/L [facility] Anion gap [Moles/Vol] 8 mmol/L Low 9 - 17 mmol/L [facility] AST [Catalytic activity/Vol] 20 U/L NINF - 32 U/L [facility] Bilirubin [Mass/Vol] 0.5 mg/dL 0.3 - 1 .2 mg/dL [facility] Calcium [Mass/Vol] 8.8 mg/dL 8.6 - 10. 4 mg/dL [facility] Chloride [Moles/Vol] 105 mmol/L 98 - 10 7 mmol/L [facility] CO2 [Moles/Vol] 26 mmol/L 20 - 31 mmol/L [facility] Creatinine [Mass/Vol] 1.05 mg/dL High 0.50 - 0.90 mg/dL [facility] GFR/1.73 sq M.predicted MDRD (S/P/Bld) [Vol rate/Area] - PINF [facility] Comment on above: These results are not intended for use in patients <18 years of age. eGFR results are calculated without a race factor using the 2020 CKD-EPI equation. Careful clinical correlation is recommended, particularly when comparing to results calculated using previous equations. The CKD-EPI equation is less accurate in patients with extremes of muscle mass, extra-renal metabolism of creatine, excessive creatine ingestion, or following therapy that affects renal tubular secretion. Glucose [Mass/Vol] 101 mg/dL High 70 - 99 mg/dL [facility] Interpretation and review of laboratory results Abnormal [facility] Potassium [Moles/Vol] 4.2 mmol/L 3.7 - 5.3 mmol/L [facility] Protein [Mass/Vol] 6.9 g/dL 6.4 - 8.3 g/dL [facility] Sodium [Moles/Vol] 139 mmol/L 135 - 144 mmol/L [facility] Urea nitrogen [Mass/Vol] 16 mg/dL 6 - 20 mg/dL [facility] Urea nitrogen/Creatinine (Bld) [Mass ratio] 15 9 - [address] [facility] [address] Head W/O Contraston 04-23 No acute intracranial abnormality. [facility] EXAMINATION: CT OF THE HEAD WITHOUT CONTRAST 04/23/2022 5:58 pm TECHNIQUE: CT of the head was performed without the administration of intravenous contrast. Automated exposure control, iterative reconstruction, and/or weight based adjustment of the mA/kV was utilized to reduce the radiation dose to as low as reasonably achievable. COMPARISON: December 21, 2020 CT head HISTORY: ORDERING SYSTEM PROVIDED HISTORY: Syncope/fall TECHNOLOGIST PROVIDED HISTORY: Syncope/fall Decision Support Exception - unselect if not a suspected or confirmed emergency medical condition->Emergency Medical Condition (MA) Is the patient ?->No FINDINGS: BRAIN/VENTRICLES: There is no acute intracranial hemorrhage, mass effect or midline shift. No abnormal extra-axial fluid collection. The zamora-white differentiation is maintained without evidence of an acute infarct. There is no evidence of hydrocephalus. ORBITS: The visualized portion of the orbits demonstrate no acute abnormality. SINUSES: The visualized paranasal sinuses and mastoid air cells demonstrate no acute abnormality. SOFT TISSUES/SKULL: No acute abnormality of the visualized skull or soft tissues. [facility] Wilfredo Wagner MD - 04/23/2022 EXAMINATION: CT OF THE HEAD WITHOUT CONTRAST 04/23/2022 5:58 pm TECHNIQUE: CT of the head was performed without the administration of intravenous contrast. Automated exposure control, iterative reconstruction, and/or weight based adjustment of the mA/kV was utilized to reduce the radiation dose to as low as reasonably achievable. COMPARISON: December 21, 2020 CT head HISTORY: ORDERING SYSTEM PROVIDED HISTORY: Syncope/fall TECHNOLOGIST PROVIDED HISTORY: Syncope/fall Decision Support Exception - unselect if not a suspected or confirmed emergency medical condition->Emergency Medical Condition (MA) Is the patient ?->No FINDINGS: BRAIN/VENTRICLES: There is no acute intracranial hemorrhage, mass effect or midline shift. No abnormal extra-axial fluid collection. The zamora-white differentiation is maintained without evidence of an acute infarct. There is no evidence of hydrocephalus. ORBITS: The visualized portion of the orbits demonstrate no acute abnormality. SINUSES: The visualized paranasal sinuses and mastoid air cells demonstrate no acute abnormality. SOFT TISSUES/SKULL: No acute abnormality of the visualized skull or soft tissues. IMPRESSION: No acute intracranial abnormality. [facility] Phone: Radiology Study observation (narrative) Within3 Phone: CT Head W/O ContrastOrdered By: Wilfredo Victor on 04-23-2022 [facility] Phone: Aerobic Cultureon 02-01-2022 Aerobic Culture Result Tab Codes Light Normal Skin Yadi 2 Days Possible Staphylococcus species removed from report on 02/04/22. No Anaerobes Isolated 3 Days Gram Stain Result No Bacteria Seen PERFORMED BY: [address] [place] [address] PATHOLOGIST [employer] CAPTAIN ANTHONY DUVAL M.D. [facility] Comment on above: Performed By: #### A ERC #### [facility] [address] [place] [address] HSV Culture without Typingon 02-01-2022 HSV Culture without Typing Not performed Normal . [facility] Comment on above: Result Comment: per lab mei unable to process. @switched hsv culture to hsv and vzv pcr PERFORMED BY: [place] [address] PATHOLOGIST [employer] CAPTAIN ANTHONY DUVAL M.D. Performed By: #### H SV CULT #### [facility] , HSV and VZV Panel, PCRon HSV 1 DNA Negative Normal Negative [facility] Comment on above: Performed By: #### H SV AND VZV PCR #### [facility] , HSV 2 DNA Negative Normal Negative [facility] Comment on above: Result Comment: This test was developed and its performance characteristics determined by [employer]. It has not been cleared or approved by the U.S. Food and Drug Administration. The FDA has determined that such clearance or approval is not necessary. This test is used for clinical purposes. It should not be regarded as investigational or research. Performed at: [address] [id number] Spice Blender: Esau Mcgee MD, Phone: [phone] Performed By: #### H SV AND VZV PCR #### [facility] , Varicella Zoster V DNA PCR Negative Normal Negative [facility] Comment on above: Result Comment: No V aricella Zoster Virus DNA detected. This test was developed and its performance characteristics determined by [employer]. It has not been cleared or approved by the Food and Drug Administration. The FDA has determined that such clearance or approval is not necessary. PERFORMED BY: [place] [id number] PATHOLOGIST [employer] CAPTAIN ANTHONY DUVAL M.D. Performed By: #### H SV AND VZV PCR #### [facility] , VIT.B1 THIAMINE-BLDon 08-22- 2022 VIT.B1 THIAMINE-BLD 153.1 Normal [facility] Comment on above: Result Comment: Refe rence range: 66.5 to 200.0 Unit: nmol/L (NOTE) This test was developed and its performance characteristics determined by [facility]. It has not been cleared or approved by the Food and Drug Administration. PERFORMED AT [facility] Performed By: #### L VB1 #### Testing performed at [facility] VITAMIN Aon 10-25-2021 VITAMIN A 38.0 Normal [facility] Comment on above: Result Comment: Refe rence range: 18.9 to 57.3 Unit: ug/dL (NOTE) Reference intervals for vitamin A determined from [facility] internal studies. Individuals with vitamin A less than 20 ug/dL are considered vitamin A deficient and those with serum concentrations less than 10 ug/dL are considered severely deficient. This test was developed and its performance characteristics determined by [facility]. It has not been cleared or approved by the Food and Drug Administration. PERFORMED AT [facility] Performed By: #### B 12F, LIP2, ACBC, FE2, CMPF #### Testing performed at [address] [address] #### LVITA, LVITE, [id number] #### Testing performed at [facility] VITAMIN Ryan 10-25-2021 VITAMIN E ALPHA 11.0 Normal [facility] Comment on above: Result Comment: Refe rence range: 5.9 to 19.4 Unit: mg/L (NOTE) This test was developed and its performance characteristics determined by [facility]. It has not been cleared or approved by the Food and Drug Administration. Performed By: #### B 12F, LIP2, ACBC, FE2, CMPF #### Testing performed at [address] [address] #### LVITA, LVITE, [id number] #### Testing performed at [facility] VITAMIN E GAMMA 1.6 Normal [facility] Comment on above: Result Comment: Refe rence range: 0.7 to 4.9 Unit: mg/L (NOTE) This test was developed and its performance characteristics determined by [facility]. It has not been cleared or approved by the Food and Drug Administration. Reference intervals for alpha and gamma-tocopherol determined from National Health and Nutrition Examination Survey, 3069-2246. Individuals with alpha-tocopherol levels less than 5.0 mg/L are considered vitamin E deficient. PERFORMED AT [facility] Performed By: #### B 12F, LIP2, ACBC, FE2, CMPF #### [place] [address] #### LVITA, LVITE, [id number] #### Testing performed at [facility] VIT D, 1,25 DIHYDROXon 10-23 VIT. D 1,25 59.2 Normal [facility] Comment on above: Result Comment: Pl ease note reference interval change Reference range: 24.8 to 81.5 Unit: pg/mL PERFORMED AT [facility] Performed By: #### B 12F, LIP2, ACBC, FE2, CMPF #### [place] [address] #### LVITA, LVITE, [id number] #### Testing performed at [facility] B12 FOLATEon 10-21-2021 Cobalamin (Vitamin B12) [Mass/Vol] 457 pg/mL Normal 239-931 [facility] Comment on above: Performed By: #### B 12F, LIP2, ACBC, FE2, CMPF #### [place] [address] #### LVITA, LVITE, [id number] #### Testing performed at [facility] FOLATE 11.0 NG/ML Normal 2.56-20.0 [facility] Comment on above: Result Comment: Test ing performed at [place] [address] Performed By: #### B 12F, LIP2, ACBC, FE2, CMPF #### [place] [address] #### LVITA, LVITE, [id number] #### Testing performed at [facility] CBCon 10-21-2021 ABSOLUTE BAS 0.0 10*3/uL Normal 0.0-0.2 [facility] Comment on above: Result Comment: Test ing performed at [place] [address] Performed By: #### B 12F, LIP2, ACBC, FE2, CMPF #### [place] [address] #### LVITA, LVITE, [id number] #### Testing performed at [facility] ABSOLUTE EOS 0.00 10*3/uL Normal 0.0-0.7 [facility] Comment on above: Performed By: #### B 12F, LIP2, ACBC, FE2, CMPF #### [place] [address] #### LVITA, LVITE, [id number] #### Testing performed at [facility] ABSOLUTE NEUTROPHIL COUNT 4.8 10*3/uL Normal 1.4-6.5 [facility] Comment on above: Performed By: #### B 12F, LIP2, ACBC, FE2, CMPF #### [place] [address] #### LVITA, LVITE, [id number] #### Testing performed at [facility] Basophils/100 WBC (Bld) 0.6 % Normal 0.0-2.0 [facility] Comment on above: Performed By: #### B 12F, LIP2, ACBC, FE2, CMPF #### [place] [address] #### LVITA, LVITE, [id number] #### Testing performed at [facility] DTYPE AUTO DIFF Normal [facility] Comment on above: Performed By: #### B 12F, LIP2, ACBC, FE2, CMPF #### [place] [address] #### LVITA, LVITE, [id number] #### Testing performed at [facility] Eosinophils/100 WBC (Bld) 0.6 % Normal 0.0-11.0 [facility] Comment on above: Performed By: #### B 12F, LIP2, ACBC, FE2, CMPF #### [place] [address] #### LVITA, LVITE, [id number] #### Testing performed at [facility] Lymphocytes (Bld) [#/Vol] 1.70 10*3/uL Normal 1.2-3.4 [facility] Comment on above: Performed By: #### B 12F, LIP2, ACBC, FE2, CMPF #### [place] [address] #### LVITA, LVITE, [id number] #### Testing performed at [facility] Lymphocytes/100 WBC (Bld) 24.7 % Normal 20.0-55.0 [facility] Comment on above: Performed By: #### B 12F, LIP2, ACBC, FE2, CMPF #### [place] [address] #### LVITA, LVITE, [id number] #### Testing performed at [facility] Monocytes (Bld) [#/Vol] 0.3 10*3/uL Normal 0.0-0.7 [facility] Comment on above: Performed By: #### B 12F, LIP2, ACBC, FE2, CMPF #### [place] [address] #### LVITA, LVITE, [id number] #### Testing performed at [facility] Monocytes/100 WBC (Bld) 4.4 % Normal 0.0-10.0 [facility] Comment on above: Performed By: #### B 12F, LIP2, ACBC, FE2, CMPF #### [place] [address] #### LVITA, LVITE, [id number] #### Testing performed at [facility] Neutrophils/100 WBC (Bld) 69.7 % Normal 37.0-75.0 [facility] Comment on above: Performed By: #### B 12F, LIP2, ACBC, FE2, CMPF #### [place] [address] #### LVITA, LVITE, [id number] #### Testing performed at [facility] Erythrocyte distribution width (RBC) [Ratio] 12.3 % Normal 11.5-14.5 [facility] Comment on above: Performed By: #### B 12F, LIP2, ACBC, FE2, CMPF #### [place] [address] #### LVITA, LVITE, [id number] #### Testing performed at [facility] Hematocrit (d) [Volume fraction] 42.0 % Normal 36.0-48.0 [facility] Comment on above: Performed By: #### B 12F, LIP2, ACBC, FE2, CMPF #### [place] [address] #### LVITA, LVITE, [id number] #### Testing performed at [facility] Hemoglobin (Bld) [Mass/Vol] 14.8 g/dL Normal 12.0-16.0 [facility] Comment on above: Performed By: #### B 12F, LIP2, ACBC, FE2, CMPF #### [place] [address] #### LVITA, LVITE, [id number] #### Testing performed at [facility] MCH (RBC) [Entitic mass] 30.5 pg Normal 26.0-35.0 [facility] Comment on above: Performed By: #### B 12F, LIP2, ACBC, FE2, CMPF #### [place] [address] #### LVITA, LVITE, [id number] #### Testing performed at [facility] [place] MCHC (RBC) [Mass/Vol] 35.2 g/dL Normal 27.0-37.[address] [facility] Comment on above: Performed By: #### B 12F, LIP2, ACBC, FE2, CMPF #### [place] [address] #### LVITA, LVITE, [id number] #### Testing performed at [facility] MCV (RBC) [Entitic vol] 86.8 fL Normal 80.0-100.0 [facility] Comment on above: Performed By: #### B 12F, LIP2, ACBC, FE2, CMPF #### [place] [address] #### LVITA, LVITE, [id number] #### Testing performed at [facility] Platelet mean volume (Bld) [Entitic vol] 9.1 fL Normal 7.4-11.0 [facility] Comment on above: Performed By: #### B 12F, LIP2, ACBC, FE2, CMPF #### [place] [address] #### LVITA, LVITE, [id number] #### Testing performed at [facility] Platelets (Bld) [#/Vol] 184 10*3/uL Normal 130.0-400.0 [facility] Comment on above: Performed By: #### B 12F, LIP2, ACBC, FE2, CMPF #### [place] [address] #### LVITA, LVITE, [id number] #### Testing performed at [facility] RBC (Bld) [#/Vol] 4.84 10*6/uL Normal 4.0-5.4 [facility] Comment on above: Performed By: #### B 12F, LIP2, ACBC, FE2, CMPF #### [place] [address] #### LVITA, LVITE, [id number] #### Testing performed at [facility] WBC (Bld) [#/Vol] 6.9 10*3/uL Normal 3.6-11.0 [facility] Comment on above: Performed By: #### B 12F, LIP2, ACBC, FE2, CMPF #### [place] [address] #### LVITA, LVITE, [id number] #### Testing performed at [facility] CMP FASTINGon 10-21-2021 A:G RATIO 1.4 RATIO Normal 1.3-2.2 [facility] Comment on above: Performed By: #### B 12F, LIP2, ACBC, FE2, CMPF #### [place] [address] #### LVITA, LVITE, [id number] #### Testing performed at [facility] ALBUMIN 4.2 G/dl Normal 3.5-5.0 [facility] Comment on above: Performed By: #### B 12F, LIP2, ACBC, FE2, CMPF #### [place] [address] #### LVITA, LVITE, [id number] #### Testing performed at [facility] ALP [Catalytic activity/Vol] 82 U/L Normal 38-126 [facility] Comment on above: Performed By: #### B 12F, LIP2, ACBC, FE2, CMPF #### [place] [address] #### LVITA, LVITE, [id number] #### Testing performed at [facility] ALT [Catalytic activity/Vol] 18 U/L Normal <35 [facility] Comment on above: Performed By: #### B 12F, LIP2, ACBC, FE2, CMPF #### [place] [address] #### LVITA, LVITE, [id number] #### Testing performed at [facility] AST [Catalytic activity/Vol] 32 U/L Normal 14-36 [facility] Comment on above: Performed By: #### B 12F, LIP2, ACBC, FE2, CMPF #### [place] [address] #### LVITA, LVITE, [id number] #### Testing performed at [facility] Bilirubin [Mass/Vol] 0.7 mg/dL Normal 0.2-1.3 [facility] Comment on above: Performed By: #### B 12F, LIP2, ACBC, FE2, CMPF #### [place] [address] #### LVITA, LVITE, [id number] #### Testing performed at [facility] Calcium [Mass/Vol] 9.0 mg/dL Normal 8.4-10.2 [facility] Comment on above: Performed By: #### B 12F, LIP2, ACBC, FE2, CMPF #### [place] [address] #### LVITA, LVITE, [id number] #### Testing performed at [facility] Chloride [Moles/Vol] 106 mmol/L Normal 98-107 [facility] Comment on above: Result Comment: Plea note: Triglyceride levels of 600mg/dL or higher may positively bias chloride results by approximately 2.1 mmol Performed By: #### B 12F, LIP2, ACBC, FE2, CMPF #### [place] [address] #### LVITA, LVITE, [id number] #### Testing performed at [facility] CO2 [Moles/Vol] 25 mmol/L Normal 22-30 [facility] Comment on above: Performed By: #### B 12F, LIP2, ACBC, FE2, CMPF #### [place] [address] #### LVITA, LVITE, [id number] #### Testing performed at [facility] Creatinine [Mass/Vol] 0.80 mg/dL Normal 0.7-1.[address] [facility] Comment on above: Performed By: #### B 12F, LIP2, ACBC, FE2, CMPF #### [place] [address] #### LVITA, LVITE, [id number] #### Testing performed at [facility] EST. GFR, 104 ml/min/1.73sq.m [facility] Comment on above: Performed By: #### B 12F, LIP2, ACBC, FE2, CMPF #### [place] [address] #### LVITA, LVITE, [id number] #### Testing performed at [facility] EST. GFR,Non 86 ml/min/1.73sq.m [facility] Comment on above: Performed By: #### B 12F, LIP2, ACBC, FE2, CMPF #### [place] [address] #### LVITA, LVITE, [id number] #### Testing performed at [facility] GFR Information Average GFR for 30-39 years old = 107. Normal [facility] Comment on above: Result Comment: Dentist Attendant lev Kidney disease, GFR = <60. Kidney failure, GFR = <15. The GFR estimate is not adjusted for extreme body surface area or acute process, nor has it been validated for women or ethnic groups other than and . Testing performed at [place] [address] Performed By: #### B 12F, LIP2, ACBC, FE2, CMPF #### [place] [address] #### LVITA, LVITE, [id number] #### Testing performed at [facility] Glucose [Mass/Vol] 96 mg/dL Normal 70-100 [facility] Comment on above: Result Comment: NORMAL <100 mg/dL PREDIABETES 101-126 mg/dL DIABETES 126 mg/dL or higher Performed By: #### B 12F, LIP2, ACBC, FE2, CMPF #### [place] [address] #### LVITA, LVITE, [id number] #### Testing performed at [facility] Potassium [Moles/Vol] 3.8 mmol/L Normal 3.5-5.[address] [facility] Comment on above: Performed By: #### B 12F, LIP2, ACBC, FE2, CMPF #### [place] [address] #### LVITA, LVITE, [id number] #### Testing performed at [facility] Protein [Mass/Vol] 7.2 g/dL Normal 6.3-8.2 [facility] Comment on above: Performed By: #### B 12F, LIP2, ACBC, FE2, CMPF #### [place] [address] #### LVITA, LVITE, [id number] #### Testing performed at [facility] Sodium [Moles/Vol] 138 mmol/L Normal 137-145 [facility] Comment on above: Performed By: #### B 12F, LIP2, ACBC, FE2, CMPF #### [place] [address] #### LVITA, LVITE, [id number] #### Testing performed at [facility] Urea nitrogen [Mass/Vol] 14 mg/dL Normal 7-20 [facility] Comment on above: Performed By: #### B 12F, LIP2, ACBC, FE2, CMPF #### [place] [address] #### LVITA, LVITE, [id number] #### Testing performed at [facility] HEMOGLOBIN A1Con 10-21-2021 Glucose [Mass/Vol] 100 mg/dL Normal [facility] Comment on above: Result Comment: Test ing performed at [place] [address] Performed By: #### H A1CT #### [place] [address] HbA1c (Bld) [Mass fraction] 5.1 % Normal 0-6 [facility] Comment on above: Result Comment: NORMAL <5.7% PREDIABETES 5.7-6.4% DIABETES 6.5% OR HIGHER Performed By: #### H A1CT #### [place] [address] IRONon 10-21-2021 Iron [Mass/Vol] 177 ug/dL High 37-170 [facility] Comment on above: Result Comment: Test ing performed at [place] [address] Performed By: #### B 12F, LIP2, ACBC, FE2, CMPF #### [place] [address] #### LVITA, LVITE, [id number] #### Testing performed at [facility] LIPID PROFILEon 10-21-2021 Cholesterol [Mass/Vol] 206 mg/dL Normal 107-217 [facility] Comment on above: Performed By: #### B 12F, LIP2, ACBC, FE2, CMPF #### [place] [address] #### LVITA, LVITE, [id number] #### Testing performed at [facility] Cholesterol in HDL [Mass/Vol] 54 mg/dL Normal 33-75 [facility] Comment on above: Performed By: #### B 12F, LIP2, ACBC, FE2, CMPF #### [place] [address] #### LVITA, LVITE, [id number] #### Testing performed at [facility] Cholesterol in LDL [Mass/Vol] 126 mg/dL Normal [facility] Comment on above: Performed By: #### B 12F, LIP2, ACBC, FE2, CMPF #### [place] [address] #### LVITA, LVITE, [id number] #### Testing performed at [facility] Cholesterol in VLDL [Mass/Vol] 26 mg/dL High 5.0-25 [facility] Comment on above: Performed By: #### B 12F, LIP2, ACBC, FE2, CMPF #### [place] [address] #### LVITA, LVITE, [id number] #### Testing performed at [facility] Cholesterol.total/Choles terol in HDL [Mass ratio] 3.81 {ratio} Normal [facility] Comment on above: Result Comment: RISK TOTAL/HDL RATIO MEN WOMEN 1/2 AVERAGE 3.43 3.27 AVERAGE 4.97 4.44 2X AVERAGE 9.55 7.05 3X AVERAGE 23.99 11.04 Testing performed at [place] [address] Performed By: #### B 12F, LIP2, ACBC, FE2, CMPF #### [place] [address] #### LVITA, LVITE, [id number] #### Testing performed at [facility] Triglyceride [Mass/Vol] 129 mg/dL Normal 0-150 [facility] Comment on above: Performed By: #### B 12F, LIP2, ACBC, FE2, CMPF #### [place] [address] #### LVITA, LVITE, [id number] #### Testing performed at [facility] SURGICAL PATHOLOGYon CASE REPORT Normal [facility] Comment on above: Order Comment: Speci men Type: TISSUE SPECIMEN Ordering Facility: [facility] Address: [address] [place] [address] Result Comment: Surg ical Pathology Report Case: [id number] Authorizing Provider: Harry Garvey DDS Collected: 09/30/2021 01:30 PM Ordering Location: [facility] Received: 10/02/2021 12:06 PM Pathologist: Harry Lopez MD, PhD Specimen: GINGIVA BIOPSY, RIGHT MAXILLARY GINGIVA LESION Performed By: #### S #### [facility] CLIA [id number] [address] [place] [address] [place] CLINICAL HISTORY PYOGENIC GRANULOMA; LATERAL CYST; FOREIGN BODY; PT HAD GINGIVOPLASTY Normal [facility] Comment on above: Order Comment: Speci men Type: TISSUE SPECIMEN Ordering Facility: [facility] Address: [address] [place] [address] Performed By: #### S #### [facility] CLIA [id number] [address] [place] [address] [place] FINAL DIAGNOSIS Normal [facility] Comment on above: Order Comment: Christinai garrick Type: TISSUE SPECIMEN Ordering Facility: [facility] Address: [address] [place] [address] Result Comment: Righ t maxillary gingiva, biopsy: - Ulcerated squamous mucosa with marked acute and chronic inflammation. - Fungal organisms and viral cytopathic effect are not identified on routine stain sections. - Negative for dysplasia and invasive carcinoma. Performed By: #### S #### [facility] CLIA [id number] [address] [place] [address] [place] FINAL PERFORMING LAB Normal [facility] Comment on above: Order Comment: Christinai garrick Type: TISSUE SPECIMEN Ordering Facility: [facility] Address: [address] [place] [address] Result Comment: Diag nostic interpretation performed at [facility], [address] [place] [address] CLIA# [id number] Animal Daycare Provider: Issac Marie M.D. Performed By: #### S #### [facility] CLIA [id number] [address] [place] [address] [place] GROSS DESCRIPTION Normal [facility] Comment on above: Order Comment: Speci men Type: TISSUE SPECIMEN Ordering Facility: [facility] Address: [address] [place] [address] Result Comment: Jaya. Marjan INGIVA BIOPSY. Received in formalin is one piece of chisholm-purple, rubbery irregular measuring 0.5 x 0.4 x 0.4 cm. Totally submitted in one cassette. CL October 02, 2021 1:09 PM [place] [address] Performed By: #### S #### [facility] CLIA [id number] [address] [place] [address] QUANTIFERON TB GOLD PLUS 1 T UBEon 08-21-2021 QUANTIFERNON INCUBATION Incubation performed. [facility] Comment on above: Performed By: #### L MARTINA BLACK, LM #### [place] [address] QUANTIFERON-TB GOLD PLUS Negative [facility] Comment on above: Result Comment: Chem iluminescence immunoassay methodology Reference range: Negative PERFORMED AT [facility] [place] [facility] Performed By: #### MARTINA ZENG, LM #### [place] [address] RFLX QUANTIFERON-TB GOLD PLU Son 08-21-2021 QUANTIFERON CRITERIA Comment [facility] Comment on above: Result Comment: (NOT E) The QuantiFERON-TB Gold Plus result is determined by subtracting the Nil value from either TB antigen (Ag) tube. The mitogen tube serves as a control for the test. Performed By: #### L MARTINA BLACK, LMMR #### [place] [address] QUANTIFERON MITOGEN VALUE >10.[address] [facility] Comment on above: Result Comment: Unit : IU/mL PERFORMED AT [facility] Performed By: #### Nayely BLACK ZQHUY, LMMR #### Testing performed at [address] [address] QUANTIFERON NIL VALUE 0.00 Replaced by [facility] Comment on above: Result Comment: Unit : IU/mL Performed By: #### L QFIT, ZQFIT, LMMR #### Testing performed at [address] [address] QUANTIFERON TB1 AG VALUE 0.[address] [facility] Comment on above: Result Comment: Unit : IU/mL Performed By: #### L QFIT, ZQFIT, LMMR #### Testing performed at [address] [address] QUANTIFERON TB2 AG VALUE 0.[address] [facility] Comment on above: Result Comment: Unit : IU/mL Performed By: #### L QFIT, ZQHUY, LMMR #### Testing performed at [address] [address] MEASLES,MUMP,RUBELLAon 08-20 MUMPS ABS, IGG 290.0 [facility] Comment on above: Result Comment: Refe rence range: Immune >10.9 Unit: AU/mL (NOTE) Negative <9.0 Equivocal 9.0 - 10.9 Positive >10.9 A positive result generally indicates past exposure to Mumps virus or previous vaccination. PERFORMED AT [facility] Performed By: #### L QFIT, ZQFIT, LMMR #### Testing performed at [address] [address] RUBEOLA AB, IGG >300.0 [facility] Comment on above: Result Comment: Refe rence range: Immune >16.4 Unit: AU/mL (NOTE) Negative <13.5 Equivocal 13.5 - 16.4 Positive >16.4 Presence of antibodies to Rubeola is presumptive evidence of immunity except when acute infection is suspected. Performed By: #### L QFIT, ZQFIT, LMMR #### Testing performed at [address] [address] RUBELLA AB, IGG 9.54 Normal [facility] Comment on above: Result Comment: Refe rence range: Immune >0.99 Unit: index (NOTE) Non-immune <0.90 Equivocal 0.90 - 0.99 Immune >0.99 Performed By: #### L QFIT, ZQFIT, LMMR #### Testing performed at [facility] [address] [place] [place] [address] [place] [address] HEP B SURFACE [facility] 2 HEP B SURFACE AB Positive Normal POSITIVE [facility] Comment on above: Result Comment: Clinical Interpretation of Immune Status Negative: patient is considered to be not immune to infection with HBV Intermediate: unable to determine if anti-HBs is present at levels consistent with immunity Positive: anti-HBs detected, patient is considered to be immune to infection with HBV HEP C [facility] 08-19-2021 HEP C AB Negative Normal NEGATIVE [facility] Lipid Panelon 02-23-2021 Cholesterol [Mass/Vol] 208 mg/dL High <200 [facility] Comment on above: Cholesterol Guidelines: <200 Desirable 200-240 Borderline >240 Undesirable Cholesterol in HDL [Mass/Vol] 60 mg/dL >40 [facility] Comment on above: HDL Guidelines: <40 Undesirable 40-59 Borderline >59 Desirable Cholesterol in LDL [Mass/Vol] 114 mg/dL 0 - 130 mg/dL [facility] Comment on above: LDL Guidelines: <100 Desirable 100-129 Near to/above Desirable 130-159 Borderline >159 Undesirable Direct (measured) LDL and calculated LDL are not interchangeable tests. Cholesterol in VLDL [Mass/Vol] NOT REPORTED High 1 - 30 mg/dL [facility] Cholesterol.total/Choles terol in HDL [Mass ratio] 3.5 {ratio} <5 [facility] Interpretation and review of laboratory results Abnormal [facility] Triglyceride [Mass/Vol] 172 mg/dL High <150 [facility] Comment on above: Triglyceride Guidelines: <150 Desirable 150-199 Borderline 200-499 High >499 Very high Based on AHA Guidelines for fasting triglyceride, December 2011. [facility] ECHO Complete 2D W Doppler W ColorOrdered By: Stephanie Collins on 01-08-2021 [facility] Transthoracic Echocardiography Report (TTE) Patient Name SARAI Date of Study 01/08/2021 VENANCIO Adler Date of 1985 Gender Female Age 35 year(s) Race Room Number Height: 64 inch, 162.56 cm Corporate ID [id number] Weight: 230 pounds, 104.3 kg # Patient Acct [id number] BSA: 2.08 m^2 BMI: 39.48 # kg/m^2 MR # [id number] Network Administrator Shana Baker Interpreting Physician Benny Banks Fellow Referring Nurse Stephanie Collnis Practitioner Interpreting Referring Physician Fellow Type of Study TTE procedure:2D Echocardiogram, M-Mode, Doppler, Color Doppler. Procedure Date Date: 01/08/2021 Start: 12:33 PM Study Location: [facility] Indications:Syncope and POTS. History / Tech. Comments: Dx: syncope, POTS Patient Status: Outpatient Height: 64 inches Weight: 230 pounds BSA: 2.08 m^2 BMI: 39.48 kg/m^2 BP: 110/84 mmHg CONCLUSIONS Summary Global left ventricular systolic function appears preserved with an estimated ejection fraction of >60%. Normal left ventricular wall thickness with a normal left ventricular cavity size. No definite specific wall motion abnormalities were identified. Mild to moderate tricuspid regurgitation. No clear evidence of diastolic dysfunction was identified. No prior studies were identified. Signature Electronically signed by [facility]) on 01/08/2021 04:59 PM FINDINGS Left Atrium Left atrium is normal in size. Left Ventricle Global left ventricular systolic function appears preserved with an estimated ejection fraction of >60%. Normal left ventricular wall thickness with a normal left ventricular cavity size. No definite specific wall motion abnormalities were identified. Right Atrium Right atrium is normal in size. Right Ventricle Normal right ventricular size and function. Mitral Valve Normal mitral valve structure with trivial mitral regurgitation. Aortic Valve Normal aortic valve structure and function without stenosis or regurgitation. Tricuspid Valve Normal tricuspid valve structure with mild to moderate tricuspid regurgitation. Pulmonic Valve The pulmonic valve is normal in structure. Pericardial Effusion No significant pericardial effusion is seen. Miscellaneous No clear evidence of diastolic dysfunction was identified. Normal aortic root dimension. M-mode / 2D Measurements & Calculations: LVIDd:4.72 cm(3.7 - 5.6 cm) Diastolic Volume:71.1 ml LVIDs:3.08 cm(2.2 - 4.0 cm) Systolic Volume:24.97 ml IVSd:0.97 cm(0.6 - 1.1 cm) Aortic Root:2.96 cm(2.0 - 3.7 cm) LVPWd:0.97 cm(0.6 - 1.1 cm) LA Dimension: 2.8 cm(1.9 - 4.0 cm) Fractional Shortenin.75 % LA volume/Index: 41.6 ml /20m^2 Calculated LVEF (%): 64.88 % AV Cusp Separation: 2.36 cm Mitral: Aortic Valve Area (P1/2-Time): 3.61 cm^2 Peak Velocity: 1.09 m/s Peak E-Wave: 0.66 m/s Mean Velocity: 0.74 m/s Peak A-Wave: 0.35 m/s Peak Gradient: 4.73 mmHg E/A Ratio: 1.91 Mean Gradient: 2.46 mmHg Peak Gradient: 1.73 mmHg Acceleration Time: 77.35 msec P1/2t: 60.89 msec AV VTI: 23.4 cm Tricuspid: Pulmonic: Peak TR Velocity: 2.36 m/s Peak TR Gradient: 22.2784 mmHg Estimated RA Pressure: 3 mmHg Estimated PASP: 25.28 mmHg Diastology / Tissue Doppler Lateral Wall E' velocity:0.15 m/s Lateral Wall E/E':4.47 [employer] Phone: Cain, pn Incoming Cardio Results From [employer] - 01/08/2021 4:59 PM EDT [facility] Transthoracic Echocardiography Report (TTE) Patient Name SARAI Date of Study 01/08/2021 VENANCIO Adler Date of 1985 Gender Female Age 35 year(s) Race Room Number Height: 64 inch, 162.56 cm Corporate ID [id number] Weight: 230 pounds, 104.3 kg # Patient Acct [id number] BSA: 2.08 m^2 BMI: 39.48 # kg/m^2 MR # [id number] Network Administrator Michael Bakeryson Interpreting Physician Benny Banks Fellow Referring Nurse Stephanie Collins Practitioner Interpreting Referring Physician Fellow Type of Study TTE procedure:2D Echocardiogram, M-Mode, Doppler, Color Doppler. Procedure Date Date: 01/08/2021 Start: 12:33 PM Study Location: [facility] Indications:Syncope and POTS. History / Tech. Comments: Dx: syncope, POTS Patient Status: Outpatient Height: 64 inches Weight: 230 pounds BSA: 2.08 m^2 BMI: 39.48 kg/m^2 BP: 110/84 mmHg CONCLUSIONS Summary Global left ventricular systolic function appears preserved with an estimated ejection fraction of >60%. Normal left ventricular wall thickness with a normal left ventricular cavity size. No definite specific wall motion abnormalities were identified. Mild to moderate tricuspid regurgitation. No clear evidence of diastolic dysfunction was identified. No prior studies were identified. Signature - - - - FINDINGS Left Atrium Left atrium is normal in size. Left Ventricle Global left ventricular systolic function appears preserved with an estimated ejection fraction of >60%. Normal left ventricular wall thickness with a normal left ventricular cavity size. No definite specific wall motion abnormalities were identified. Right Atrium Right atrium is normal in size. Right Ventricle Normal right ventricular size and function. Mitral Valve Normal mitral valve structure with trivial mitral regurgitation. Aortic Valve Normal aortic valve structure and function without stenosis or regurgitation. Tricuspid Valve Normal tricuspid valve structure with mild to moderate tricuspid regurgitation. Pulmonic Valve The pulmonic valve is normal in structure. Pericardial Effusion No significant pericardial effusion is seen. Miscellaneous No clear evidence of diastolic dysfunction was identified. Normal aortic root dimension. M-mode / 2D Measurements & Calculations: LVIDd:4.72 cm(3.7 - 5.6 cm) Diastolic Volume:71.1 ml LVIDs:3.08 cm(2.2 - 4.0 cm) Systolic Volume:24.97 ml IVSd:0.97 cm(0.6 - 1.1 cm) Aortic Root:2.96 cm(2.0 - 3.7 cm) LVPWd:0.97 cm(0.6 - 1.1 cm) LA Dimension: 2.8 cm(1.9 - 4.0 cm) Fractional Shortenin.75 % LA volume/Index: 41.6 ml /20m^2 Calculated LVEF (%): 64.88 % AV Cusp Separation: 2.36 cm Mitral: Aortic Valve Area (P1/2-Time): 3.61 cm^2 Peak Velocity: 1.09 m/s Peak E-Wave: 0.66 m/s Mean Velocity: 0.74 m/s Peak A-Wave: 0.35 m/s Peak Gradient: 4.73 mmHg E/A Ratio: 1.91 Mean Gradient: 2.46 mmHg Peak Gradient: 1.73 mmHg Acceleration Time: 77.35 msec P1/2t: 60.89 msec AV VTI: 23.4 cm Tricuspid: Pulmonic: Peak TR Velocity: 2.36 m/s Peak TR Gradient: 22.2784 mmHg Estimated RA Pressure: 3 mmHg Estimated PASP: 25.28 mmHg Diastology / Tissue Doppler Lateral Wall E' velocity:0.15 m/s Lateral Wall E/E':4.47 [employer] Work Phone: [employer] Work Phone: CBC Auto DifferentialOrdered By: Allen Gary on 12-21-2020 Absolute Eos # 0.05 [facility] Work Phone: Absolute Immature Granulocyte <0.03 [employer] Work Phone: Absolute Lymph # 1.53 [facility] Work Phone: Absolute [place]uphin # 0.35 [employer] [facility] Work Phone: Basophils (Bld) [#/Vol] 0.04 10*3/uL [employer] Work Phone: Basophils/100 WBC (Bld) 1 % 0 - 2 % M [employer] Phone: Differential Type NOT REPORTED [employer] Phone: Eosinophils/100 WBC (Bld) 1 % 1 - 4 % [employer] Phone: Hematocrit (Bld) [Volume fraction] 42.3 % 36.3 - 47.1 % [employer] Phone: Hemoglobin.gastrointesti nal spec 1 Ql (Stl) 14.3 g/dL 11.9 - 15.1 g/dL [employer] Phone: Immature granulocytes/100 WBC (Bld) 0 % 0 [employer] Phone: Interpretation and review of laboratory results Abnormal [employer] Phone: Lymphocytes/100 WBC (Bld) 21 % Low 24 - 43 % [employer] Phone: MCH (RBC) [Entitic mass] 29.6 pg 25. 2 - 33.5 pg [employer] Phone: MCHC (RBC) [Mass/Vol] 33.8 g/dL 28.4 - 34.8 g/dL [employer] Phone: MCV (RBC) [Entitic vol] 87.6 fL 82.6 - 102.9 fL [employer] Phone: Monocytes/100 WBC (Bld) 5 % 3 - 12 % M [employer] Work Phone: NRBC Automated 0.0 0.0 per 100 WBC [employer] Phone: Platelet distribution width (Bld) [Ratio] 11.7 % Low 11.8 - 14.4 % [employer] Phone: Platelet Estimate NOT REPORTED [employer] Phone: Platelet mean volume (Bld) [Entitic vol] 10.5 fL 8.1 - 13.5 fL [employer] Phone: Platelets (Bld) [#/Vol] 167 10*3/uL [employer] Phone: RBC (Bld) [#/Vol] 4.83 10*6/uL 3.95 - 5.1 1 m/uL [employer] Phone: RBC (Bld) [#/Vol] NOT REPORTED [employer] Phone: Segmented neutrophils/100 WBC (Bld) 72 % High 36 - 65 % [employer] Phone: Segs Absolute 5.27 [employer] Work Phone: WBC (Bld) [#/Vol] 7.3 10*3/uL [employer] Phone: WBC (Bld) [#/Vol] NOT REPORTED [employer] Phone: [employer] Phone: CT Head WO ContrastOrdered B y: Allen Gary on 12-21-[address] examination of the brain. [employer] Phone: EXAMINATION: CT OF THE HEAD WITHOUT CONTRAST 12/21/2020 11:24 am TECHNIQUE: CT of the head was performed without the administration of intravenous contrast. Dose modulation, iterative reconstruction, and/or weight based adjustment of the mA/kV was utilized to reduce the radiation dose to as low as reasonably achievable. COMPARISON: 07/22/2016 HISTORY: ORDERING SYSTEM PROVIDED HISTORY: head injury with persistent MCMILLAN FINDINGS: BRAIN/VENTRICLES: No acute intracranial hemorrhage, mass effect or midline shift. No abnormal extra-axial fluid collection. The zamora-white differentiation is maintained without evidence of an acute infarct. No evidence of hydrocephalus. ORBITS: The visualized portion of the orbits demonstrate no acute abnormality. SINUSES: The visualized paranasal sinuses and mastoid air cells appear clear. SOFT TISSUES/SKULL: No acute abnormality of the visualized skull or soft tissues. [employer] Phone: Cain, pn Incoming Radiant Results From [employer] - 12/21/2020 11:35 AM EDT EXAMINATION: CT OF THE HEAD WITHOUT CONTRAST 12/21/2020 11:24 am TECHNIQUE: CT of the head was performed without the administration of intravenous contrast. Dose modulation, iterative reconstruction, and/or weight based adjustment of the mA/kV was utilized to reduce the radiation dose to as low as reasonably achievable. COMPARISON: 07/22/2016 HISTORY: ORDERING SYSTEM PROVIDED HISTORY: head injury with persistent MCMILLAN FINDINGS: BRAIN/VENTRICLES: No acute intracranial hemorrhage, mass effect or midline shift. No abnormal extra-axial fluid collection. The zamora-white differentiation is maintained without evidence of an acute infarct. No evidence of hydrocephalus. ORBITS: The visualized portion of the orbits demonstrate no acute abnormality. SINUSES: The visualized paranasal sinuses and mastoid air cells appear clear. SOFT TISSUES/SKULL: No acute abnormality of the visualized skull or soft tissues. IMPRESSION: Negative noncontrast CT examination of the brain. [employer] Phone: [employer] Phone: Comprehensive Metabolic Pane lOrdered By: Allen Gary on 12-21-2020 Albumin [Mass/Vol] 3.8 g/dL 3.5 - 5.2 g/dL [employer] Phone: Albumin/Globulin [Mass ratio] 1.3 {ratio} [employer] Phone: ALP (Bld) [Catalytic activity/Vol] 73 U/L 35 - 104 U/L [employer] Phone: ALT [Catalytic activity/Vol] 17 U/L 5 - 33 U/L [employer] Phone: Anion gap [Moles/Vol] 11 mmol/L 9 - 17 mmol/L [employer] Phone: AST [Catalytic activity/Vol] 17 U/L <32 [employer] Phone: Bilirubin [Mass/Vol] 0.41 mg/dL 0.3 - 1 .2 mg/dL [employer] Phone: Calcium [Mass/Vol] 8.7 mg/dL 8.6 - 10. 4 mg/dL [employer] Phone: Chloride [Moles/Vol] 104 mmol/L 98 - 10 7 mmol/L [employer] Phone: CO2 [Moles/Vol] 22 mmol/L 20 - 31 mmol/L [employer] Phone: Creatinine [Mass/Vol] 0.74 mg/dL 0.50 - 0.90 mg/dL [employer] Phone: Free PSA/Total PSA [Mass fraction] 6.7 g/dL 6.4 - 8.3 g/dL [employer] Phone: GFR >60 >60 mL/min [employer] Phone: GFR Non- >60 >60 mL/min [employer] Phone: Glucose [Mass/Vol] 95 mg/dL 70 - 99 mg/dL [employer] Phone: Potassium [Moles/Vol] 3.8 mmol/L 3.7 - 5.3 mmol/L [employer] Phone: Sodium [Moles/Vol] 137 mmol/L 135 - 144 mmol/L [employer] Phone: Urea nitrogen (BldV) [Mass/Vol] 13 mg/dL 6 - 20 mg/dL [employer] Phone: Urea nitrogen/Creatinine (Bld) [Mass ratio] 18 [employer] Phone: [employer] Phone: HCG Qualitative, SerumOrdere d By: Juarez Turner on 12-21-2020 hCG Qual Negative NEGATIVE [employer] Phone: Comment on above: Specimens with hCG l evels near the threshold of the test (25 mIU/mL) may give a negative or indeterminate result. In such cases, another test should be performed with a new specimen in 48-72 hours. If early is suspected clinically in this setting, correlation with quantitative serum b-hCG level is suggested. Hoard has confirmed the use of plasma for this test. This has not been cleared or approved by the U.S. Food and Drug Administration. The FDA has determined that such clearance is not necessary. [employer] Phone: Laboratory - Chemistry and C hemistry - challengeOrdered By: Allen Gary on 12-21-2020 GFR/1.73 sq M.predicted MDRD (S/P/Bld) [Vol rate/Area] [employer] Phone: Comment on above: Average GFR for 30-3 9 years old: 107 mL/min/1.73sq m Chronic Kidney Disease: <60 mL/min/1.73sq m Kidney failure: <15 mL/min/1.73sq m eGFR calculated using average adult body mass. Additional eGFR calculator available at: http://www.[employer]/multiple_crcl_2012.htm Stage 1: Some kidney damage normal GFR Stage 2: Mild kidney damage GFR 60-89 Stage 3: Moderate kidney damage GFR 30-59 Stage 4: Severe kidney damage GFR 15-29 Stage 5: Severe kidney damage GFR <15 ESRD - chronic treatment by dialysis or transplant Microscopic UrinalysisOrdere d By: Allen Gary on 12-21-2020 - [employer] Work Phone: Amorphous, UA NOT REPORTED None [facility] Work Phone: Bacteria, UA TRACE Abnormal None [employer] Phone: Casts UA NOT REPORTED /LPF [employer] Work Phone: Crystals, UA NOT REPORTED None /HPF [facility] Work Phone: Epithelial Cells UA 2 TO 5 [employer] Work Phone: Interpretation and review of laboratory results Abnormal [employer] Work Phone: Mucus, UA NOT REPORTED None [facility] [employer] Work Phone: Other Observations UA NOT REPORTED NOT REQ. M [facility] [employer] Work Phone: RBC (U) [#/Vol] 100 /uL [facility] Work Phone: Renal Epithelial, UA NOT REPORTED 0 /HPF Me [facility] [employer] Work Phone: Trichomonas, UA NOT REPORTED None [facility] Work Phone: WBC, UA 5 TO 10 [facility] [employer] Work Phone: Yeast, UA NOT REPORTED None [facility] [employer] Work Phone: [facility] [employer] Work Phone: Urinalysis Reflex to Culture Ordered By: Allen Gary on 12-21-2020 Bilirubin Urine Negative NEGATIVE [facility] Work Phone: Color, UA Yellow Yellow [facility] [employer] Work Phone: Glucose, Ur Negative NEGATIVE [facility] [employer] Work Phone: Interpretation and review of laboratory results Abnormal [facility] [employer] Work Phone: Ketones Ql (U) Negative NEGATIVE [facility] Work Phone: Leukocyte esterase Test strip Ql (U) TRACE Abnormal NEGATIVE [facility] [employer] Work Phone: Nitrite, Urine Negative NEGATIVE [facility] Work Phone: pH, UA 7.0 [facility] [employer] Work Phone: Protein, UA Negative NEGATIVE [facility] Work Phone: Specific [place], UA 1.015 [facility] [employer] Work Phone: Turbidity UA SLIGHTLY CLOUDY Abnormal [facility] Work Phone: Urinalysis Comments NOT REPORTED [facility] [employer] Work Phone: Urine Hgb 3+ Abnormal NEGATIVE [employer] Phone: Urobilinogen, Urine Normal Normal [employer] Phone: [employer] Phone: CBC AND DIFFERENTIALon 12-18 % AUTOMATED IMMATURE GRAN 0.4 % Normal 0.0 - 0.9 [facility] Comment on above: Result Comment: Emily ture Granulocyte Count (IG) includes promyelocytes, myelocytes and metamyelocytes but does not include bands. Percent differential counts (%) should be interpreted in the context of the absolute cell counts (cells/L). Performed By: #### C BCDF #### [facility] [address] [id number] Basophils (Bld) [#/Vol] 0.03 10*3/uL Normal 0.00 - 0.1 0 [facility] Comment on above: Performed By: #### C BCDF #### [facility] [address] [id number] Basophils/100 WBC (Bld) 0.4 % Normal 0.0 - 2.0 [facility] Comment on above: Performed By: #### C BCDF #### [facility] [address] [id number] Eosinophils (Bld) [#/Vol] 0.06 10*3/uL Normal 0.00 - 0.70 [facility] Comment on above: Performed By: #### C BCDF #### [facility] [address] [id number] Eosinophils/100 WBC (Bld) 0.8 % Normal 0.0 - 6.0 [facility] [facility] Comment on above: Performed By: #### C BCDF #### [facility] [address] [id number] Erythrocyte distribution width (RBC) [Ratio] 12.0 % Normal 11.5 - 14.5 [facility] Comment on above: Performed By: #### C BCDF #### [facility] [address] [id number] Hematocrit (Bld) [Volume fraction] 39.5 % Normal 36.0 - 46.0 [facility] Comment on above: Performed By: #### C BCDF #### [facility] [address] [place] [address] Hemoglobin (Bld) [Mass/Vol] 13.2 g/dL Normal 12.0 - 16.0 [facility] Comment on above: Performed By: #### C BCDF #### [facility] [address] [place] [id number] Lymphocytes (Bld) [#/Vol] 2.18 10*3/uL Normal 1.20 - 4.80 [facility] Comment on above: Performed By: #### C BCDF #### [facility] [address] [place] [address] Lymphocytes/100 WBC (Bld) 27.7 % Normal 13.0 - 44.0 [facility] Comment on above: Performed By: #### C BCDF #### [facility] [address] [place] [id number] MCHC (RBC) [Mass/Vol] 33.4 g/dL Normal 32.0 - 36.0 [facility] Comment on above: Performed By: #### C BCDF #### [facility] [address] [id number] MCV (RBC) [Entitic vol] 88 fL Normal 80 - 100 [facility] Comment on above: Performed By: #### C BCDF #### [facility] [address] [place] [address] Monocytes (Bld) [#/Vol] 0.47 10*3/uL Normal 0.10 - 1.0 0 [facility] Comment on above: Performed By: #### C BCDF #### [facility] [address] [place] [address] Monocytes/100 WBC (Bld) 6.0 % Normal 2.0 - 10.0 [facility] Comment on above: Performed By: #### C BCDF #### [facility] [address] [id number] Neutrophils (Bld) [#/Vol] 5.11 10*3/uL Normal 1.20 - 7.70 [facility] Comment on above: Performed By: #### C BCDF #### [facility] [address] [place] [address] Neutrophils/100 WBC (Bld) 64.7 % Normal 40.0 - 80.0 [facility] Comment on above: Performed By: #### C BCDF #### [facility] [address] [place] [address] Platelets (Bld) [#/Vol] 182 10*3/uL Normal 150 - 450 [facility] Comment on above: Performed By: #### C BCDF #### [facility] [address] [place] [address] RBC 4.48 x10E12/L Normal 4.00 - 5.20 [facility] Comment on above: Performed By: #### C BCDF #### [facility] [address] [place] [address] WBC (Bld) [#/Vol] 7.9 10*3/uL Normal 4.4 - 11.3 [facility] Comment on above: Performed By: #### C BCDF #### [facility] [address] [place] [address] COMPREHENSIVE PANELon 2020 Albumin [Mass/Vol] 3.7 g/dL Normal 3.4 - 5.0 [facility] Comment on above: Performed By: #### C MP #### [facility] [address] [place] [address] ALP [Catalytic activity/Vol] 58 U/L Normal 33 - 110 [facility] Comment on above: Performed By: #### C MP #### [facility] [address] [place] [address] ALT [Catalytic activity/Vol] 17 U/L Normal 7 - 45 [facility] Comment on above: Result Comment: Margarita ents treated with Sulfasalazine may generate falsely decreased results for ALT. Performed By: #### C MP #### [facility] [address] [place] [address] Anion gap [Moles/Vol] 11 mmol/L Normal 10 - 20 [facility] Comment on above: Performed By: #### C MP #### [facility] [address] [place] [address] AST [Catalytic activity/Vol] 17 U/L Normal 9 - 39 [facility] Comment on above: Performed By: #### C MP #### [facility] [address] [id number] Bilirubin [Mass/Vol] 0.2 mg/dL Normal 0.0 - 1.2 [facility] Comment on above: Performed By: #### C MP #### [facility] [address] [place] [address] Calcium [Mass/Vol] 8.9 mg/dL Normal 8.6 - 10.3 [facility] Comment on above: Performed By: #### C MP #### [facility] [address] [place] [id number] Chloride [Moles/Vol] 106 mmol/L Normal 98 - 107 [facility] Comment on above: Performed By: #### C MP #### [facility] [address] [place] [address] Creatinine [Mass/Vol] 0.92 mg/dL Normal 0.50 - 1.05 [facility] Comment on above: Performed By: #### C MP #### [facility] [address] [place] [id number] GFR- AM. >60 Normal >60 [facility] Comment on above: Result Comment: CALC ULATIONS OF ESTIMATED GFR ARE PERFORMED USING THE MDRD STUDY EQUATION FOR THE IDMS-TRACEABLE CREATININE METHODS. CLIN CHEM 2007;53:766-72 Performed By: #### C MP #### [facility] [address] [place] [address] GFR-NON AM. >60 Normal >60 [facility] Comment on above: Performed By: #### C MP #### [facility] [address] [place] [address] Glucose [Mass/Vol] 95 mg/dL Normal 74 - 99 [facility] Comment on above: Performed By: #### C MP #### [facility] [address] [place] [address] HCO3 (Bld) [Moles/Vol] 27 mmol/L Normal 21 - 32 [facility] Comment on above: Performed By: #### C MP #### [facility] [address] [place] [address] Potassium [Moles/Vol] 3.8 mmol/L Normal 3.5 - 5.3 [facility] Comment on above: Performed By: #### C MP #### [facility] [address] [place] [address] Protein [Mass/Vol] 6.2 g/dL Low 6.4 - 8.2 [facility] Comment on above: Performed By: #### C MP #### [facility] [address] [place] [address] Sodium [Moles/Vol] 140 mmol/L Normal 136 - 145 [facility] Comment on above: Performed By: #### C MP #### [facility] [address] [place] [address] Urea nitrogen [Mass/Vol] 14 mg/dL Normal 6 - 23 [facility] Comment on above: Performed By: #### C MP #### [facility] [address] [place] [address] EMR ADDONon 12-18-2020 ADDON CONFIRMATION REQUEST REC'D Normal [facility] Comment on above: Performed By: #### E MRAD #### [facility] [address] [place] [address] MAGNESIUMon 12-18-2020 Magnesium [Mass/Vol] 2.00 mg/dL Normal 1.60 - 2.40 [facility] Comment on above: Performed By: #### M G #### [facility] [address] [place] [address] Provider Note - ED v3on 12-05 Provider Note - ED v3 Provider Note: Chart Review: ED NOTES ED NOTES: HPI: The patient is a 35-year-old female with a history of POTS disease, chronic hypotension and hemiplegic migraines 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 Patient states she woke up nauseated and took Zofran 4 mg prior to going to work. She reports lightheadedness throughout the day today and developed nausea again at approximately 5 PM. Patient subsequently ambulated to the bathroom and had one episode of nonbloody emesis. She then noted increased lightheadedness, sat on the floor, and subsequently sustained a syncopal episode --time of loss of consciousness unknown. Patient states this is happened to her multiple times when she is dehydrated, however she states she has been adequately hydrated throughout the week. Patient denies chest pain or shortness of breath. No focal or lateralizing neurologic complaints, however she has had a bilateral temporal headache for the past 4 days. Patient denies abdominal pain or urinary complaints. ROS: A 10-system ROS was performed and was negative except as documented in the HPI. PMH/PSH: As above in HPI. + PCOS, s/0 R tubal ligation 2/2 ectopic . SH: Denies tobacco or illicit drug use. Pt is a social drinker. Allergies: NKDA. Medications: See prescription health technical writer for full medication list. PE: VITALS: Vital signs reviewed in nursing triage note, EMR flow sheets, and at patient's bedside. CONSTITUTIONAL: Well-appearing obese female in no apparent distress. HEAD: Normocephalic; atraumatic. EYES: Conjunctiva and sclera are clear bilaterally. PERRL; EOMI. ENT: No rhinorrhea noted; TM's and canals normal. Normal pharynx with no tonsillar hypertrophy; uvula midline; mucous membranes pink/moist, no erythema, no exudate. NECK: Supple; non-tender; no cervical lymphadenopathy. FROM. CARD: Normal S1 and S2 with occasional premature beats heard on auscultation. No m/r/g. RESP: Normal respiratory effort; breath sounds clear and equal bilaterally; no wheezes, rhonchi, or crackles. ABD: +bowel sounds; non-distended, obese abdomen; soft and non-tender; no palpable organomegaly, no masses, no bruits. EXT: Normal ROM in all four extremities; no edema. SKIN: Normal for age and race; warm; dry; good turgor; no apparent lesions, rashes or ulcers. NEURO: Alert, lucid; Articulate speech, moves all 4 extremities freely and independently. CN II-XII grossly intact. 5/5 strength and LT sensation in all 4 extremities. Normal vyiyhw-jr-okdl and xobf-ck-wasx. PSYCH: Appropriate mood and affect. Conversant. DDX: Includes but not limited to vasovagal syncope versus BPPV versus cardiac arrhythmia versus acute hypotension versus other. 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 Pt most likely sustained an acute arrhythmia which precipitated her syncopal episode. She took Zofran this AM which may have prolonged her QT. Plan to order EKG and basic labs with UA. Pt will be continuously monitored. She is requesting mediation for her migraine -- Reglan, Benadryl and Toradol ordered. Orthostatics ordered. Pt requesting IVF which she states has alleviated her lightheadedness in the past -- 1L LR bolus ordered. Results: *See section(s) entitled ``Lab Results, ``Diagnostic Imaging Results Review for entirety. Notable results listed below - EKG shows NSR, rate 60, normal axis, normal IA intervals, mildly prolonged QTc, isolated T-wave inversions in V2, no ST elevations, no EKG available for comparison. - Labs/Images: CBC, CMP, UA unremarkable. Mg add lab ordered per pt's request. Orthostatics WNL. Clinical Impression: s/p syncopal episode. Dispo: Home: I discussed the differential, results and discharge plan with the patient. I emphasized the importance of follow-up with his PCP within 1 week. Pt may require Holter monitor or advanced cardiac work-up to evaluate for arrhythmias. I explained reasons for the patient to return to the Emergency Department. Questions were addressed. They understand return precautions and discharge instructions. The patient expressed understanding and agreement with assessment/plan. Pt seen and discussed with attending physician, Dr. Spencer. Alyson Sesya MD PGY1, Emergency Medicine Disclaimer: This note was dictated by speech recognition. An attempt at proof reading was made to minimize errors. Errors in busboy may be present. Please call if questions. HISTORY OF PRESENTING ILLNESS VENANCIO is a 35 year old Female and was seen by me at 18-Dec-2020 17:58. Triage Information: Most recent Vital Sign Value Date Temp (F): 97.9 12-18-2020 18:01 Temp (C): 36.6 12-18-2020 18: (more content not included)... Normal [facility] Triage - EDon 12-18-2020 Triage - ED Quick Triage: Are You no Have You Given In The Last 6 Weeksno Are You Currently Breastfeedingno Chart Review: ARRIVAL INFORMATION Mode of Arrival: ambulance Agency Name: [facility] CHIEF COMPLAINT VENANCIO MOON is a Female patient with a chief complaint of syncope. Other Complaints: Pt. was at work and began to feel lightheaded, Checked BP and it was 90/60 (Runs low) Pt. sat down and had a syncopal episode. Denies hitting head. BGT 107. A&O x3 Triage Date/Time: 18-Dec-2020 18:01 BRITTANEY: 3 Vital Signs: Temperature: 97.9F ( 36.6C) taken tympanic Blood Pressure: 118/69 Mean: Heart Rate: 80 Respiratory Rate: 18 Pulse Oximetry: 99% on room air, no respiratory support. Height: 5 feet 4.00 inches. 162.5 CM Weight: 210.5 pounds. Calculated 95.5 kg. (stated) Calculated BMI (kg/m2): 36.165 Calculated BSA (m2) 2.08 Amdi Coma Scale: Best Eye Response: (E4) spontaneous Best Motor Response: (M6) obeys commands Best Verbal Response: (V5) oriented Madi Score: 15 Cough lasting greater than 3 weeks: no Allergies: no Patient has homicidal thoughts: no Risk Screens Suicide Risk Screen In the Past Month: Have you wished you were or wished you could go to sleep and not wake up no In the Past Month: Have you had any actual thoughts of killing yourself no In Your Lifetime: Have you ever done anything, started to do anything, or prepared to do anything to end your life no Long Fall Scale Screening Has the patient fallen before (or is the patient in the ED as a result of a fall) has had a fall Does the patient have an impaired gait does not have impaired gait Is the patient cognitively impaired not cognitively impaired Long Fall Scale History of falling (immediate or previous) yes (25) Secondary Diagnosis no (0) Intravenous Therapy/ Heparin/Saline Lock yes (20) Gait/Transferring weak (10) Ambulatory Aids none/bedrest/nurse assist (0) Mental Status oriented to own ability (0) Long Fall Risk Score: 55 Interventions: Long Fall Interventions: LOW INTERVENTIONS: *patient oriented to surroundings and call system, * patient/family falls education completed and documented, *patients fall status communicated during bedside handoff, *whiteboard updated, *mode of toileting discussed with patient, *bed in low position with brakes locked, *call light in reach, * non-skid footwear TRAVEL HISTORY Travel History Coronavirus Screening: no exposure or symptoms Travel Exposure History: NO travel to International locations in the past 30 days PAIN Pain Scale Used: TIARRA Past Medical History: Past Medical History Reviewedyes Electronic Signatures: Lavell Salazar (ROGELIO) (Signed 18-Dec-2020 18:08) Entered: Risk Screens, Pain, Travel History, Chart Review, Past Medical History Authored: Quick Triage, Risk Screens, Pain, Travel History, Chart Review, Past Medical History Last Updated: 18-Dec-2020 18:08 by Lavell Salazar (ROGELIO) Normal [facility] UA MICROSCOPICon 12-18-2020 Mucus Ql (Urine sed) 1+ /LPF Normal [facility] Comment on above: Performed By: #### U AMIC #### [facility] [address] [place] [address] RBC 1 /HPF Normal 0-5 [facility] Comment on above: Performed By: #### U AMIC #### [facility] [address] [place] [address] SQUAMOUS EPITH. CELLS 1 /HPF Normal [facility] Comment on above: Performed By: #### U AMIC #### [facility] [address] [place] [address] WBC (U) [#/Vol] /uL Normal 0-5 [facility] Comment on above: Performed By: #### U AMIC #### [facility] [address] [place] [address] URINALYSISon 12-18-2020 Appearance (U) CLEAR Normal CLEAR [facility] Comment on above: Performed By: #### U A #### [facility] [address] [place] [address] Bilirubin Ql (U) Negative Normal NEGATIVE [facility] Comment on above: Performed By: #### U A #### [facility] [address] [place] [address] Color (U) YELLOW Normal STRAW,YELLO W [facility] Comment on above: Performed By: #### U A #### [facility] [address] [place] [address] Glucose Ql (U) Negative Normal NEGATIVE [facility] Comment on above: Performed By: #### U A #### [facility] [address] [place] [address] Hemoglobin Ql (U) SMALL(1+) Invalid Interpretation Code NEGATIVE [facility] Comment on above: Performed By: #### U A #### [facility] [address] [place] [address] Ketones Ql (U) Negative Normal NEGATIVE [facility] Comment on above: Performed By: #### U A #### [facility] [address] [place] [address] Leukocyte esterase Test strip Ql (U) Negative Normal NEGATIVE [facility] Comment on above: Performed By: #### U A #### [facility] [address] [place] [address] Nitrite Ql (U) Negative Normal NEGATIVE [facility] Comment on above: Performed By: #### U A #### [facility] [address] [place] [address] pH (U) 7.0 [pH] Normal 5.0 - 8.0 [facility] Comment on above: Performed By: #### U A #### [facility] [address] [place] [address] Protein Ql (U) Negative Normal NEGATIVE [facility] Comment on above: Performed By: #### U A #### [facility] [address] [place] [address] Specific gravity (U) [Rel density] 1.014 Normal 1.005 - 1.035 [facility] Comment on above: Performed By: #### U A #### [facility] [address] [place] [address] Urobilinogen (U) [Mass/Vol] mg/dL Normal 0.0 - 1.9 [facility] Comment on above: Performed By: #### U A #### [facility] [address] [place] [address] ALLIED HEALTHon 11-15-2020 ALLIED HEALTH HNO ID: [id number] Author: RT Sally(R) Service: Radiology Author Type: Technologist Type: Allied Health Filed: 11/15/2020 8:10 AM Note Text: Radiology Service Progress Note PATIENT NAME: Venancio Moon DATE OF SERVICE: November 15, 2020 TIME: 8:10 AM PATIENT IDENTITY VERIFICATION COMPLETED USING TWO (2) IDENTIFIERS: Name and Date of confirmed by patient verbally. FALL SCREENING: Has the patient had 2 falls in the last year or 1 fall with injury or currently using an Ambulatory Assistive Device (Walker, Cane, Wheelchair, Crutches, etc.)? Inpatient: Screened on floor PATIENT GENDER DATA: Female. status: : No status: N/A PATIENT RELEVANT IMPLANT DATA REVIEWED: Not Applicable RADIOLOGY DEPARTMENT: General X-ray: Exam(s) Completed: Chest X-Ray PERIPHERAL IV DATA: Not applicable SIGNED BY: Janice Johnson RT(R) November 15, 2020 8:10 AM Normal [facility] CBC and Differentialon 11-15 Abs Baso 0.04 k/uL Normal <0.11 [facility] Comment on above: Performed By: #### C BCDIF, CMP, HSTNT #### [facility] [address] [place] [address] Abs Dauphin 0.53 k/uL Normal <0.87 [facility] Comment on above: Performed By: #### C BCDIF, CMP, HSTNT #### [place] [id number] Abs Neut 5.07 k/uL Normal 1.45-7.50 [facility] Comment on above: Performed By: #### C BCDIF, CMP, HSTNT #### [place] [phone] Absolute nRBC <0.01 Normal <0.01 [facility] Comment on above: Performed By: #### C BCDIF, CMP, HSTNT #### [place] [phone] Basophils/100 WBC (Bld) 0.5 % Normal [facility] Comment on above: Performed By: #### C BCDIF, CMP, HSTNT #### [place] [phone] DTYPE Auto Diff Normal [facility] Comment on above: Performed By: #### C BCDIF, CMP, HSTNT #### [address] Eosinophils (Bld) [#/Vol] 0.07 10*3/uL Normal <0.46 [facility] Comment on above: Performed By: #### C BCDIF, CMP, HSTNT #### [place] [phone] Eosinophils/100 WBC (Bld) 0.9 % Normal [facility] Comment on above: Performed By: #### C BCDIF, CMP, HSTNT #### [place] [phone] Erythrocyte distribution width (RBC) [Ratio] 11.9 % Normal 11.5-15.0 [facility] Comment on above: Performed By: #### C BCDIF, CMP, HSTNT #### [place] [phone] Hematocrit (Bld) [Volume fraction] 41.7 % Normal 36.0-46.0 [facility] Comment on above: Performed By: #### C BCDIF, CMP, HSTNT #### [place] [phone] Hemoglobin (Bld) [Mass/Vol] 14.7 g/dL Normal 11.5-15.5 [facility] Comment on above: Performed By: #### C BCDIF, CMP, HSTNT #### [place] [phone] Lymphocytes (Bld) [#/Vol] 2.24 10*3/uL Normal 1.00-4.00 [facility] Comment on above: Performed By: #### C BCDIF, CMP, HSTNT #### [place] [phone] Lymphocytes/100 WBC (Bld) 28.2 % Normal [facility] Comment on above: Performed By: #### C BCDIF, CMP, HSTNT #### [place] [phone] MCH 30.1 pG Normal 26.0-34.0 [facility] Comment on above: Performed By: #### C BCDIF, CMP, HSTNT #### [place] [phone] MCHC (RBC) [Mass/Vol] 35.3 g/dL Normal 30.5-36.0 [facility] Comment on above: Performed By: #### C BCDIF, CMP, HSTNT #### [place] [phone] MCV (RBC) [Entitic vol] 85.5 fL Normal 80.0-100.0 [facility] Comment on above: Performed By: #### C BCDIF, CMP, HSTNT #### [phone] Monocytes/100 WBC (Bld) 6.7 % Normal [facility] Comment on above: Performed By: #### C BCDIF, CMP, HSTNT #### [place] [address] Neutrophils/100 WBC (Bld) 63.7 % Normal [facility] Comment on above: Performed By: #### C BCDIF, CMP, HSTNT #### [place] [address] NRBCs 0.0 /100 WBC Normal 0 [facility] Comment on above: Performed By: #### C BCDIF, CMP, HSTNT #### [place] [address] Platelet mean volume (Bld) [Entitic vol] 11.0 fL Normal 9.0-12.7 [facility] Comment on above: Performed By: #### C BCDIF, CMP, HSTNT #### [place] [address] Platelets (Bld) [#/Vol] 188 10*3/uL Normal 150-400 [facility] Comment on above: Performed By: #### C BCDIF, CMP, HSTNT #### [place] [address] RBC (Bld) [#/Vol] 4.88 10*6/uL Normal 3.90-5.20 [facility] Comment on above: Performed By: #### C BCDIF, CMP, HSTNT #### [place] [address] WBC (Bld) [#/Vol] 7.95 10*3/uL Normal 3.70-11.00 [facility] Comment on above: Performed By: #### C BCDIF, CMP, HSTNT #### [place] [address] Comp Metabolic Panelon 11-15 Albumin [Mass/Vol] 3.5 g/dL Normal 3.5-5.0 [facility] Comment on above: Performed By: #### C BCDIF, CMP, HSTNT #### [place] [phone] ALP [Catalytic activity/Vol] 58 U/L Normal 34-123 [facility] Comment on above: Performed By: #### C BCDIF, CMP, HSTNT #### [place] [phone] ALT [Catalytic activity/Vol] 13 U/L Normal 0-45 [facility] Comment on above: Performed By: #### C BCDIF, CMP, HSTNT #### [place] [phone] Anion gap [Moles/Vol] 11 mmol/L Normal 9-18 [facility] Comment on above: Performed By: #### C BCDIF, CMP, HSTNT #### [place] [phone] AST [Catalytic activity/Vol] 15 U/L Normal 7-40 [facility] Comment on above: Performed By: #### C BCDIF, CMP, HSTNT #### [place] [phone] Bilirubin [Mass/Vol] 0.2 mg/dL Normal 0.2-1.3 [facility] Comment on above: Performed By: #### C BCDIF, CMP, HSTNT #### [place] [phone] Calcium [Mass/Vol] 8.9 mg/dL Normal 8.5-10.5 [facility] Comment on above: Performed By: #### C BCDIF, CMP, HSTNT #### [place] [phone] Chloride [Moles/Vol] 107 mmol/L Normal 98-110 [facility] Comment on above: Performed By: #### C BCDIF, CMP, HSTNT #### [place] [phone] CO2 [Moles/Vol] 22 mmol/L Low 23-32 [facility] Comment on above: Performed By: #### C BCDIF, CMP, HSTNT #### [place] [id number] [place] [phone] Creatinine [Mass/Vol] 0.90 mg/dL Normal 0.70-1.40 [facility] Comment on above: Performed By: #### C BCDIF, CMP, HSTNT #### [place] [phone] eGFR- Amer. >60 Normal >60 [facility] Comment on above: Performed By: #### C BCDIF, CMP, HSTNT #### [place] [phone] eGFR-All Other Races >60 Normal >60 [facility] Comment on above: Result Comment: eGFR (Estimated GFR) Units of measure: mL/min/1.73 meters squared eGFR is derived from the reexpressed MDRD Study equation using the following parameters: serum creatinine, age, gender and race. The creatinine assay has been calibrated to be traceable to IDMS. An eGFR <60 mL/min/1.73m2 for >3 months is consistent with chronic kidney disease. Refer to KDOQI guidelines for clinical interpretation. In patients with unstable renal function, e.g. those with acute kidney injury, the eGFR may not accurately reflect actual GFR. Performed By: #### C BCDIF, CMP, HSTNT #### [place] [phone] Glucose [Mass/Vol] 101 mg/dL High 65-100 [facility] Comment on above: Performed By: #### C BCDIF, CMP, HSTNT #### [place] [phone] Potassium [Moles/Vol] 4.1 mmol/L Normal 3.5-5.0 [facility] Comment on above: Performed By: #### C BCDIF, CMP, HSTNT #### [place] [phone] Protein [Mass/Vol] 6.0 g/dL Normal 6.0-8.4 [facility] Comment on above: Performed By: #### C BCDIF, CMP, HSTNT #### [facility] [address] [place] [address] Sodium [Moles/Vol] 140 mmol/L Normal 132-148 [facility] Comment on above: Performed By: #### C BCDIF, CMP, HSTNT #### [facility] [address] [place] [address] Urea nitrogen [Mass/Vol] 20 mg/dL Normal 8-25 [facility] Comment on above: Performed By: #### C BCDIF, CMP, HSTNT #### [facility] [address] [place] [address] ED NOTEon 11-15-2020 ED NOTE HNO ID: [id number] Author: Ghada Lara RN Service: Nursing Author Type: Registered Nurse Type: ED Notes Filed: 11/15/2020 12:16 PM Note Text: Patient discharged home with instructions for follow up care and medication use and side effects. Understanding verbalized by the patient and patient verbalizes no questions or concerns as to care. Normal [facility] ED NOTE HNO ID: [id number] Author: Sravan Pickard RN Service: ? Author Type: Registered Nurse Type: ED Notes Filed: 11/15/2020 7:31 AM Note Text: Pt presents to ED with c/o CP like tightness on left side that is radiating to left arm and jaw. 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 Pt denies any cardiac hx. 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 Pt denies any dizziness, syncopal episodes. Pt denies any nausea/vomiting, diarrhea, fevers, Pt denies any recent long travel or new leg swelling. Plan of care -Monitor Patient's Vital Signs for changes in condition -Monitor patient for changes in pain -Maintain patient safety and privacy -Provide comfort measures -Call light in place Siderails up, bed in locked and low position [facility] ED PROV NOTEon 11-15-2020 ED PROV NOTE HNO ID: [id number] Author: Nader Domingo DO Service: Emergency Medicine Author Type: Physician Type: ED Provider Notes Filed: 11/16/2020 7:06 AM Note Text: Emergency Department Provider Note Patient: Venancio Moon Service Date: 11/15/20 History Patient presents with: Chest Pain: Pt presents to ED with c/o CP that radiating to left arm and jaw. 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 Pt denies any cardiac hx. 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 Pt denies any dizziness, syncopal episodes. Pt denies any nausea/vomiting, diarrhea, fevers, Pt denies any recent long travel or new leg swelling. 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 Denies diaphoresis Denies exertion Denies NVD Denies abd pain PO intake ok Pain never to back, never tearing/ripping Denies h/o VT/AD/AAA/PE Mother from violence?offered condolences/does not speak with father, no siblings No known early cardiac disease in her family BMs reported as normal Denies red/black stool/emesis UO normal + freq, h/o UTIs in past Denies dysuria/hematuria/he sitation/flank pain. No symptoms about the genitals, denies dc/bleeding/pain No skin changes/rash No trauma Full ROS reviewed as below noted No other issues noted Past Histories PMHx: denies PSHx: denies Meds: none ALL: NKDA FAMILY HISTORY Problem Relation Age of Onset - other (ovarian cyst [Other]) Maternal Grandmother Social History Tobacco Use - Smoking status: Never Smoker - Smokeless tobacco: Never Used Substance Use Topics - Alcohol use: Yes Comment: socially - Drug use: No ALLERGIES Allergen Reactions - No Known Allergies * Review of Systems Constitutional: Negative HENT: Negative Eyes: Negative Respiratory: Negative Cardiovascular: See hpi Gastrointestinal: Negative Genitourinary: Negative Musculoskeletal: Negative Skin: Negative Neurological: Negative Physical Exam Vital Signs Reviewed in EPIC Constitutional: Alert, awake, no acute distress, non toxic HENT: mucous membranes moist, head no signs of trauma Eyes: no discharge, nonicteric Neck: trachea midline no masses noted No stridor Lungs: CTABL, no wheezing, no rales RR wnl no acc msk use noted No pleurisy Heart: RRR , no murmurs/rubs/gallops noted No S3 Vascular: Radial 2/4 equal b/l DP 2/4 equal b/l PT 2/4 equal b/l Chest: Palpation at the left anterior chest ribs 3?6 midclavicular line reproduces chest pain/symptoms exact-remainder of anterior posterior chest bilaterally nonfocal without pain trauma or tenderness on palpation. No erythema crepitance induration or signs of trauma anywhere about her chest wall including area of pain. Abdomen: Soft, nontender, ND, no masses, no rebound/guarding, no peritoneal signs, no pulsatile mass noted, and +bs No CVAT Bl, no skin changes Spine CTL spine nontender no step-offs Extremities: normal peripheral perfusion, mild tenderness of anterior shoulder but normal active and passive range of motion without any ligamentous changes noted, left humerus elbow forearm wrist hand digits nontender throughout. All compartments soft throughout including left shoulder. Left scapular pain. No left clavicular pain. No signs of trauma anywhere about the left upper extremity/hepatitis no effusions noted, no bony tenderness nor trauma noted of the RUE + LEs B/L, no calf pain/edema/neg homans BL Neuro: Alert and oriented, normal speech, no slurring, no facial droop LUNDY, coordination grossly intact x4 No drift UEs/LE bilateral Normal strength/sensation bilateral upper lower extremity Skin: warm and dry, no rash/lesions noted anywhere Psych: Normal affect. Vital Signs: Reviewed the patient?s vital signs. Nursing Notes: Reviewed and utilized the nursing notes. Nursing triage and assessment notes reviewed and incorporated. Old Medical Records: The patient's available past medical records and past encounters were reviewed. Summary of pertinent elements include: none Ejection Fraction: No results found No prior EKG to review Diagnostic Testing Labs: Labs Reviewed COMP METABOLIC PANEL - Abnormal; Notable for the following components: Result Value Glucose 101 (*) CO2 22 (*) All other components wit (more content not included)... Normal [facility] High Sens Troponin Ton 11-15 High Sensitivity DORA <6 Normal <12 [facility] Comment on above: Result Comment: When assessing risk for acute coronary syndromes: In patients undergoing blood draw greater than or equal to 2 hours from symptom onset, with history of very low to moderate risk and non-ischemic ECG, an initial hs-Troponin T less than 12 ng/L AND a 1 hour delta hs-Troponin T less than 3 ng/L should be considered very low risk for 30 day MACE. Performed By: #### C BCDIF, CMP, HSTNT #### [place] [phone] High Sensitivity DORA <6 Normal <12 [facility] Comment on above: Result Comment: When assessing risk for acute coronary syndromes: In patients undergoing blood draw greater than or equal to 2 hours from symptom onset, with history of very low to moderate risk and non-ischemic ECG, an initial hs-Troponin T less than 12 ng/L AND a 1 hour delta hs-Troponin T less than 3 ng/L should be considered very low risk for 30 day MACE. Performed By: #### C BCDIF, CMP, HSTNT #### [place] [phone] High Sensitivity DORA <6 Normal <12 [facility] Comment on above: Result Comment: When assessing risk for acute coronary syndromes: In patients undergoing blood draw greater than or equal to 2 hours from symptom onset, with history of very low to moderate risk and non-ischemic ECG, an initial hs-Troponin T less than 12 ng/L AND a 1 hour delta hs-Troponin T less than 3 ng/L should be considered very low risk for 30 day MACE. Performed By: #### C BCDIF, CMP, HSTNT #### [place] [phone] Serum Beta HCG East//BRY/M ED/SL/LOon 11-15-2020 Serum Beta HCG East//BRY/MED/SL/LO Negative Normal Negative [facility] Comment on above: Performed By: #### B ETAMM #### [place] [phone] Urinalysis with Microscopico n 11-15-2020 Bilirubin, Urine Negative Normal Negative [facility] Comment on above: Performed By: #### U AWMIC #### [address] Clarity (U) Clear Normal Clear [facility] Comment on above: Performed By: #### U AWMIC #### [place] [phone] Color (U) Light Yellow Critically abnormal Yellow [facility] Comment on above: Performed By: #### U AWMIC #### [address] Comments SEE COMMENT Normal [facility] Comment on above: Result Comment: Micr oscopic Examination Performed Performed By: #### U AWMIC #### [place] [phone] Epithelial cells LM Ql (Urine sed) SEE COMMENT Critically abnormal Negative [facility] Comment on above: Result Comment: Rare Squamous Epithelial Cells Performed By: #### U AWMIC #### [place] [phone] Glucose Ql (U) Negative Normal Negative [facility] Comment on above: Performed By: #### U AWMIC #### [address] Hemoglobin/Blood,Ur Negative Normal Negative [facility] Comment on above: Performed By: #### U AWMIC #### [place] [phone] Ketones Ql (U) Negative Normal Negative [facility] Comment on above: Performed By: #### U AWMIC #### [place] [phone] Leukest Negative Normal Negative [facility] Comment on above: Performed By: #### U AWMIC #### [place] [phone] Mucus Ql (Urine sed) Present Normal [facility] Comment on above: Performed By: #### U AWMIC #### [place] [address] Nitrite Ql (U) Negative Normal Negative [facility] Comment on above: Performed By: #### U AWMIC #### [place] [address] pH (U) 6.0 [pH] Normal 5.0-8.0 [facility] Comment on above: Performed By: #### U AWMIC #### [place] [address] Protein, Urine Trace Critically abnormal Negative [facility] Comment on above: Performed By: #### U AWMIC #### [place] [address] RBC (U) [#/Vol] Negative Normal [facility] Comment on above: Performed By: #### U AWMIC #### [place] [address] Specific [place], Ur 1.030 Normal 1.005-1.030 [facility] Comment on above: Performed By: #### U AWMIC #### [place] [address] Urobilinogen (U) [Mass/Vol] Negative Normal [facility] Comment on above: Performed By: #### U AWMIC #### [place] [id number] WBC Rare Critically abnormal Negative [facility] Comment on above: Performed By: #### U AWMIC #### [place] [phone] XR CHEST 1V FRONTAL PORTon 0 11-15-2020 XR CHEST 1V FRONTAL PORT * * *Final Repo rt* * * DATE OF EXAM: Nov 15 2020 8:11AM FVX [id number] - XR CHEST 1V FRONTAL PORT / PROCEDURE REASON: Chest pain * * * * Physician Interpretation * * * * EXAMINATION: CHEST RADIOGRAPH (PORTABLE SINGLE VIEW AP) Exam Date/Time: 11/15/2020 8:11 AM CLINICAL HISTORY: Chest pain MQ: XCPR_5 Comparison: None RESULT: Lines, tubes, and devices: None. Lungs and pleura: No consolidation, pneumothorax or effusions. Cardiomediastinal silhouette: Within normal limits for portable AP examination. Other: . IMPRESSION: No acute cardiopulmonary process identified. 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 Basic Metabolic Panel w/ Ref ashish to MGOrdered By: Duane Stoddard on 10-26-2020 Anion gap [Moles/Vol] 10 mmol/L 9 - 17 mmol/L [employer] Phone: Calcium [Mass/Vol] 8.7 mg/dL 8.6 - 10. 4 mg/dL [employer] Phone: Chloride [Moles/Vol] 107 mmol/L 98 - 10 7 mmol/L [employer] Phone: CO2 [Moles/Vol] 23 mmol/L 20 - 31 mmol/L [employer] Phone: Creatinine [Mass/Vol] 0.81 mg/dL 0.50 - 0.90 mg/dL [employer] Phone: GFR >60 >60 mL/min [employer] Phone: GFR Non- >60 >60 mL/min [employer] Phone: Glucose [Mass/Vol] 111 mg/dL High 70 - 99 mg/dL [employer] Phone: Interpretation and review of laboratory results Abnormal [employer] Phone: Potassium [Moles/Vol] 3.9 mmol/L 3.7 - 5.3 mmol/L [facility] Phone: Sodium [Moles/Vol] 140 mmol/L 135 - 144 mmol/L [employer] Phone: Urea nitrogen (BldV) [Mass/Vol] 9 mg/dL 6 - 20 mg/dL [employer] Phone: Urea nitrogen/Creatinine (Bld) [Mass ratio] 11 [employer] Phone: [employer] Phone: CBC Auto DifferentialOrdered By: Duane Stoddard on 10-26-2020 Absolute Eos # 0.12 [facility] Work Phone: Absolute Immature Granulocyte <0.03 [facility] Work Phone: Absolute Lymph # 1.27 [employer] Work Phone: Absolute Dauphin # 0.49 [facility] [facility] Work Phone: Basophils (Bld) [#/Vol] 0.03 10*3/uL [employer] Phone: Basophils/100 WBC (Bld) 1 % 0 - 2 % [facility] Work Phone: Differential Type NOT REPORTED [facility] Phone: Eosinophils/100 WBC (Bld) 3 % 1 - 4 % [facility] Phone: Hematocrit (Bld) [Volume fraction] 42.4 % 36.3 - 47.1 % [facility] Phone: Hemoglobin.gastrointesti nal spec 1 Ql (Stl) 14.1 g/dL 11.9 - 15.1 g/dL [employer] Phone: Immature granulocytes/100 WBC (Bld) 0 % 0 [employer] Phone: Lymphocytes/100 WBC (Bld) 27 % 24 - 43 % [employer] Phone: MCH (RBC) [Entitic mass] 29.7 pg 25. 2 - 33.5 pg [employer] Phone: MCHC (RBC) [Mass/Vol] 33.3 g/dL 28.4 - 34.8 g/dL [employer] Phone: MCV (RBC) [Entitic vol] 89.3 fL 82.6 - 102.9 fL [employer] Phone: Monocytes/100 WBC (Bld) 10 % 3 - 12 % [facility] Phone: NRBC Automated 0.0 0.0 per 100 WBC [employer] Phone: Platelet distribution width (Bld) [Ratio] 12.0 % 11.8 - 14.4 % [employer] Phone: Platelet Estimate NOT REPORTED [employer] Phone: Platelet mean volume (Bld) [Entitic vol] 10.2 fL 8.1 - 13.5 fL [employer] Phone: Platelets (Bld) [#/Vol] 178 10*3/uL [employer] Phone: RBC (Bld) [#/Vol] 4.75 10*6/uL 3.95 - 5.1 1 m/uL [employer] Phone: RBC (Bld) [#/Vol] NOT REPORTED [facility] Phone: Segmented neutrophils/100 WBC (Bld) 59 % 36 - 65 % [employer] Phone: Segs Absolute 2.81 [employer] Work Phone: WBC (Bld) [#/Vol] 4.7 10*3/uL [employer] Phone: WBC (Bld) [#/Vol] NOT REPORTED [employer] Phone: [employer] Phone: HCG Qualitative, SerumOrdere d By: Duane Stoddard on 10-26-2020 hCG Qual Negative NEGATIVE [employer] Phone: Comment on above: Specimens with hCG l evels near the threshold of the test (25 mIU/mL) may give a negative or indeterminate result. In such cases, another test should be performed with a new specimen in 48-72 hours. If early is suspected clinically in this setting, correlation with quantitative serum b-hCG level is suggested. Ho[employer] has confirmed the use of plasma for this test. This has not been cleared or approved by the U.S. Food and Drug Administration. The FDA has determined that such clearance is not necessary. [employer] Phone: Laboratory - Chemistry and C hemistry - challengeOrdered By: Duane Stoddard on 10-26-2020 GFR/1.73 sq M.predicted MDRD (S/P/Bld) [Vol rate/Area] [employer] Phone: Comment on above: Average GFR for 30-3 9 years old: 107 mL/min/1.73sq m Chronic Kidney Disease: <60 mL/min/1.73sq m Kidney failure: <15 mL/min/1.73sq m eGFR calculated using average adult body mass. Additional eGFR calculator available at: http://www.[employer].Toutiao/multiple_crcl_2012.htm Stage 1: Some kidney damage normal GFR Stage 2: Mild kidney damage GFR 60-89 Stage 3: Moderate kidney damage GFR 30-59 Stage 4: Severe kidney damage GFR 15-29 Stage 5: Severe kidney damage GFR <15 ESRD - chronic treatment by dialysis or transplant Lactic AcidOrdered By: Alexis Stoddard on 10-26-2020 Lactate [Moles/Vol] 1.9 mmol/L 0.5 - 2. 2 mmol/L [employer] Phone: [employer] Work Phone: Microscopic UrinalysisOrdere d By: Duane Pierreiss on 10-26-2020 - [employer] Work Phone: Amorphous, UA NOT REPORTED None [facility] Work Phone: Bacteria, UA 1+ Abnormal None [employer] Work Phone: Casts UA NOT REPORTED /LPF [facility] Work Phone: Crystals, UA NOT REPORTED None /HPF [facility] Work Phone: Epithelial Cells UA 2 TO 5 [employer] Work Phone: Interpretation and review of laboratory results Abnormal [employer] Work Phone: Mucus, UA 3+ Abnormal None [employer] Phone: Other Observations UA NOT REPORTED NOT REQ. M [facility] [employer] Work Phone: RBC, UA None [employer] Work Phone: Renal Epithelial, UA NOT REPORTED 0 /HPF Me [facility] [employer] Work Phone: Trichomonas, UA NOT REPORTED None [facility] Work Phone: WBC, UA None [employer] Work Phone: Yeast, UA NOT REPORTED None [facility] Work Phone: [facility] Work Phone: Mononucleosis ScreenOrdered By: Duanekareen Stoddard on 10-26-2020 Mononucleosis Screen Negative NEGATIVE [employer] Phone: [employer] Work Phone: Strep Screen Group A ThroatO rdered By: Duanekareen Stoddard on 10-26-2020 S. pyogenes Ag IA Ql (Unsp spec) Rapid Strep A negative. A negative Rapid Group A Strep Screen result does not rule out the possibility of Group A Streptococci in the specimen. A Group A Strep DNA test is available upon request. [employer] Work Phone: Special Requests NOT REPORTED [facility] [employer] Work Phone: Specimen Description .THROAT [facility] Work Phone: [facility] [employer] Work Phone: Urinalysis Reflex to Culture Ordered By: Duane Stoddard on 10-26-2020 Bilirubin Urine Negative NEGATIVE [facility] Work Phone: Color, UA YELLOW YELLOW [facility] [employer] Work Phone: Glucose, Ur Negative NEGATIVE [facility] [employer] Work Phone: Ketones Ql (U) Negative NEGATIVE [facility] [employer] Work Phone: Leukocyte esterase Test strip Ql (U) Negative NEGATIVE [facility] [employer] Work Phone: Nitrite, Urine Negative NEGATIVE [facility] [employer] Work Phone: pH, UA 7.0 [facility] [employer] Work Phone: Protein, UA Negative NEGATIVE [facility] [employer] Work Phone: Specific [place], UA 1.020 [facility] Work Phone: Turbidity UA CLEAR CLEAR [facility] [employer] Work Phone: Urinalysis Comments NOT REPORTED [facility] [employer] Work Phone: Urine Hgb Negative NEGATIVE [facility] [employer] Work Phone: Urobilinogen, Urine Normal Normal [facility] [employer] Work Phone: [facility] [employer] Work Phone: ALTOrdered By: Stephanie Collins on 10-09-2020 ALT [Catalytic activity/Vol] 15 U/L 5 - 33 U/L [facility] Work Phone: ASTOrdered By: Stephanie Collins on 10-09-2020 AST [Catalytic activity/Vol] 16 U/L <32 [facility] Work Phone: Basic Metabolic PanelOrdered By: Stephanie Collins on 10-09-2020 Anion gap [Moles/Vol] 12 mmol/L 9 - 17 mmol/L [employer] Phone: Calcium [Mass/Vol] 8.7 mg/dL 8.6 - 10. 4 mg/dL [employer] Phone: Chloride [Moles/Vol] 105 mmol/L 98 - 10 7 mmol/L [employer] Phone: CO2 [Moles/Vol] 20 mmol/L 20 - 31 mmol/L [employer] Phone: Creatinine [Mass/Vol] 0.66 mg/dL 0.50 - 0.90 mg/dL [employer] Phone: GFR >60 >60 mL/min [employer] Phone: GFR Non- >60 >60 mL/min [employer] Phone: Glucose [Mass/Vol] 92 mg/dL 70 - 99 mg/dL [employer] Phone: Potassium [Moles/Vol] 4.2 mmol/L 3.7 - 5.3 mmol/L [employer] Phone: Sodium [Moles/Vol] 137 mmol/L 135 - 144 mmol/L [employer] Phone: Urea nitrogen (BldV) [Mass/Vol] 12 mg/dL 6 - 20 mg/dL [employer] Phone: Urea nitrogen/Creatinine (Bld) [Mass ratio] 18 [employer] Phone: CBCOrdered By: Stephanie Collins on 10-09-2020 Hematocrit (Bld) [Volume fraction] 41.8 % 36.3 - 47.1 % [employer] Phone: Hemoglobin.gastrointesti nal spec 1 Ql (Stl) 14.3 g/dL 11.9 - 15.1 g/dL [employer] Phone: Interpretation and review of laboratory results Abnormal [employer] Phone: MCH (RBC) [Entitic mass] 30.0 pg 25. 2 - 33.5 pg [employer] Phone: MCHC (RBC) [Mass/Vol] 34.2 g/dL 28.4 - 34.8 g/dL [employer] Phone: MCV (RBC) [Entitic vol] 87.8 fL 82.6 - 102.9 fL [employer] Phone: NRBC Automated 0.0 0.0 per 100 WBC [employer] Phone: Platelet distribution width (Bld) [Ratio] 11.7 % Low 11.8 - 14.4 % [employer] Phone: Platelet mean volume (Bld) [Entitic vol] 10.3 fL 8.1 - 13.5 fL [employer] Phone: Platelets (Bld) [#/Vol] 192 10*3/uL [employer] Phone: RBC (Bld) [#/Vol] 4.76 10*6/uL 3.95 - 5.1 1 m/uL [employer] Phone: WBC (Bld) [#/Vol] 7.3 10*3/uL [employer] Phone: [employer] Phone: Hemoglobin [id number] By: Alexander Iqbal on 10-09-2020 Glucose [Mass/Vol] 100 mg/dL [employer] Phone: Comment on above: The ADA and AACC rec ommend providing the estimated average glucose result to permit better patient understanding of their HBA1c result. HbA1c (Bld) [Mass fraction] 5.1 % 4.0 - 6.0 % [employer] Phone: [employer] Phone: Laboratory - Chemistry and C hemistry - challengeOrdered By: Stephanie Collins on 10-09-2020 GFR/1.73 sq M.predicted MDRD (S/P/Bld) [Vol rate/Area] [employer] Phone: Comment on above: Average GFR for 30-3 9 years old: 107 mL/min/1.73sq m Chronic Kidney Disease: <60 mL/min/1.73sq m Kidney failure: <15 mL/min/1.73sq m eGFR calculated using average adult body mass. Additional eGFR calculator available at: http://www.[employer]/multiple_crcl_2012.htm Stage 1: Some kidney damage normal GFR Stage 2: Mild kidney damage GFR 60-89 Stage 3: Moderate kidney damage GFR 30-59 Stage 4: Severe kidney damage GFR 15-29 Stage 5: Severe kidney damage GFR <15 ESRD - chronic treatment by dialysis or transplant Lipid PanelOrdered By: Tita Collins on 10-09-2020 Cholesterol [Mass/Vol] 174 mg/dL <200 [employer] Phone: Comment on above: Cholesterol Guidelines: <200 Desirable 200-240 Borderline >240 Undesirable Cholesterol in HDL [Mass/Vol] 63 mg/dL >40 [employer] Phone: Comment on above: HDL Guidelines: <40 Undesirable 40-59 Borderline >59 Desirable Cholesterol in LDL [Mass/Vol] 93 mg/dL 0 - 130 mg/dL [employer] Phone: Comment on above: LDL Guidelines: <100 Desirable 100-129 Near to/above Desirable 130-159 Borderline >159 Undesirable Direct (measured) LDL and calculated LDL are not interchangeable tests. Cholesterol in VLDL [Mass/Vol] NOT REPORTED 1 - 30 mg/dL [employer] Phone: Cholesterol.total/Choles terol in HDL [Mass ratio] 2.8 {ratio} <5 [employer] Phone: Triglyceride [Mass/Vol] 89 mg/dL <150 [employer] Phone: Comment on above: Triglyceride Guidelines: <150 Desirable 150-199 Borderline 200-499 High >499 Very high Based on AHA Guidelines for fasting triglyceride, December 2011. [employer] Phone: No Panel InformationOrdered By: Stephanie Collins on 10-09-2020 [employer] Phone: TSH with ReflexOrdered By: Krystin Iqbal on 10-09-2020 TSH Qn 1.49 m[IU]/L [employer] Phone: [employer] Phone: C Woundon 07-10-2020 C Wound ------- Final Very Scant Growth of Normal genital yadi isolated Normal [facility] Comment on above: Performed By: #### W DC #### [place] [id number] Infectious Disease Office/Cl inic Noteon 07-10-2020 Infectious Disease Office/Clinic Note Chief Complaint Pt states has an abscess in cindy area with history of MRSA. History of Present Illness Patient comes in follow-up of a left vulvar abscess that was lanced in emergency room 2 days ago. Currently on doxycycline.. Cultures came back negative. She still has pain and feels it is getting larger. She also had low-grade fever today. She has prior history of MRSA. Started after getting a bikini wax done. She has been ill with this for a week. Temperature is up to 101 before she came to the ER. Review of Systems Review system negative. Physical Exam Vitals & Measurements T: 37.7 ?C (Temporal Artery) HR: 88 (Peripheral) BP: 122/80 SpO2: 97 HT: 163 cm WT: 102.9 kg WT: 102.9 kg (Dosing) BMI: 38.73 Patient examined with WAREHOUSE DIRECTOR present. Vital signs are okay. No acute distress. Abdomen is soft. Left vulva with area of mild to moderate erythema. Incision has closed over. Some pustular lesions in this area and going up toward the left upper medial thigh, folliculitis less likely herpetic. Additional Vitals BP Position/Location: Sitting, Left arm Assessment/Plan 1. Vulvar abscess Continue doxycycline. Warm compresses. Referred her to metal building assembler for evaluation and see if any further intervention needed surgically. Recheck with me as needed. Medical Decision Making Chronic conditions NOT treated during this visit that affected my overall medical decision making: [] Treatment plans discussed but not opted for at this time: [] Prescribed medication that requires intensive monitoring for toxicity: [] I have reviewed the patient?s medication list for medication interactions/contrai ndications and/or for upcoming procedures: [yes or no] Time Spent with the Patient I have personally spent [] minutes on this date, directly related to today's patient visit, including pre and post visit work, for this date of service. Time listed does not include time spent on separately billable services. 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) Procedure/Surgical History Right Fallopian tube removed Tonsillectomy upper GI endoscopy (01/2008) colonoscopy (06/12/2013) Left hip debridement (03/07/2017) Right Foot Surgery I&D (11/25/2017) Medications doxycycline hyclate 100 mg oral capsule, 100 mg= 1 caps, Oral, BID Lexapro 10 mg oral tablet, 10 mg= 1 tabs, Oral, Daily omeprazole 20 mg oral delayed release capsule, 20 mg, Oral, BIDAC ondansetron 4 mg oral tablet, 4 mg= 1 tabs, Oral, q6hr, PRN, 1 refills prazosin 1 mg oral capsule, 1 mg= 1 caps, Oral, HS (at bedtime) Ultram 50 mg oral tablet, 50 mg= 1 tabs, Oral, q12hr, PRN Xanax 0.25 mg oral tablet, 0.25 mg= 1 tabs, Oral, HS (at bedtime) Allergies Vicodin (nausea) Social History Alcohol Current, Beer, Wine, Liquor, 1-2 times per month Substance Abuse Denies All Tobacco Never (less than 100 in lifetime) Use:. Family History Patient was adopted Diagnostic Results No qualifying data available (XRay) No qualifying data available (CT) No qualifying data available (Ultrasound) No qualifying data available (MRI) Electronically signed by Jorge A DAILEY, Joseph Styles 07/10/20 15:33 EDT Normal [facility] Provider Letteron 07-10-2020 Provider Letter Sav Buchanan MD [address] [place] [id number] Re: Venancio Moon Date of Visit: 07/10/[address] Buchanan, Thank you for your referral to my office. Attached you will find the most recent office visit note. Please call if you have any questions or concerns. Sincerely, Joseph Riojas MD [address] [place] [address], [address] [place] [address] The following document(s) were included in the letter: July 10, 2020 15:32:33 EDT - (07/10/2020) Office Visit Note Normal [facility] .eGFRon 07-08-2020 eGFR Non-AA >60 Normal >=60 [facility] Comment on above: Result Comment: Stag es of Chronic Kidney Disease GFR Stage 3a Mild to moderate loss of kidney function 59 to 45 Stage 3b Moderate to severe loss of kidney function 44 to 33 Stage 4 Severe loss of kidney function 29 to 15 Stage 5 Kidney failure Less than 15 GFR calculated using the CKD-EPI Creatinine Equation (2009): eGFR = 141 X min(SCr/?, 1)? X max(SCr /?, 1)-1.209 X 0.993Age X 1.018 [if female] X 1.159 [if Black] Abbreviations/Units: eGFR (estimated glomerular filtration rate) = mL/min/1.73 m2 SCr (standardized serum creatinine) = mg/dL ? = 0.7 (females) or 0.9 (males) ? = -0.329 (females) or -0.411 (males) min = indicates the minimum of SCr/? or 1 max = indicates the maximum of SCr/? or 1 age = years Performed By: #### E GFR #### [address] [address] eGFR AA >60 Normal >=60 [facility] Comment on above: Result Comment: See comment. Performed By: #### E GFR #### [address] [address] Basic Metabolic Profileon Creatinine [Mass/Vol] 0.78 mg/dL Normal 0.44-1.03 [facility] Comment on above: Performed By: #### C [id number] #### [address] [address] Urea nitrogen [Mass/Vol] 14 mg/dL Normal 8-26 [facility] Comment on above: Performed By: #### C [id number] #### [address] [address] Urea nitrogen/Creatinine [Mass ratio] 17.9 mg/mg Normal 10.0-20.0 [facility] Comment on above: Performed By: #### C [id number] #### [address] [address] Anion gap [Moles/Vol] 9 mmol/L Normal 7-17 [facility] Comment on above: Performed By: #### C [id number] #### [address] [address] Calcium [Mass/Vol] 8.2 mg/dL Low 8.5-10.3 [facility] Comment on above: Performed By: #### C [id number] #### [address] [address] Chloride [Moles/Vol] 108 mmol/L Normal 98-110 [facility] Comment on above: Performed By: #### C [id number] #### [address] [address] CO2 [Moles/Vol] 25 mmol/L Normal 22-32 [facility] Comment on above: Performed By: #### C [id number] #### [address] [address] Glucose [Mass/Vol] 104 mg/dL High 70-99 [facility] Comment on above: Performed By: #### C [id number] #### [address] [address] Potassium [Moles/Vol] 3.8 mmol/L Normal 3.4-4.8 [facility] Comment on above: Performed By: #### C [id number] #### [address] [address] Sodium [Moles/Vol] 138 mmol/L Normal 133-142 [facility] Comment on above: Performed By: #### C [id number] #### [address] [address] CBC w/ Diffon 07-08-2020 Erythrocyte distribution width (RBC) [Ratio] 12.5 % Normal 11.6-14.8 [facility] Comment on above: Performed By: #### C BC #### [address] [address] Hematocrit (Bld) [Volume fraction] 43.6 % Normal 36.0-46.0 [facility] Comment on above: Performed By: #### C BC #### [address] [address] Hemoglobin (Bld) [Mass/Vol] 15.0 g/dL Normal 12.0-16.0 [facility] Comment on above: Performed By: #### C BC #### [address] [address] MCH (RBC) [Entitic mass] 30.5 pg Normal 27.0-35.0 [facility] Comment on above: Performed By: #### C BC #### [address] [address] MCHC 34.4 % Normal 31.0-37.0 [facility] Comment on above: Performed By: #### C BC #### [address] [address] MCV (RBC) [Entitic vol] 88.5 fL Normal 80.0-100.0 [facility] Comment on above: Performed By: #### C BC #### [address] [address] Platelet 176 x10*3/mcL Normal 150-350 [facility] Comment on above: Performed By: #### C BC #### [address] [address] Platelet mean volume (Bld) [Entitic vol] 8.6 fL Normal 6.7-10.6 [facility] Comment on above: Performed By: #### C BC #### [address] [address] RBC 4.93 x10*6/mcL Normal 3.80-5.20 [facility] Comment on above: Performed By: #### C BC #### [address] [address] WBC 11.0 x10*3/mcL Normal 4.5-11.0 [facility] Comment on above: Performed By: #### C BC #### [address] [address] Diff Autoon 07-08-2020 Baso Absolute 0.1 x10*3/mcL Normal 0.0-0.2 [facility] Comment on above: Performed By: #### . Automated Diff #### [address] [address] Basophils/100 WBC (Bld) 0.6 % Normal 0.0-1.5 [facility] Comment on above: Performed By: #### . Automated Diff #### [address] [address] Eos Absolute 0.0 x10*3/mcL Normal 0.0-0.4 [facility] Comment on above: Performed By: #### . Automated Diff #### [address] [address] Eosinophils/100 WBC (Bld) 0.3 % Normal 0.0-5.4 [facility] Comment on above: Performed By: #### . Automated Diff #### [address] [address] Lymph Absolute 2.4 x10*3/mcL Normal 1.0-4.8 [facility] Comment on above: Performed By: #### . Automated Diff #### [address] [address] Lymphocytes/100 WBC (Bld) 22.2 % Low 27.2-40.8 [facility] Comment on above: Performed By: #### . Automated Diff #### [address] [address] [place] Absolute 0.5 x10*3/mcL Normal 0.1-1.1 [facility] Comment on above: Performed By: #### . Automated Diff #### [address] [address] Monocytes/100 WBC (Bld) 5.0 % Normal 3.7-11.9 [facility] Comment on above: Performed By: #### . Automated Diff #### [address] [address] Neutro Absolute 7.9 x10*3/mcL High 1.8-7.7 [facility] Comment on above: Performed By: #### . Automated Diff #### [address] [address] Neutro Auto 71.9 % High 47.2-70.8 [facility] Comment on above: Performed By: #### . Automated Diff #### [address] [address] ED Clinical Summaryon 2020 ED Clinical Summary [facility] [address] [place] [address] ED Clinical Summary Person Information Name: Venancio Moon/[facility]_Neeraj Age: 34 Years : 1985 Sex: Female PCP: Sav Buchanan MD Marital Status: Single Race: White Ethnicity: Not or Language: Namibian Visit Reason: Abscess - perineal or perirectal; Abscess Acuity: 3 Enc Type: Emergency Med Service: Emergency Medicine Arrival: 07/08/2020 14:49:30 Discharge: 07/08/2020 17:47:00 LOS: 000 02:58 Checkin: 07/08/2020 14:49:30 Checkout: 07/08/2020 17:47:00 Dispo Type: Home or Self Care Address: [address] [place], [place] [id number] Provider Notes: Diagnosis: 1:Left genital labial abscess Problems No Problems Documented Smoking Status: Smoking Status Never (less than 100 in lifetime) Functional Status: Sensory Deficits: History of Falls: Mobility Assistance Prior to Admission: ADLs: Current Level of Assistance for Self-Care/Mobility: Cognitive Status: Allergies Vicodin (nausea) Laboratory or Other Results This Visit (last charted value for your 07/08/2020 visit) Hematology 07/08/2020 4:13 PM WBC: 11.0 x10 RBC: 4.93 x10 Neutro Auto: 71.9 % -- Normal range between ( 47.2 and 70.8 ) Lymph Auto: 22.2 % -- Normal range between ( 27.2 and 40.8 ) [place] Auto: 5.0 % -- Normal range between ( 3.7 and 11.9 ) Eos Auto: 0.3 % -- Normal range between ( 0.0 and 5.4 ) Basophil Auto: 0.6 % -- Normal range between ( 0.0 and 1.5 ) Baso Absolute: 0.1 x10 MCV: 88.5 fL -- Normal range between ( 80.0 and 100.0 ) MCHC: 34.4 % -- Normal range between ( 31.0 and 37.0 ) Lymph Absolute: 2.4 x10 Hct: 43.6 % -- Normal range between ( 36.0 and 46.0 ) [place] Absolute: 0.5 x10 MCH: 30.5 pg -- Normal range between ( 27.0 and 35.0 ) Neutro Absolute: 7.9 x10 Hgb: 15.0 g/dL -- Normal range between ( 12.0 and 16.0 ) Mean Platelet Volume: 8.6 fL -- Normal range between ( 6.7 and 10.6 ) Platelet: 176 x10 Eos Absolute: 0.0 x10 RDW: 12.5 % -- Normal range between ( 11.6 and 14.8 ) Chemistry 07/08/2020 4:13 PM Creatinine Lvl: 0.78 mg/dL -- Normal range between ( 0.44 and 1.03 ) BUN: 14 mg/dL -- Normal range between ( 8 and 26 ) Glucose Lvl: 104 mg/dL -- Normal range between ( 70 and 99 ) Potassium Lvl: 3.8 mmol/L -- Normal range between ( 3.4 and 4.8 ) Sodium Lvl: 138 mmol/L -- Normal range between ( 133 and 142 ) Calcium Lvl: 8.2 mg/dL -- Normal range between ( 8.5 and 10.3 ) Chloride: 108 mmol/L -- Normal range between ( 98 and 110 ) CO2: 25 mmol/L -- Normal range between ( 22 and 32 ) Anion Gap: 9 -- Normal range between ( 7 and 17 ) Lactic Acid Lvl: 1.1 mmol/L -- Normal range between ( 0.5 and 2.0 ) eGFR Non-AA: >60 mL/min/1.73m? eGFR AA: >60 mL/min/1.73m? BUN Crea Ratio: 17.9 -- Normal range between ( 10.0 and 20.0 ) Measurements: Height: Weight: 101.5 kg Blood Pressure: /80 mmHg BMI: Procedures No Procedures Documented Immunizations No Immunizations Documented This Visit Final Med List: New Medications [id number], [address] [place], [place] [id number], [phone] doxycycline (doxycycline hyclate 100 mg oral capsule) 1 Capsules Oral (given by mouth) 2 times a day for 10 Days. Refills: 0. Last Dose: Printed Prescriptions traMADol (Ultram 50 mg oral tablet) 1 Tabs Oral (given by mouth) every 12 hours as needed as needed for pain for 3 Days. Refills: 0. Last Dose: Medications that have not changed Other Medications ALPRAZolam (Xanax 0.25 mg oral tablet) 1 Tabs Oral (given by mouth) once a day (at bedtime). Last Dose: escitalopram (Lexapro 10 mg oral tablet) 1 Tabs Oral (given by mouth) every day. Last Dose: omeprazole (omeprazole 20 mg oral delayed release capsule) 20 Milligram Oral (given by mouth) twice a day (before meals) for 30 Days. Refills: 0. Last Dose: ondansetron (ondansetron 4 mg oral tablet) 1 Tabs Oral (given by mouth) every 6 hours as needed as needed for nausea/vomiting. Refills: 1. Last Dose: prazosin (prazosin 1 mg oral capsule) 1 Capsules Oral (given by mouth) once a day (at bedtime). Last Dose: [facility][id number], [address] [place], [place] [id number], [phone] doxycycline (doxycycline hyclate 100 mg oral capsule) 1 Capsules Oral (given by mouth) 2 times a day for 10 Days. Refills: 0. Printed Prescriptions traMADol (Ultram 50 mg oral tablet) 1 Tabs Oral (given by mouth) every 12 hours as needed as needed for pain for 3 Days. Refills: 0. Other Medications ALPRAZolam (Xanax 0.25 mg oral tablet) 1 Tabs Oral (given by mouth) once a day (at bedtime). escitalopram (Lexapro 10 mg oral tablet) 1 Tabs Oral (given by mouth) every day. omeprazole (omeprazole 20 mg oral delayed release (more content not included)... Normal [facility] ED Note-Physicianon 07-09-19 ED Note-Physician Chief Complaint Perineal abscess, started a week ago as a small pimple. It is now half dollar sized and red/hard/swollen. History of Present Illness Patient is a 34 year old female who presents to the ED for evaluation of perineal abscess. Patient states that she got a bikini wax and then the next day noticed a pimple. The abscess has gotten bigger with increasing pain. She states that it is red, hard, and warm. She rates the pain an 8/10 and radiates up to her groin. She states that she has noticed a head but no drainage. Patient has tried warm compresses with no change. She took ibuprofen about 30 minutes ago. Patient complains of fevers up to 101.2 last night and nausea. Patient had MRSA on her hip 2 years ago and had it on her foot prior to that. She had to be admitted both times and was treated with Vancomycin. She has seen Dr. Riojas in the past. Patient is not on any regular medications. She has no history of diabetes. No other complaints at this time. Review of Systems GENERAL: [Positive for fevers. Negative for weakness, malaise] EYES: [Negative for injury, pain, redness, discharge] ENT: [Negative for injury, pain , sore throat and discharge] NECK: [Negative for injury, pain, swelling, and stiffness] CARDIOVASCULAR: [Negative for chest pain, palpitations] RESPIRATORY: [Negative for shortness of breath, cough, wheezing, and pleuritic chest pain] ABDOMEN/GI: [Positive for nausea. Negative for pain, vomiting] BACK: [Negative for injury or bruising] : [Positive for perineal abscess, Negative for injury, bleeding, discharge, frequency, hematuria, urgency] MUSCULOSKELETAL: [Negative for arthralgias, injury and deformity] SKIN: [Negative for injury, rash, discoloration] NEURO: [Negative for focal weakness, numbness, tingling, and seizure] Physical Exam CONSTITUTIONAL: [no apparent distress, well appearing] SKIN: [warm, dry, no jaundice, hives or petechiae] EYES: [pupils are equally round, extraocular movements intact without nystagmus, clear conjunctiva, non-icteric sclera] HENT: [normocephalic, atraumatic, moist mucus membranes, oropharynx clear without exudates] NECK: [Nontender and supple with no nuchal rigidity, no lymphadenopathy, full range of motion] PULMONARY: [clear to auscultation without wheezes, rhonchi, or rales, normal excursion, no accessory muscle use and no stridor] CARDIOVASCULAR: [regular rate, rhythm, normal S1 and S2. No appreciated murmurs. Strong radial pulses with intact distal perfusion] GASTROINTESTINAL: [soft, non-tender, non-distended, no palpable masses, no rebound or guarding] GENITOURINARY: [1cm abscess, tenderness to palpation, with no surrounding redness] LYMPHATICS: [no edema in lower extremities, no lymphadenopathy] MUSCULOSKELETAL: [Extremities are nontender to palpation and have no gross deformity, no edema, redness, or swelling] NEUROLOGIC: [alert, normal mentation and speech. Moves all extremities x 4 without motor or sensory deficit] PSYCHIATRIC: [normal mood and affect, thought process is clear and linear] Vitals & Measurements T: 36.7 ?C (Oral) HR: 78 (Peripheral) RR: 18 BP: 119/80 SpO2: 95% HT: 162.2 cm WT: 101.5 kg (Dosing) Additional Vitals No qualifying data available. Procedure No qualifying data available. ASA Documentation Incision and Drainage Procedure Note Abscess Location: [lt labia___] Anesthesia: [__1% plain lidocaine 5 ml_] Drainage amount/type: [_minimal white__] Wound care (packing/type): [_03/10 in iodoform__] Specimens Removed: Fluid sent to lab and sent for evaluation After verbal consent by myself with risks that include nerve, vessel or injury to underlying structures. The area was prepared in sterile fashion. The affected location was anesthesized with local anesthesia in a field block manner and the abscess was incised using an 11-blade scalpel. Loculations were broken up using blunt dissection and cavity irrigated with normal saline. The patient tolerated the procedure well and there were no apparent complications. A sterile dressing was applied. Medical Decision Making Rayne Gr scribing for and in the presence of Dr. Melo. Scribe Attestation: The information in this document, created by the clinical laboratory medical director for me, accurately reflects the services I personally performed and the decisions made by me. Discussed with Dr. Riojas. Reexamination/Reeval uation unchanged Assessment/Plan 1. Left genital labial abscess Plan: follow up with Dr. Riojas within a few days, return for any change or concerns. Ordered: doxycycline, 1 caps, Oral, BID, X 10 days, # 20 caps, 0 Refill(s), 07/18/20 17:13:00 EDT, Pharmacy: [facility]/pharmacy #[id number] traMADol, 1 tabs, Oral, q12hr, PRN, X 3 days, # 7 tabs, 0 Refill(s), 07/11/20 17:13:00 EDT Orders: Culture Wound Discharge Patient Refresh vitals and sections below: Problem List/Past Medical History Ongoing Asthma Chronic GERD Depression Migraine Panic disorder Vasodepressor syncope (more content not included)... Normal [facility] Lactic Acid, Randomon 2020 Lactic Acid Lvl 1.1 mmol/L Normal 0.5-2.0 [facility] Comment on above: Performed By: #### L A #### [address] [address] Basic Metabolic PanelOrdered By: Raudel Carranza on 06-24-2020 Anion gap [Moles/Vol] 10 mmol/L 9 - 17 mmol/L [employer] Phone: Calcium [Mass/Vol] 9.1 mg/dL 8.6 - 10. 4 mg/dL [employer] Phone: Chloride [Moles/Vol] 104 mmol/L 98 - 10 7 mmol/L [employer] Phone: CO2 [Moles/Vol] 26 mmol/L 20 - 31 mmol/L [employer] Phone: Creatinine [Mass/Vol] 0.81 mg/dL 0.50 - 0.90 mg/dL [employer] Phone: GFR >60 >60 mL/min [employer] Work Phone: GFR Non- >60 >60 mL/min [facility] [employer] Phone: Glucose [Mass/Vol] 129 mg/dL High 70 - 99 mg/dL [facility] Phone: Interpretation and review of laboratory results Abnormal [facility] [employer] Phone: Potassium [Moles/Vol] 3.5 mmol/L Low 3.7 - 5.3 mmol/L [facility] Work Phone: Sodium [Moles/Vol] 140 mmol/L 135 - 144 mmol/L [facility] Phone: Urea nitrogen (BldV) [Mass/Vol] 13 mg/dL 6 - 20 mg/dL [facility] Phone: Urea nitrogen/Creatinine (Bld) [Mass ratio] 16 [facility] Work Phone: CBC Auto DifferentialOrdered By: Raudel Carranza on 06-24-2020 Absolute Eos # 0.04 [facility] Work Phone: Absolute Immature Granulocyte <0.03 [facility] [employer] Work Phone: Absolute Lymph # 2.10 [facility] Work Phone: Absolute [place] # 0.46 [facility] Work Phone: Basophils (Bld) [#/Vol] 0.03 10*3/uL [facility] Work Phone: Basophils/100 WBC (Bld) 0 % 0 - 2 % [facility] [employer] Work Phone: Differential Type NOT REPORTED [facility] [employer] Phone: Eosinophils/100 WBC (Bld) 1 % 1 - 4 % [facility] Work Phone: Hematocrit (Bld) [Volume fraction] 42.0 % 36.3 - 47.1 % [employer] Phone: Hemoglobin.gastrointesti nal spec 1 Ql (Stl) 14.3 g/dL 11.9 - 15.1 g/dL [employer] Phone: Immature granulocytes/100 WBC (Bld) 0 % 0 [employer] Phone: Lymphocytes/100 WBC (Bld) 29 % 24 - 43 % [employer] Phone: MCH (RBC) [Entitic mass] 29.5 pg 25. 2 - 33.5 pg [employer] Phone: MCHC (RBC) [Mass/Vol] 34.0 g/dL 28.4 - 34.8 g/dL [employer] Phone: MCV (RBC) [Entitic vol] 86.6 fL 82.6 - 102.9 fL [employer] Phone: Monocytes/100 WBC (Bld) 6 % 3 - 12 % [employer] Phone: NRBC Automated 0.0 0.0 per 100 WBC [employer] Phone: Platelet distribution width (Bld) [Ratio] 11.8 % 11.8 - 14.4 % [employer] Phone: Platelet Estimate NOT REPORTED [employer] Phone: Platelet mean volume (Bld) [Entitic vol] 10.4 fL 8.1 - 13.5 fL [employer] Phone: Platelets (Bld) [#/Vol] 197 10*3/uL [employer] Phone: RBC (Bld) [#/Vol] 4.85 10*6/uL 3.95 - 5.1 1 m/uL [employer] Phone: RBC (Bld) [#/Vol] NOT REPORTED [employer] Phone: Segmented neutrophils/100 WBC (Bld) 64 % 36 - 65 % [employer] Phone: Segs Absolute 4.71 [employer] Work Phone: WBC (Bld) [#/Vol] 7.4 10*3/uL [employer] Phone: WBC (Bld) [#/Vol] NOT REPORTED [employer] Phone: Laboratory - Chemistry and C hemistry - challengeOrdered By: Raudel Carranza on 06-24-2020 GFR/1.73 sq M.predicted MDRD (S/P/Bld) [Vol rate/Area] [employer] Phone: Comment on above: Average GFR for 30-3 9 years old: 107 mL/min/1.73sq m Chronic Kidney Disease: <60 mL/min/1.73sq m Kidney failure: <15 mL/min/1.73sq m eGFR calculated using average adult body mass. Additional eGFR calculator available at: http://www.[employer]/multiple_crcl_2012.htm Stage 1: Some kidney damage normal GFR Stage 2: Mild kidney damage GFR 60-89 Stage 3: Moderate kidney damage GFR 30-59 Stage 4: Severe kidney damage GFR 15-29 Stage 5: Severe kidney damage GFR <15 ESRD - chronic treatment by dialysis or transplant CA 125on 05-23-2020 CA 125 19 U/mL <38 [employer] Phone: CEAon 05-22-2020 CEA 0.9 ng/mL <3.9 [employer] Phone: Comment on above: The Sea ECLIA as say is used. Results obtained with different assay methods cannot be used interchangeably. US NON OB TRANSVAGINALon Normal sonographic appearance of the uterus. Normal Doppler flow to both ovaries. 0.9 cm hypoechoic region in the right ovary is favored to represent an involuting hemorrhagic follicle which can be confirmed with short interval follow-up evaluation in 6-12 weeks in the setting of a familial history of ovarian carcinoma. [employer] Phone: EXAMINATION: PELVIC ULTRASOUND 05/21/2020 TECHNIQUE: Transvaginal pelvic ultrasound was performed. Color Doppler evaluation was performed. COMPARISON: CT 09/06/2018 HISTORY: ORDERING SYSTEM PROVIDED HISTORY: Pelvic pain TECHNOLOGIST PROVIDED HISTORY: This procedure can be scheduled via [employer]. Access your [employer] account by visiting [email or web address]. pelvic pain FINDINGS: Measurements: Uterus: 8.2 x 4.7 x 4.3 cm Endometrial stripe: 0.9 cm Right Ovary: 3.0 x 2.1 x 1.7 cm Left Ovary: 3.3 x 1.5 x 3.1 cm Ultrasound Findings: Uterus: Uterus demonstrates normal myometrial echotexture. Nabothian cyst present. Endometrial stripe: Endometrial stripe is within normal limits. Right Ovary: Network Administrator measured a 0.9 cm hypoechoic region in the right ovary which otherwise appears unremarkable. There is normal arterial and venous doppler flow. Left Ovary: Left ovary is within normal limits. There is normal arterial and venous doppler flow. Free Fluid: No evidence of free fluid. [employer] Phone: Cain, [facility] Incoming Radiant Results From [employer] - 05/21/2020 7:56 PM EDT EXAMINATION: PELVIC ULTRASOUND 05/21/2020 TECHNIQUE: Transvaginal pelvic ultrasound was performed. Color Doppler evaluation was performed. COMPARISON: CT 09/06/2018 HISTORY: ORDERING SYSTEM PROVIDED HISTORY: Pelvic pain TECHNOLOGIST PROVIDED HISTORY: This procedure can be scheduled via [employer]. Access your [employer] account by visiting [email or web address]. pelvic pain FINDINGS: Measurements: Uterus: 8.2 x 4.7 x 4.3 cm Endometrial stripe: 0.9 cm Right Ovary: 3.0 x 2.1 x 1.7 cm Left Ovary: 3.3 x 1.5 x 3.1 cm Ultrasound Findings: Uterus: Uterus demonstrates normal myometrial echotexture. Nabothian cyst present. Endometrial stripe: Endometrial stripe is within normal limits. Right Ovary: Network Administrator measured a 0.9 cm hypoechoic region in the right ovary which otherwise appears unremarkable. There is normal arterial and venous doppler flow. Left Ovary: Left ovary is within normal limits. There is normal arterial and venous doppler flow. Free Fluid: No evidence of free fluid. IMPRESSION: Normal sonographic appearance of the uterus. Normal Doppler flow to both ovaries. 0.9 cm hypoechoic region in the right ovary is favored to represent an involuting hemorrhagic follicle which can be confirmed with short interval follow-up evaluation in 6-12 weeks in the setting of a familial history of ovarian carcinoma. [employer] Phone: BASIC METABOLIC PANELon 12- Calcium [Mass/Vol] 8.8 mg/dL Normal 8.6-10.3 [facility] Comment on above: Performed By: #### 0 0071, [id number] #### [facility] [address] [place] [address], [place] Chloride [Moles/Vol] 104 mmol/L Normal 98-107 [facility] Comment on above: Performed By: #### 0 0071, [id number] #### [facility] [address] [place] [address], [place] CO2 [Moles/Vol] 28 mmol/L Normal 21-31 [facility] Comment on above: Performed By: #### 0 0071, [id number] #### [facility] [address] [place] [address], [place] Creatinine [Mass/Vol] 0.89 mg/dL Normal 0.60-1.20 [facility] Comment on above: Performed By: #### 0 0071, [id number] #### [facility] [address] [place] [address], [place] GFR/1.73 sq M predicted among blacks MDRD (S/P/Bld) [Vol rate/Area] mL/min/{1.73_m2} Normal >60 [facility] Comment on above: Performed By: #### 0 0071, [id number] #### [facility] [address] [place] [address], [place] GFR/1.73 sq M predicted among non-blacks MDRD (S/P/Bld) [Vol rate/Area] mL/min/{1.73_m2} Normal >60 [facility] Comment on above: Performed By: #### 0 007, [id number] #### [facility] [address] [place] [address], [facility] Glucose [Mass/Vol] 81 mg/dL Normal 70-100 The [facility] Comment on above: Performed By: #### 0 0071, 82038 #### [facility] [address] [facility] [place] [address], [facility] Potassium [Moles/Vol] 3.7 mmol/L Normal 3.5-5.1 [facility] Comment on above: Performed By: #### 0 007, 67429 #### [facility] [address] [facility] [place] [address], [facility] Sodium [Moles/Vol] 137 mmol/L Normal 136-145 [facility] Comment on above: Performed By: #### 0 70, [id number] #### [facility] [address] [facility] [place] [place] [address], [facility] Urea nitrogen [Mass/Vol] 15 mg/dL Normal 7-25 [facility] Comment on above: Performed By: #### 0 70, [id number] #### [facility] [address] [facility] [place] [place] [address], [facility] CBC W/DIFFon 02-14-2020 ABS BASOPHILS 0.0 10*3/uL Normal 0.0-0.2 The [facility] Comment on above: Performed By: #### 5 0103 #### [facility] [address] [facility] [place] [place] [address], [facility] ABS IMM GRANS 0.0 10*3/uL Normal 0.0-0.2 [facility] Comment on above: Performed By: #### 5 0103 #### [facility] [address] [facility] [place] [place] [address], [facility] ABS NEUTROPHILS 4.3 10*3/uL Normal 1.6-7.6 [facility] Comment on above: Performed By: #### 5 0103 #### [facility] [address] [place] [id number], [facility] Basophils/100 WBC (Bld) 0.6 % Normal 0.0-1.0 [facility] Comment on above: Performed By: #### 5 0103 #### [facility] [address] [place] [address], [facility] Eosinophils (Bld) [#/Vol] 0.0 10*3/uL Normal 0.0-0.5 [facility] Comment on above: Performed By: #### 5 0103 #### [facility] [address] [place] [address], [facility] Eosinophils/100 WBC (Bld) 0.6 % Normal 0.0-6.0 [facility] Comment on above: Performed By: #### 5 0103 #### [facility] [address] [facility] [address] Erythrocyte distribution width (RBC) [Ratio] 11.8 % Normal 11.5-15.0 [facility] Comment on above: Performed By: #### 5 0103 #### [facility] [address] [place] [address], [facility] Hematocrit (Bld) [Volume fraction] 40.2 % Normal 36.0-45.0 [facility] Comment on above: Performed By: #### 5 0103 #### [facility] [address] [place] [address], [facility] Hemoglobin (Bld) [Mass/Vol] 14.0 g/dL Normal 12.0-15.0 [facility] Comment on above: Performed By: #### 5 0103 #### [facility] [address] IMMATURE GRANS 0.1 % Normal 0.0-1.0 The [facility] Comment on above: Performed By: #### 5 0103 #### [facility] [address] Lymphocytes (Bld) [#/Vol] 2.0 10*3/uL Normal 1.2-4.0 The [facility] Comment on above: Performed By: #### 5 0103 #### [facility] [address] Lymphocytes/100 WBC (Bld) 29.0 % Normal 20.0-45.0 [facility] Comment on above: Performed By: #### 5 3 #### [facility] [address] MCH (RBC) [Entitic mass] 29.7 pg Normal 27.0-33.0 [facility] Comment on above: Performed By: #### 5 0103 #### [facility] [address] MCHC (RBC) [Mass/Vol] 34.8 g/dL Normal 32.0-35.0 [facility] Comment on above: Performed By: #### 5 3 #### [facility] [address] [place] [address], [facility] MCV (RBC) [Entitic vol] 85.4 fL Normal 82.0-98.0 T he [facility] Comment on above: Performed By: #### 5 0103 #### [facility] [address] [place] [address], [facility] Monocytes (Bld) [#/Vol] 0.5 10*3/uL Normal 0.1-1.0 [facility] Comment on above: Performed By: #### 5 3 #### [facility] [address] [place] [address], [facility] MONOS 6.6 % Normal 5.0-12.0 [facility] Comment on above: Performed By: #### 5 0103 #### [facility] [address] [place] [address], [facility] Neutrophils/100 WBC (Bld) 63.1 % Normal 40.0-72.0 [facility] Comment on above: Performed By: #### 5 0103 #### [facility] [address] [place] [address], [facility] Nucleated RBC/100 WBC (Bld) [Ratio] 0 % Normal 0-0 [facility] Comment on above: Performed By: #### 5 0103 #### [facility] [address] [place] [address], [facility] PLAT CNT 176 10*3/uL Normal 150-[address] [facility] Comment on above: Performed By: #### 5 0103 #### [facility] [address] [place] [address], [facility] RBC (Bld) [#/Vol] 4.71 10*6/uL Normal 3.80-5.00 The [facility] Comment on above: Performed By: #### 5 0103 #### [facility] [address] [place] [address], [facility] WBC (Bld) [#/Vol] 6.79 10*3/uL Normal 4.00-10.60 The [facility] Comment on above: Performed By: #### 5 0103 #### [facility] [address] PORTABLE CHEST 1 VIEWon 02-04 PORTABLE CHEST 1 VIEW [facility] Department of Radiology [address] [place] [id number] Patient Name: VENANCIO MOON : 1985 Sex: F Age: Race: White Pt. Location: [facility] Patient Status: E Ordered Date: 02/14/2020 8:00:00 AM Completed Date: 02/14/2020 08:36 AM Requesting Provider: HARDY ROLLE Attending Provider: HARDY ROLLE Report Copy To: Signs & Symptoms: Chest Pain History: See Comments Comments: R/O Cardiomegaly Exam: PORTABLE CHEST 1 VIEW PORTABLE CHEST 1 VIEW 02/14/2020 8:36 AM CLINICAL INDICATIONS: Chest Pain TECHNOLOGIST COMMENTS: CHEST PAIN SOB QUESTION FOR THE RADIOLOGIST: R/O Cardiomegaly PROTOCOL: AP(PA) view was obtained. COMPARISON: No prior FINDINGS: Mediastinum unremarkable hilar regions normal heart normal size lungs clear bilaterally IMPRESSION: Normal chest Electronically signed: Ofelia Rene. Transcribed by: [email or web address], User Resident: Electronically Signed by: OFELIA RENE @ 02/14/2020 08:43 AM Normal [facility] Comment on above: Order Comment: R/O C ardiomegaly TROPONIN-Ion 02-14-2020 Troponin I.cardiac [Mass/Vol] 0.00 ng/mL Normal 0.00-0.04 [facility] Comment on above: Result Comment: REFE RENCE RANGES: 0.00 - 0.14 ng/ml NEGATIVE 0.15 - 0.25 ng/ml INDETERMINATE > 0.25 ng/ml INDICATIVE OF AN M.I. Performed By: #### 0 0071, 11137 #### [facility] [address] [place], [place] [address] Otheron 12-13-2019 Unremarkable single portable AP view of the chest. [place], [place] EXAMINATION: ONE XRAY VIEW OF THE CHEST 12/13/2019 5:42 am COMPARISON: Chest two views May 17, 2018 HISTORY: ORDERING SYSTEM PROVIDED HISTORY: cough, dyspnea TECHNOLOGIST PROVIDED HISTORY: cough, dyspnea FINDINGS: The heart is normal in size and configuration. The mediastinal contours are within normal limits. The lungs are well aerated. The pleural surfaces are normal and no evidence of a pleural effusion is seen. Bones and soft tissues are unremarkable. [place], [place] Cain, [facility] Incoming Radiant Results From [employer] - 12/13/2019 6:19 AM EDT EXAMINATION: ONE XRAY VIEW OF THE CHEST 12/13/2019 5:42 am COMPARISON: Chest two views May 17, 2018 HISTORY: ORDERING SYSTEM PROVIDED HISTORY: cough, dyspnea TECHNOLOGIST PROVIDED HISTORY: cough, dyspnea FINDINGS: The heart is normal in size and configuration. The mediastinal contours are within normal limits. The lungs are well aerated. The pleural surfaces are normal and no evidence of a pleural effusion is seen. Bones and soft tissues are unremarkable. IMPRESSION: Unremarkable single portable AP view of the chest. [place], [place] CBC with Diffon 03-14-2019 Abs. Basophil 0.00 k/uL Normal 0.0-0.[address] [facility] Comment on above: Performed By: #### C DP, CMPX, LIPR, TSH #### [facility] [address] [facility] [place] [address] Spice Blender: Tito Lynch DO #### GLYHGB #### [facility] [address] [place] [address] Spice Blender: Clemente Vega MD Abs.Neutrophil (Seg) 2.90 k/uL Normal 1.3-9.1 [facility] Comment on above: Performed By: #### C DP, CMPX, LIPR, TSH #### [facility] [address] [place] [address] Spice Blender: Tito Lynch DO #### GLYHGB #### [address] [address] Spice Blender: Clemente Vega MD Basophils/100 WBC (Bld) 1 % Normal 0-2 M [facility] Comment on above: Performed By: #### C DP, CMPX, LIPR, TSH #### [facility] [address] [place] [address] Spice Blender: Tito Lynch DO #### GLYHGB #### [address] [address] Spice Blender: Clemente Vega MD Eosinophils (Bld) [#/Vol] 0.00 10*3/uL Normal 0.0-0.[address] [facility] Comment on above: Performed By: #### C DP, CMPX, LIPR, TSH #### [facility] [address] [place] [address] Spice Blender: Tito Lynch DO #### GLYHGB #### [address] [address] Spice Blender: Clemente Vega MD Eosinophils/100 WBC (Bld) 1 % Normal 0-[address] [facility] Comment on above: Performed By: #### C DP, CMPX, LIPR, TSH #### [facility] [address] [place] [address] Spice Blender: Tito Lynch DO #### GLYHGB #### [address] [address] Spice Blender: Clemente Vega MD Erythrocyte distribution width (RBC) [Ratio] 12.6 % Normal 11.5-14.[address] [facility] Comment on above: Performed By: #### C DP, CMPX, LIPR, TSH #### [facility] [address] [place] [address] Spice Blender: Tito Lynch DO #### GLYHGB #### [address] [address] Spice Blender: Clemente Vega MD Hematocrit (Bld) [Volume fraction] 41.0 % Normal 36-[address] [facility] Comment on above: Performed By: #### C DP, CMPX, LIPR, TSH #### [facility] [address] [place] [address] Spice Blender: Tito Lynch DO #### GLYHGB #### [address] [address] Spice Blender: Clemente Vega MD Hemoglobin (Bld) [Mass/Vol] 14.0 g/dL Normal 12.0-16.[address] [facility] Comment on above: Performed By: #### C DP, CMPX, LIPR, TSH #### [facility] [address] [place] [address] Spice Blender: Tito Lynch DO #### GLYHGB #### [address] [address] Spice Blender: Clemente Vega MD Lymphocytes (Bld) [#/Vol] 2.30 10*3/uL Normal 1.0-4.[address] [facility] Comment on above: Performed By: #### C DP, CMPX, LIPR, TSH #### [facility] [address] [place] [address] Spice Blender: Tito Lynch DO #### GLYHGB #### [address] [address] Spice Blender: Clemente Vega MD Lymphocytes/100 WBC (Bld) 41 % Normal 24-[address] [facility] Comment on above: Performed By: #### C DP, CMPX, LIPR, TSH #### [facility] [address] [place] [address] Spice Blender: Tito Lynch DO #### GLYHGB #### [address] [address] Spice Blender: Clemente Vega MD MCH (RBC) [Entitic mass] 30.5 pg Normal 26-[address] [facility] Comment on above: Performed By: #### C DP, CMPX, LIPR, TSH #### [facility] [address] [place] [address] Spice Blender: Tito Lynch DO #### GLYHGB #### [address] [address] Spice Blender: Clemente Vega MD MCHC (RBC) [Mass/Vol] 34.2 g/dL Normal 31-37 [facility] Comment on above: Performed By: #### C DP, CMPX, LIPR, TSH #### [facility] [place] [address] Spice Blender: Tito Lynch DO #### GLYHGB #### [address] [address] Spice Blender: Clemente Vega MD MCV (RBC) [Entitic vol] 89.2 fL Normal 80-100 M [facility] Comment on above: Performed By: #### C DP, CMPX, LIPR, TSH #### [facility] [place] [address] Spice Blender: Tito Lynch DO #### GLYHGB #### [address] [address] Spice Blender: Clemente Vega MD Monocytes (Bld) [#/Vol] 0.40 10*3/uL Normal 0.1-1.[address] [facility] Comment on above: Performed By: #### C DP, CMPX, LIPR, TSH #### [facility] [address] [place] [address] Spice Blender: Tito Lynch DO #### GLYHGB #### [address] [address] Spice Blender: Cleemnte Vega MD Monocytes/100 WBC (Bld) 6 % Normal 1-7 M [facility] Comment on above: Performed By: #### C DP, CMPX, LIPR, TSH #### [facility] [address] [place] [address] Spice Blender: Tito Lynch DO #### GLYHGB #### [address] [address] Spice Blender: Clemente Vega MD Neutrophil (Seg) 51 % Normal 36-66 [facility] Comment on above: Performed By: #### C DP, CMPX, LIPR, TSH #### [facility] [address] [place] [address] Spice Blender: Tito Lynch DO #### GLYHGB #### [address] [address] Spice Blender: Clemente Vega MD Platelet mean volume (Bld) [Entitic vol] 9.0 fL Normal 6.0-12.[address] [facility] Comment on above: Performed By: #### C DP, CMPX, LIPR, TSH #### [facility] [address] [place] [address] Spice Blender: Tito Lynch DO #### GLYHGB #### [address] [address] Spice Blender: Clemente Vega MD Platelets (Bld) [#/Vol] 159 10*3/uL Normal 150-[address] [facility] Comment on above: Performed By: #### C DP, CMPX, LIPR, TSH #### [facility] [address] [place] [address] Spice Blender: Tito Lynch DO #### GLYHGB #### [address] [address] Spice Blender: Clemente Vega MD RBC (Bld) [#/Vol] 4.59 10*6/uL Normal 4.0-5.[address] [facility] Comment on above: Performed By: #### C DP, CMPX, LIPR, TSH #### [facility] [address] [place] [address] Spice Blender: Tito Lynch DO #### GLYHGB #### [address] [address] Spice Blender: Clemente Vega MD WBC (Bld) [#/Vol] 5.7 10*3/uL Normal 3.5-11.[address] [facility] Comment on above: Performed By: #### C DP, CMPX, LIPR, TSH #### [facility] [place] [address] Spice Blender: Tito Lynch DO #### GLYHGB #### [address] [address] Spice Blender: Clemente Vega MD Abs.Imm.Granulocyte NOT REPORTED Normal 0.00-0.30 [facility] Comment on above: Performed By: #### C DP, CMPX, LIPR, TSH #### [facility] [address] [place] [address] Spice Blender: Tito Lynch DO #### GLYHGB #### [address] [address] Spice Blender: Clemente Vega MD Auto Diff Performed NOT REPORTED Normal [facility] Comment on above: Performed By: #### C DP, CMPX, LIPR, TSH #### [facility] [address] [place] [address] Spice Blender: Tito Lynch DO #### GLYHGB #### [address] [address] Spice Blender: Clemente Vega MD Immature granulocytes (Bld) [#/Vol] NOT REPORTED Normal [address] [facility] Comment on above: Performed By: #### C DP, CMPX, LIPR, TSH #### [facility] [address] [place] [address] Spice Blender: Tito Lynch DO #### GLYHGB #### [address] [address] Spice Blender: Clemente Vega MD NRBC Automated NOT REPORTED Normal [facility] Comment on above: Performed By: #### C DP, CMPX, LIPR, TSH #### [facility] [address] [place] [address] Spice Blender: Tito Lynch DO #### GLYHGB #### [address] [address] Spice Blender: Clemente Vega MD Platelets (Bld) [#/Vol] NOT REPORTED Normal [facility] Comment on above: Performed By: #### C DP, CMPX, LIPR, TSH #### [facility] [place] [address] Spice Blender: Tito Lynch DO #### GLYHGB #### [facility] [address] [place] [address] Spice Blender: Clemente Vega MD RBC morphology finding Nom (Bld) NOT REPORTED Normal [facility] Comment on above: Performed By: #### C DP, CMPX, LIPR, TSH #### [facility] [address] [place] [address] Spice Blender: Tito Lynch DO #### GLYHGB #### [place] [address] [place] [address] Spice Blender: Clemente Vega MD WBC Morphology NOT REPORTED Normal [facility] Comment on above: Performed By: #### C DP, CMPX, LIPR, TSH #### [facility] [address] [place] [address] Spice Blender: Tito Lynch DO #### GLYHGB #### [place] [address] [place] [address] Spice Blender: Clemente Vega MD Comp Metabolic Pr/rfx MGon 0 03-14-2019 (cont.) Normal [facility] Comment on above: Result Comment: Aver age GFR for 30-39 years old: 107 mL/min/1.73sq m Chronic Kidney Disease: <60 mL/min/1.73sq m Kidney failure: <15 mL/min/1.73sq m eGFR calculated using average adult body mass. Additional eGFR calculator available at: http://www.[employer].com/multiple_crcl_2012.htm Performed By: #### C DP, CMPX, LIPR, TSH #### [facility] [address] [place] [address] Spice Blender: Tito Lynch DO #### GLYHGB #### [place] [address] [place] [address] Spice Blender: Clemente Vega MD Albumin [Mass/Vol] 3.5 g/dL Normal 3.5-5.[address] [facility] Comment on above: Performed By: #### C DP, CMPX, LIPR, TSH #### [facility] [address] [place] [address] Spice Blender: Tito Lynch DO #### GLYHGB #### [address] [address] Spice Blender: Clemente Vega MD Alkaline Phos 44 U/L Normal 35-[address] [facility] Comment on above: Performed By: #### C DP, CMPX, LIPR, TSH #### [facility] [address] [place] [address] Spice Blender: Tito Lynch DO #### GLYHGB #### [address] [address] Spice Blender: Clemente Vega MD ALT [Catalytic activity/Vol] 13 U/L Normal 5-[address] [facility] Comment on above: Performed By: #### C DP, CMPX, LIPR, TSH #### [facility] [address] [place] [address] Spice Blender: Tito Lynch DO #### GLYHGB #### [address] [address] Spice Blender: Clemente Vega MD Anion gap [Moles/Vol] 11 mmol/L Normal 9-17 [facility] Comment on above: Performed By: #### C DP, CMPX, LIPR, TSH #### [facility] [address] [place] [address] Spice Blender: Tito Lynch DO #### GLYHGB #### [address] [address] Spice Blender: Clemente Vega MD AST [Catalytic activity/Vol] 16 U/L Normal <[address] [facility] Comment on above: Performed By: #### C DP, CMPX, LIPR, TSH #### [facility] [address] [place] [address] Spice Blender: Tito Lynch DO #### GLYHGB #### [address] [address] Spice Blender: Clemente Vega MD Bilirubin Ql (U) 0.32 mg/dL Normal 0.3-1.2 [facility] Comment on above: Performed By: #### C DP, CMPX, LIPR, TSH #### [facility] [address] [place] [address] Spice Blender: Tito Lynch DO #### GLYHGB #### [address] [address] Spice Blender: Clemente Vega MD Calcium [Mass/Vol] 8.7 mg/dL Normal 8.6-10.[address] [facility] Comment on above: Performed By: #### C DP, CMPX, LIPR, TSH #### [facility] [address] [place] [address] Spice Blender: Tito Lynch DO #### GLYHGB #### [address] [address] Spice Blender: Clemente Vega MD Chloride [Moles/Vol] 106 mmol/L Normal 98-107 [facility] Comment on above: Performed By: #### C DP, CMPX, LIPR, TSH #### [facility] [address] [place] [address] Spice Blender: Tito Lynch DO #### GLYHGB #### [address] [address] Spice Blender: Clemente Vega MD CO2 [Moles/Vol] 26 mmol/L Normal 20-[address] [facility] Comment on above: Performed By: #### C DP, CMPX, LIPR, TSH #### [facility] [address] [place] [address] Spice Blender: Tito Lynch DO #### GLYHGB #### [address] [address] Spice Blender: Clemente Vega MD Creatinine [Mass/Vol] 0.80 mg/dL Normal 0.50-0.90 [facility] Comment on above: Performed By: #### C DP, CMPX, LIPR, TSH #### [facility] [address] [place] [address] Spice Blender: Tito Lynch DO #### GLYHGB #### [address] [address] Spice Blender: Clemente Vega MD GFR, Amer >60 Normal >60 [facility] Comment on above: Performed By: #### C DP, CMPX, LIPR, TSH #### [facility] [address] [place] [address] Spice Blender: Tito Lynch DO #### GLYHGB #### [address] [address] Spice Blender: Clemente Vega MD GFR,non Amer >60 Normal >60 [facility] Comment on above: Performed By: #### C DP, CMPX, LIPR, TSH #### [facility] [address] [place] [address] Spice Blender: Tito Lynch DO #### GLYHGB #### [address] [place] [address] Spice Blender: Clemente Vega MD Glucose [Mass/Vol] 99 mg/dL Normal 70-[address] [facility] Comment on above: Performed By: #### C DP, CMPX, LIPR, TSH #### [facility] [address] [place] [address] Spice Blender: Tito Lynch DO #### GLYHGB #### [address] [address] Spice Blender: Clemente Vega MD Potassium [Moles/Vol] 3.8 mmol/L Normal 3.7-5.3 [facility] Comment on above: Performed By: #### C DP, CMPX, LIPR, TSH #### [facility] [address] [place] [address] Spice Blender: Tito Lynch DO #### GLYHGB #### [address] [address] Spice Blender: Clemente Vega MD Protein [Mass/Vol] 5.9 g/dL Low 6.4-8.[address] [facility] Comment on above: Performed By: #### C DP, CMPX, LIPR, TSH #### [facility] [address] [place] [address] Spice Blender: Tito Lynch DO #### GLYHGB #### [address] [address] Spice Blender: Clemente Vega MD Sodium [Moles/Vol] 143 mmol/L Normal 135-[address] [facility] Comment on above: Performed By: #### C DP, CMPX, LIPR, TSH #### [facility] [address] [place] [address] Spice Blender: Tito Lynch DO #### GLYHGB #### [facility] [address] [place] [address] Spice Blender: Clemente Vega MD Urea nitrogen [Mass/Vol] 14 mg/dL Normal 6-[address] [facility] Comment on above: Performed By: #### C DP, CMPX, LIPR, TSH #### [facility] [address] [place] [address] Spice Blender: Tito Lynch DO #### GLYHGB #### [address] [address] Spice Blender: Clemente Vega MD Albumin/Globulin [Mass ratio] NOT REPORTED Normal 1.0-2.[address] [facility] Comment on above: Performed By: #### C DP, CMPX, LIPR, TSH #### [facility] [address] [place] [address] Spice Blender: Tito Lynch DO #### GLYHGB #### [address] [address] Spice Blender: Clemente Vega MD BUN/CRE Ratio NOT REPORTED Normal 9-[address] [facility] Comment on above: Performed By: #### C DP, CMPX, LIPR, TSH #### [facility] [address] [place] [address] Spice Blender: Tito Lynch DO #### GLYHGB #### [address] [address] Spice Blender: Clemente Vega MD Staging: NOT REPORTED Normal [facility] Comment on above: Performed By: #### C DP, CMPX, LIPR, TSH #### [facility] [address] [place] [address] Spice Blender: Tito Lynch DO #### GLYHGB #### [address] [address] Spice Blender: Clemente Vega MD Hemoglobin A1Con 03-14-2019 HbA1c (Bld) [Mass fraction] 88 mg/dL Normal [facility] Comment on above: Result Comment: The ADA and AACC recommend providing the estimated average glucose result to permit better patient understanding of their HBA1c result. Performed By: #### C DP, CMPX, LIPR, TSH #### [facility] [address] [place] [address] Spice Blender: Tito Lynch DO #### GLYHGB #### [address] [address] Spice Blender: Clemente Vega MD HbA1c (Bld) [Mass fraction] 4.7 % Normal 4.0-6.[address] [facility] Comment on above: Performed By: #### C DP, CMPX, LIPR, TSH #### [facility] [address] [place] [address] Spice Blender: Tito Lynch DO #### GLYHGB #### [address] [address] Spice Blender: Clemente Vega MD Lipid Profileon 03-14-2019 Cholesterol [Mass/Vol] 188 mg/dL Normal <[address] [facility] Comment on above: Result Comment: Cholesterol Guidelines: <200 Desirable 200-240 Borderline >240 Undesirable Performed By: #### C DP, CMPX, LIPR, TSH #### [facility] [address] [place] [address] Spice Blender: Tito Lynch DO #### GLYHGB #### [address] [address] Spice Blender: Clemente Vega MD Cholesterol in HDL [Mass/Vol] 59 mg/dL Normal >[address] [facility] Comment on above: Result Comment: HDL Guidelines: <40 Undesirable 40-59 Borderline >59 Desirable Performed By: #### C DP, CMPX, LIPR, TSH #### [facility] [address] [place] [address] Spice Blender: Tito Lynch DO #### GLYHGB #### [address] [address] Spice Blender: Clemente Vega MD Cholesterol in LDL [Mass/Vol] 111 mg/dL Normal 0-[address] [facility] Comment on above: Result Comment: LDL Guidelines: <100 Desirable 100-129 Near to/above Desirable 130-159 Borderline >159 Undesirable Direct (measured) LDL and calculated LDL are not interchangeable tests. Performed By: #### C DP, CMPX, LIPR, TSH #### [facility] [address] [place] [address] Spice Blender: Tito Lynch DO #### GLYHGB #### [address] [address] Spice Blender: Clemente Vega MD Cholesterol.total/Choles terol in HDL [Mass ratio] 3.2 {ratio} Normal <[address] [facility] Comment on above: Performed By: #### C DP, CMPX, LIPR, TSH #### [facility] [address] [place] [address] Spice Blender: Tito Lynch DO #### GLYHGB #### [address] [address] Spice Blender: Clemente Vega MD Triglyceride [Mass/Vol] 89 mg/dL Normal <150 [facility] Comment on above: Result Comment: Triglyceride Guidelines: <150 Desirable 150-199 Borderline 200-499 High >499 Very high Based on AHA Guidelines for fasting triglyceride, December 2011. Performed By: #### C DP, CMPX, LIPR, TSH #### [facility] [address] [place] [address] Spice Blender: Tito Lynch DO #### GLYHGB #### [facility] [address] [place] [address] Spice Blender: Clemente Vega MD Cholesterol in VLDL [Mass/Vol] NOT REPORTED Normal 1-[address] [facility] Comment on above: Performed By: #### C DP, CMPX, LIPR, TSH #### [facility] [address] [place] [address] Spice Blender: Tito Lynch DO #### GLYHGB #### [address] [place] [address] Spice Blender: Clemente Vega MD Thyroid Stim. Horm.on 2019 TSH Qn 1.93 m[IU]/L Normal 0.30-5.[address] [facility] Comment on above: Performed By: #### C DP, CMPX, LIPR, TSH #### [facility] [address] [place] [address] Spice Blender: Tito Lynch DO #### GLYHGB #### [address] [address] Spice Blender: Clemente Vega MD Acetaminophen levelOrdered B y: Allen Gary on 03-13-2019 Acetaminophen Level <5 Low 10 - 30 ug/mL [employer] Phone: Interpretation and review of laboratory results Abnormal [employer] Phone: Basic Metabolic PanelOrdered By: Allen Gary on 03-13-2019 Anion gap [Moles/Vol] 11 mmol/L 9 - 17 mmol/L [employer] Phone: Bun/Cre Ratio 11 [facility] Work Phone: Calcium [Mass/Vol] 9.0 mg/dL 8.6 - 10. 4 mg/dL [employer] Phone: Chloride [Moles/Vol] 101 mmol/L 98 - 10 7 mmol/L [employer] Phone: CO2 [Moles/Vol] 27 mmol/L 20 - 31 mmol/L [employer] Phone: Creatinine [Mass/Vol] 0.89 mg/dL 0.5 - 0.9 mg/dL [employer] Phone: GFR >60 >60 mL/min [employer] Phone: GFR Comment [employer] Phone: Comment on above: Average GFR for 30-3 9 years old: 107 mL/min/1.73sq m Chronic Kidney Disease: <60 mL/min/1.73sq m Kidney failure: <15 mL/min/1.73sq m eGFR calculated using average adult body mass. Additional eGFR calculator available at: http://www.[employer]/multiple_crcl_2012.htm GFR Non- >60 >60 mL/min [employer] Phone: GFR Staging [employer] Phone: Comment on above: Stage 1: Some kidney damage normal GFR Stage 2: Mild kidney damage GFR 60-89 Stage 3: Moderate kidney damage GFR 30-59 Stage 4: Severe kidney damage GFR 15-29 Stage 5: Severe kidney damage GFR <15 ESRD - chronic treatment by dialysis or transplant Glucose [Mass/Vol] 97 mg/dL 70 - 99 mg/dL [employer] Phone: Potassium [Moles/Vol] 3.7 mmol/L 3.7 - 5.3 mmol/L [employer] Phone: Sodium [Moles/Vol] 139 mmol/L 135 - 144 mmol/L [employer] Phone: Urea nitrogen [Mass/Vol] 10 mg/dL 6 - 20 mg/dL [employer] Phone: CBCOrdered By: Allen hobbs on 03-13-2019 Erythrocyte distribution width (RBC) [Ratio] 11.7 % Low 11.8 - 14.4 % [employer] Phone: Hematocrit (Bld) [Volume fraction] 42.1 % 36.3 - 47.1 % [employer] Phone: Hemoglobin (Bld) [Mass/Vol] 14.3 g/dL 11.9 - 15.1 g/dL [employer] Phone: Interpretation and review of laboratory results Abnormal [employer] Phone: MCH (RBC) [Entitic mass] 30.2 pg 25. 2 - 33.5 pg [employer] Phone: MCHC (RBC) [Mass/Vol] 34.0 g/dL 28.4 - 34.8 g/dL [employer] Phone: MCV (RBC) [Entitic vol] 89.0 fL 82.6 - 102.9 fL [employer] Phone: NRBC Automated 0.0 0.0 per 100 WBC [employer] Phone: Platelet mean volume (Bld) [Entitic vol] 10.6 fL 8.1 - 13.5 fL [employer] Phone: Platelets (Bld) [#/Vol] 160 10*3/uL [employer] Phone: RBC (Bld) [#/Vol] 4.73 10*6/uL 3.95 - 5.1 1 m/uL [employer] Phone: WBC (Bld) [#/Vol] 5.9 10*3/uL [employer] Phone: Drug screen multi urineOrder ed By: Allen Gary on 03-13-2019 Amphetamine Screen, Ur Negative NEGATIVE [employer] Phone: Barbiturate Screen, Ur Negative NEGATIVE [facility] Work Phone: Benzodiazepine Screen, Urine Positive Abnormal NEGATIVE [facility] Work Phone: Buprenorphine Urine Negative NEGATIVE [facility] Work Phone: Cannabinoid Scrn, Ur Negative NEGATIVE [facility] Work Phone: Cocaine Metabolite, Urine Negative NEGATIVE [facility] Work Phone: Interpretation and review of laboratory results Abnormal [facility] Work Phone: MDMA, Urine NOT REPORTED NEGATIVE [facility] Work Phone: Methadone Screen, Urine Negative NEGATIVE [facility] Work Phone: Methamphetamine, Urine Negative NEGATIVE [facility] Work Phone: Opiates, Urine Negative NEGATIVE [facility] Work Phone: Oxycodone Screen, Ur Negative NEGATIVE [facility] Work Phone: Phencyclidine, Urine Negative NEGATIVE [facility] Work Phone: Propoxyphene, Urine Negative NEGATIVE [facility] Work Phone: Test Information NOT REPORTED [facility] Work Phone: Tricyclic Antidepressants, Urine Negative NEGATIVE [facility] Work Phone: Comment on above: Drug screen results are to be used for medical purposes only. All positive results are unconfirmed. Testing for employment or legal uses should be sent to a reference laboratory for confirmation. EthanolOrdered By: Allen reaves on 03-13-2019 Ethanol [Mass/Vol] mg/dL <10 mg/dL [facility] Work Phone: Ethanol percent <0.010 <0.010 % [facility] Work Phone: Microscopic UrinalysisOrdere d By: Allen Gary on 03-13-2019 - [facility] Work Phone: Amorphous, UA NOT REPORTED None [facility] Work Phone: Bacteria, UA NOT REPORTED None [facility] Work Phone: Casts UA NOT REPORTED /LPF [employer] Work Phone: Crystals UA NOT REPORTED None /HPF [facility] Work Phone: Epithelial Cells UA 0 TO 2 [facility] Work Phone: Interpretation and review of laboratory results Abnormal [employer] Work Phone: Mucus, UA 1+ Abnormal None [facility] Work Phone: Other Observations UA NOT REPORTED NOT REQ. [facility] [employer] Work Phone: RBC, UA 2 TO 5 [facility] Work Phone: Renal Epithelial, Urine NOT REPORTED 0 /HPF [facility] Work Phone: Trichomonas, UA NOT REPORTED None [employer] Work Phone: WBC, UA 2 TO 5 [facility] Work Phone: Yeast, UA NOT REPORTED None [employer] Work Phone: , UrineOrdered By: Allen Gary on 03-13-2019 Beta HCG ( test) Ql (U) Negative NEGATIVE [employer] Phone: Comment on above: Specimens with hCG l evels near the threshold of the test (25 mIU/mL) may give a negative or indeterminate result. In such cases, another test should be performed with a new specimen in 48-72 hours. If early is suspected clinically in this setting, correlation with quantitative serum b-hCG level is suggested. [employer] has confirmed the use of plasma for this test. This has not been cleared or approved by the U.S. Food and Drug Administration. The FDA has determined that such clearance is not necessary. SalicylateOrdered By: Allen Gary on 03-13-2019 Interpretation and review of laboratory results Abnormal [employer] Work Phone: Salicylate Lvl <1 Low 3 - 10 mg/dL [facility] Work Phone: Urinalysis Reflex to Culture Ordered By: Allen Gary on 03-13-2019 Bilirubin Urine SMALL Abnormal NEGATIVE [facility] Work Phone: Color, UA YELLOW YELLOW [facility] Work Phone: Glucose, Ur Negative NEGATIVE [facility] Work Phone: Interpretation and review of laboratory results Abnormal [facility] Work Phone: Ketones Ql (U) Negative NEGATIVE [facility] Work Phone: Leukocyte esterase Test strip Ql (U) Negative NEGATIVE [facility] Work Phone: Nitrite, Urine Negative NEGATIVE [facility] Work Phone: pH, UA 7.0 [facility] Work Phone: Protein, UA Negative NEGATIVE [facility] Work Phone: Specific [place], UA 1.020 [facility] [employer] Work Phone: Turbidity UA CLEAR CLEAR [facility] Work Phone: Urinalysis Comments NOT REPORTED [facility] Work Phone: Urine Hgb 2+ Abnormal NEGATIVE [facility] Work Phone: Urobilinogen, Urine Normal Normal [facility] Work Phone: Vital Signs Date Time Vital Sign Value Performing Clinician Facility 03-26-2024 18:53-0500 Body height 162.6 cm Winnie Calix [facility] 03-26-2024 18:53-0500 Body mass index (BMI) [Ratio] 38.96 kg/m2 Winnie Calix [facility] Work Phone: [facility] 03-26-2024 18:53-0500 Body temperature 97.39 [degF] Winnie Calix APRN - CNM Work Phone: [facility] 03-26-2024 18:53-0500 Body weight 102.97 kg Winnie Calix APRN - CNM Work Phone: [facility] 03-26-2024 18:53-0500 Diastolic blood pressure 59 mm[Hg] Winnie Calix [facility]N - [facility] Work Phone: [facility] 03-26-2024 18:53-0500 Heart rate 74 /min Winnie Calix APRN - [facility] Work Phone: [facility] 03-26-2024 18:53-0500 Respiratory rate 16 /min Winnie Calix APRN - CNM Work Phone: [facility] 03-26-2024 18:53-0500 SaO2% (BldA) [Mass fraction] 97 % Winnie Calix APRN - [facility] Work Phone: [facility] 03-26-2024 18:53-0500 Systolic blood pressure 109 mm[Hg] Winnie Calix APRN [facility] Work Phone: [facility] [employer] 03-12-2024 11:59-0500 Body temperature 97.6 [degF] Sav Buchanan MD Work Phone: [facility] 03-12-2024 11:59-0500 Diastolic blood pressure 63 mm[Hg] Sav Buchanan MD Work Phone: [facility] 03-12-2024 11:59-0500 Heart rate 79 /min Sav Buchanan MD Work Phone: [facility] 03-12-2024 11:59-0500 Respiratory rate 18 /min Sav Buchanan MD Work Phone: [facility] 03-12-2024 11:59-0500 SaO2% (BldA) [Mass fraction] 97 % Sav Buchanan MD Work Phone: [facility] 03-12-2024 11:59-0500 Systolic blood pressure 106 mm[Hg] Sav Buchanan MD Work Phone: [facility] 03-08-2024 16:51-0500 Diastolic blood pressure 65 mm[Hg] Artem D'Abreau DO Work Phone: [facility] 03-08-2024 16:51-0500 Heart rate 78 /min Artem D'Abreau DO Work Phone: [facility] 03-08-2024 16:51-0500 Respiratory rate 18 /min Artem D'Abreau DO Work Phone: [facility] 03-08-2024 16:51-0500 SaO2% (BldA) [Mass fraction] 96 % Artem D'Lucyeau DO Work Phone: [facility] 03-08-2024 16:51-0500 Systolic blood pressure 110 mm[Hg] Artem D'Abreau DO Work Phone: [facility] 03-08-2024 12:35-0500 Body height 162.6 cm Artem D'Lucyeau DO Work Phone: [facility] 03-08-2024 12:35-0500 Body mass index (BMI) [Ratio] 38.62 kg/m2 Artem D'Lucyeau DO Work Phone: [facility] 03-08-2024 12:35-0500 Body weight 102.06 kg Artem D'Lucyeau DO Work Phone: [facility] 03-08-2024 12:05-0500 Body temperature 97.2 [degF] Artem D'Abreau DO Work Phone: [facility] 02-10-2024 07:24-0500 Diastolic blood pressure 51 mm[Hg] Agatha Gomez [employer] - [facility] Work Phone: [facility] 02-10-2024 07:24-0500 Heart rate 79 /min Agatha [facility] Work Phone: [facility] 02-10-2024 07:24-0500 Systolic blood pressure 94 mm[Hg] Agatha [facility] Work Phone: [facility] 02-10-2024 01:42-0500 Body temperature 97.81 [degF] [facility] 02-10-2024 01:42-0500 Respiratory rate 14 /min [facility] Work [facility]: [facility] 02-06-2024 08:18-0500 Body temperature 97.7 [degF] Gerardo Mendoza MD Work Phone: [facility] [employer] 02-06-2024 08:18-0500 Diastolic blood pressure 53 mm[Hg] Gerardo Mendoza MD Work Phone: [facility] [employer] 02-06-2024 08:18-0500 Heart rate 68 /min Gerardo Mendoza MD Work Phone: [facility] 02-06-2024 08:18-0500 Respiratory rate 16 /min Gerardo Mendoza MD Work Phone: [facility] [employer] 02-06-2024 08:18-0500 Systolic blood pressure 91 mm[Hg] Gerardo Mendoza MD Work Phone: [facility] [employer] 02-06-2024 04:38-0500 SaO2% (BldA) [Mass fraction] 99 % Gerardo Mendoza MD Work Phone: [facility] [employer] 02-05-2024 18:09-0500 Body height 162.6 cm Gerardo Mendoza MD Work Phone: [facility] [employer] 02-05-2024 18:09-0500 Body mass index (BMI) [Ratio] 38.62 kg/m2 Gerardo Mendoza MD Work Phone: [facility] 02-05-2024 18:09-0500 Body weight 102.06 kg Gerardo Mendoza MD Work Phone: [facility] [employer] 02-05-2024 17:45-0500 Diastolic blood pressure 84 mm[Hg] Antonio Ge MD Work Phone: [facility] 02-05-2024 17:45-0500 Heart rate 86 /min Antonio Ge MD Work Phone: [facility] 02-05-2024 17:45-0500 Respiratory rate 17 /min Antonio Ge MD Work Phone: [facility] 02-05-2024 17:45-0500 SaO2% (BldA) [Mass fraction] 99 % Antonio Ge MD Work Phone: [facility] 02-05-2024 17:45-0500 Systolic blood pressure 119 mm[Hg] Antonio Ge MD Work Phone: [facility] 02-05-2024 15:11-0500 Body temperature 98.4 [degF] Antonio Ge MD Work Phone: [facility] 01-21-2024 21:36-0500 Body temperature 98.01 [degF] Mariana Sammie Randhawa DO Work Phone: [facility] 01-21-2024 21:36-0500 Diastolic blood pressure 57 mm[Hg] Mariana Sammie Randhawa DO Work Phone: [facility] 01-21-2024 21:36-0500 Heart rate 77 /min Mariana Sammie Randhawa DO Work Phone: [facility] 01-21-2024 21:36-0500 Respiratory rate 16 /min Mariana Sammie Randhawa DO Work Phone: [facility] 01-21-2024 21:36-0500 SaO2% (BldA) [Mass fraction] 97 % Mariana Randhawa DO Work Phone: [facility] 01-21-2024 21:36-0500 Systolic blood pressure 105 mm[Hg] Mariana Randhawa DO Work Phone: [facility] 01-14-2024 19:09-0500 Diastolic blood pressure 53 mm[Hg] Artem D'Abreau DO Work Phone: [facility] 01-14-2024 19:09-0500 Heart rate 70 /min Artem D'Abreau DO Work Phone: [facility] 01-14-2024 19:09-0500 Systolic blood pressure 115 mm[Hg] Artem D'Abreau DO Work Phone: [facility] 01-14-2024 17:42-0500 Respiratory rate 18 /min Artem D'Abreau DO Work Phone: [facility] 01-14-2024 16:49-0500 Body height 162.6 cm Artem D'Abreau DO Work Phone: [facility] 01-14-2024 16:49-0500 Body mass index (BMI) [Ratio] 36.9 kg/m2 Artem D'Abreau DO Work Phone: [facility] 01-14-2024 16:49-0500 Body weight 97.52 kg Artem D'Abreau DO Work Phone: [facility] 12-22-2023 09:42-0400 Body mass index (BMI) [Ratio] 36.9 kg/m2 Antonio Ge MD Work Phone: [facility] [employer] 12-22-2023 09:42-0400 Body temperature 97.9 [degF] Antonio Ge MD Work Phone: [facility] [employer] 12-22-2023 09:42-0400 Body weight 97.52 kg Antonio Ge MD Work Phone: [facility] [employer] 12-22-2023 09:42-0400 Diastolic blood pressure 45 mm[Hg] Antonio Ge MD Work Phone: [facility] [employer] 12-22-2023 09:42-0400 Heart rate 83 /min Antonio Ge MD Work Phone: [facility] [employer] 12-22-2023 09:42-0400 Respiratory rate 16 /min Antonio Ge MD Work Phone: [facility] [employer] 12-22-2023 09:42-0400 SaO2% (BldA) [Mass fraction] 97 % Antonio Ge MD Work Phone: [facility] [employer] 12-22-2023 09:42-0400 Systolic blood pressure 120 mm[Hg] Antonio Ge MD Work Phone: [facility] [employer] 11-06-2023 08:00-0400 Body temperature 97.8 [degF] MD Sav Buchanan Work Phone: [facility] 11-06-2023 08:00-0400 Diastolic blood pressure 55 mm[Hg] MD Sav Buchanan Work Phone: [facility] 11-06-2023 08:00-0400 Heart rate 74 /min MD Sav Buchanan Work Phone: [facility] 11-06-2023 08:00-0400 Respiratory rate 16 /min MD Sav Buchanan Work Phone: [facility] 11-06-2023 08:00-0400 SaO2% (BldA) [Mass fraction] 96 % MD Sav Buchanan Work Phone: [facility] 11-06-2023 08:00-0400 Systolic blood pressure 88 mm[Hg] MD Sav Buchanan Work Phone: [facility] 11-05-2023 22:20-0400 Body height 163.83 cm MD Sav Buchanan Work Phone: [facility] 11-05-2023 22:20-0400 Body weight 94 kg MD Sav Buchanan Work Phone: [facility] 11-05-2023 22:16-0400 Diastolic blood pressure 68 mm[Hg] MD Sav Buchanan Work Phone: [facility] 11-05-2023 22:16-0400 Heart rate 76 /min MD Sav Buchanan Work Phone: [facility] 11-05-2023 22:16-0400 Respiratory rate 20 /min MD Sav Buchanan Work Phone: [facility] 11-05-2023 22:16-0400 SaO2% (BldA) [Mass fraction] 100 % MD Sav Buchanan Work Phone: [facility] 11-05-2023 22:16-0400 Systolic blood pressure 120 mm[Hg] MD Sav Buchanan Work Phone: [facility] 11-05-2023 17:58-0400 Body height 163.83 cm MD Sav Buchanan Work Phone: [facility] 11-05-2023 17:58-0400 Body temperature 97.9 [degF] MD Sav Buchanan Work Phone: [facility] 11-05-2023 17:58-0400 Body weight 94 kg MD Sav Buchanan Work Phone: [facility] 02-15-2023 10:39-0500 Body height 162.56 cm MD Sav Buchanan Work Phone: [facility] 02-15-2023 10:39-0500 Body temperature 98.1 [degF] MD Sav Buchanan Work Phone: [facility] 02-15-2023 10:39-0500 Body weight 99.79 kg MD Sav Buchanan Work Phone: [facility] 02-15-2023 10:39-0500 Diastolic blood pressure 78 mm[Hg] MD Sav Buchanan Work Phone: [facility] 02-15-2023 10:39-0500 Heart rate 85 /min MD Sav Buchanan Work Phone: [facility] 02-15-2023 10:39-0500 Respiratory rate 18 /min MD Sav Buchanan Work Phone: [facility] 02-15-2023 10:39-0500 SaO2% (BldA) [Mass fraction] 95 % MD Sav Buchanan Work Phone: [facility] 02-15-2023 10:39-0500 Systolic blood pressure 113 mm[Hg] MD Sav Buchanan Work Phone: [facility] 01-06-2023 11:20-0400 Body height 162.56 cm Jah Rene Other [employer] Other 01-06-2023 11:20-0400 Body mass index (BMI) [Ratio] 39.48 kg/m2 Jah Rene Other [employer] Other 01-06-2023 11:20-0400 Body temperature 98.2 [degF] Jah Rene Other [employer] Other 01-06-2023 11:20-0400 Body weight 104.33 kg Jah Rene Other [employer] Other 01-06-2023 11:20-0400 Diastolic blood pressure 79 mm[Hg] Jah Rene Other [employer] Other 01-06-2023 11:20-0400 SaO2% (BldA) [Mass fraction] 96 % Jah Rene Other [employer] Other 01-06-2023 11:20-0400 Systolic blood pressure 115 mm[Hg] Raymondgokul Edgard Other [employer] Other 04-23-2022 20:18-0500 Diastolic blood pressure 42 mm[Hg] Sav Buchanan MD Work Phone: [employer] 04-23-2022 20:18-0500 Heart rate 68 /min Sav Buchanan MD Work Phone: [employer] 04-23-2022 20:18-0500 Respiratory rate 13 /min Sav Buchanan MD Work Phone: [employer] 04-23-2022 20:18-0500 SaO2% (BldA) [Mass fraction] 97 % Sav Buchanan MD Work Phone: [employer] 04-23-2022 20:18-0500 Systolic blood pressure 92 mm[Hg] Sav Buchanan MD Work Phone: [employer] 04-23-2022 17:24-0500 Body height 162.6 cm Sav Buchanan MD Work Phone: [employer] 04-23-2022 17:24-0500 Body mass index (BMI) [Ratio] 39.48 kg/m2 Sav Buchanan MD Work Phone: [employer] 04-23-2022 17:24-0500 Body temperature 98.1 [degF] Sav Buchanan MD Work Phone: [employer] 04-23-2022 17:24-0500 Body weight 104.33 kg Sav Buchanan MD Work Phone: [employer] 02-01-2022 18:09-0500 Body height 162.56 cm MD Sav Buchanan Work Phone: [facility] 02-01-2022 18:09-0500 Body temperature 97.7 [degF] MD Sav Buchanan Work Phone: [facility] 02-01-2022 18:09-0500 Body weight 106.59 kg MD Sav Buchanan Work Phone: [facility] 02-01-2022 18:09-0500 Diastolic blood pressure 93 mm[Hg] MD Sav Buchanan Work Phone: [facility] 02-01-2022 18:09-0500 Heart rate 85 /min MD Sav Buchanan Work Phone: [facility] 02-01-2022 18:09-0500 Respiratory rate 16 /min MD Sav Buchanan Work Phone: [facility] 02-01-2022 18:09-0500 SaO2% (BldA) [Mass fraction] 96 % MD Sav Buchanan Work Phone: [facility] 02-01-2022 18:09-0500 Systolic blood pressure 150 mm[Hg] MD Sav Buchanan Work Phone: [facility] 11-16-2021 09:38-0400 Body height 160 cm Lena Deysi UNLEAVENED DOUGH MIXER-DIRECTOR OF ANALYTICS Work Phone: [facility] 11-16-2021 09:38-0400 Body mass index (BMI) [Ratio] 40.53 kg/m2 Lena Deysi UNLEAVENED DOUGH MIXER-DIRECTOR OF ANALYTICS Work Phone: [facility] 11-16-2021 09:38-0400 Body weight 103.78 kg Lena Deysi UNLEAVENED DOUGH MIXER-DIRECTOR OF ANALYTICS Work Phone: [facility] 11-16-2021 09:38-0400 Diastolic blood pressure 76 mm[Hg] Lena Deysi UNLEAVENED DOUGH MIXER-DIRECTOR OF ANALYTICS Work Phone: [facility] 11-16-2021 09:38-0400 Heart rate 72 /min Lena Deysi UNLEAVENED DOUGH MIXER-DIRECTOR OF ANALYTICS Work Phone: [facility] 11-16-2021 09:38-0400 Respiratory rate 16 /min Lena Ellision UNLEAVENED DOUGH MIXER-DIRECTOR OF ANALYTICS Work Phone: [employer] 11-16-2021 09:38-0400 SaO2% (BldA) [Mass fraction] 98 % Lena Ellision UNLEAVENED DOUGH MIXER-DIRECTOR OF ANALYTICS Work Phone: [employer] 11-16-2021 09:38-0400 Systolic blood pressure 138 mm[Hg] Lena Ellision UNLEAVENED DOUGH MIXER-DIRECTOR OF ANALYTICS Work Phone: [employer] 10-19-2021 08:18-0400 Body height 162.6 cm Brenda York DO Work Phone: [employer] 10-19-2021 08:18-0400 Body mass index (BMI) [Ratio] 39.93 kg/m2 Brenda York DO Work Phone: [employer] 10-19-2021 08:18-0400 Body temperature 97.9 [degF] Brenda York DO Work Phone: [employer] 10-19-2021 08:18-0400 Body weight 105.51 kg Brenda York Work Phone: [employer] 10-19-2021 08:18-0400 Diastolic blood pressure 83 mm[Hg] Brenda York DO Work Phone: [employer] 10-19-2021 08:18-0400 Heart rate 80 /min Brenda York Work Phone: [employer] 10-19-2021 08:18-0400 Respiratory rate 18 /min Brenda York Work Phone: [employer] 10-19-2021 08:18-0400 SaO2% (BldA) [Mass fraction] 100 % Brenda York Work Phone: [employer] 10-19-2021 08:18-0400 Systolic blood pressure 134 mm[Hg] Brenda York Work Phone: [employer] 12-21-2020 10:20-0400 Body mass index (BMI) [Ratio] 36.9 kg/m2 Stephanie Collins APRN - DIRECTOR OF ANALYTICS Work Phone: [employer] Work Phone: 12-21-2020 10:20-0400 Body temperature 98.01 [degF] Stephanie Collins APRN - DIRECTOR OF ANALYTICS Work Phone: [employer] Work Phone: 12-21-2020 10:20-0400 Body weight 97.52 kg Stephanie Collins APRN - DIRECTOR OF ANALYTICS Work Phone: [employer] Work Phone: 12-21-2020 10:20-0400 Diastolic blood pressure 76 mm[Hg] Stephanie Collins APRN - DIRECTOR OF ANALYTICS Work Phone: [employer] Work Phone: 12-21-2020 10:20-0400 Heart rate 85 /min Stephanie Collins APRN - DIRECTOR OF ANALYTICS Work Phone: [employer] Work Phone: 12-21-2020 10:20-0400 Respiratory rate 18 /min Stephanie Collins APRN - DIRECTOR OF ANALYTICS Work Phone: [employer] Work Phone: 12-21-2020 10:20-0400 SaO2% (BldA) [Mass fraction] 97 % Stephanie Collins APRN - DIRECTOR OF ANALYTICS Work Phone: [employer] Work Phone: 12-21-2020 10:20-0400 Systolic blood pressure 133 mm[Hg] Stephanie Collins APRN - DIRECTOR OF ANALYTICS Work Phone: [employer] Work Phone: 10-26-2020 11:25-0400 Body height 162.6 cm Stephanie Collins APRN - DIRECTOR OF ANALYTICS Work Phone: [employer] Work Phone: 10-26-2020 11:25-0400 Body mass index (BMI) [Ratio] 37.76 kg/m2 Stephanie Collins APRN - [employer] Work Phone: [employer] Work Phone: 10-26-2020 11:25-0400 Body temperature 97.39 [degF] Stephanie Collins APRN - DIRECTOR OF ANALYTICS Work Phone: [employer] Work Phone: 10-26-2020 11:25-0400 Body weight 99.79 kg Stephanie Collins APRN - [employer] Work Phone: [employer] Work Phone: 10-26-2020 11:25-0400 Diastolic blood pressure 84 mm[Hg] Stephanie Collins UNLEAVENED DOUGH MIXER - DIRECTOR OF ANALYTICS Work Phone: [employer] Work Phone: 10-26-2020 11:25-0400 Heart rate 90 /min Stephanie Collins APRN - DIRECTOR OF ANALYTICS Work Phone: [employer] Work Phone: 10-26-2020 11:25-0400 Respiratory rate 18 /min Stephanie Collins APRN - DIRECTOR OF ANALYTICS Work Phone: [employer] Work Phone: 10-26-2020 11:25-0400 SaO2% (BldA) [Mass fraction] 97 % Stephanie Collins APRN - DIRECTOR OF ANALYTICS Work Phone: [employer] Work Phone: 10-26-2020 11:25-0400 Systolic blood pressure 123 mm[Hg] Stephanie Collins UNLEAVENED DOUGH MIXER - DIRECTOR OF ANALYTICS Work Phone: [employer] Work Phone: 06-24-2020 19:10-0400 Diastolic blood pressure 45 mm[Hg] Raudel Carranza MD [employer] Work Phone: 06-24-2020 19:10-0400 Heart rate 68 /min Raudel Carranza MD [employer] Phone: 06-24-2020 19:10-0400 Respiratory rate 16 /min Raudel Carranza MD [employer] Phone: 06-24-2020 19:10-0400 SaO2% (BldA) [Mass fraction] 97 % Raudel Carranza MD [employer] Work Phone: 06-24-2020 19:10-0400 Systolic blood pressure 91 mm[Hg] Raudel Carranza MD [employer] Phone: 06-24-2020 16:51-0400 Body mass index (BMI) [Ratio] 36.05 kg/m2 Raudel Carranza MD [employer] Phone: 06-24-2020 16:51-0400 Body temperature 98.01 [degF] Raudel Carranza MD [employer] Work Phone: 06-24-2020 16:51-0400 Body weight 95.25 kg Raudel Carranza MD [employer] Phone: 12-13-2019 05:18-0400 Body Temperature 100.71 [degF] [place] [employer] [facility] [place] 12-13-2019 05:18-0400 BP Diastolic 67 mm[Hg] [facility]ijer[facility] [place] 12-13-2019 05:18-0400 BP Systolic 150 mm[Hg] Austin [facility]ijerina [facility] [place] 12-13-2019 05:18-0400 Pulse (Heart Rate) 88 /min [facility] [place] 12-13-2019 05:18-0400 Pulse Oximetry 100 % Austin Tijerina [facility] [place] 12-13-2019 05:18-0400 Respiratory Rate 20 /min [employer] [facility] [place] 10-11-2019 09:37-0400 BMI (Body Mass Index) 32.6 kg/m2 [facility] Work Phone: 10-11-2019 09:37-0400 Body weight 86.18 kg [facility] Work Phone: 10-11-2019 09:37-0400 BSA (Body Surface Area) 1.91 m2 [facility] Work Phone: 10-11-2019 09:37-0400 Height 162.56 cm [facility] Work Phone: 03-13-2019 11:30-0500 Body height 162.6 cm Sav Buchanan MD Work Phone: [employer] Work Phone: 03-13-2019 11:30-0500 Body mass index (BMI) [Ratio] 30.04 kg/m2 Sav Buchanan MD Work Phone: [employer] Work Phone: 03-13-2019 11:30-0500 Body temperature 98.1 [degF] Sav Buchanan MD Work Phone: [employer] Work Phone: 03-13-2019 11:30-0500 Body weight 79.38 kg Sav Buchanan MD Work Phone: [employer] Work Phone: 03-13-2019 11:30-0500 Diastolic blood pressure 74 mm[Hg] Sav Buchanan MD Work Phone: [employer] Work Phone: 03-13-2019 11:30-0500 Heart rate 102 /min Sav Buchanan MD Work Phone: [employer] Work Phone: 03-13-2019 11:30-0500 Respiratory rate 16 /min Sav Buchanan MD Work Phone: [employer] Work Phone: 03-13-2019 11:30-0500 SaO2% (BldA) [Mass fraction] 96 % Sav Buchanan MD Work Phone: [facility] Work Phone: 03-13-2019 11:30-0500 Systolic blood pressure 120 mm[Hg] Sav Buchanan MD Work Phone: [facility] Work Phone: Encounters Encounter Date Encounter Type Care Provider Facility Start: 03-27-2024 End: 03-27-2024 ambulatory MARIANA SALAS [facility] Start: 03-27-2024 End: 03-27-2024 Subsequent hospital visit by physician Parrish Flores MD Work Phone: [facility] Laboratory Start: 03-26-2024 End: 03-27-2024 ambulatory ANDERSAURORA FIFI [facility] Start: 03-26-2024 End: 03-27-2024 Subsequent hospital visit by physician Winnie Calix UNLEAVENED D[employer] MIXER - CNM Work Phone: [facility] Labor and Delivery Start: 03-12-2024 End: 03-12-2024 External Result Encounter Agatha Bowling DO Work Phone: [facility] External Department Unsolicited Start: 03-12-2024 End: 03-12-2024 External Result Encounter Agatha Bowling DO Work Phone: [facility] External Department Unsolicited Start: 03-12-2024 End: 03-12-2024 Patient encounter procedure Sav Buchanan MD Work Phone: [facility] Labor - O/P Start: 03-12-2024 End: 03-12-2024 ambulatory Sav Buchanan MD Work Phone: [facility] Work Phone: Start: 03-08-2024 End: 03-08-2024 ambulatory ARTEM MILLAN [facility] Start: 03-08-2024 End: 03-08-2024 Subsequent hospital visit by physician Artem Millan DO Work Phone: [facility] Labor and Delivery Start: 02-09-2024 End: 02-10-2024 ambulatory [facility] Start: 02-09-2024 End: 02-10-2024 Subsequent hospital visit by physician Agatha Hillary Jason UNLEAVENED DOUGH MIXER - CNM Work Phone: [facility] Labor and Delivery Start: 02-05-2024 End: 02-06-2024 ambulatory G[facility]ARDO MENDOZA [facility] Start: 02-05-2024 End: 02-06-2024 Subsequent hospital visit by physician Gerardo Mendoza MD Work Phone: [facility] Labor and Delivery Start: 02-05-2024 End: 02-05-2024 Emergency department patient visit Antonio Ge MD Work Phone: [facility] ED Comment on above: Acute cystitis witho ut hematuria (Primary Dx); Lower abdominal pain Start: 01-26-2024 Non-patient / Non-visit Sav Buchanan MD Work Phone: [facility] Work Phone: Start: 01-26-2024 End: 01-26-2024 ambulatory Sonia Padilla Facility:[facility] Start: 01-26-2024 End: 01-26-2024 Departed Referred Sav Buchanan MD Work Phone: [facility] Start: 01-21-2024 End: 01-22-2024 ambulatory [facility] Start: 01-21-2024 End: 01-22-2024 Subsequent hospital visit by physician Mariana Randhawa DO Work Phone: [facility] Labor and Delivery Start: 01-14-2024 End: 01-14-2024 ambulatory [facility] Start: 01-14-2024 End: 01-14-2024 Subsequent hospital visit by physician Artem Millan DO Work Phone: [facility] Labor and Delivery Start: 01-05-2024 End: 01-05-2024 ambulatory Sav Buchanan MD Work Phone: [facility] Work Phone: Start: 01-05-2024 End: 01-05-2024 Patient encounter procedure Sav Buchanan MD Work Phone: [facility] [address] Work Phone: Start: 12-29-2023 End: 12-29-2023 ambulatory WINNIE CALIX [facility] Start: 12-29-2023 End: 12-29-2023 Subsequent hospital visit by physician Parrish Flores MD Work Phone: [facility] Laboratory Comment on above: Cloudy urine Start: 12-22-2023 End: 12-23-2023 ambulatory STEPHAN YORK [facility] Start: 12-22-2023 End: 12-22-2023 ambulatory STEPHAN YORK [facility] Start: 12-22-2023 End: 12-22-2023 Emergency department patient visit Antonio Ge MD Work Phone: [facility] ED Comment on above: Acute cystitis witho ut hematuria (Primary Dx); Yeast detected Start: 11-06-2023 End: 11-07-2023 External Result Encounter Ranulfo Ghotra MD Work Phone: [facility] External Department Unsolicited Start: 11-06-2023 End: 11-07-2023 External Result Encounter Ranulfo Ghotra MD Work Phone: [facility] External Department Unsolicited Start: 11-05-2023 End: 11-06-2023 ambulatory MD Sav Buchanan Work Phone: [facility] Work Phone: Start: 11-05-2023 End: 11-06-2023 Evaluation and management of inpatient MD Sav Buchanan Work Phone: [facility] [place] Work Phone: Start: 11-05-2023 End: 11-06-2023 Patient encounter procedure MD Sav Buchanan Work Phone: [facility] Labor - O/P Start: 10-18-2023 End: 10-18-2023 ambulatory [facility] Start: 10-17-2023 End: 10-17-2023 ambulatory [facility] Start: 09-06-2023 End: 09-06-2023 ambulatory [facility] Start: 05-09-2023 End: 05-09-2023 Emergency department patient visit Sav Buchanan Facility:[facility] Start: 02-15-2023 End: 02-15-2023 Emergency department patient visit MD Sav Buchanan Work Phone: [facility]-Emergency Room Work Phone: Start: 01-06-2023 End: 01-06-2023 ambulatory Jah Rene Other [employer] Other Start: 01-06-2023 Office outpatient ne w 20 minutes Jah Rene [employer] [facility] Start: 01-04-2023 End: 01-04-2023 ambulatory Nader Arroyo Facility:[facility] Start: 01-04-2023 End: 01-04-2023 ambulatory MD Sav Buchanan Work Phone: [facility] Work Phone: Start: 01-04-2023 End: 01-04-2023 Patient encounter procedure MD Sav Buchanan Work Phone: [facility]-Flu Vaccine Start: 09-23-2022 End: 09-23-2022 ambulatory Ignacio Nielsen Jr Facility:[facility] Start: 09-23-2022 End: 09-23-2022 ambulatory MD Sav Buchanan Work Phone: [facility] Work Phone: Start: 09-23-2022 End: 09-23-2022 Departed Referred MD Sav Buchanan Work Phone: [facility] [address] Work Phone: Start: 08-24-2022 End: 08-26-2022 Subsequent hospital visit by physician Sav Buchanan MD Work Phone: [facility] Radiology Start: 08-11-2022 End: 08-11-2022 Subsequent hospital visit by physician Sav Buchanan MD Work Phone: [facility] Laboratory Comment on above: ASCUS with positive high risk HPV cervical Start: 07-01-2022 End: 07-01-2022 Subsequent hospital visit by physician Sav Buchanan MD Work Phone: [facility] Laboratory Comment on above: ASCUS with positive high risk HPV cervical Start: 04-23-2022 End: 04-23-2022 Emergency department patient visit Sav Buchanan MD Work Phone: [facility] ED Comment on above: Syncope and collapse (Primary Dx); Dehydration; POTS (postural orthostatic tachycardia syndrome) Start: 02-01-2022 End: 02-01-2022 Emergency department patient visit Sav Buchanan Facility:[facility] Start: 02-01-2022 End: 02-01-2022 Emergency department patient visit MD Sav Buchanan Work Phone: [facility]-Emergency Room Start: 12-25-2021 ambulatory LAMONTNILA SMITH [facility] Start: 11-23-2021 ambulatory [facility] Start: 11-16-2021 ambulatory [facility] Start: 11-16-2021 End: 11-16-2021 Office outpatient new 45 minutes [facility] UNLEAVENED DOUGH MIXER-DIRECTOR OF ANALYTICS Work Phone: [facility] Comment on above: Sleep apnea, unspeci fied type (Primary Dx); Overweight; Fatigue, unspecified type; Hypersomnia, unspecified; Hx of migraines; Insomnia, unspecified type Start: 11-10-2021 [facility] Start: 08-17-2022 [facility] Start: 10-19-2021 ambulatory BERNDA YORK [facility] Start: 10-19-2021 End: 10-19-2021 Office outpatient new 60 minutes Brenda York DO Work Phone: [facility] Comment on above: Gastroesophageal ref lux disease, unspecified whether esophagitis present (Primary Dx); Obesity, morbid, BMI 40.0-49.9; Hypersomnolence Start: 08-04-2021 End: 08-04-2021 Patient encounter procedure Stephanie Collins APRN - [place] Work Phone: [facility] Laboratory Start: 08-04-2021 End: 08-04-2021 Subsequent hospital visit by physician Stephanie Shankar CNP Work Phone: [facility] Laboratory Comment on above: Vaginal yeast infect ion; Well woman exam with routine gynecological exam Start: 02-23-2021 End: 02-23-2021 Subsequent hospital visit by physician [facility] Ekg [facility] EKG Comment on above: Syncope and collapse ; POTS (postural orthostatic tachycardia syndrome); Abnormal tilt table test; Neurocardiogenic syncope Syncope and collapse ; POTS (postural orthostatic tachycardia syndrome); Abnormal tilt table test; Neurocardiogenic syncope; Palpitations; Class 2 obesity due to excess calories without serious comorbidity with body mass index (BMI) of 38.0 to 38.9 in adult; SOB (shortness of breath) Start: 01-08-2021 End: 01-08-2021 Subsequent hospital visit by physician [facility] Tilt Table Study Room [facility] Stress Lab Comment on above: Syncope and collapse ; POTS (postural orthostatic tachycardia syndrome); Other specified hypotension Start: 12-21-2020 End: 12-21-2020 Emergency department patient visit Stephanie Shankar CNP Work Phone: [facility] ED Comment on above: Nonintractable heada ramez, unspecified chronicity pattern, unspecified headache type (Primary Dx) Start: 12-18-2020 End: 12-18-2020 Emergency department patient visit [facility] ED Bed 14 Start: 10-26-2020 End: 10-26-2020 Emergency department patient visit Stephanie Collins UNLEAVENED DOUGH MIXER - DIRECTOR OF ANALYTICS Work Phone: [facility] ED Comment on above: Adverse effect of CO VID-19 vaccine (Primary Dx) Start: 10-09-2020 End: 10-09-2020 Patient encounter status Stephanie Collins UNLEAVENED DOUGH MIXER - DIRECTOR OF ANALYTICS Work Phone: [facility] Start: 10-09-2020 End: 10-09-2020 Subsequent hospital visit by physician Stephanie Collins UNLEAVENED DOUGH MIXER - DIRECTOR OF ANALYTICS Work Phone: [facility] Laboratory Comment on above: Obesity (BMI 35.0-39 .9 without comorbidity) Wellness examination ; Lipid screening Start: 07-08-2020 End: 07-08-2020 Emergency department patient visit MD JOSEPH RIOJAS Facility:[facility] Start: 06-24-2020 End: 06-24-2020 Emergency department patient visit Raudle Carranza MD [facility] ED Comment on above: Migraine without aur a and without status migrainosus, not intractable (Primary Dx) Start: 05-29-2020 End: 05-29-2020 Subsequent hospital visit by physician Sav Buchanan [facility] Laboratory Comment on above: Menorrhagia with irr egular cycle; Screening for cervical cancer Start: 05-22-2020 End: 05-22-2020 Subsequent hospital visit by physician Sav Buchanan [facility] Laboratory Comment on above: Cyst of ovary, unspe cified laterality Start: 05-21-2020 End: 05-23-2020 Subsequent hospital visit by physician [facility] Ultrasound Room [facility] Ultrasound Comment on above: Pelvic pain Start: 02-14-2020 End: 02-14-2020 Emergency department patient visit AUSTIN PINEDA Facility:[facility] Start: 12-13-2019 End: 12-13-2019 Emergency department patient visit Austin Tijerina Work Phone: [facility] ED Comment on above: Acute viral bronchit is (Primary Dx) Start: 10-11-2019 End: 10-11-2019 Telemedicine consultation with patient Caleb Butts Work Phone: [facility] Work Phone: Start: 03-13-2019 End: 03-15-2019 Evaluation and management of inpatient GLORIA AGARWAL [facility] Start: 03-13-2019 End: 03-13-2019 Emergency department patient visit Sav Buchanan MD Work Phone: [facility] ED Comment on above: Depression with suic idal ideation (Primary Dx) Start: 07-25-2017 End: 07-26-2017 Ambulatory STEPHAN YORK [place] [place] Start: 01-21-2006 End: 01-21-2006 Telephone encounter Stephan Mckeon Yocasta Work Phone: [facility] Procedures Date Procedure Procedure Detail Performing Clinician Start: 03-26-2024 Urinalysis microscopic only Winnie Fifi UNLEAVENED DOUGH MIXER - CNM Work Phone: Start: 03-26-2024 Urnls dip stick/tabl et rgnt auto w/o microscopy Winnie Calix UNLEAVENED DOUGH MIXER - CNM Work Phone: Start: 03-12-2024 Urnls dip stick/tabl et reagent auto microscopy Agatha E Rinkes DO Work Phone: Start: 03-08-2024 COVID-19, RAPID Artem D'Abreau DO Work Phone: Start: 03-08-2024 Iaadiadoo influenza Sidney phen D'Abreau DO Work Phone: Start: 03-08-2024 End: 03-08-2024 Comprehensive metabolic panel Artem D'Abreau DO Work Phone: Start: 03-08-2024 Urinalysis microscopic only Artem D'Abreau DO Work Phone: Start: 03-08-2024 Urnls dip stick/tabl et rgnt auto w/o microscopy Artem D'Abreau DO Work Phone: Start: 02-10-2024 Urinalysis microscopic only Agatha E Pool UNLEAVENED DOUGH MIXER - CNM Work Phone: Start: 02-10-2024 Urnls dip stick/tabl et rgnt auto w/o microscopy Agatha E Pool UNLEAVENED DOUGH MIXER - CNM Work Phone: Start: 02-09-2024 Comprehensive metabo lic panel Agatha Gomez APRN - [employer] Work Phone: Start: 02-05-2024 Protein total xcpt refractometry urine Antonio Phillip Prisca DAILEY Work Phone: Start: 02-05-2024 Urinalysis microscopic only Antonio Phillip Prisca DAILEY Work Phone: Start: 02-05-2024 Urnls dip stick/tabl et rgnt auto w/o microscopy Antonio Phillip Prisca DAILEY Work Phone: Start: 02-05-2024 End: 02-05-2024 Assay of lactate Antonio Phillip Prisca DAILEY Work Phone: Start: 02-05-2024 Ecg routine ecg w/le ast 12 lds w/i&r Antonio Ge MD Work Phone: Start: 01-21-2024 Comprehensive metabo lic panel Agatha Gomez APRN - CN Work Phone: Start: 01-21-2024 Urinalysis microscopic only Agatha Gomez APRN - CN Work Phone: Start: 01-21-2024 Urnls dip stick/tabl et rgnt auto w/o microscopy Agatha Gomez APRN - CN Work Phone: Start: 01-14-2024 Urinalysis microscopic only Artem D'Abreau DO Work Phone: Start: 01-14-2024 Urnls dip stick/tabl et rgnt auto w/o microscopy Artem D'Abreau DO Work Phone: Start: 12-22-2023 End: 12-22-2023 Comprehensive metabolic panel Antonio G Prisca DAILEY Work Phone: Start: 12-22-2023 Urinalysis microscopic only Antonio Ge MD Work Phone: Start: 12-22-2023 Urnls dip stick/tabl et rgnt auto w/o microscopy Antonio Ge MD Work Phone: Start: 11-06-2023 Urnls dip stick/tabl et rgnt non-auto w/o micrscp Brijesh Milton DO Work Phone: Start: 11-06-2023 Urine culture MD Sav Buchanan Work Phone: Start: 11-06-2023 Culture bacterial quanttative colony count urine Ranulfo Ghotra MD Work Phone: Start: 11-06-2023 Complete blood count with white cell differential, automated Ranulfo Ghotra MD Work Phone: Start: 11-06-2023 Complete blood count with white cell differential, automated Ranulfo Ghotra MD Work Phone: Start: 11-05-2023 Ultrasonography of b ilateral kidneys MD Sav Buchanan Work Phone: Start: 11-05-2023 US scan of gallbladder MD Sav Buchanan Work Phone: Start: 11-05-2023 End: 11-05-2023 Diagnostic ultrasound of gravid uterus MD Sav Buchanan Work Phone: Start: 11-05-2023 Bacteria identification test MD Sav Buchanan Work Phone: Start: 11-05-2023 Determination of kacy wth of fungi Sav Buchanan MD Work Phone: Start: 11-05-2023 Trichomonas vaginali s detection MD Sav Buchanan Work Phone: Start: 10-18-2023 Microscopic observat ion [Identifier] in Cervix by Cyto stain Antonio Ge MD Work Phone: Start: 07-01-2022 Microscopic observat ion [Identifier] in Cervix by Cyto stain Sav Buchanan MD Work Phone: Start: 04-23-2022 Comprehensive metabo lic panel Deny Lees PA-C Work Phone: Start: 04-23-2022 Ct head/brain w/o co ntrast material Deny Lees PA-C Work Phone: Start: 04-23-2022 Ecg routine ecg w/le ast 12 lds w/i&r Deny Jaya Yoana PA-[employer] Work Phone: Start: 08-04-2021 Microscopic observat ion [Identifier] in Cervix by Cyto stain Sav Buchanan MD Work Phone: Start: 02-23-2021 Lipid panel Benny coombs MD Work Phone: Start: 01-08-2021 Echo tthrc r-t 2d w/ wom-mode compl spec&colr d Stephanie Collins UNLEAVENED DOUGH MIXER - DIRECTOR OF ANALYTICS Work Phone: Start: 12-21-2020 Urinalysis microscopic only Allen [employer] Work Phone: Start: 12-21-2020 Urnls dip stick/tabl et rgnt auto w/o microscopy Allen [employer] Work Phone: Start: 12-21-2020 Comprehensive metabo lic panel Allen [employer] Work Phone: Start: 12-21-2020 Ct head/brain w/o co ntrast material Allen [employer]letrog[employer] Work Phone: Start: 12-18-2020 End: 12-18-2020 EKG impression Alyson C Shama Start: 10-26-2020 End: 10-26-2020 Urinalysis microscopic only Duane Lion PA-[employer] Work Phone: Start: 10-26-2020 Urnls dip stick/tabl et rgnt auto w/o microscopy Duane Navarro [employer]i [employer] Work Phone: Start: 10-26-2020 Ct soft tissue neck w/contrast material Duane Navarro Richi PA-[employer] Work Phone: Start: 10-26-2020 BASIC METABOLIC PANE L W/ REFLEX TO MG FOR LOW K Duane Navarro Richi PA-C Work Phone: Start: 10-26-2020 Gonadotropin chorion ic qualitative Duane Stoddard PA-C Work Phone: Start: 10-26-2020 Heterophile antibodi es screen Duane Ramon Richi PA-C Work Phone: Start: 10-26-2020 Lactate [Moles/volum e] in Serum or Plasma Duane Ramon Richi PA-C Work Phone: Start: 10-09-2020 Lipid panel Stephanie peng UNLEAVENED DOUGH MIXER - DIRECTOR OF ANALYTICS Work Phone: Start: 10-09-2020 End: 10-09-2020 Hemoglobin glycosylated a1c Elier burnett MD Work Phone: Start: 06-24-2020 Basic metabolic pane l calcium total Raudel L Dillon DAILEY Start: 05-29-2020 Microscopic observat ion [Identifier] in Cervix by Cyto stain Stephanie Collins UNLEAVENED DOUGH MIXER - DIRECTOR OF ANALYTICS Work Phone: Start: 05-22-2020 Carcinoembryonic antigen cea Stephan York Work Phone: Start: 05-22-2020 Immunoassay tumor an tigen quantitative ca 125 Stephan York Work Phone: Start: 05-21-2020 Us transvaginal Stephan York Work Phone: Start: 12-13-2019 Radiologic exam ches t single view Austin Tijerina Work Phone: Start: 12-13-2019 MDI TREATMENT Austin Tijerina Work Phone: Start: 03-15-2019 DISCHARGE PATIENT SREEK ANTH INDURTI Start: 03-14-2019 Assay of thyroid sti mulating hormone tsh GLORIA INDURTI Start: 03-14-2019 Blood count complete auto&auto difrntl wbc GLORIA INDURTI Start: 03-14-2019 Hemoglobin glycosylated a1c GLORIA INDURTI Start: 03-14-2019 Lipid panel GLORIA INDURTI Start: 03-13-2019 Drug screen class list a GLORIA INDURTI Start: 03-13-2019 DIET GENERAL GLORIA INDURTI Start: 03-13-2019 FULL CODE GLORIA INDURTI Start: 03-13-2019 IP CONSULT TO HOSPITALIST GLORIA INDURTI Start: 03-13-2019 MONITOR GLORIA INDURTI Start: 03-13-2019 TOBACCO CESSATION EDUCATION GLORIA INDURTI Start: 03-13-2019 Urine test visual color cmprsn meths GLORIA INDURTI Start: 03-13-2019 VITAL SIGNS GLORIA INDURTI Start: 03-13-2019 PATIENT STATUS (DIRECT) GLORIA INDURTI Start: 03-13-2019 Drug screen class list a Allen Gary PA-C Work Phone: Start: 03-13-2019 Urinalysis microscopic only Allen Gary PA-C Work Phone: Start: 03-13-2019 Urine test visual color cmprsn meths Allen GRACIA-Magen Work Phone: Start: 03-13-2019 Assay of acetaminophen Allen GRACIA-C Work Phone: Start: 03-13-2019 Assay of ethanol Allen [employer] Work Phone: Start: 03-13-2019 Assay of salicylate Maria Isabel GRACIA-Magen Work Phone: Start: 03-13-2019 Basic metabolic pane l calcium total Allen GRACIA-Magen Work Phone: Plan of Treatment Date Care Activity Detail Author Start: 02-22-2034 DTaP/Tdap/Td vaccine (7 - Td or Tdap) DTaP/Tdap/Td vaccine (7 - Td or Tdap) [facility] Start: 10-17-2028 Screening for malign ant neoplasm of cervix [facility] Start: 05-11-2028 DTaP/Tdap/Td vaccine (4 - Td or Tdap) DTaP/Tdap/Td vaccine (4 - Td or Tdap) [facility] Start: 05-11-2028 DTaP/Tdap/Td vaccine (6 - Td or Tdap) DTaP/Tdap/Td vaccine (6 - Td or Tdap) [facility] Start: 07-02-2027 Screening for malign ant neoplasm of cervix [facility] Start: 10-17-2026 Screening for malign ant neoplasm of cervix Pap smear [facility] Start: 08-04-2026 Screening for malign ant neoplasm of cervix [facility] Start: 08-24-2025 Diabetes screen Diabetes screen [facility] Start: 07-01-2025 Screening for malign ant neoplasm of cervix Pap smear [facility] Start: 05-29-2025 Screening for malign ant neoplasm of cervix [facility] Start: 02-22-2025 Depression Monitoring Depression Mon itoring [facility] Start: 02-08-2025 Depression Monitoring Depression [facility] Start: 08-04-2024 Screening for malign ant neoplasm of cervix Pap smear [facility] Start: 04-10-2024 End: 04-10-2024 Admission to same day surgery center 04/10/2024 7:30 AM EST - 04/10/2024 8:51 AM EST Surgery [facility] Labor and Delivery [address] [place], [place] [id number] Mariana Garza, DO [address] [place] [id number] SECTION [facility] Comment on above: SECTION Start: 04-10-2024 End: 04-10-2024 delivery only SECTION Placenta previa in second trimester 04/10/2024 7:30 AM EST [facility] Start: 04-10-2024 Subsequent hospital visit by physician 04/10/2024 7:30 AM EST Hospital Encounter [facility] Labor and Delivery [address] [place] [address] Mariana Garza, DO [address] [place] [id number] [facility] Start: 04-09-2024 End: 04-09-2024 Patient encounter procedure 04/09/2024 3:00 PM EST Appointment [facility] [address] [place] [address] [facility] Start: 03-27-2024 End: 03-27-2024 Patient encounter procedure [facility] Comment on above: OB2, 34+ C* OB2, 34+ Start: 03-27-2024 End: 03-27-2024 Professional / ancillary services management 03/27/2024 10:30 AM EST Ancillary Procedure [facility] [address] [place] [address] C* CL only then Dr Salas [facility] Comment on above: C* CL only then Dr Ramon andujar Start: 03-13-2024 End: 03-13-2024 Patient encounter procedure 03/13/2024 4:30 PM EST Routine [facility] [address] [place] [address] Mariana Garza, DO [address] [place] [address] OB2 [facility] Comment on above: OB2 Start: 03-12-2024 Hospital admission [facility] Start: 03-12-2024 End: 03-12-2024 [facility] Start: 03-10-2024 Respiratory Syncytia l Virus (RSV) or age 60 yrs+ (1 - Risk 1-dose series) Respiratory Syncytial Virus (RSV) or age 60 yrs+ (1 - Risk 1-dose series) [facility] Start: 02-27-2024 End: 02-27-2024 Patient encounter procedure 02/27/2024 11:00 AM EST Routine [facility] [address] [place] [address] Winnie Calix APRN - CNM [address] [place] [address] OB2 following 30 wk growth/ Sammie pt [facility] Comment on above: OB2 following 30 wk growth/ Sammie pt Start: 02-27-2024 End: 02-27-2024 Professional / ancillary services management 02/27/2024 10:30 AM EST Ancillary Procedure [facility] Part of [address] [place] [id number] 30 wk growth then JASPER/ Sammie pt [facility] Comment on above: 30 wk growth then JASPER / Sammie pt Start: 02-24-2024 Diabetes screen Diabetes screen [facility] Start: 02-23-2024 End: 02-23-2024 Patient encounter procedure [facility] Comment on above: OB2 following 30 wk growth/ Sammie pt Start: 02-23-2024 End: 02-23-2024 Professional / ancillary services management 02/23/2024 2:30 PM EST Ancillary Procedure [facility] Part of [address] [place] [id number] 30 wk growth then JASPER/ Sammie pt [facility] Comment on above: 30 wk growth then JASPER / Sammie pt Start: 02-07-2024 End: 02-07-2024 Patient encounter procedure [facility] Comment on above: OB doing GTT C* OB doing GTT Start: 02-04-2024 Tdap Vaccine during Tdap Vaccine during [facility] Start: 01-17-2024 End: 01-17-2024 Patient encounter procedure 01/17/2024 9:45 AM EST Routine [facility] Part of [address] [place] [address] Mariana Garza DO [address] [place] [address] OB4 [facility] Comment on above: OB4 Start: 12-29-2023 End: 12-29-2023 Patient encounter procedure 12/29/2023 2:00 PM EDT Routine [facility] [address] [place] [address] Winnie Calix [place]ED [place] [address] OB following routine 21.5, sammie pt needs [facility] Comment on above: OB following routine 21.5, sammie pt needs Start: 12-29-2023 End: 12-29-2023 Professional / ancillary services management 12/29/2023 1:00 PM EDT Ancillary Procedure [address] [place] [address] Routine 21.5/ sammie pt, she needs [facility] Comment on above: Routine 21.5/ sammie p t, she needs Start: 11-08-2023 Hospital admission [facility] Start: 11-06-2023 [facility] Start: 11-06-2023 Bacteria identified in Urine by Culture [facility] Start: 11-06-2023 COVID-19 Vaccine ( season) COVID-19 Vaccine ( season) [facility] Start: 11-06-2023 Influenza vaccination Influenza Vacc ine (#1) [facility] Start: 11-06-2023 [facility] Start: 11-06-2023 [facility] Start: 11-05-2023 [facility] Start: 11-05-2023 Transvaginal obstetr ic ultrasonography [facility] Start: 11-05-2023 Diagnostic ultrasoun d of gravid uterus [facility] Start: 11-05-2023 Genital Culture Genital Culture [facility] Start: 10-06-2023 Influenza vaccination Flu vaccine (# 1) [facility] Start: 05-30-2023 Screening for malign ant neoplasm of cervix Pap smear [facility] Start: 11-27-2022 DTaP/Tdap/Td vaccine (2 - Tdap) DTaP/Tdap/Td vaccine (2 - Tdap) [facility] Work Phone: Start: 10-05-2022 Influenza vaccination Flu vacc ine (Season Ended) [facility]ESH [facility] Start: 09-23-2022 [facility] Start: 08-30-2022 End: 08-30-2022 Patient encounter procedure 08/30/2022 Office Visit Obstetrics and Gynecology Elier Iqbal MD [address] [place] [address] [facility] Start: 07-23-2022 End: 07-23-2022 Patient encounter procedure 07/23/2022 Office Visit Obstetrics and Gynecology Elier Iqbal MD [address] [place], [place] [id number] [facility] Start: 07-12-2022 Cervical cancer screen Cervical canc er screen [facility] Work Phone: Start: 07-12-2022 Screening for malign ant neoplasm of cervix Cervical cancer screen [facility] [place], [place] Start: 03-24-2022 End: 03-24-2022 Patient encounter procedure 03/24/2022 Office Visit Pulmonary Disease Lena Jo, UNLEAVENED DOUGH MIXER-DIRECTOR OF ANALYTICS [address] [facility] [address] [place] [address] [facility] [place] Start: 02-01-2022 [facility] Start: 12-28-2021 End: 12-28-2021 Clinical Support Encounter 12/28/2021 Clinical Support Encounter Sleep Medicine [facility] Start: 12-25-2021 End: 12-25-2021 Patient encounter procedure 12/25/2021 Appointment Multispecialty Brenda York, DO [address] [place] [address] [facility] Start: 11-23-2021 End: 11-23-2021 Nutrition therapy 11/23/2021 Telemed Clin Support Nutrition and Dietetics Lamont Smith, RD [address] [place] [address] [facility] Start: 11-05-2021 Influenza vaccination B ON [facility] Start: 10-20-2021 End: 10-19-2022 Standard ECG ECG ECG Routine Obesity, morbid, BMI 40.0-49.9 Gastroesophageal reflux disease, unspecified whether esophagitis present Hypersomnolence Expected: 10/20/2021, Expires: 10/19/2022 [facility] Comment on above: Expected: 10/20/2021 , Expires: 10/19/2022 Start: 10-19-2021 End: 10-19-2022 B12/folate level B12 & FOLATE Lab Routine Obesity, morbid, BMI 40.0-49.9 Gastroesophageal reflux disease, unspecified whether esophagitis present Hypersomnolence Expected: 10/19/2021, Expires: 10/19/2022 [facility] Comment on above: Expected: 10/19/2021 , Expires: 10/19/2022 Start: 10-19-2021 End: 10-19-2022 Complete blood count with white cell differential, automated CBC, EDIF, PLATELET Lab Routine Obesity, morbid, BMI 40.0-49.9 Gastroesophageal reflux disease, unspecified whether esophagitis present Hypersomnolence Expected: 10/19/2021, Expires: 10/19/2022 [facility] Comment on above: Expected: 10/19/2021 , Expires: 10/19/2022 Start: 10-19-2021 End: 10-19-2022 Comprehensive metabolic 2000 panel - Serum or Plasma COMPREHENSIVE METABOLIC PANEL Lab Routine Obesity, morbid, BMI 40.0-49.9 Gastroesophageal reflux disease, unspecified whether esophagitis present Hypersomnolence Expected: 10/19/2021, Expires: 10/19/2022 [facility] Comment on above: Expected: 10/19/2021 , Expires: 10/19/2022 Start: 10-19-2021 End: 10-19-2022 DIAGNOSTIC UPPER ENDOSCOPY DIAGNOSTIC UPPER ENDOSCOPY GI/Bronch Routine Obesity, morbid, BMI 40.0-49.9 Gastroesophageal reflux disease, unspecified whether esophagitis present Hypersomnolence Expected: 10/19/2021, Expires: 10/19/2022 [facility] Comment on above: Expected: 10/19/2021 , Expires: 10/19/2022 Start: 10-19-2021 End: 10-19-2022 Hemoglobin A1c/Hemoglobin.total in Blood HEMOGLOBIN A1C Lab Routine Obesity, morbid, BMI 40.0-49.9 Gastroesophageal reflux disease, unspecified whether esophagitis present Hypersomnolence Expected: 10/19/2021, Expires: 10/19/2022 [facility] Comment on above: Expected: 10/19/2021 , Expires: 10/19/2022 Start: 10-19-2021 End: 10-19-2022 Iron [Mass/volume] in Serum or Plasma IRON Lab Routine Obesity, morbid, BMI 40.0-49.9 Gastroesophageal reflux disease, unspecified whether esophagitis present Hypersomnolence Expected: 10/19/2021, Expires: 10/19/2022 [facility] Comment on above: Expected: 10/19/2021 , Expires: 10/19/2022 Start: 10-19-2021 End: 10-19-2022 LIPID PANEL W CALCULATED LDL LIPID PANEL W CALCULATED LDL Lab Routine Obesity, morbid, BMI 40.0-49.9 Gastroesophageal reflux disease, unspecified whether esophagitis present Hypersomnolence Expected: 10/19/2021, Expires: 10/19/2022 [facility] Comment on above: Expected: 10/19/2021 , Expires: 10/19/2022 Start: 10-19-2021 End: 10-19-2022 VITAMIN A VITAMIN A Lab Routine Obesity, morbid, BMI 40.0-49.9 Gastroesophageal reflux disease, unspecified whether esophagitis present Hypersomnolence Expected: 10/19/2021, Expires: 10/19/2022 [facility] Comment on above: Expected: 10/19/2021 , Expires: 10/19/2022 Start: 10-19-2021 End: 10-19-2022 VITAMIN B1 VITAMIN B1 Lab Routine Obesity, morbid, BMI 40.0-49.9 Gastroesophageal reflux disease, unspecified whether esophagitis present Hypersomnolence Expected: 10/19/2021, Expires: 10/19/2022 [facility] Comment on above: Expected: 10/19/2021 , Expires: 10/19/2022 Start: 10-19-2021 End: 10-19-2022 VITAMIN D, (1,25 DIHYDROXY) VITAMIN D, (1,25 DIHYDROXY) Lab Routine Obesity, morbid, BMI 40.0-49.9 Gastroesophageal reflux disease, unspecified whether esophagitis present Hypersomnolence Expected: 10/19/2021, Expires: 10/19/2022 [facility] Comment on above: Expected: 10/19/2021 , Expires: 10/19/2022 Start: 10-19-2021 End: 10-19-2022 VITAMIN E VITAMIN E Lab Routine Obesity, morbid, BMI 40.0-49.9 Gastroesophageal reflux disease, unspecified whether esophagitis present Hypersomnolence Expected: 10/19/2021, Expires: 10/19/2022 [facility] Comment on above: Expected: 10/19/2021 , Expires: 10/19/2022 Start: 10-19-2021 End: 10-19-2022 XR Chest PA and Lateral XR CHEST PA AND LATERAL Imaging Routine Obesity, morbid, BMI 40.0-49.9 Gastroesophageal reflux disease, unspecified whether esophagitis present Hypersomnolence Expected: 10/19/2021, Expires: 10/19/2022 [facility] Comment on above: Expected: 10/19/2021 , Expires: 10/19/2022 Start: 10-09-2021 Pneumococcal 0-64 ye ars Vaccine (1 - PCV) Pneumococcal 0-64 years Vaccine (1 - PCV) [facility] Comment on above: Postponed from 09/15 (Not Indicated) Start: 10-09-2021 Pneumococcal 0-64 ye ars Vaccine (1 of 2 - PPSV23) Pneumococcal 0-64 years Vaccine (1 of 2 - PPSV23) [facility] Comment on above: Postponed from 09/15 (Not Indicated) Start: 10-09-2021 Varicella vaccine (1 of 2 - 2-dose childhood series) Varicella vaccine (1 of 2 - 2-dose childhood series) [facility] Comment on above: Postponed from 09/15 (Not Indicated) Start: 09-03-2021 End: 09-03-2021 Patient encounter procedure 09/03/2021 Office Visit Obstetrics and Gynecology Elier Iqbal MD [address] [place], [place] [id number] [facility] Start: 04-26-2021 COVID-19 Vaccine (3 - Booster for Pfizer series) COVID-19 Vaccine (3 - Booster for Pfizer series) [facility] Start: 04-23-2021 End: 04-23-2021 Patient encounter procedure 04/23/2021 Office Visit Family Medicine Stephanie Collins, UNLEAVENED DOUGH MIXER - DIRECTOR OF ANALYTICS [address] [place] [address] [facility] Start: 03-26-2021 COVID-19 Vaccine (3 - Booster for Pfizer series) COVID-19 Vaccine (3 - Booster for Pfizer series) [facility]ESH AJ [facility] Start: 03-10-2021 End: 03-10-2021 Patient encounter procedure 03/10/2021 Office Visit Cardiology Benny Banks MD [address] [place] [id number] [facility] Start: 02-12-2021 End: 02-12-2021 Patient encounter procedure [facility] Start: 01-16-2021 End: 01-16-2021 Patient encounter procedure 01/16/2021 Office Visit Family Medicine Stephanie Collins, UNLEAVENED DOUGH MIXER - DIRECTOR OF ANALYTICS [address] [place] [address] [phone] [facility] Start: 12-19-2020 COVID-19 Vaccine (3 - Booster for Pfizer series) COVID-19 Vaccine (3 - Booster for Pfizer series) [facility]ESH AJ [facility] Start: 11-05-2020 Influenza vaccination [facility] Start: 10-24-2020 COVID-19 Vaccine (2 - Pfizer 2-dose series) COVID-19 Vaccine (2 - Pfizer 2-dose series) [facility] Work Phone: Start: 07-22-2020 End: 07-22-2020 Patient encounter procedure 07/22/2020 Procedure visit Obstetrics and Gynecology Mariana Graza DO [address] [place] [address] [facility] Start: 05-29-2020 End: 05-29-2020 Office Visit 05/29/2020 Office Visit Obstetrics and Gynecology Stephan York, HAROLDO - YAAKOVM [address] [facility] [address] [place] [address] [facility] Start: 11-06-2019 Influenza vaccination [facility] [place] Start: 10-18-2019 [facility] Start: 10-11-[address] Testing [facility] Work Phone: Start: 07-05-2019 Pneumococcal 0-64 ye ars Vaccine (1 of 1 - PPSV23) Pneumococcal 0-64 years Vaccine (1 of 1 - PPSV23) [facility] Work Phone: Comment on above: Postponed from 09/15 (Insurance / Financial) Start: 06-24-2019 HIV screen HIV screen [facility] Work Phone: Comment on above: Postponed from 09/15 (Patient Refused) Start: 11-05-2018 Influenza vaccination Flu vaccine (# 1) [facility] Work Phone: Start: 2014 HPV TESTING HPV TESTING [facility] Start: 2014 Screening for malign ant neoplasm of cervix [facility] Start: 04-13-2011 PAP TESTING PAP TESTING [facility] Start: 2005 Screening for malign ant neoplasm of cervix [facility] Start: 09-16-2003 Hepatitis B vaccine (1 of 3 - 19+ 3-dose series) Hepatitis B vaccine (1 of 3 - 19+ 3-dose series) [facility] Start: 09-16-2003 Third diphtheria, tetanus and acellular pertussis (DTaP) vaccination TDAP (ADULT) [facility] Start: 09-16-2003 Urine microalbumin profile DTAP,TDAP,TD (1 - Tdap) [facility] Start: 2002 HEPATITIS C SCREENING HEPATITIS C SC REENING [facility] Start: 2002 HIV SCREENING HIV SCRE[facility] Start: 2002 Tetanus vaccination TETANUS [facility] Start: 2000 COVID-19 Vaccine (1) COVID-19 Vaccin e (1) [facility] Work Phone: Start: 09-16-1999 HIV screening [facility] Start: 1997 Varicella vaccine (1 of 2 - 13+ 2-dose series) Varicella vaccine (1 of 2 - 13+ 2-dose series) [facility] Start: 1996 Adult depression screening assessment DEPRESSION SCREENING [facility] Start: 1996 Depression Monitoring Depression [facility] Start: 1990 Pneumococcal 0-64 ye ars Vaccine (1 - PCV) Pneumococcal 0-64 years Vaccine (1 - PCV) [facility] Start: 1990 Pneumococcal 0-64 ye ars Vaccine (1 of 1 - PPSV23) Pneumococcal 0-64 years Vaccine (1 of 1 - PPSV23) [facility] [place] [place] Start: 1990 Pneumococcal 0-64 ye ars Vaccine (1 of 2 - PCV) Pneumococcal 0-64 years Vaccine (1 of 2 - PCV) [facility] Start: 1985 Varicella vaccine (1 of 2 - 2-dose childhood series) Varicella vaccine (1 of 2 - 2-dose childhood series) [facility] Start: 03-18-1985 COVID-19 VACCINE (#1) COVID-19 VACCI NE (#1) [facility] Start: 1984 Hepatitis C screening Hepatitis C sc tarah [employer] Work Phone: Aerobic Culture Aerobic Culture [facility] Anaerobic Culture Anaerobic Culture [facility] Bacteria identified in Genital specimen by Aerobe culture [facility] Bacteria identified in Unspecified specimen by Aerobe culture [facility] Work Phone: Bacteria identified in Unspecified specimen by Anaerobe culture [facility] Work Phone: End: 01-21-2024 Bacteria identified in Urine by Culture [facility] Comment on above: One Time for 1 Occur rences starting 01/21/2024 until 01/21/2024 End: 02-09-2024 Bacteria identified in Urine by Culture Urine culture Microbiology Routine One Time for 1 Occurrences starting 02/09/2024 until 02/09/2024 [facility] Comment on above: One Time for 1 Occur rences starting 02/09/2024 until 02/09/2024 End: 03-08-2024 Bacteria identified in Urine by Culture [facility] Comment on above: One Time for 1 Occur rences starting 03/08/2024 until 03/08/2024 End: 03-26-2024 Bacteria identified in Urine by Culture Urine culture Microbiology Routine One Time for 1 Occurrences starting 03/26/2024 until 03/26/2024 [facility] Comment on above: One Time for 1 Occur rences starting 03/26/2024 until 03/26/2024 End: 05-29-2020 C.trachomatis N.gonorrhoeae DNA, Thin Prep C.trachomatis N.gonorrhoeae DNA, Thin Prep Microbiology Routine Menorrhagia with irregular cycle 1 Occurrences starting 05/29/2020 until 05/29/2020 [facility] Phone: Comment on above: 1 Occurrences starti ng 05/29/2020 until 05/29/2020 C.trachomatis N.gonorrhoeae DNA, Thin Prep C.trachomatis N.gonorrhoeae DNA, Thin Prep Microbiology Routine Menorrhagia with irregular cycle 05/29/2020 11:21 AM EDT [employer] Work Phone: End: 02-23-2021 Continuous cardiac monitoring, >2 up to 14 days Continuous cardiac monitoring, >2 up to 14 days Cardiac Services Routine Syncope and collapse POTS (postural orthostatic tachycardia syndrome) Abnormal tilt table test Neurocardiogenic syncope 1 Occurrences starting 02/23/2021 until 02/23/2021 [facility] Phone: Comment on above: 1 Occurrences starti ng 02/23/2021 until 02/23/2021 End: 12-13-2019 COVID-19, PCR COVID-19, PCR Lab Routine One Time for 1 Occurrences starting 12/13/2019 until 12/13/2019 [place] Comment on above: One Time for 1 Occur rences starting 12/13/2019 until 12/13/2019 COVID-19, PCR COVID-19, PCR [place] b STAT 12/13/2019 6:39 AM ED [employer] [place], [place] CT SOFT TISSUE NECK W CONTRAST CT SOFT TISSUE NECK W CONTRAST Imaging STAT 10/26/2020 12:46 PM [employer] Work Phone: End: 05-29-2020 Culture, Genital Culture, Genital Microbiology Routine Menorrhagia with irregular cycle 1 Occurrences starting 05/29/2020 until 05/29/2020 [facility] Phone: Comment on above: 1 Occurrences starti ng 05/29/2020 until 05/29/2020 Culture, Genital Culture, Genita l Microbiology Routine Menorrhagia with irregular cycle 05/29/2020 11:20 AM [employer] Work Phone: End: 08-04-2021 Culture, Genital BON [employer] Work Phone: Comment on above: 1 Occurrences starti ng 08/04/2021 until 08/04/2021 End: 12-22-2023 Culture, Urine [facility] Comment on above: One Time for 1 Occur rences starting 12/22/2023 until 12/22/2023 Once for 1 Occurrenc es starting 12/22/2023 until 12/22/2023 End: 12-29-2023 Culture, Urine [facility] Comment on above: 1 Occurrences starti ng 12/29/2023 until 12/29/2023 End: 01-14-2024 Culture, Urine [facility] Comment on above: One Time for 1 Occur rences starting 01/14/2024 until 01/14/2024 End: 02-05-2024 Culture, Urine [facility] Comment on above: One Time for 1 Occur rences starting 02/05/2024 until 02/05/2024 End: 05-29-2020 Cytopathology procedure, preparation of smear, genital source PAP SMEAR Lab Routine Screening for cervical cancer 1 Occurrences starting 05/29/2020 until 05/29/2020 [facility] Phone: Comment on above: 1 Occurrences starti ng 05/29/2020 until 05/29/2020 End: 08-04-2021 Cytopathology procedure, preparation of smear, genital source PAP SMEAR Lab Routine Well woman exam with routine gynecological exam 1 Occurrences starting 08/04/2021 until 08/04/2021 [facility] Phone: Comment on above: 1 Occurrences starti ng 08/04/2021 until 08/04/2021 End: 07-01-2022 Cytopathology procedure, preparation of smear, genital source PAP SMEAR Lab Routine ASCUS with positive high risk HPV cervical 1 Occurrences starting 07/01/2022 until 07/01/2022 [facility] Phone: Comment on above: 1 Occurrences starti ng 07/01/2022 until 07/01/2022 EKG 12 Lead EKG 12 Lead ECG Routine 04/23/2022 5:34 PM EST [facility] Phone: EKG 12 Lead EKG 12 Lead ECG STAT 02/05/2024 3:10 PM EST [facility] nonstress test nonst ress test OB Routine Daily until discontinued starting 01/15/2024 [employer] Phone: Comment on above: Daily until disconti nued starting 01/15/2024 nonstress test nonst ress test OB Routine Daily until discontinued starting 01/22/2024 [employer] Phone: Comment on above: Daily until disconti nued starting 01/22/2024 nonstress test nonst ress test OB Routine BID until discontinued starting 02/06/2024 [facility] Comment on above: BID until discontinu ed starting 02/06/2024 nonstress test nonst ress test OB Routine Daily until discontinued starting 02/10/2024 [facility] Comment on above: Daily until disconti nued starting 02/10/2024 nonstress test nonst ress test OB Routine Daily until discontinued starting 03/09/2024 [employer] Phone: Comment on above: Daily until disconti nued starting 03/09/2024 nonstress test nonst ress test OB Routine Daily until discontinued starting 03/27/2024 [facility] Phone: Comment on above: Daily until disconti nued starting 03/27/2024 End: 02-23-2021 Hemoglobin A1c/Hemoglobin.total in Blood [facility] Phone: Comment on above: 1 Occurrences starti ng 02/23/2021 until 02/23/2021 Herpes simplex virus identified in Unspecified specimen by Organism specific culture [facility] Work Phone: Microscopic observat ion [Identifier] in Unspecified specimen by Gram stain [facility] Patient Education [facility] Work Phone: Patient referral [facility] Work Phone: Polysomnography SLEEP STUDY - DI AGNOSTIC PFT Routine Sleep apnea, unspecified type Overweight Fatigue, unspecified type Hypersomnia, unspecified Hx of migraines Insomnia, unspecified type Ordered: 11/16/2021 [facility] Comment on above: Ordered: 11/16/2021 SLEEP STUDY - TITRATION SLEEP ST UDY - TITRATION PFT Routine Sleep apnea, unspecified type Overweight Fatigue, unspecified type Hypersomnia, unspecified Hx of migraines Insomnia, unspecified type Ordered: 11/16/2021 [facility] Comment on above: Ordered: 11/16/2021 End: 08-11-2022 Surgical Pathology Surgical Pathology Lab Routine ASCUS with positive high risk HPV cervical 1 Occurrences starting 08/11/2022 until 08/11/2022 [employer] Work Phone: Comment on above: 1 Occurrences starti ng 08/11/2022 until 08/11/2022 End: 08-11-2022 SURGICAL PATHOLOGY REPORT SURGICAL PATHOLOGY REPORT Lab Routine Once for 1 Occurrences starting 08/11/2022 until 08/11/2022 [facility] Phone: Comment on above: Once for 1 Occurrenc es starting 08/11/2022 until 08/11/2022 End: 01-14-2024 SVE SVE Point of Care Testing Routine One Time for 1 Occurrences starting 01/14/2024 until 01/14/2024 [facility] Comment on above: One Time for 1 Occur rences starting 01/14/2024 until 01/14/2024 End: 02-09-2024 SVE SVE Point of Care Testing Routine One Time for 1 Occurrences starting 02/09/2024 until 02/09/2024 [facility] Comment on above: One Time for 1 Occur rences starting 02/09/2024 until 02/09/2024 End: 03-08-2024 SVE SVE Point of Care Testing Routine One Time for 1 Occurrences starting 03/08/2024 until 03/08/2024 [facility] Comment on above: One Time for 1 Occur rences starting 03/08/2024 until 03/08/2024 End: 03-26-2024 SVE SVE Point of Care Testing Routine One Time for 1 Occurrences starting 03/26/2024 until 03/26/2024 [facility] Comment on above: One Time for 1 Occur rences starting 03/26/2024 until 03/26/2024 End: 04-23-2022 Urinalysis with Reflex to Culture Urinalysis with Reflex to Culture Lab STAT One Time for 1 Occurrences starting 04/23/2022 until 04/23/2022 [employer] Work Phone: Comment on above: One Time for 1 Occur rences starting 04/23/2022 until 04/23/2022 End: 02-05-2024 Urine Drug Screen [facility] Comment on above: One Time for 1 Occur rences starting 02/05/2024 until 02/05/2024 End: 04-23-2022 Urine Preg (Lab) Urine Preg (Lab) Lab STAT One Time for 1 Occurrences starting 04/23/2022 until 04/23/2022 [facility] Work Phone: Comment on above: One Time for 1 Occur rences starting 04/23/2022 until 04/23/2022 End: 01-14-2024 Us preg uterus after 1st trimest 03/07 gestation [facility] Comment on above: Once for 1 Occurrenc es starting 01/14/2024 until 01/14/2024 Immunizations Immunization Date Immunization Notes Care Provider [facility] 02-23-2024 tetanus toxoid, redu cody diphtheria toxoid, and acellular pertussis vaccine, adsorbed Artem Millan DO Work Phone: [facility] 01-04-2023 influenza virus vaccine, unspecified formulation Agatha Bowling DO Work Phone: [facility] 10-03-2020 COVID-19, Pfizer, PF , 30mcg/0.3mL Stephanie Collins UNLEAVENED DOUGH MIXER - DIRECTOR OF ANALYTICS Work Phone: [facility] Work Phone: 05-11-2018 tetanus toxoid, redu cody diphtheria toxoid, and acellular pertussis vaccine, adsorbed Stephanie Collins UNLEAVENED DOUGH MIXER - DIRECTOR OF ANALYTICS Work Phone: [facility] Work Phone: 11-27-2012 diphtheria, tetanus toxoids and acellular pertussis vaccine Austin Breezy [facility]- [place], [place] 11-27-2012 tetanus toxoid, redu cody diphtheria toxoid, and acellular pertussis vaccine, adsorbed Sav Buchanan MD Work Phone: [facility] 01-01-2009 novel [id number], preservative-free, injectable Stephanie Collins UNLEAVENED DOUGH MIXER - DIRECTOR OF ANALYTICS Work Phone: [employer] Work Phone: 01-01-2009 influenza virus vaccine, unspecified formulation Brenda York DO Work Phone: [facility] 05-30-1997 measles, mumps and rubella virus vaccine Stephanie Collins UNLEAVENED DOUGH MIXER - DIRECTOR OF ANALYTICS Work Phone: [employer] Work Phone: 05-30-1997 TD(adult) unspecifie d formulation Stephanie Collins UNLEAVENED DOUGH MIXER - DIRECTOR OF ANALYTICS Work Phone: [employer] Work Phone: Payers Date Payer Category Payer Self-pay 2020 Unknown 2019 Medicaid (Managed Care) NIXON SANCHEZ [id number] 2018 Medicaid [id number]. [id number] 2018 Unknown [id number] 2017 Unknown [id number] 2009 Unknown [id number] 1.2.840.983663.1.13.239.2. [id number] 2004 Unknown RENÉ MIRZA PPO [id number] 2004-Present PPO [id number]. [id number] 1984 Unknown [id number] 2.16.840.1.874326.3.579.2. 176 1984 Unknown [id number] 2.16.840.1.089879.3.579.2. 647 1984 Unknown [id number] 2.16.840.1.907222.3.579.2. 196 1984 Unknown [id number] 2.16.840.1.092575.3.579.2. 983 1984 Unknown [id number]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 The following attachments cannot be sent through Care Everywhere.UTI (Urinary Tract Infection): Female (Namibian)documented in this encounter [facility] 11-05-2023 Evaluation note Diagnosis Onset Date Resolution 14 weeks gestation of acute November 04 9:41pm Abdominal pain affecting acute November 04 9:41pm Left flank pain acute November 042023 9:41pm Musculoskeletal back pain acute November 05, 2023 9:41pm [facility] Work Phone: 1(182) 192-697612-12-2023 Hospital Discharge instructions Additional Instructions Warm moist heat to sore areas Gentle stretching May apply 1-2 lidocaine patches daily to sore areas May take the ketorolac every 6 hours for pain take with food you would take this in place of the ibuprofen You may take the muscle relaxer cyclobenzaprine up to 3 times a day for pain it may make you very sleepy Follow-up with your family doctor for recheck Return to the ER for worsening pain weakness in your arms high fever or any other [facility] Phone: 1(641) 751-628711-02-2023 Evaluation note* Encounter Date Diagnosis Assessment Notes Treatment Notes Treatment Clinical Notes Jan, Sore throat (ICD-10 - J02.9) strep neg, see above. Jan, Strep throat (ICD-10 - J02.0) Pt is to take abx as prescribed. take with food. Informed pt they are contagious for first 24 hrs on medication. Push fluids and rest. Pt denied work note today. Pt is to take otc antipyretic prn for fever and aches. Change toothbrush after 2-3 days. Pt is to be re-evaluated after treatment if sx worsen or don't improve by pcp. Pt is to call the office with any questions or concerns regarding dx and tx. Pt understood and agreed to treatment plan. Jan, Cough (ICD-10 - R05.9) covid neg. Likely pt started with viral URI initially, and strep started over past few days. Sending rx cough med and inhaler per pt request. See above tx plan. [employer] Other 09-12-2022 History of Present illness Narrative* Janessa Brownlee - 11/16/2021 9:30 AM EDT SLEEP [place] Score - 0 CPAP/BIPAP/APAP Pressure - N/A Neck Circumference - 17.25 Most Recent Sleep Study - N/A Oxygen Use - no If so, how many liters and is it PRN, Nocturnal, or continuous? Patient is benefiting from PAP therapy-- DME - N/A Referred by- Dr. 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 Pt is rx Trazodone but rarely takes it Daytime Sleepiness - YES Are you able to take naps during the day - YES If so, how often? Once in a great while Do you experience tossing or turning at night? NO Restless legs - NO If so, what medications are you currently taking or have previously been prescribed for RLS? N/A Are you currently or have you previously been treated for ADHD, Narcolepsy, or Fatigue? - YES, ADHDwhen younger If so, what medications are you currently taking or have previously been prescribed for ADHD, Narcolepsy, or Fatigue? Adderall approx 20 years agio Waking with gasping/shortness of breath - NO Difficulty concentrate- - YES Waking with headache- NO Significant weight change- YES gained 30+lbs in 2 years Have you ever been on medication management for weight loss, spoke with anyone about weight loss surgery/procedures, or have you had a surgical procedure to help with weight loss? YES current bariatric program, previously Adipex Pain 0-10- 0 If yes, Location- Upcoming surgeries?- NO Has witnessed apnea ( some body told patient that they stop breathing in their sleep) - NO Med Refills (that we prescribe) - no Pt is here to establish care, and get pre-op bariatric clearance. Pt states she does have daytime sleepiness sometimes, but rarely naps due to work and trying to avoid it so she can sleep at night. She denies any other complaints or concerns at this time. She states she has chronic migraines, and does not usually wake with them. Pt states she had someone pass away so she was rx trazodone for sleep but does not need it now since she works so much it makes her tired. * Lena oJ APRN-DIRECTOR OF ANALYTICS - 11/16/2021 9:30 AM EDT HPI Venancio Moon is a 36 y.o. female being seen today for sleep apnea evaluation. Patient referred to sleep clinic by bariatric surgeon with history of fatigue, hyperosmnia, hypertension, GERD, migraines, and obesity. She has been experiencing Sleep apnea: decreased memory, decreased concentration, difficulty falling asleep once awakened, feels sleepy during the day and maintaining sleep. She wakes up multiple times a night and does not always feel refreshed in the morning. Patient has also tried Trazodone for insomnia in the past, however did not like how she felt the next day. Patient denies other sleep concerns at today's appointment. Patient is scheduled for bariatric surgery in the near future. Vitals: 11/16/21 0938 BP: 138/76 Pulse: 72 Resp: 16 SpO2: 98% Weight: 103.8 kg (228 lb 12.8 oz) Height: 1.6 m (5' 3 ) Physical Exam Vitals and nursing note reviewed. Constitutional: General: She is not in acute distress. Appearance: She is well-developed. HENT: Head: Normocephalic and atraumatic. Right Ear: External ear normal. Left Ear: External ear normal. Nose: Nose normal. Eyes: General: Right eye: No discharge. Left eye: No discharge. Conjunctiva/sclera: Conjunctivae normal. Pupils: Pupils are equal, round, and reactive to light. Neck: Vascular: No JVD. Cardiovascular: Rate and Rhythm: Normal rate and regular rhythm. Heart sounds: Normal heart sounds. No murmur heard. No friction rub. No gallop. Pulmonary: Effort: Pulmonary effort is normal. No respiratory distress. Breath sounds: Normal breath sounds. No wheezing. Abdominal: General: Bowel sounds are normal. Palpations: Abdomen is soft. Musculoskeletal: General: No deformity. Normal range of motion. Cervical back: Normal range of motion and neck supple. Skin: General: Skin is warm and dry. Neurological: Mental Status: She is alert and oriented to person, place, and time. Psychiatric: Judgment: Judgment normal. Past Medical History: Diagnosis Date Asthma GERD (gastroesophageal reflux disease) Migraine Past Surgical History: Procedure Laterality Date SMALL BOWEL SURGERY Repair of tear TONSILLECTOMY ADENOIDECTOMY Bilateral TREATMENT ECTOPIC OVARIAN/TUBAL ABDOMINAL APPROACH No Known Allergies Outpatient Medications Prior to Visit Medication Sig Dispense Refill ALPRAZolam 0.25 MG tablet TAKE 1 TABLET BY ORAL ROUTE UP TO ONCE DAILY NEEDED FOR ACUTE ANXIETY cloNIDine 0.2 MG tablet TAKE 1 TABLET BY ORAL ROUTE UP TO 4 TIMES PER DAY NEEDED FOR ACUTE ANXIETY gabapentin 300 MG capsule TAKE 1 CAPSULE BY MOUTH 3 TIMES A DAY ibuprofen 800 MG tablet Take 800 mg by mouth every 8 hours as needed. omeprazole [address] capsule Take 1 capsule by mouth daily. 30 capsule 2 traZODone 50 MG tablet TAKE 1 TABLET BY ORAL ROUTE 1 TIME PER DAY AT BEDTIME, NEEDED No facility-administered medications prior to visit. History reviewed. No pertinent family history. Social History Socioeconomic History Marital status: Single Spouse name: Not on file Number of children: Not on file Years of education: Not on file Highest education level: Not on file Occupational History Not on file Tobacco Use Smoking status: Never Smoker Smokeless tobacco: Never Used Substance and Sexual Activity Alcohol use: Yes Comment: socially Drug use: Never Sexual activity: Not on file Other Topics Concern Not on file Social History Narrative Not on file Social Determinants of Health Financial Resource Strain: Not on file Food Insecurity: Not on file Transportation Needs: Not on file Physical Activity: Not on file Stress: Not on file Social Connections: Not on file Intimate Partner Violence: Not on file Housing Stability: Not on file SLEEP [place] Score - 0 CPAP/BIPAP/APAP Pressure - N/A Neck Circumference - 17.25 Most Recent Sleep Study - N/A Oxygen Use - no If so, how many liters and is it PRN, Nocturnal, or continuous? Patient is benefiting from PAP therapy-- DME - N/A Referred by- Dr. 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 Pt is rx Trazodone but rarely takes it Daytime Sleepiness - YES Are you able to take naps during the day - YES If so, how often? Once in a great while Do you experience tossing or turning at night? NO Restless legs - NO If so, what medications are you currently taking or have previously been prescribed for RLS? N/A Are you currently or have you previously been treated for ADHD, Narcolepsy, or Fatigue? - YES, ADHDwhen younger If so, what medications are you currently taking or have previously been prescribed for ADHD, Narcolepsy, or Fatigue? Adderall approx 20 years agio Waking with gasping/shortness of breath - NO Difficulty concentrate- - YES Waking with headache- NO Significant weight change- YES gained 30+lbs in 2 years Have you ever been on medication management for weight loss, spoke with anyone about weight loss surgery/procedures, or have you had a surgical procedure to help with weight loss? YES current bariatric program, previously Adipex Pain 0-10- 0 If yes, Location- Upcoming surgeries?- NO Has witnessed apnea ( some body told patient that they stop breathing in their sleep) - NO Med Refills (that we prescribe) - no Pt is here to establish care, and get pre-op bariatric clearance. Pt states she does have daytime sleepiness sometimes, but rarely naps due to work and trying to avoid it so she can sleep at night. She denies any other complaints or concerns at this time. She states she has chronic migraines, and does not usually wake with them. Pt states she had someone pass away so she was rx trazodone for sleep but does not need it now since she works so much it makes her tired. ROS Reviewed. IMPRESSION AND PLAN: - Sleep apnea, unspecified - Hypersomnia - Fatigue - Hx Migraines - Insomnia - Overweight * Patient was advised to lose weight. * Patient was advised to avoid alcohol and sedative medications. * Patient was advised to exercise precaution while operating a motorized vehicle. * Patient was advised to maintain a regular sleep schedule. * Will order for an overnight Polysomnography/Titration. Discussed with patient: the physiology of Sleep Apnea, medical conditions associated with sleep apnea (DM, HTN, CAD, Depression, Stroke, Headaches, CHF, Heart Dysrhythmias) and treatment options. Advised patient to avoid activities that could harm self or others when tired/sleep, including driving and/or operating heavy machinery. Depending on polysomnography results: - Order PAP titration based on insurance requirements, if already on therapy continue therapy, or if symptomatic with high AHI complete another titration. - Will start/continue PAP therapy after results of PAP titration - I will have prescription sent to a [employer]) company of choice- who will becalling patient in approximately next 1-2 weeks. - Patient should be eligible for new supplies approximately every 3-6 months, depending on your insurance coverage, [employer] company will inform patient of coverage - If patient mask does not fit well, contact DME company before 30 days are up to get a new mask without an additional charge - Insurance requires regular usage and periodic office follow ups for PAP therapy to continue to cover supplies Insurance Requirements: - Your insurance requires a [id number] follow up visit within 31-90 days period after starting PAP therapy. - Your insurance requires compliance with PAP therapy, which is at least 4 hours per night for 70% of the time. This must be done over at least 30 day period and must occur within the initial 31-90 day period after starting PAP therapy. - Your insurance also requires at least a yearly follow up to continue to pay for PAP therapy and supplies. A total of 45 minutes were spent at this encounter, and this includes obtaining and/or reviewing separately obtained history , performing exam, review of previous tests and results, independently interpreting results of tests and communicating results to the patient/family/caregiver, ordering medica tions/tests/procedures, counseling the patient and/family on plan of care, referring/communicating with other health primary health care nurse, as well as documenting the clinical information in the EHR. This includes face to face time and preparing to see the patient (review of tests) I personally reviewed selected chart notes, results, interpreted tests, imaging today before seeingthe pt; reviewed and discussed w/ pt, questions answered. Portions of this chart were created using [employer] electronic dictation. Please excuse any typographical or grammatical errors contained herein as a result. SE Shetty [facility] History of Present illness Narrative* Brenda York, DO - 10/19/2021 8:15 AM EDT Bariatric History and Physical Patient:Venancio Moon :1985 Date: 10/19/2021 PRIMARY/REFERRING PHYSICIAN INFORMATION Sav Buchanan HISTORY OF PRESENT ILLNESS CHIEF COMPLAINT: morbid obesity with significant comorbidities. Patient is being referred for pre operative consult for weight loss surgery HISTORY OF PRESENT ILLNESS: The patient is a very pleasant patient who has developed morbid obesitywith significant comorbidities who has failed multiple dietary attempts at weight loss. Venancio Moon is a 36 y.o. female who presents with complaints of obesity which is severely limiting her life style. She is interested in learning about possible surgical options to help her fighther obesity. She has tried diet and exercise programs previously. She is limited in his physical activity due to obesity. she has been obese for more than 5 years and states that their highest recorded weight is 233. Previous attempts at weight loss have included exercise routines, exercise videos,low fat/low calorie diets, commercial weight loss programs such as weight watchers.she complains ofoccasional reflux and denies dysphagia. Past Medical History: Diagnosis Date Asthma GERD (gastroesophageal reflux disease) Migraine Past Surgical History: Procedure Laterality Date SMALL BOWEL SURGERY Repair of tear TONSILLECTOMY ADENOIDECTOMY Bilateral TREATMENT ECTOPIC OVARIAN/TUBAL ABDOMINAL APPROACH Current Outpatient Medications Medication Sig ALPRAZolam 0.25 MG tablet TAKE 1 TABLET BY ORAL ROUTE UP TO ONCE DAILY NEEDED FOR ACUTE ANXIETY cloNIDine 0.2 MG tablet TAKE 1 TABLET BY ORAL ROUTE UP TO 4 TIMES PER DAY NEEDED FOR ACUTE ANXIETY gabapentin 300 MG capsule TAKE 1 CAPSULE BY MOUTH 3 TIMES A DAY ibuprofen 800 MG tablet Take 800 mg by mouth every 8 hours as needed. traZODone 50 MG tablet TAKE 1 TABLET BY ORAL ROUTE 1 TIME PER DAY AT BEDTIME, NEEDED No Known Allergies Social History Socioeconomic History Marital status: Single Spouse name: Not on file Number of children: Not on file Years of education: Not on file Highest education level: Not on file Occupational History Not on file Tobacco Use Smoking status: Never Smoker Smokeless tobacco: Never Used Substance and Sexual Activity Alcohol use: Yes Comment: socially Drug use: Never Sexual activity: Not on file Other Topics Concern Not on file Social History Narrative Not on file Social Determinants of Health Financial Resource Strain: Not on file Food Insecurity: Not on file Transportation Needs: Not on file Physical Activity: Not on file Stress: Not on file Social Connections: Not on file Intimate Partner Violence: Not on file Housing Stability: Not on file History reviewed. No pertinent family history. No family status information on file. REVIEW OF SYSTEMS Review of Systems Constitutional: Negative for chills, diaphoresis and fatigue. HENT: Negative for congestion, facial swelling and hearing loss. Eyes: Negative for pain, redness and itching. Respiratory: Negative for apnea, cough, choking and chest tightness. Cardiovascular: Negative for chest pain, palpitations and leg swelling. Gastrointestinal: Negative for abdominal distention, abdominal pain, constipation, diarrhea, nauseaand vomiting. Endocrine: Negative for cold intolerance, heat intolerance and polyphagia. Genitourinary: Negative for difficulty urinating, dysuria, enuresis and flank pain. Musculoskeletal: Negative for arthralgias, back pain, gait problem and joint swelling. Skin: Negative for color change, pallor and rash. Allergic/Immunologic: Negative for environmental allergies, food allergies and immunocompromised state. Neurological: Negative for dizziness, light-headedness, numbness and headaches. Hematological: Negative for adenopathy. Does not bruise/bleed easily. Psychiatric/Behavioral: Negative for agitation, behavioral problems and confusion. Social History Tobacco Use Smoking Status Never Smoker Smokeless Tobacco Never Used PHYSICAL EXAM General Appearance: Well appearing, alert, in no acute distress, well-hydrated, well nourished., morbidly obese. Eyes: conjunctivae and sclerae normal, pupils equal, round, reactive to light and accommodation andno scleral icterus. Ears/Nose/Mouth/Throat: External ears normal, canals clear, TM's normal, Nares normal. Septum midline. Mucosa normal. No drainage or sinus tenderness., Lips, mucosa, and tongue normal, teeth and gumsnormal, oropharynx normal. Neck: Supple, no adenopathy; thyroid symmetric, normal size, no bruits. Respiratory: Clear to auscultation bilaterally Cardiovascular: Regular rate and rhythm, distal pulses intact bilaterally. Abdomen: soft, non-tender, non-distended, obese, no hernias palpated Lymph Nodes: No cervical lymphadenopathy. Musculoskeletal: Spine range of motion normal. Muscular strength intact, No joint swelling, deformity, or tenderness. Skin: No lesions noted. Neurologic: mental status intact, cranial nerves 2-12 intact, sensation to light touch and pinpricknormal. Psychiatric: A&O x 3; Judgement/lnsight appropriate Rectal: deferred exam. DIAGNOSIS/IMPRESSION Encounter Diagnoses Name Primary? Obesity, morbid, BMI 40.0-49.9 Yes Gastroesophageal reflux disease, unspecified whether esophagitis present Hypersomnolence with Body mass index is 40 kg/m2. Height: 5'3 Weight:233 SURGICAL PLAN Consults: consult bariatric nutrition for 6 months of preoperative supervised diets, consult bariatric psychology, consult primary care physician for medical clearance, sleep study Diagnostic Tests: CBC, CMP, Lipid Panel, Liver Function Panel, Thyroid Function, B-12, Iron Levels,H Pylori, CXR, EGD, EKG Surgical Procedure: 2. Laparoscopic Sleeve gastrectomy. I have use an anatomical chart to show the postsurgical changesthat occur. I discussed expected weight loss with this procedure and I talked about common early and late complications associated with his procedure. This list included but was not limited to leaks,strictures, bleeding, postoperative infection, hernias and small bowel obstructions. I discussed dumping syndrome in detail how dietary choices can worsen this problem. I discussed the need for vitamins and postoperative.. I have discussed postsurgical follow-up. I discussed the need for supervisedmedical weight loss prior to surgery as well as mental health examination evaluation. 3. Preoperative work-up as detailed above All risks and benefits were discussed with the patient including: Intra- operative and/or Immediate Post-operative Risks: : The mortality rate of the sleeve gastrectomy nationwide is 0.3% to 2%. Modality rate associated with the gastric bypass is slightly higher-0.5 to 3%. Significant Bleeding: Bleeding may occur unexpectedly in the operating room. Bleeding may also occur post-operatively in the days after the operation. This bleeding may be through the intestinal tract at the staple line and result in the passage of blood in the stool. Bleeding may also be unseen inside the abdomen and be diagnosed through other means. A transfusion may be necessary in some circumstances. Re-operation to stop bleeding may be necessary. If the spleen is injured during the surgery, it may need to be removed. Anastomotic Leak: A leak is when the stapled part of the stomach does not heal. Serious complications can result from a leak, including, but not limited to a prolonged hospital stay, more operations,a long period of nothing to eat, prolonged antibiotic requirements, organ failure and . The reported incidence of anastomotic leak nationwide ranges from 0.5% to 3%. Renal Failure: Transient kidney (renal) failure occurs rarely. Irreversible kidney failure has beenreported in rare cases. Prolonged Ventilation: A prolonged stay on a ventilator (breathing machine) in the intensive care unit may occur if a patient has severe sleep apnea or after certain significant complications. A temporary tracheostomy may be necessary. Heart Attack: Although a heart attack is possible after a laparoscopic possible open sleeve gastrectomy, it is very rare. Risk factors for heart disease include increased age, diabetes, hypertension,hypercholesterolemia and a family history of heart disease. Prolonged Hospital Stay: Unforeseen complications may result in a prolonged hospital stay. Intensive care admission may be required. Bowel Obstruction (in undergoing the gastric bypass): An obstruction can occur that would require re-operation. An obstruction can occur from a number of causes, such as bleeding, scarring, technicalproblems or hernia. Deep Vein Thrombosis (DVT)/Pulmonary Embolism: Blood clots that form in the legs, and elsewhere, and break off into the lungs may cause . Given this risk, treatments may be initiated to decreasethe risk for the formation of blood clots, including the use of heparin (a medication that thins the blood), special foot and leg stockings, walking soon after surgery and medication at home after discharge from the hospital. Completely eliminating the risks of DVT (clots) altogether is not possible. The risks associated with the medications used to prevent blood clots can include excessive bleeding. Any symptoms of leg swelling, chest pain or sudden shortness of breath should be immediately rep orted to the surgeon. Rarely, patients develop allergies to heparin, sometimes causing very severe reactions. Other Complications that may be common: Allergic reactions, headaches, itching, medication side-effects, heartburn/reflux, bruising, gout, anesthetic complications, injury to the bowel or vessels, gas bloating, minor wound drainage, wound opening, scar formation, stroke, urinary tract infection, uri nary retention, pressure sores, injury to spleen or surrounding structures, and pneumonia. The patient was advised not to become within 12-18 months following bariatric surgery. Shewas educated on the increased risks to mother and fetus associated with within 2 years ofbariatric surgery. The patient has also been instructed to refrain from smoking and using illicit drugs both before and after their surgery. I have discussed at length the risks of office visits and surgical procedures at the hospital during the COVID-19 pandemic. The risk of kathy COVID-19 during the perioperative and postoperativecare period was also explained to the patient. The patient verbalized full understanding and acceptance of these risks, as well as the quarantine time between testing and surgery. The patient fully understands that if their COVID-19 test is positive or symptoms develop prior to surgery, their surgery will be cancelled. The patient has expressed the desire to proceed with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 Possible suicidal ideation and depression based on a few comments made during their conversation. Patient denies ideas of self harm during assessment, does admit to feeling depressed. Reason Comments Decreased Movement Reason Comments Contractions Source Comments (unrecognize d section and content) In the event this informatio n is protected by the Federal Confidentiality of Alcohol and Drug Abuse Patient Records regulations: The Federal rules restrict any use of the information to criminally investigate or prosecute any alcohol or drug abuse patient.[facility] Telephone Encounter - Joyjoy GodfreyhillaryRaven - 02/18/2006 3:14 PM ESTTelephone Encounter - Joyjoy Raven Alexandra - 02/09/2006 4:40 PM ESTTelephone Encounter - Joyjoy Raven Alexandra - 02/07/2006 1:41 PM EST Miscellaneous Notes (unrecog nized section and content) Dr Rust please advise. left another message for pt to call about letter when to return to work. Try pt today phone# is turn off or out of service area. [email or web address] Please clarify date which pt feels she will be ready to return to work - 2 weeks? Per pt out of work 2 weeks by PT Pt call does not feel she is ready to go back to work yet. Re-write letter. Notify pt to call back M onday for letter and date to go back. documented in this encounter Scheduled Active and Recently Administ ered Medications (unrecognized section and content) Medication Order 10/24/2020 10/25/2020 10/26/2020 ketorolac (TORADOL) injection 30 mg (COMPLETED) 30 mg, Intravenous, ONCE, On 10/26/20 at 1200, For 1 dose, Do not administer for more than 5 days. 1231 (Given - Provid er: Venancio Duenas RN) methylPREDNISolone sodium (SOLU-MEDROL) injection 125 mg (COMPLETED) 125 mg, Intravenous, ONCE, On 10/26/20 at 1200, For 1 dose 1231 (Given - Provid er: Venancio Duenas RN) ondansetron (ZOFRAN) injection 4 mg (COMPLETED) 4 mg, Intravenous, ONCE, On 10/26/20 at 1230, For 1 dose 1231 (Given - Provid er: Venancio Duenas RN) Continuous Medication Order 10/24/2020 10/25/2020 10/26/2020 0.9 % sodium chloride infusion 1,000 mL, Intravenous, at 125 mL/hr, Administer over 8 Hours, CONTINUOUS, Starting on 10/26/20 at 1200 1231 (New Bag - Prov ider: Venancio Duenas RN)1405 (Stopped - Provider: Genesis Knox RN) PRN Medication Order 10/24/2020 10/25/2020 10/26/2020 iopamidol (ISOVUE-370) 76 % injection 75 mL (COMPLETED) 75 mL, Intravenous, IMG ONCE PRN, Other, Starting on 10/26/20 at 1246, For 1 dose 1246 (Given - Provid er: Melania Briecño) Scheduled Medication Order 12/19/2020 12/20/2020 12/21/2020 0.9 % sodium chloride bolus (COMPLETED) 1,000 mL (10.3 mL/kg), IntraVENous, at 500 mL/hr, Administer over 2 Hours, ONCE, On 12/21/20 at 1230, For 1 dose, For adult patients weighing > 55 kg (120 lbs.) and less than <50 years of age initiate 0.9NS at 500 mL/ hr. All bolus orders are to be given over 10 to 15 minutes 1236 (New Bag - Prov ider: Kelly John RN)1429 (Stopped - Provider: Dasia Menchaca RN) wwooegoyeu-awvofuppvftgb-uxzzlyeu (FIORICET, ESGIC) per tablet 1 tablet (COMPLETED) 1 tablet, Oral, ONCE, On 12/21/20 at 1415, For 1 dose, Maximum dose of acetaminophen is 4000 mg from all sources in 24 hours. 1426 (Given - Provid er: Dasia Menchaca RN) dexamethasone (DECADRON) injection 4 mg (COMPLETED) 4 mg, IntraVENous, ONCE, On 12/21/20 at 1230, For 1 dose 1239 (Given - Provid er: Kelly John RN) diphenhydrAMINE (BENADRYL) injection 25 mg (COMPLETED) 25 mg, IntraVENous, ONCE, On 12/21/20 at 1230, For 1 dose 1237 (Given - Provid er: Kelly John RN) ketorolac (TORADOL) injection 15 mg (COMPLETED) 15 mg, IntraVENous, ONCE, On 12/21/20 at 1230, For 1 dose, Do not administer for more than 5 days. 1238 (Given - Provid er: Kelly John RN) prochlorperazine (COMPAZINE) injection 10 mg (COMPLETED) 10 mg, IntraVENous, ONCE, On 12/21/20 at 1230, For 1 dose 1236 (Given - Provid er: Kelly John RN) Scheduled Medication Order 04/21/2022 04/22/2022 04/23/2022 0.9 % sodium chloride bolus (COMPLETED) 1,000 mL (9.59 mL/kg), IntraVENous, at 495.9 mL/hr, Administer over 121 Minutes, ONCE, On Tue04/23/22 at 1800, For 1 dose 1839 (New Bag - Prov ider: Benjamin Lane RN)2112 (Stopped - Provider: Isela Avilez, ROGELIO) 0.9 % sodium chloride bolus (COMPLETED) 1,000 mL (9.59 mL/kg), IntraVENous, at 495.9 mL/hr, Administer over 121 Minutes, ONCE, On Tue04/23/22 at 1945, For 1 dose 1955 (New Bag - Prov ider: Benjamin Lane RN)2112 (Stopped - Provider: Isela Avilez, RN) dexamethasone (DECADRON) injection 10 mg/mL (COMPLETED) 10 mg, IntraVENous, ONCE, On Tue04/23/22 at 2030, For 1 dose 2019 (Given - Provid er: Benjamin Lane RN) diphenhydrAMINE (BENADRYL) injection 50 mg (COMPLETED) 50 mg, IntraVENous, ONCE, 1 dose, On Tue04/23/22 at 2030 2019 (Given - Provid er: Benjamin Lane RN) ketorolac (TORADOL) injection 15 mg (COMPLETED) 15 mg, IntraVENous, ONCE, 1 dose, On Tue04/23/22 at 1945 1950 (Given - Provid er: Benjamin Lane RN) ondansetron (ZOFRAN) injection 4 mg (COMPLETED) 4 mg, IntraVENous, ONCE, 1 dose, On Tue04/23/22 at 1800 1840 (Given - Provid er: Benjamin Lane RN) ondansetron (ZOFRAN) injection 4 mg (COMPLETED) 4 mg, IntraVENous, ONCE, 1 dose, On Tue04/23/22 at 1945 1950 (Given - Provid er: Benjamin Lane RN) ondansetron (ZOFRAN-ODT) disintegrating tablet 4 mg 4 mg, SubLINGual, ONCE, 1 dose, On Tue04/23/22 at 2100 2113 (Not Given - Pr ovider: Isela Avilez RN - Reason: Patient took at home) prochlorperazine (COMPAZINE) injection 10 mg (COMPLETED) 10 mg, IntraVENous, ONCE, 1 dose, On Tue04/23/22 at 2030 2020 (Given - Provid er: Benjamin Lane RN) Scheduled Medication Order 12/20/2023 12/21/2023 12/22/2023 acetaminophen (TYLENOL) tablet 650 mg (COMPLETED) 650 mg, Oral, ONCE, 1 dose, On Yana 12/22/23 at 1000, Maximum dose of acetaminophen is 4000 mg from all sources in 24 hours. 1009 (Given - Provid er: Mare Weinstein RN) cefdinir (OMNICEF) capsule 300 mg (COMPLETED) 300 mg, Oral, ONCE, 1 dose, On Yana 12/22/23 at 1100, Antimicrobial Indications: Urinary Tract Infection 1113 (Given - Provid er: Mare Weinstein RN) ondansetron (ZOFRAN-ODT) disintegrating tablet 4 mg (COMPLETED) 4 mg, Oral, ONCE, 1 dose, On Yana 12/22/23 at 1045 1033 (Given - Provid er: Mare Weinstein RN) Scheduled Medication Order 01/12/2024 01/13/2024 01/14/2024 acetaminophen (TYLENOL) tablet 1,000 mg (COMPLETED) 1,000 mg, Oral, ONCE, 1 dose, On 01/14/24 at 1745, Maximum dose of acetaminophen is 4000 mg from all sources in 24 hours. 1736 (Given - Provid er: Angela Palacio RN) hydrOXYzine pamoate (VISTARIL) capsule 50 mg 50 mg, Oral, ONCE, 1 dose, On 01/14/24 at 1915 1915 (Due) ondansetron (ZOFRAN-ODT) disintegrating tablet 4 mg (COMPLETED) 4 mg, Oral, ONCE, 1 dose, On 01/14/24 at 1745 1740 (Given - Provid er: Mare Farrar RN) Scheduled Medication Order 01/20/2024 01/21/2024 01/22/2024 0.9 % sodium chloride infusion (COMPLETED)(Linked Group 1) IntraVENous, at 999 mL/hr, ONCE, On 01/21/24 at 2215, For 1 dose, For 750ml 2147 (New Bag - Provider: Thi Lam RN)2233 (Stopped - Provider: Thi Lam RN) hydrOXYzine pamoate (VISTARIL) capsule 50 mg (COMPLETED) 50 mg, Oral, ONCE, 1 dose, On 01/21/24 at 2230 2216 (Given - Provider: Evan Lam, ROGELIO) nalbuphine (NUBAIN) injection 10 mg (COMPLETED) 10 mg, IntraVENous, ONCE, 1 dose, On 01/21/24 at 2345 2335 (Given - Provider: Evan Lam, ROGELIO) ondansetron (ZOFRAN) injection 4 mg (COMPLETED) 4 mg, IntraVENous, ONCE, 1 dose, On 01/21/24 at 2230 2216 (Given - Provider: Evan Lam RN) Continuous Medication Order 01/20/2024 01/21/2024 01/22/2024 0.9 % sodium chloride infusion(Linked Group 1) IntraVENous, at 150 mL/hr, CONTINUOUS, Starting on 01/21/24 at 2215, After completion of bolus 2233 (New Bag - Provider: Thi Lam RN) 0535 (Stopped - Provider: Thi Lam RN) Linked Groups Order Group 1: 0.9 % sodium chloride infusion (COMPLETED)Jump to med IntraVENous, at 999 mL/hr, ONCE, On 01/21/24 at 2215, For 1 dose, For 750ml And 0.9 % sodium chloride infusionJump to med IntraVENous, at 150 mL/hr, CONTINUOUS, Starting on 01/21/24 at 2215, After completion of bolus Scheduled Medication Order 02/03/2024 02/04/2024 02/05/2024 acetaminophen (TYLENOL) tablet 650 mg (COMPLETED) 650 mg, Oral, ONCE, 1 dose, On 02/05/24 at 1645, Maximum dose of acetaminophen is 4000 mg from all sources in 24 hours. 1638 (Given - Provid er: Mare Weinstein RN) cefTRIAXone (ROCEPHIN) 2,000 mg in sterile water 20 mL IV syringe (COMPLETED) 2,000 mg, IntraVENous, ONCE, On 02/05/24 at 1730, For 1 dose, Administer as slow IV Push over 5 mins Reconstitute 2 g vials with 19.2 mL of designated diluent to produce a 100mg/mL solution 1740 (Given - Provid er: Mare Weinstein RN) ondansetron (ZOFRAN) injection 4 mg (COMPLETED) 4 mg, IntraVENous, ONCE, 1 dose, On 02/05/24 at 1645 1636 (Given - Provid er: Mare Weinstein RN) Continuous Medication Order 02/03/2024 02/04/2024 02/05/2024 lactated ringers infusion IntraVENous, at 125 mL/hr, CONTINUOUS, Starting on 02/05/24 at 1530 1529 (New Bag - Prov ider: Maer Weinstein RN)1800 (Handoff - Provider: Venancio Duenas RN)1801 (Patient Transferred to Other Facility - Provider: Venancio Duenas RN) Scheduled Medication Order 02/04/2024 02/05/2024 02/06/2024 diphenhydrAMINE (BENADRYL) injection 25 mg (COMPLETED) 25 mg, IntraVENous, ONCE, 1 dose, On 02/05/24 at 1945, IV Push at rate not to exceed 25 mg/min. 194 (Given - Provider: Rosina Mazariegos RN) metoclopramide (REGLAN) injection 10 mg (COMPLETED) 10 mg, IntraVENous, ONCE, 1 dose, On Tue02/05/24 at 1945, IV Push: Max 10 mg over 1-2 minutes. 1940 (Given - Provider: Rosina Mazariegos RN) nitrofurantoin (macrocrystal-monohydrate) (MACROBID) capsule 100 mg (COMPLETED) 100 mg, Oral, ONCE, 1 dose, On Tue02/06/24 at 0845, Antimicrobial Indications: Urinary Tract Infection, UTI duration of therapy: 7 days 0907 (Given - Provid er: Blanca Klein RN) PRN Medication Order 02/04/2024 02/05/2024 02/06/2024 acetaminophen (TYLENOL) tablet 650 mg 650 mg, Oral, EVERY 4 HOURS PRN, Starting on Tue02/05/24 at 2130, Until Discontinued, headache, Maximum dose of acetaminophen is 4000 mg from all sources in 24 hours. 2341 (Given - Provider: Kandice Page RN) 0832 (Given - Provider: Blanca Klein, ROGELIO) cyclobenzaprine (FLEXERIL) tablet 10 mg 10 mg, Oral, 3 TIMES DAILY PRN, Starting on Tue02/05/24 at 1925, Until Discontinued, Muscle spasms 2110 (Given - Provider: Rosina Mazariegos RN) Scheduled Medication Order 02/08/2024 02/09/2024 02/10/2024 hydrOXYzine pamoate (VISTARIL) capsule 50 mg (COMPLETED) 50 mg, Oral, ONCE, 1 dose, On Yana 02/09/24 at 2330 2349 (Given - Provider: Yazmin Corley RN) lactated ringers bolus 500 mL (COMPLETED) 500 mL, IntraVENous, at 247.9 mL/hr, Administer over 121 Minutes, ONCE, On Yana 02/09/24 at 2330, For 1 dose 2350 (New Bag - Provider: Yazmin Corley RN) 0151 (Stopped - Provider: Blanca Klein RN) metoclopramide (REGLAN) tablet 5 mg (COMPLETED) 5 mg, Oral, ONCE, 1 dose, On Tue02/10/24 at 1400 1400 (Given - Provid er: Blanca Klein RN) potassium chloride (KLOR-CON M) extended release tablet 40 mEq (COMPLETED) 40 mEq, Oral, ONCE, 1 dose, On Tue02/10/24 at 1200, Do not crush, chew, or suck on tablet. Tablet may also be broken in half and each half swallowed separately. 1207 (Given - Provid er: Blanca Klein RN) Continuous Medication Order 02/08/2024 02/09/2024 02/10/2024 lactated ringers infusion IntraVENous, at 20 mL/hr, CONTINUOUS, Starting on Yana 02/09/24 at 2330 0721 (New Bag - Prov ider: Blanca Klein RN)1136 (Rate/Dose Change - Provider: Blanca Klein RN)1340 (Stopped - Provider: Blanca Klein RN) PRN Medication Order 02/08/2024 02/09/2024 02/10/2024 acetaminophen (TYLENOL) tablet 1,000 mg 1,000 mg, Oral, EVERY 8 HOURS PRN, Starting on Tue02/10/24 at 0918, Until Discontinued, Pain Mild (1-3), Maximum dose of acetaminophen is 4000 mg from all sources in 24 hours. 0947 (Given - Provid er: Blanca Klein RN) ondansetron (ZOFRAN) injection 4 mg 4 mg, IntraVENous, EVERY 8 HOURS PRN, Starting on Yana 02/09/24 at 2313, Until Discontinued, Nausea, Vomiting 2348 (Given - Provider: Yazmin Corley RN) 0730 (Given - Provider: Blanca Klein RN) Scheduled Medication Order 03/06/2024 03/07/2024 03/08/2024 acetaminophen (TYLENOL) tablet 1,000 mg (COMPLETED) 1,000 mg, Oral, ONCE, 1 dose, On Yana 03/08/24 at 1315, Maximum dose of acetaminophen is 4000 mg from all sources in 24 hours. 1314 (Given - Provid er: Mare Farrar RN) lactated ringers bolus 1,000 mL (COMPLETED) 1,000 mL, IntraVENous, at 983.6 mL/hr, Administer over 61 Minutes, ONCE, On Yana 03/08/24 at 1315, For 1 dose 1310 (New Bag - Prov ider: Angela Palacio RN)1411 (Stopped - Provider: Angela Palacio RN) nalbuphine (NUBAIN) injection 10 mg (COMPLETED) 10 mg, IntraVENous, ONCE, 1 dose, On Tue03/08/24 at 1515 1459 (Given - Provid er: Mare Farrar RN) ondansetron (ZOFRAN) injection 4 mg (COMPLETED) 4 mg, IntraVENous, ONCE, 1 dose, On Tue03/08/24 at 1315 1315 (Given - Provid er: Mare Farrar RN) Scheduled Medication Order 03/25/2024 03/26/2024 03/27/2024 diphenhydrAMINE (BENADRYL) injection 50 mg (COMPLETED) 50 mg, IntraVENous, ONCE, 1 dose, On Tue03/26/24 at 2230, IV Push at rate not to exceed 25 mg/min. 2235 (Given - Provider: Helen Conley RN) hydrOXYzine pamoate (VISTARIL) capsule 50 mg (COMPLETED) 50 mg, Oral, ONCE, 1 dose, On Tue03/26/24 at 2030 2023 (Given - Provider: Rosina Mazariegos RN) lactated ringers bolus 1,000 mL (COMPLETED) 1,000 mL, IntraVENous, at 999 mL/hr, Administer over 60.06 Minutes, ONCE, On Tue03/26/24 at 2030, For 1 dose 2021 (New Bag - Provider: Rosina Mazariegos RN)2022 (Rate/Dose Verify - Provider: Rosina Mazariegos RN)2125 (Rate/Dose Verify - Provider: Rosina Mazariegos RN)2125 (Rate/Dose Verify - Provider: Rosina Mazariegos RN)2128 (Stopped - Provider: Rosina Mazariegos RN) lactated ringers bolus 1,000 mL (COMPLETED) 1,000 mL, IntraVENous, at 495.9 mL/hr, Administer over 121 Minutes, ONCE, On Tue03/27/24 at 0015, For 1 dose 2357 (New Bag - Provider: Helen Conley RN) 0158 (Stopped - Provider: Rosina Mazariegos RN)0200 (Stopped - Provider: Rosina Mazariegos RN)0318 (Stopped - Provider: Helen Conley RN) metoclopramide (REGLAN) injection 10 mg (COMPLETED) 10 mg, IntraVENous, ONCE, 1 dose, On Tue03/26/24 at 2230, IV Push: Max 10 mg over 1-2 minutes. 2234 (Given - Provider: Helen Conley, RN) ondansetron (ZOFRAN) injection 4 mg (COMPLETED) 4 mg, IntraVENous, ONCE, 1 dose, On Tue03/26/24 at 2029 2023 (Given - Provider: Rosina Mazariegos, ROGELIO) <item> Privacy Markings (unrecogniz ed section and content) Section Author: Loretta Pelletier PROHIBITION ON REDISCLOSURE OF CONFIDENTIAL INFORMATION This notice accompanies a disclosure of information concerning a client made to you with the consent of such client. Care Teams (unrecognized sec tion and content) Team Status: Active Member Role Status Dates Sav Buchanan MD Primary Care Provider Active Team Status: Inactive Member Role Status Dates Sav Buchanan MD Primary Care Provider Active Start: November 05, 2023 End: November 06, 2023 Nga Garcia MD Emergency Provider Active Start: November 05, 2023 End: November 06, 2023 Ranulfo Ghotra MD Admit Provider, Atte nding Provider Active Start: November 05, 2023 End: November 06, 2023 Team Status: Active Member Role Status Dates Sav Buchanan MD Primary Care Provider Active Start: November 05, 2023 Nga Garcia MD Emergency Provider Active Start: November 05, 2023 Ranulfo Ghotra MD Admit Provider, Atte nding Provider Active Start: November 05, 2023 Team Status: Inactive Member Role Status Dates Sav Buchanan MD Primary Care Provider Active Ignacio Nielsen Jr, DO Attending Provider Active Patient Scheduler Relationship Specialty Start Date End Date Stephanie Collins, UNLEAVENED DOUGH MIXER - DIRECTOR OF ANALYTICS [address] [facility] [address] [place] [address] PCP - General Family Nurse Practitioner 10/09/20 Patient Scheduler Relationship Specialty Start Date End Date Stephanie Collins, UNLEAVENED DOUGH MIXER - DIRECTOR OF ANALYTICS [address] [facility] [address] [place] [address] PCP - General Family Nurse Practitioner 10/09/20 Patient Scheduler Relationship Specialty Start Date End Date Stephanie Collins, UNLEAVENED DOUGH MIXER - DIRECTOR OF ANALYTICS [address] [facility] [address] [place] [address] PCP - General Family Nurse Practitioner 10/09/20 Patient Scheduler Relationship Specialty Start Date End Date Sav Buchanan MD [address] [place] [address] PCP - General Family Medicine 10/19/21 Patient Scheduler Relationship Specialty Start Date End Date Sav Buchanan MD [address] [place] [address] PCP - General Family Medicine 10/19/21 Team Status: Inactive Member Role Status Dates Sav Buchanan MD Primary Care Provider Active Arie Tsang PA-C Emergency Provider Active Patient Scheduler Relationship Specialty Start Date End Date Sav Buchanan MD [address] [place] [address] PCP - General Family Medicine 02/01/22 Patient Scheduler Relationship Specialty Start Date End Date Sav Buchanan MD [address] [place] [address] PCP - General Family Medicine 02/01/22 Patient Scheduler Relationship Specialty Start Date End Date Sav Buchanan MD [address] [place] [address] PCP - General Family Medicine 02/01/22 Patient Scheduler Relationship Specialty Start Date End Date Sav Buchanan MD [address] [place] [address] PCP - General Family Medicine 02/01/22 Team Status: Inactive Member Role Status Dates Sav Buchanan MD Primary Care Provider Active Nader Arroyo DO [facility] Attending Provider Active Team Status: Inactive Member Role Status Dates Sav Buchanan MD Primary Care Provider Active Mary Grace Amaro [facility] Emergency Provider Active Team Status: Inactive Member Role Status Dates Sav Buchanan MD Primary Care Provider Active Start: November 05, 2023 End: November 06, 2023 Nga Garcia MD Emergency Provider Active Start: November 05, 2023 End: November 06, 2023 Ranulfo Ghotra MD Attending Provider Active St art: November 05, 2023 End: November 06, 2023 Patient Scheduler Relationship Specialty Start Date End Date Parrish Flores MD [address] [place] [address] PCP - General 03/10/23 Patient Scheduler Relationship Specialty Start Date End Date Parrish Flores MD [address] [place] [address] PCP - General 03/10/23 Patient Scheduler Relationship Specialty Start Date End Date Parrish Flores MD [address] [place] [address] PCP - General 03/10/23 Team Status: Inactive Member Role Status Dates Sav Buchanan MD Primary Care Provider Active Start: January 05, 2024 End: January 05, 2024 Nader Arroyo - [facility] , [facility] Attending Provider Active Start: January 05, 2024 End: January 05, 2024 Patient Scheduler Relationship Specialty Start Date End Date Parrish Flores MD [address] [place] [address] PCP - General 03/10/23 Patient Scheduler Relationship Specialty Start Date End Date Parrish Flores MD [address] [place] [address] PCP - General 03/10/23 Patient Scheduler Relationship Specialty Start Date End Date Parrish Flores MD [address] [place] [address] PCP - General 03/10/23 Patient Scheduler Relationship Specialty Start Date End Date Parrish Flores MD [address] [place] [address] PCP - General 03/10/23 Patient Scheduler Relationship Specialty Start Date End Date Parrish Flores MD [address] [place] [address] PCP - General 03/10/23 Team Status: Active Member Role Status Dates PHYSICIAN NO FAMILY Primary Care Provider Active Team Status: Inactive Member Role Status Dates Sonia Padilla APRN Attending Provider Active Start: January 26, 2024 End: January 26, 2024 Team Status: Active Member Role Status Dates Pasquale Cordero DO Attending Provider Active Sta rt: January 26, 2024 Team Status: Inactive Member Role Status Dates PHYSICIAN NO FAMILY Primary Care Provider Active Start: March 12, 2024 End: March 12, 2024 Agatha Bowling DO Attending Provider Active S tart: March 12, 2024 End: March 12, 2024 Patient Scheduler Relationship Specialty Start Date End Date Parrsih Flores MD [address] [place] [address] PCP - General 03/10/23 Patient Scheduler Relationship Specialty Start Date End Date Parrish Flores MD [address] [place] [address] PCP - General 03/10/23 Goals (unrecognized section and content) Goals may be documented in a n alternate section Ordered Prescriptions (unrec ognized section and content) Prescription Sig Dispensed Refills Start Date End Da te ondansetron (ZOFRAN) 4 MG tablet Take 1 tablet by mouth every 6 hours as needed for Nausea 20 tablet 0 04/23/2022 Prescription Sig Dispensed Refills Start Date End Da te cefdinir (OMNICEF) 300 MG capsule Take 1 capsule by mouth 2 times daily for 7 days 14 capsule 12/22/2023 12/29/2023 Prescription Sig Dispensed Refills Start Date End Da te nitrofurantoin, macrocrystal-monohydrate , (MACROBID) 100 MG capsule Take 1 capsule by mouth 2 times daily for 5 days 10 capsule 02/06/2024 02/11/2024 Prescription Sig Dispensed Refills Start Date End Da te ondansetron (ZOFRAN) 4 MG tablet Take 1 tablet by mouth 3 times daily as needed for Nausea or Vomiting 30 tablet 02/10/2024 metoclopramide (REGLAN) 5 MG tablet Take 1 tablet by mouth in the morning and at bedtime 30 tablet 1 02/10/2024 02/10/2024 FOR RECORDS PERTAINING TO PATIENTS WHO ARE OR HAVE BEEN ENROLLED IN A CHEMICAL DEPENDENCY/SUBSTANCEABUSE PROGRAM, SOME INFORMATION MAY BE OMITTED. This clinical summary was aggregated from multiple sources. Caution should be exercised in using it in the provision of clinical care. This summary normalizes information from multiple sources, and as a consequence, information in this document may materially change the coding, format and clinical context of patient data. In addition, data may be omitted in some cases. CLINICAL DECISIONS SHOULD BE BASED ON THE PRIMARY CLINICAL RECORDS. [employer] provides no warranty or guarantee of the accuracy or completeness of information in this document.
[2024-03-28 20:54] VITALS: BP 123/77; PULSE 108
[2024-03-28 21:41] LABS: Basophils Percent Auto 0.3 % (0.2-2.0); Eosinophils Percent Auto 0.3 % (0.9-7.0); Hematocrit 33.3 % (36.0-48.0); Hemoglobin 11.3 g/dL (12.0-16.0); Immature Granulocytes Abs Auto 0.01 10^3/uL (0.00-0.03); Immature Granulocytes Pct Auto 0.2 % (0.0-0.5); Lymphocytes Absolute Auto 0.7 10^3/uL (1.2-3.8); Lymphocytes Percent Auto 10.7 % (20.5-60.0); Mean Corpuscular HGB Conc 33.9 g/dL (29.9-35.2); Mean Corpuscular Hemoglobin 29.4 pg (26.7-34.0); Mean Corpuscular Volume 86.5 fL (81.0-99.0); Mean Platelet Volume 11.4 fL (9.5-13.5); Monocytes Absolute Auto 0.6 10^3/uL (0.3-0.8); Monocytes Percent Auto 9.9 % (1.7-12.0); Neutrophils Absolute Auto 4.9 10^3/uL (1.4-6.5); Neutrophils Percent Auto 78.6 % (43.0-75.0); Platelet Count 155 10^3/uL (150-450); Red Blood Count 3.85 10^6/uL (4.20-5.40); Red Cell Distribution Width 12.4 % (11.0-15.0); White Blood Count 6.2 10^3/uL (4.0-11.0)
[2024-03-28 21:42] LABS: Bilirubin Urine NEGATIVE (NEGATIVE); Blood Urine MODERATE (NEGATIVE); Clarity Urine CLEAR (CLEAR); Color Urine YELLOW (YELLOW); Glucose Urine UA NEGATIVE (NEGATIVE); Ketones Urine NEGATIVE (NEGATIVE); Leukocyte Esterase Urine TRACE (NEGATIVE); Nitrite Urine NEGATIVE (NEGATIVE); Protein Urine TRACE mg/dL (NEG/TRACE); Specific Gravity Urine 1.025 (1.005-1.025); Urobilinogen Urine 0.2 EU/dL (0.2-1.0); pH Urine 7.5 (5.0-9.0)
[2024-03-28 21:43] LABS: Urine Microscopic Indicated YES
[2024-03-28 21:53] LABS: Bacteria Urine TRACE #/HPF (NONE SEEN); Cast Seen? NONE SEEN #/LPF (NONE SEEN); Crystals Seen? None Seen #/HPF (None Seen); Mucus Urine SMALL (NONE SEEN); RBC Urine 0-2 #/HPF (0-2); Squamous Epithelial Cell Urine FEW #/LPF (NONE/RARE); Urine Culture Indicated NO
[2024-03-28 21:56] LABS: Alanine Aminotransferase 22 U/L (14-59); Albumin Globulin Ratio 0.6; Albumin Level 2.4 g/dL (3.4-5.0); Alkaline Phosphatase 112 U/L (46-116); Anion Gap 14.2; Aspartate Amino Transferase 21 U/L (15-37); BUN Creatinine Ratio 10.8; Bilirubin Total 0.2 mg/dL (0.2-1.0); Calcium 8.4 mg/dL (8.5-10.1); Carbon Dioxide 23.7 mmol/L (21.0-32.0); Chloride 104 mmol/L (98-107); Estimated GFR (African America >60 (>=60 mL/min/1.73m^2); Estimated GFR (Non-African Ame >60 (>=60 mL/min/1.73m^2); Globulin 3.9 g/dL; Glucose 83 mg/dL (74-106); Potassium 3.9 mmol/L (3.5-5.1); Sodium 138 mmol/L (136-145); Total Protein 6.3 g/dL (6.4-8.2)
[2024-03-28 22:24] VITALS: TEMP 36.6
--- NOTE | 2024-03-28 22:27 | US_ITS ---
[address] [address] Patient Name: VENANCIO MOON MRN: [id number] date: 1985 Sex: F Assigned Patient Location: [facility] Current Patient Location: [facility] Accession/Order Number: [id number] Exam Date: 03/28/2024 23:28 Report Date: 03/29/2024 00:30 At the request of: KATARZYNA BORREGO Procedure: US OB placenta Examination:US OB cervical length, US OB placenta INDICATION:Vaginal bleeding COMPARISON:01/26/2024 TECHNIQUE:Transabdominal imaging of the fetus and placenta was performed. Transvaginal imaging of the cervix was obtained. FINDINGS:There is a single live intrauterine gestation in cephalic presentation heartbeat of 150 bpm. The placenta is posterior in location. There is a marginal placenta previa identified on the current examination. Transvaginal imaging of the cervix was obtained. There is no cervical funneling. The cervix is within normal limits measuring 4.16 cm. US/US OB placenta IMPRESSION: 1. Single Live intrauterine gestation in cephalic presentation. The placenta is posterior in location with evidence of marginal placenta previa. 2. The cervix measures 4.16 cm without funneling. Electronically authenticated by: CHRISTOPH NOE Date: 03/29/2024 00:30
--- NOTE | 2024-03-28 22:27 | US_ITS ---
[address] [address] Patient Name: VENANCIO MOON MRN: [id number] date: 1985 Sex: F Assigned Patient Location: [facility] Current Patient Location: [facility] Accession/Order Number: [id number] Exam Date: 03/28/2024 23:28 Report Date: 03/29/2024 00:30 At the request of: KATARZYNA BORREGO Procedure: US OB cervical length Examination:US OB cervical length, US OB placenta INDICATION:Vaginal bleeding COMPARISON:01/26/2024 TECHNIQUE:Transabdominal imaging of the fetus and placenta was performed. Transvaginal imaging of the cervix was obtained. FINDINGS:There is a single live intrauterine gestation in cephalic presentation heartbeat of 150 bpm. The placenta is posterior in location. There is a marginal placenta previa identified on the current examination. Transvaginal imaging of the cervix was obtained. There is no cervical funneling. The cervix is within normal limits measuring 4.16 cm. US/US OB cervical length IMPRESSION: 1. Single Live intrauterine gestation in cephalic presentation. The placenta is posterior in location with evidence of marginal placenta previa. 2. The cervix measures 4.16 cm without funneling. Electronically authenticated by: CHRISTOPH NOE Date: 03/29/2024 00:30
[2024-03-29] VITALS (38 sets, daily range): BP systolic 73–116; BP diastolic 34–64; PULSE 96–107; TEMP 36.1–36.4; O2SAT 90–96
--- NOTE | 2024-03-29 00:16 | PM.OBHP ---
OB - H&P: HPI History of Present Illness Chief complaint: contractions : 4 Para: 1 Gestational age based on last menstrual period: 35wks History of Present Dating criteria: LMP confirmed by 1st trimester US care: good care Ultrasounds: normal 1st trimester US complications: placenta previa Medical complications OB: none Review of Systems ROS Status of ROS: 10 or more systems reviewed and unremarkable except as noted in history and below [facility] Medical History (Updated 03/29/24 @ 00:21 by Alexandro Vazquez DO) Vasovagal syncope ?R55 - Syncope and collapse (ICD-10) POTS (postural orthostatic tachycardia syndrome) ?G90.A - Postural orthostatic tachycardia syndrome [POTS] (ICD-10) Social History Little interest or pleasure in doing things: not at all Feeling down, depressed, or hopeless: not at all Meds Home Medications and Allergies Home Medications ?Medication ?Instructions ?Recorded ?Confirmed ?Type No Known Home Medications 01/26/24 01/26/24 History cyclobenzaprine 5 mg tablet 5 mg PO TID PRN muscle spasm #20 01/27/24 Rx tabs Allergies Allergy/AdvReac Type Severity Reaction Status Date / Time No Known Drug Allergies Allergy Verified 01/26/24 06:59 Exam Constitutional Vital Signs, click to edit/add: Last Vital Signs Temp 97.9 F 03/28/24 22:24 Pulse 108 H 03/28/24 20:54 BP 123/77 03/28/24 20:54 Documenting provider has reviewed patient's vital signs: yes Common normals: alert Respiratory Common normals: clear to auscultation bilaterally Cardio Common normals: regular rate and regular rhythm GI Common normals: Normal to inspection, nondistended, normoactive bowel sounds present Extremity Common normals: no clubbing, cyanosis or edema and no calf tenderness Results Labs Labs: Short CBC 03/28/24 Range/Units 21:21 WBC 6.2 (4.0-11.0) 10^3/uL Hgb 11.3 L (12.0-16.0) g/dL Hct 33.3 L (36.0-48.0) % Plt Count 155 (150-450) 10^3/uL BMP 03/28/24 21:21 Sodium 138 Potassium 3.9 Chloride 104 Carbon Dioxide 23.7 BUN 9.0 Creatinine 0.83 Glucose 83 Calcium 8.4 L Liver Function 03/28/24 Range/Units 21:21 Total Bilirubin 0.2 (0.2-1.0) mg/dL AST 21 (15-37) U/L ALT 22 (14-59) U/L Alkaline Phosphatase 112 (46-116) U/L Albumin 2.4 L (3.4-5.0) g/dL Urine 03/28/24 Range/Units 21:22 Urine Color Yellow (YELLOW) Urine Clarity Clear (CLEAR) Urine pH 7.5 (5.0-9.0) Ur Specific [place] 1.025 (1.005-1.025) Urine Protein Trace (NEG/TRACE) mg/dL Urine Glucose (UA) Negative (NEGATIVE) mg/dL OB - A/P Assessment and Plan (1) Intrauterine : (2) Placenta previa: (3) Placental abruption: Plan iv, routine labs, cont efm, discussed with mfm, not stable for transport, ho placenta previa, will perform c/s, cont sent obtained, desires sterilization
[2024-03-29 00:17] LABS: Amphetamine Screen Urine NEGATIVE (NEGATIVE); Barbiturates Screen Urine NEGATIVE (NEGATIVE); Benzodiazepines Screen Urine NEGATIVE (NEGATIVE); Buprenorphine Screen Urine NEGATIVE (NEGATIVE); Cannabinoid Screen Urine NEGATIVE (NEGATIVE); Cocaine Screen Urine NEGATIVE (NEGATIVE); Methadone Screen Urine NEGATIVE (NEGATIVE); Methamphetamines Screen Urine NEGATIVE (NEGATIVE); Opiate Screen Urine NEGATIVE (NEGATIVE); Oxycodone Screen Urine NEGATIVE (NEGATIVE); Phencyclidine Screen Urine NEGATIVE (NEGATIVE); Tricyclic Antidepressant Urine NEGATIVE (NEGATIVE)
[2024-03-29] MEDS: METOCLOPRAMIDE HCL 10 MG/2 ML VIAL IVP (00:26)
[2024-03-29] MEDS: FAMOTIDINE/PF 20 MG/2 ML VIAL IV (00:27)
[2024-03-29] MEDS: CEFAZOLIN SODIUM/DEXTROSE,ISO 2 GM/50 ML PIGGYBACK IV ×2 (00:30→08:07)
[2024-03-29] MEDS: CITRIC ACID/SODIUM CITRATE 30 ML SOLUTION ORACIT SHOHL'S SOLN PO (00:45)
[2024-03-29] MEDS: LACTATED RINGER'S SOLUTION 1,000 ML 1000 ML IV ×2 (01:21)
--- NOTE | 2024-03-29 01:43 | P.ON_ITS ---
Brief Operative Note Date of procedure: 03/29/24 Pre-op diagnosis general: iup at 35wks, placenta abruption, partial previa, 3rd trimester vaginal bleeding Post-op diagnosis: same as pre-op Procedure: NAME OF PROCEDURE: [ section with lt salpingectomy ] PROCEDURE: Patient was taken back to the Operating Room where she was given a spinal anesthesia with Duramorph without difficulty. She was prepped and draped in the normal sterile fashion. A Pfannenstiel skin incision was then made 2?cm above the symphysis pubis and carried down to underlying rectus fascia using a Bovie. The fascia was incised in the midline and extended laterally using Carmen scissor s. Two Reji clamps were placed on the superior aspect of the fascia and dissected off the underlying rectus muscles. The same was performed on the inferior aspect as well. The muscles were then in the midline. Peritoneum was identified and entered bluntly. The peritoneum was then extended superiorly and inferiorly with good visualization of the bladder. The bladder blade was inserted. Vesicouterine peritoneum was identified, tented up, and entered with Metzenbaum scissors. A bladder flap was then created digitally. The bladder blade was reinserted. A low transverse incision was made on the patient's uterus and extended laterally digitally. The infant was then delivered atraumatically after the bladder blade was removed in the cephalic position. The cord was clamped and cut. Cord blood was obtained. The infant was handed off to awaiting team. The patient's placenta was spontaneously delivered. The uterus was then exteriorized. The uterus was cleared of all clots and debris. The bladder blade was reinserted. The patient's uterine incision was closed using #0 Vicryl in a running lock fashion. Excellent hemostasis was assured.? The lt tube was identified and grasped with babock, the ligasure was used to transect and ligate the tube in its entirity. The uterus was then returned to the patient's abdomen. The patient's abdomen was copiously irrigated using warm saline. Peritoneal gutters were cleared of all clots and debris. Again excellent hemostasis was assured. The patient's fascia was closed using #0 Vicryl in a running fashion. The patient's skin was closed using 4-0 Vicryl subcuticularly. The patient tolerated the procedure well. Sponge, lap, and needle counts were correct x2. The patient was taken to the Recovery Room in stable condition. Anesthesia: spinal Surgeon: Alexandro Vazquez [employer] Attendant: Jumana Del Cid Estimated blood loss (mL): 575 Pathology: other (placenta, lt tube) Condition: stable Disposition: PACU Urinary Catheter Management Urinary Catheter Management Urethral: Cath placed during this visit: no
--- NOTE | 2024-03-29 01:48 | PM.OBPRCCS ---
Procedure Pre-op/Post-op diagnoses: Pre-Op/Post-Op Diagnoses Operation Date: 03/29/24 00:30 <No data on this case meets the specified criteria> Procedure: Procedures Operation Date: 03/29/24 00:30 Actual Procedure Side Surgeon p with delivery of viable baby girl and left salpingectomy Not Applicable Alexandro Vazquez DO Customer Complaint Service Supervisor: Jumana Del Cid Estimated blood loss (mL): 575 Disposition: PACU Anesthesia type: Spinal
[2024-03-29] MEDS: OXYTOCIN/0.9 % SODIUM CHLORIDE 20 UNITS/1,000 ML PLAST..BAG 125 UNIT IV (02:15)
--- NOTE | 2024-03-29 03:11 | PC.NURSE ---
IV SITE PATENT
--- NOTE | 2024-03-29 03:15 | PC.NURSE ---
Pericare given; clean chux and diaper applied. IV site patent.
[2024-03-29] MEDS: ONDANSETRON PF 4 MG/2 ML VIAL IV (03:54)
--- NOTE | 2024-03-29 04:40 | PC.NURSE ---
Pt. c/o nausea and dizziness, remains supine in wheelchair at 's bedside. Cool wash cloth given, has small emesis. Color pink. Pt. denies further needs.
[2024-03-29] MEDS: 0.9 % SODIUM CHLORIDE 1,000 ML 125 ML IV (05:00)
[2024-03-29] MEDS: KETOROLAC TROMETHAMINE 30 MG/ML VIAL IVP (08:09)
[2024-03-29] MEDS: ACETAMINOPHEN 500 MG TABLET 1000 MG PO (09:46)
[2024-03-29] MEDS: PROMETHAZINE HCL 25 MG in 0.9 % SODIUM CHLORIDE 50 ML 204 MG IV (09:46)
[2024-03-29] MEDS: SERTRALINE HCL 50 MG TABLET PO (09:46)
--- NOTE | 2024-03-29 15:18 | SWNOTE1 ---
SW received a call from nurse in [facility] in regards to concern for pt's safety. SW came back to speak with nurse. Nurse was in pt's room and we spoke in the room with pt. Pt had a emergency last night. Baby was transferred to [facility]. Father of baby and pt are not together anymore and he is upset that he was not here for and has been calling and yelling at pt. Father of baby then was able to get in to the [facility] without a band and sent pt pictures of baby. Pt has been very upset about this and was not sure how he got in to NICU without the band he needed. The [facility] nurse has spoke to [facility] and since then he was been escorted out. Pt also upset that the [facility] has not put the monitors up in the baby's room so she can see baby. SW spoke with just patient in room. She did let SW know that her and the father of the baby have broken up about 2 months ago as he was cheating on her. She stated he has a new girlfriend and she has only spoken to him a few times within the last month. She stated he is upset that he was not here for and very upset that she took picture holding the baby. She stated that everything was so fast she did not have time to call him and that she barely made it back to room before baby had to be transferred. She stated the let her hold her quickly before she was sent to [facility]. Pt crying during conversation. SW expressed to pt that it sounded as though everything happened quickly and it was most important to have baby taken care of and herself. SW asked pt if she lived with anyone. She stated her 15 year old daughter. SW asked if she had good support. She stated her own father was a very good support. SW asked if she felt safe for once she is discharged and she stated yes and has good support. SW did suggest maybe not responding to father of baby at this time and allow someone in her family to speak with him with updates. Therefore she can focus on her recovery and seeing her baby. Pt also very upset with the NICU. SW exprssed that she can always ask to speak with the director of NICU once she gets to [facility] to get further answers. Pt did ask if SW would call the NICU with her about monitors. SW called and spoke to NICU nurse and she is aware and she voiced it may not be up until this evening. SW let pt know that SW will call the SW at the NICU and check. At this time Dr. Vazquez came in to speak with pt. TYRONE called Malaika the SW at NICU and she was aware of the situation about the father and the monitors. She stated that they have to put in a ticket about the monitors, but she will go check on the situation again. TYRONE stopped back in to speak with pt and the plan for now is for pt to be dc around 5:00 and go see baby and then stay with her sister in [facility]. Her father will pick her up. Pt was having trouble getting ahold of her sister. TYRONE advised pt to call her if she needs any assistance. At this time no further needs.
[2024-03-29 15:59] LABS: Hematocrit 27.4 % (36.0-48.0); Hemoglobin 9.3 g/dL (12.0-16.0); Immature Granulocytes Abs Auto 0.02 10^3/uL (0.00-0.03); Immature Granulocytes Pct Auto 0.3 % (0.0-0.5); Lymphocytes Absolute Auto 0.4 10^3/uL (1.2-3.8); Lymphocytes Percent Auto 6.3 % (20.5-60.0); Mean Corpuscular HGB Conc 33.9 g/dL (29.9-35.2); Mean Corpuscular Volume 88.4 fL (81.0-99.0); Mean Platelet Volume 10.8 fL (9.5-13.5); Monocytes Absolute Auto 0.4 10^3/uL (0.3-0.8); Monocytes Percent Auto 6.2 % (1.7-12.0); Neutrophils Absolute Auto 5.1 10^3/uL (1.4-6.5); Neutrophils Percent Auto 87.2 % (43.0-75.0); Platelet Count 105 10^3/uL (150-450); Red Cell Distribution Width 12.6 % (11.0-15.0); White Blood Count 5.8 10^3/uL (4.0-11.0)
[2024-03-29] MEDS: AZITHROMYCIN 250 MG TABLET 500 MG PO (16:49)
== END 2024-03-29 17:10 | disposition home or self-care (01) | DRG 539 ==
PROVIDERS: Admitting Provider Obstetrics & Gynecology; Visit Provider Obstetrics & Gynecology
PROC: 10D00Z1 Extraction of Products of Conception, Low, Open Approach (ICD-10-PCS; CPT 59514; principal; 2024-03-29 00:30)
DX: O45.93 Premature separation of placenta, unspecified, third trimester (principal); O44.33 Partial placenta previa with hemorrhage, third trimester; Z3A.35 35 weeks gestation of pregnancy; Z37.0 Single live birth; O99.214 Obesity complicating childbirth; E66.01 Morbid (severe) obesity due to excess calories; Z86.14 Personal history of Methicillin resistant Staphylococcus aureus infection; Z87.891 Personal history of nicotine dependence
CPT/HCPCS: 36415; 51702; 64488; 76815; 76817; 80053; 80307; 81001; 82565; 85025; 85027; 86850; 86900; 86901; 88307; 94667; J0131; J0665; J0690; J1100; J1885; J2274; J2371; J2405; J2550; J2765